=== PATIENT | female | born 1980 | race Caucasian/White ===

== ENCOUNTER 2022-10-16 11:28 | Inpatient (IN) ==
[2022-10-16] MEDS ORDERED: SODIUM CHLORIDE 0.9% 1000ML 1,000 ML IV STA (11:40)
[2022-10-16] MEDS ORDERED: GI COCKTAIL ED USE PO ONE (11:50)
[2022-10-16] MEDS ORDERED: FAMOTIDINE 20MG IV PUSH 20 MG/5 ML SYR IV STA (11:50)
--- NOTE | 2022-10-16 12:14 | Emergency Department Note ---
History of Present Illness General Chief complaint: Abdominal Pain Stated complaint: ABDOMINAL PAIN, CANT EAT, ABDOMINAL PAIN, HEADACHE Time Seen by Provider: 10/16/22 11:39 History of Present Illness Maximum Pain Intensity: 2 This 42-year-old female patient presents to the emergency department today for evaluation of abdominal pain. This has been going on for about a week. She reports a burning and sharp sensation in her epigastrium. It radiates to the left and right. The patient states when she eats even a cracker, he just "sits there" and she feels that the pain sometimes worsens. She does also notice worsening pain with an empty stomach. Patient denies history of similar symptoms. She has tried Tums without relief. She has also taken Tylenol without relief. Patient denies any chest pain or shortness of breath. She does report a chronic cough but this is unchanged. She denies any recent fever or illness. No nausea or vomiting. No diarrhea or constipation. She rates her pain at present a 2/10. She states she has been sleeping and lying flat more often recently than usual. Home Medications Medication Instructions Recorded Confirmed Type Multivit/Min/Iron/Fol Ac/Pren 1 tab PO DAILY ##0 05/20/10 History ( Vitamin) Sertraline (Zoloft) 50 mg PO DAILY ##0 05/20/10 History Acetaminophen/Codeine (Tylenol 1 tab PO Q4HR PRN ##0 06/13/10 History W/Codeine #3) Ibuprofen (Motrin) 600 mg PO Q4HR PRN ##0 06/13/10 History Allergies Allergy/AdvReac Type Severity Reaction Status Date / Time Penicillins Allergy HIVES Unverified 05/20/10 19:31 Sulfa (Sulfonamide Allergy HIVES Unverified 05/20/10 19:31 Antibiotics) Past Med/Surg History Medical History No pertinent past medical history Social History Smoking Status: Current every day smoker Feels Safe at Home: Yes Review of Systems A total of 10 systems reviewed and were otherwise negative Physical Exam Vital Signs Vital Signs - 24 hr 10/16/22 11:34 10/16/22 12:43 10/16/22 12:17 Temperature 36.5 C Temperature Source Temporal Artery Scan Pulse Rate 116 H 91 H Pulse Rate [Finger] 100 H Pulse Rate from SpO2 Sensor 91 H Pulse Rhythm Regular Pulse Rhythm [Finger] Regular Pulse Strength Normal Pulse Strength [Finger] Normal Respiratory Rate 20 20 25 H Respiratory Effort / Characteristics Non-Labored Spontaneous Non-Labored Spontaneous Respiratory Depth Normal Normal Respiratory Pattern Regular Blood Pressure [Left Arm] 288/168 H Blood Pressure Mean [Left Arm] 208 Blood Pressure Position [Left Arm] Lying Pulse Oximetry 99 99 98 Oxygen Delivery Method Room Air Sepsis Recent Fever Within 48 Hours No Sepsis New/Unexplained Change in Mental Status N/A Sepsis Action Taken by Nursing No Action Required 10/16/22 12:30 10/16/22 13:07 10/16/22 14:55 Temperature Temperature Source Pulse Rate 91 H Pulse Rate [Finger] Pulse Rate from SpO2 Sensor 91 H Pulse Rhythm Pulse Rhythm [Finger] Pulse Strength Pulse Strength [Finger] Respiratory Rate 16 Respiratory Effort / Characteristics Respiratory Depth Respiratory Pattern Blood Pressure [Left Arm] 275/150 H 282/145 H Blood Pressure Mean [Left Arm] 191 190 Blood Pressure Position [Left Arm] Lying Pulse Oximetry 100 Oxygen Delivery Method Sepsis Recent Fever Within 48 Hours Sepsis New/Unexplained Change in Mental Status Sepsis Action Taken by Nursing VITALS: Vitals are noted on the nurse's note and reviewed by myself. Vital signs stable. GENERAL: This is a 42-year-old white female, in no acute distress, nondiaphoretic, well-developed well-nourished. SKIN: The skin was without rashes, erythema, edema, or bruising. There is no tenting of the skin. Capillary refill less than 2 seconds. HEAD: Normocephalic atraumatic. EYES: Conjunctivae without injection, sclerae without icterus. NECK: Supple without nuchal rigidity. No lymphadenopathy. No JVD. HEART: Regular rate and rhythm without murmurs gallops or rubs. LUNGS: Clear to auscultation bilaterally without wheezes, rales or rhonchi. No retractions or accessory muscle use. ABDOMEN: Positive bowel sounds x 4. Epigastric, right upper quadrant, left upper quadrant tenderness to palpation. Abdomen is otherwise soft, nontender, without masses or organomegaly. Tabares sign negative. No guarding or rebound tenderness. MUSCULOSKELETAL: No muscle atrophy, erythema, or edema noted. Full range of motion without joint tenderness in all extremities. No tenderness to palpation. Normal gait. Strength 5/5 throughout. NEURO: Patient was alert and oriented to person place and time. No focal neurological deficits. Course Course The patient was seen and evaluated as above. An order was placed for continuous cardiac monitoring. The monitor shows a sinus tachycardia at a rate of 116 bpm. IV access obtained, labs drawn. Patient medicated with IV fluids, GI cocktail, Pepcid I did manually check the blood pressure. Blood pressure significantly elevated at 288/165. Labs reviewed by myself. I discussed the case with my attending physician. The patient was medicated with 10 mg IV hydralazine while at ultrasound. Imaging performed and reviewed by myself and radiologist as noted. I discussed the findings with the patient at bedside. The patient was reassessed. Blood pressure has slightly improved to 275/150 I discussed the case with the manager payroll I discussed the case with the [facility] hospitalist group. I spoke with Rose Mary Purcell PA-C. We did agree to give the patient a dose of IV labetalol and will give her a p.o. dose of potassium. Hospitalist did agree to accept the patient for admission. Please see hospitalist dictation regarding ongoing management care of this patient. Administered Medications Discontinued Medications Al Hydrox/Mg Hydrox/Simethicone (Gi Cocktail Ed Use) 1 dose PO ONE ONE Stop: 10/16/22 11:51 Last Admin: 10/16/22 12:21 Dose: 1 dose Documented By: [id number] Hydralazine HCl (Hydralazine Hcl 20 Mg/Ml Vial) 10 mg IV NOW STA Stop: 10/16/22 12:54 Last Admin: 10/16/22 13:05 Dose: 10 mg Documented By: [email or web address] Sodium Chloride (Nss 1000ml) 1,000 mls @ 999 mls/hr IV .Q1H1M STA Stop: 10/16/22 12:40 Last Infusion: 10/16/22 12:55 Dose: 0 mls/hr Documented By: [id number] Admin: 10/16/22 11:50 Dose: 999 mls/hr Documented By: [id number] Famotidine (Pepcid 20mg Iv Push) 20 mg in 5 mls @ 2.5 mls/min IV NOW STA Stop: 10/16/22 11:51 Last Admin: 10/16/22 12:21 Dose: 2.5 mls/min Documented By: [id number] Labetalol HCl (Labetalol Hcl Iv 5 Mg/Ml 20ml) 10 mg IV NOW STA Stop: 10/16/22 14:01 Last Admin: 10/16/22 14:15 Dose: 10 mg Documented By: [id number] Co-signed By: CARROLL Potassium Chloride (Potassium Chloride Crtab 20 Meq Tabcr) 40 meq PO NOW STA Stop: 10/16/22 14:02 Last Admin: 10/16/22 14:54 Dose: Not Given Documented By: [id number] Medical Decision Making Differential Diagnosis Etiologies such as diverticulitis, renal colic, PUD, biliary pathology, pancreatitis, mesenteric ischemia, aortic pathology, infections, Benign hypertension, hypertensive emergency, cardiovascular pathology, toxicologic, pheochromocytoma, electrolyte abnormality, renal disease, endorgan damage, as well as other pathologies. Medical Records Attestation: I reviewed the patient's medical records. Home Medications Current Medication List: was personally reviewed by me Laboratory Data Attestation: I reviewed the patient's lab results. No leukocytosis. Mild anemia with a hemoglobin of 10.2 and hematocrit of 28.1. No thrombocytopenia. Creatinine elevated at 5.23. Potassium 2.8. Hepatic function without significant abnormality. Lipase 68. Troponin 168.5. hCG negative. Result diagrams: 10/16/22 11:50 10/16/22 11:50 Lab Results 10/16/22 10/16/22 10/16/22 Range/Units 11:50 11:50 11:50 WBC 6.66 (4.8-10.8) K/ul RBC 3.01 L (3.93-5.22) M/uL Hgb 10.2 L (12.0-16.0) g/dl Hct 28.1 L (34.1-44.9) % MCV 93.4 (80.0-100.0) fL MCH 33.9 (25.0-34.0) pg MCHC 36.3 H (32.0-36.0) g/dL RDW Std Deviation 42.0 (36.4-46.3) fL RDW Coeff of Vy 12.3 (11.5-14.5) % Plt Count 220 (130-400) K/uL MPV 11.4 (9.4-12.3) fL Immature Gran % (Auto) 0.3 % Neut % (Auto) 80.5 % Lymph % (Auto) 10.5 % [place] % (Auto) 6.2 % Eos % (Auto) 2.0 % Baso % (Auto) 0.5 % Neut # (Auto) 5.37 (1.4-6.5) K/uL Lymph # (Auto) 0.70 L (1.2-3.4) K/uL [place] # (Auto) 0.41 (0.24-0.82) K/uL Eos # (Auto) 0.13 (0-0.50) K/uL Baso # (Auto) 0.03 (0-0.2) K/uL Immature Gran # (Auto) 0.02 (0.00-0.02) K/uL Sodium 132 L (136-145) mmol/L Potassium 2.8 L (3.5-5.1) mmol/L Chloride 89 L (98-107) mmol/L Carbon Dioxide 29 (21-32) mmol/L Anion Gap 14 H (3-11) BUN 52 H (6-23) mg/dl Creatinine 5.23 H* (0.6-1.2) mg/dl Est Cr Clr Drug Dosing 15.0 ml/min Est GFR ( Amer) 10.7 ml/min Est GFR (Non-Af Amer) 9.3 ml/min BUN/Creatinine Ratio 9.9 L (10-20) Glucose 119 H (70-99(Fasting)) mg/dl Calcium 10.1 (8.5-10.1) mg/dl Total Bilirubin 1.1 H (0.2-1.0) mg/dl AST 20 (13-39) U/L ALT 45 (7-52) U/L Alkaline Phosphatase 67 (34-104) U/L Troponin I High Sens 168.5 H* (0-14) pg/ml Total Protein 7.7 (6.0-8.3) gm/dl Albumin 4.5 (3.4-5.0) gm/dl Globulin 3.2 (2.5-4.0) gm/dl Albumin/Globulin Ratio 1.4 (0.9-2) Lipase 68 (11-82) U/L HCG, Qual Negative (Negative) Urine Color Urine Appearance (Clear) Urine pH (4.5-7.5) Ur Specific [place] (1.000-1.030) Urine Protein (Negative) Urine Glucose (UA) (Negative) Urine Ketones (Negative) Urine Blood (Negative) Urine Nitrite (Negative) Urine Bilirubin (Negative) Urine Urobilinogen (Negative) Ur Leukocyte Esterase (Negative) Urine WBC (Auto) (0-5) /hpf Urine RBC (Auto) (0-4) /hpf U Hyaline Cast (Auto) (0-5) /lpf U Epithel Cells (Auto) (0-5) /lpf Urine Bacteria (Auto) (Negative) 10/16/22 Range/Units 14:20 WBC (4.8-10.8) K/ul RBC (3.93-5.22) M/uL Hgb (12.0-16.0) g/dl Hct (34.1-44.9) % MCV (80.0-100.0) fL MCH (25.0-34.0) pg MCHC (32.0-36.0) g/dL RDW Std Deviation (36.4-46.3) fL RDW Coeff of Vy (11.5-14.5) % Plt Count (130-400) K/uL MPV (9.4-12.3) fL Immature Gran % (Auto) % Neut % (Auto) % Lymph % (Auto) % [place] % (Auto) % Eos % (Auto) % Baso % (Auto) % Neut # (Auto) (1.4-6.5) K/uL Lymph # (Auto) (1.2-3.4) K/uL [place] # (Auto) (0.24-0.82) K/uL Eos # (Auto) (0-0.50) K/uL Baso # (Auto) (0-0.2) K/uL Immature Gran # (Auto) (0.00-0.02) K/uL Sodium (136-145) mmol/L Potassium (3.5-5.1) mmol/L Chloride (98-107) mmol/L Carbon Dioxide (21-32) mmol/L Anion Gap (3-11) BUN (6-23) mg/dl Creatinine (0.6-1.2) mg/dl Est Cr Clr Drug Dosing ml/min Est GFR ( Amer) ml/min Est GFR (Non-Af Amer) ml/min BUN/Creatinine Ratio (10-20) Glucose (70-99(Fasting)) mg/dl Calcium (8.5-10.1) mg/dl Total Bilirubin (0.2-1.0) mg/dl AST (13-39) U/L ALT (7-52) U/L Alkaline Phosphatase (34-104) U/L Troponin I High Sens (0-14) pg/ml Total Protein (6.0-8.3) gm/dl Albumin (3.4-5.0) gm/dl Globulin (2.5-4.0) gm/dl Albumin/Globulin Ratio (0.9-2) Lipase (11-82) U/L HCG, Qual (Negative) Urine Color Yellow Urine Appearance Clear (Clear) Urine pH 7.0 (4.5-7.5) Ur Specific [place] 1.011 (1.000-1.030) Urine Protein 3+ H (Negative) Urine Glucose (UA) Negative (Negative) Urine Ketones Trace H (Negative) Urine Blood 3+ H (Negative) Urine Nitrite Negative (Negative) Urine Bilirubin Negative (Negative) Urine Urobilinogen Negative (Negative) Ur Leukocyte Esterase Trace H (Negative) Urine WBC (Auto) 10-30 H (0-5) /hpf Urine RBC (Auto) >30 H (0-4) /hpf U Hyaline Cast (Auto) 1-5 (0-5) /lpf U Epithel Cells (Auto) 20-30 H (0-5) /lpf Urine Bacteria (Auto) Negative (Negative) Imaging Data Radiologist's Impression: Chest X-Ray 10/16/22 11:40 SINGLE VIEW CHEST CLINICAL HISTORY: Epigastric abdominal pain FINDINGS: An AP, portable, upright chest radiograph is obtained. No prior studies are available for comparison at the time of dictation. The cardiomediastinal silhouette there is enlarged. The lungs and pleural spaces are clear. No pneumothorax is seen. The bony thorax is grossly intact. IMPRESSION: 1. Enlarged cardiac silhouette. 2. There is no airspace consolidation or pleural effusion. ACT 112: Negative or not required by law. Electronically signed by: Stu Aguiar M.D. 10/16/2022 12:14 PM Abdomen Ultrasound 10/16/22 11:50 ABDOMINAL ULTRASOUND, RIGHT UPPER QUADRANT HISTORY: epigastric/RUQ pain. COMPARISON: None. FINDINGS: Pancreas: The pancreas visualized demonstrates a normal echotexture. Liver: Nodular contour to the liver consistent with cirrhosis. The liver measures 20 cm in length. There is a 1.9 cm hyperechoic focus within the left hepatic lobe near the falciform ligament. This favors an area of focal fat given the location. Gallbladder: There are few gallbladder polyps measuring up to 6 mm. Trace gallbladder sludge. No definite gallstones. No gallbladder wall thickening. CBD: 4 mm. Right kidney: No hydronephrosis. IMPRESSION: 1. Enlarged and cirrhotic liver. There is a 1.9 cm hyperechoic focus within left hepatic lobe which favors focal fat. However, given the cirrhosis a follow-up nonemergent abdominal MRI is recommended for confirmation. 2. A few gallbladder polyps measuring up to 6 mm. One year follow-up recommended to ensure stability. 3. No gallstones. 4. Normal caliber common bile duct. ACT 112: Negative or not required by law. Electronically signed by: Jericho Rivera M.D. 10/16/2022 1:30 PM Abdominal Arterial Study US 10/16/22 13:00 US abdominal aortic aneurysm CLINICAL HISTORY: Generalized abdominal pain. Hypertension. Assess for an abdominal aortic aneurysm. COMPARISON STUDY: None. FINDINGS: The abdominal aorta and iliac arteries are normal in course and caliber. Abdominal aorta measures up to 1.7 cm in diameter. IMPRESSION: No evidence for abdominal aortic aneurysm. ACT 112: Negative or not required by law. Electronically signed by: Jericho Rivera M.D. 10/16/2022 1:28 PM ECG Data Attestation: I personally reviewed and interpreted this ECG as follows: Indication: + abdominal pain Rate (beats per minute): 102 Rhythm: + sinus tachycardia ECG Intervals/blocks: + Incomplete right bundle branch block ECG [place]: + Left axis deviation ECG ST segments: no ST depression or no ST elevation Comparison ECG Date: no prior available Blood Pressure Blood Pressure Findings: Elevated blood pressure Blood Pressure Disposition: further management by hospitalist MARILUZ Marquez This 42-year-old female patient presents to the emergency department today for evaluation of epigastric pain. Upon arrival to the emergency department, the patient was found to have an extremely elevated blood pressure. Work-up completed as above. Labs were concerning for elevated creatinine of 5 and elevated troponin. Given these findings in the setting of the significantly elevated blood pressure, and concern for hypertensive emergency and recommended the patient be admitted to the hospital for further management. The patient was medicated with hydralazine and subsequently labetalol with minimal improvement in her blood pressure. The patient was agreeable to admission. She will be admitted to the [facility] hospitalist service. Please see hospitalist dictation regarding ongoing management care of this patient. The chart was completed utilizing [employer] Speech voice recognition software. Grammatical errors, random word insertions, pronoun errors, and incomplete sentences are an occasional consequence of this system due to software limitations, ambient noise, and hardware issues. Any formal questions or concerns about the content, text, or information contained within the body of this dictation should be directly addressed to the provider for clarification. Impression & Plan Acute epigastric pain, Hypertensive emergency Discharge Plan Visit Data Chief Complaint: Abdominal Pain Stated Complaint: ABDOMINAL PAIN, CANT EAT, ABDOMINAL PAIN, HEADACHE ED Provider: Kandace Epstein ED Midlevel Provider: Nanda Thurston Discharge Problem: Acute epigastric pain, Hypertensive emergency Patient Disposition: Admitted As Inpatient Forms Stand Alone Forms: TellApart Prescriptions Prescriptions: No Action Multivit/Min/Iron/Fol Ac/Pren ( Vitamin) tablet 1 tab PO DAILY Qty: 0 Sertraline (Zoloft) 50 MG tablet 50 mg PO DAILY Qty: 0 Acetaminophen/Codeine (Tylenol W/Codeine #3) 300 MG/30 MG tablet 1 tab PO Q4HR PRN Qty: 0 Ibuprofen (Motrin) 600 MG tablet 600 mg PO Q4HR PRN Qty: 0 Referrals Referrals: PCP,NO [Primary Care Provider] -
[2022-10-16 12:23] LABS: Basophils # (auto) 0.03 K/uL (0-0.2); Basophils % (auto) 0.5 %; Eosinophils # (auto) 0.13 K/uL (0-0.50); Hematocrit (blood only) 28.1 % (34.1-44.9); Hemoglobin 10.2 g/dl (12.0-16.0); Immature Granulocytes # (auto) 0.02 K/uL (0.00-0.02); Immature Granulocytes % (auto) 0.3 %; Lymphocytes % (auto) 10.5 %; Mean Corpuscular Hemoglobin 33.9 pg (25.0-34.0); Mean Corpuscular Hgb Conc 36.3 g/dL (32.0-36.0); Mean Corpuscular Volume 93.4 fL (80.0-100.0); Mean Platelet Volume 11.4 fL (9.4-12.3); Monocytes # (auto) 0.41 K/uL (0.24-0.82); Monocytes % (auto) 6.2 %; Neutrophils # (auto) 5.37 K/uL (1.4-6.5); Neutrophils % (auto) 80.5 %; Platelet Count 220 K/uL (130-400); RDW Coefficient of Variation 12.3 % (11.5-14.5); Red Blood Count 3.01 M/uL (3.93-5.22); White Blood Count 6.66 K/ul (4.8-10.8)
[2022-10-16 12:40] LABS: Pregnancy Test, Serum Negative (Negative)
[2022-10-16 12:49] LABS: Albumin Globulin Ratio 1.4 (0.9-2); Albumin Level 4.5 gm/dl (3.4-5.0); BUN Creatinine Ratio 9.9 (10-20); Bilirubin,Total 1.1 mg/dl (0.2-1.0); Calcium 10.1 mg/dl (8.5-10.1); Est GFR (African American) 10.7 ml/min; Est GFR (Non-African American) 9.3 ml/min; Globulin 3.2 gm/dl (2.5-4.0); Potassium 2.8 mmol/L (3.5-5.1); Total Protein 7.7 gm/dl (6.0-8.3)
[2022-10-16] MEDS ORDERED: hydrALAZINE HCL 20 MG/ML VIAL IV STA ×2 (12:53→16:14)
[2022-10-16 13:16] LABS: Troponin I High Sensitivity 168.5 pg/ml (0-14)
--- NOTE | 2022-10-16 13:29 | Ultrasound Report ---
US abdominal aortic aneurysm CLINICAL HISTORY: Generalized abdominal pain. Hypertension. Assess for an abdominal aortic aneurysm. COMPARISON STUDY: None. FINDINGS: The abdominal aorta and iliac arteries are normal in course and caliber. Abdominal aorta me asures up to 1.7 cm in diameter. IMPRESSION: No evidence for abdominal aortic aneurysm. ACT 112: Negative or not required by law. Electronically signed by: Jericho Rivera M.D. 10/16/2022 1:28 PM
--- NOTE | 2022-10-16 13:31 | Ultrasound Report ---
ABDOMINAL ULTRASOUND, RIGHT UPPER QUADRANT HISTORY: epigastric/RUQ pain. COMPARISON: None. FINDINGS: Pancreas: The pancreas visualized demonstrates a normal echotexture. Liver: Nodular contour to the liver consistent with cirrhosis. The liver measures 20 cm in length. Th ere is a 1.9 cm hyperechoic focus within the left hepatic lobe near the falciform ligament. This favo rs an area of focal fat given the location. Gallbladder: There are few gallbladder polyps measuring up to 6 mm. Trace gallbladder sludge. No defi nite gallstones. No gallbladder wall thickening. CBD: 4 mm. Right kidney: No hydronephrosis. IMPRESSION: 1. Enlarged and cirrhotic liver. There is a 1.9 cm hyperechoic focus within left hepatic lobe which f avors focal fat. However, given the cirrhosis a follow-up nonemergent abdominal MRI is recommended fo r confirmation. 2. A few gallbladder polyps measuring up to 6 mm. One year follow-up recommended to ensure stability. 3. No gallstones. 4. Normal caliber common bile duct. ACT 112: Negative or not required by law. Electronically signed by: Jericho Rivera M.D. 10/16/2022 1:30 PM
[2022-10-16] MEDS ORDERED: LABETALOL HCL IV 5 MG/ML 20ML IV STA ×2 (14:00→16:15)
[2022-10-16] MEDS ORDERED: POTASSIUM CHLORIDE CRTAB 20 MEQ TABCR PO STA (14:01)
[2022-10-16 14:52] LABS: Appearance Urine Clear (Clear); Bacteria Urine Automated Negative (Negative); Bilirubin Urine Negative (Negative); Blood Urine 3+ (Negative); Color Urine Yellow; Epithelial Cell Urine Auto 20-30 /lpf (0-5); Glucose Urine UA Negative (Negative); Ketones Urine Trace (Negative); Leukocyte Esterase Urine Trace (Negative); Nitrite Urine Negative (Negative); Protein Urine 3+ (Negative); RBC Urine Automated >30 /hpf (0-4); Specific Gravity Urine 1.011 (1.000-1.030); Urobilinogen Urine Negative (Negative)
[2022-10-16] MEDS ORDERED: POTASSIUM CHLORIDE 20 MEQ/15 ML UDC PO STA (15:04)
[2022-10-16] MEDS ORDERED: STAT IV Infusion **Titration per Protocol STA (15:11)
--- NOTE | 2022-10-16 15:41 | Critical Care Consultation ---
Date of Consultation October 16, 2022 Assessment & Plan (1) Hypertensive emergency: (2) Acute renal failure: (3) Hypokalemia: (4) Anemia: (5) Non-ST elevation myocardial infarction (NSTEMI): (6) Abdominal pain: Plan Impression: 42-year-old female without significant past medical history presents for evaluation of abdominal pain and found to have profound hypertensive emergency with associated renal failure. She was unresponsive to labetalol and hydralazine in the emergency room. Recommendations: 1. Neurologic: Fortunately the patient does not have neurological symptoms currently. We will continue to follow clinically. Given the fact that were not sure how long her blood pressure has been elevated, will attempt to acutely lower her blood pressure below systolic of 100 and try and maintain it around 180. 2. Cardiovascular: Hypertensive emergency: Initiate nicardipine with blood pressure parameters as noted above. Check echocardiogram. Trend troponins. Will start oral medications in the form of metoprolol. Check echocardiogram. 3. Pulmonary: No current issues. Continue to monitor at this point time. 4. Renal: Acute renal failure with associated hypokalemia: Suspect related to hypertension. Continue serial lab evaluations with electrolyte repletion. She appears euvolemic currently. Judicious use of IV fluids. Nephrology consultation pending. Urinalysis showed 3+ blood and 3+ protein. There were significant epithelial cells noted and it may have been a contaminated specimen. We will check renal ultrasound. Judiciously replace potassium and follow sodium levels. Close attention to I/O. 5. GI: Abdominal pain. Unclear if this is related to the patient's acute renal failure. Advance diet as tolerated. Nodular liver noted on ultrasound possibly consistent with cirrhosis. Follow clinically. LFTs normal. Lipase negative. 6. ID: No current issues. Continue to follow clinically. 7. Endocrine: No current issues. 8. Heme-onc: Anemia: Unclear etiology. May be secondary to renal failure. No signs of bleeding. No indication for transfusion currently but will continue to follow. 9. Prophylaxis: DVT prophylaxis with subcu heparin. Hold GI prophylaxis for now. Patient is critically ill with significant metabolic dysfunction and possibility of clinical decline. She will be monitored closely in the ICU pending improvement of her hemodynamics and metabolic abnormalities. The above recommendations and plan were discussed with the patient as well as with her at bedside. Questions were answered to the best of my ability. They expressed understanding and are in agreement with plan as outlined. History of Present Illness History of Present Illness Asked by hospitalist to assist in evaluation management this patient with hy pertensive emergency. History is obtained from discussion with the hospitalist, reviewed electronic medical record, and interviewed the patient and spouse at bedside. The patient is a 42-year-old female who smokes about half pack per day. She does not seek medical attention on a regular basis. She has no prior history of kidney problems that she is aware of. She was diagnosed with gestational diabetes but is not on any medications. She presented to the emergency room today thinking that she had gastritis. She had abdominal pain and dry cough. She had tried [id number] and acids as well as Tylenol without significant relief of symptoms. She was found to be profoundly hypertensive in the emergency room and received hydralazine and labetalol without significant improvement in her blood pressure. This prompted consultation with internal medicine for admission and ICU for consideration of acute lowering of blood pressure. Nephrology is also been consulted but has not evaluated the patient. The patient is quite anxious. She is complaining of significant pain due to the blood pressure cuff. She denies neurological symptoms. No chest pain or shortness of breath but she does note occasional palpitations. She is not . She does not endorse any use of sympathomimetics or recreational drug use. She drinks caffeinated beverages in the form of coffee and iced tea but not to excess. Allergies Allergy/AdvReac Type Severity Reaction Status Date / Time Penicillins Allergy HIVES Unverified 10/16/22 15:47 Sulfa (Sulfonamide Allergy HIVES Unverified 10/16/22 15:47 Antibiotics) Home Medications Medication Instructions Recorded Confirmed Type ascorbic acid (vitamin C) 500 mg 0 mg PO DAILY 10/16/22 10/16/22 History tablet (Vitamin C) magnesium 200 mg tablet 0 mg PO QAM 10/16/22 10/16/22 History multivitamin 1 tab PO QAM 10/16/22 10/16/22 History vitamin B12 0.5 mg-folic acid 1 mg 1 tab PO QAM 10/16/22 10/16/22 History tablet Patient History Medical History No pertinent past medical history Social History Smoking Status: Current every day smoker Feels Safe at Home: Yes Review of Systems Review of Systems: Please refer to admission H&P. No additions or deletions Physical Exam Constitutional: WD/WN, vitals as above Neck: trachea midline, no thyromegaly Respiratory: normal respiratory effort, lungs clear to auscultation Cardiovascular: RRR, no murmur, no edema Gastrointestinal (Abdomen): normal bowel sounds, soft, nontender, no hepatosplenomegaly Musculoskeletal: Extremities: extremities normal to inspection Skin: no rashes, warm and dry Neurologic: Nonfocal exam Lymphatic: no cervical lymphadenopathy Results & Data Results & Data ([facility]) Vital Signs (Past 12 Hours) Vital Signs Temp Pulse Pulse Resp BP Pulse Ox O2 Del Method 10/16/22 14:55 282/145 H 10/16/22 13:07 275/150 H 10/16/22 12:30 91 H 16 100 10/16/22 12:17 91 H 25 H 98 10/16/22 12:43 100 H 20 288/168 H 99 10/16/22 11:34 36.5 C 116 H 20 99 Room Air Critical Care Results & Data Vital Signs (Past 12 Hours) Vital Signs Temp Pulse Pulse Resp BP Pulse Ox O2 Del Method 10/16/22 14:55 282/145 H 10/16/22 13:07 275/150 H 10/16/22 12:30 91 H 16 100 10/16/22 12:17 91 H 25 H 98 10/16/22 12:43 100 H 20 288/168 H 99 10/16/22 11:34 36.5 C 116 H 20 99 Room Air Lab & Micro Results (Past 24 Hours) RBC 3.01 M/uL (3.93-5.22) L 10/16/22 WBC 6.66 K/ul (4.8-10.8) 10/16/22 Hgb 10.2 g/dl (12.0-16.0) L 10/16/22 Hct 28.1 % (34.1-44.9) L 10/16/22 MCV 93.4 fL (80.0-100.0) 10/16/22 MCH 33.9 pg (25.0-34.0) 10/16/22 MCHC 36.3 g/dL (32.0-36.0) H 10/16/22 RDW Standard Deviation 42.0 fL (36.4-46.3) 10/16/22 RDW Coefficient of Variation 12.3 % (11.5-14.5) 10/16/22 Plt Count 220 K/uL (130-400) 10/16/22 MPV 11.4 fL (9.4-12.3) 10/16/22 Neutrophils (%) (Auto) 80.5 % 10/16/22 Lymphocytes (%) (Auto) 10.5 % 10/16/22 Monocytes # (Auto) 0.41 K/uL (0.24-0.82) 10/16/22 Eosinophils # (Auto) 0.13 K/uL (0-0.50) 10/16/22 Immature Granulocyte % (Auto) 0.3 % 10/16/22 Neutrophils # (Auto) 5.37 K/uL (1.4-6.5) 10/16/22 Lymphocytes # (Auto) 0.70 K/uL (1.2-3.4) L 10/16/22 Monocytes # (Auto) 0.41 K/uL (0.24-0.82) 10/16/22 Eosinophils # (Auto) 0.13 K/uL (0-0.50) 10/16/22 Basophils # (Auto) 0.03 K/uL (0-0.2) 10/16/22 Immature Granulocyte # (Auto) 0.02 K/uL (0.00-0.02) 2 Na 132 mmol/L (136-145) L 10/16/22 K 2.8 mmol/L (3.5-5.1) L 10/16/22 Cl 89 mmol/L (98-107) L 10/16/22 CO2 29 mmol/L (21-32) 10/16/22 Anion Gap 14 (3-11) H 10/16/22 BUN 52 mg/dl (6-23) H 10/16/22 Creatinine 5.23 mg/dl (0.6-1.2) H* 10/16/22 Estimated GFR ( Amer) 10.7 ml/min 10/16/22 Estimated GFR (Non-Af Amer) 9.3 ml/min 10/16/22 BUN/Creatinine Ratio 9.9 (10-20) L 10/16/22 Glu 119 mg/dl (70-99(Fasting)) H 10/16/22 Ca 10.1 mg/dl (8.5-10.1) 10/16/22 Total Bilirubin 1.1 mg/dl (0.2-1.0) H 10/16/22 AST 20 U/L (13-39) 10/16/22 ALT 45 U/L (7-52) 10/16/22 Alkaline Phosphatase 67 U/L (34-104) 10/16/22 TP 7.7 gm/dl (6.0-8.3) 10/16/22 Albumin 4.5 gm/dl (3.4-5.0) 10/16/22 Globulin 3.2 gm/dl (2.5-4.0) 10/16/22 Albumin/Globulin Ratio 1.4 (0.9-2) 10/16/22 Mg Pending 10/16/22 11:50 Calcium Level 10.1 mg/dl (8.5-10.1) 10/16/22 11:50 Diagnostic Findings (Past 24 Hours) Chest X-Ray 10/16/22 11:40 SINGLE VIEW CHEST CLINICAL HISTORY: Epigastric abdominal pain FINDINGS: An AP, portable, upright chest radiograph is obtained. No prior studies are available for comparison at the time of dictation. The cardiomediastinal silhouette there is enlarged. The lungs and pleural spaces are clear. No pneumothorax is seen. The bony thorax is grossly intact. IMPRESSION: 1. Enlarged cardiac silhouette. 2. There is no airspace consolidation or pleural effusion. ACT 112: Negative or not required by law. Electronically signed by: Stu Aguiar M.D. 10/16/2022 12:14 PM Abdomen Ultrasound 10/16/22 11:50 ABDOMINAL ULTRASOUND, RIGHT UPPER QUADRANT HISTORY: epigastric/RUQ pain. COMPARISON: None. FINDINGS: Pancreas: The pancreas visualized demonstrates a normal echotexture. Liver: Nodular contour to the liver consistent with cirrhosis. The liver measures 20 cm in length. There is a 1.9 cm hyperechoic focus within the left hepatic lobe near the falciform ligament. This favors an area of focal fat given the location. Gallbladder: There are few gallbladder polyps measuring up to 6 mm. Trace gallbladder sludge. No definite gallstones. No gallbladder wall thickening. CBD: 4 mm. Right kidney: No hydronephrosis. IMPRESSION: 1. Enlarged and cirrhotic liver. There is a 1.9 cm hyperechoic focus within left hepatic lobe which favors focal fat. However, given the cirrhosis a follow-up nonemergent abdominal MRI is recommended for confirmation. 2. A few gallbladder polyps measuring up to 6 mm. One year follow-up recommended to ensure stability. 3. No gallstones. 4. Normal caliber common bile duct. ACT 112: Negative or not required by law. Electronically signed by: Jericho Rivera M.D. 10/16/2022 1:30 PM Abdominal Arterial Study US 10/16/22 13:00 US abdominal aortic aneurysm CLINICAL HISTORY: Generalized abdominal pain. Hypertension. Assess for an abdominal aortic aneurysm. COMPARISON STUDY: None. FINDINGS: The abdominal aorta and iliac arteries are normal in course and caliber. Abdominal aorta measures up to 1.7 cm in diameter. IMPRESSION: No evidence for abdominal aortic aneurysm. ACT 112: Negative or not required by law. Electronically signed by: Jericho Rivera M.D. 10/16/2022 1:28 PM I & O Totals 24 Hours 10/15/22 10/16/22 10/17/22 06:59 06:59 06:59 Intake Total 1000 / 1000 Balance 1000 / 1000 Cumulative 10/16/22 11:28 thru 10/16/22 12:55 Intake Total 1000 Balance 1000 RT Ventilator Mngmt (Last Documented) Ventilator Ordered Settings Respiratory Rate 20 10/16/22 12:43 Ventilator - PT Measurements Respiratory Rate 20 Coding Level of Care Code Critical Care 1st 30-74 mins Diagnoses Hypertensive emergency I16.1 Acute renal failure N17.9 Hypokalemia E87.6 Anemia D64.9 Non-ST elevation myocardial infarction (NSTEMI) I21.4 Abdominal pain R10.9
[2022-10-16] MEDS ORDERED: hydrALAZINE HCL 20 MG/ML VIAL ONE (15:59)
[2022-10-16] MEDS: niCARdipine 25 MG in SODIUM CHLORIDE 0.9% 240 ML IV SCH ×2 (16:03→22:21)
[2022-10-16] MEDS ORDERED: ICU Protocol for HYPERglycemia PRN (16:06)
[2022-10-16] MEDS ORDERED: LORazepam 0.5 MG TAB PO STA (16:08)
[2022-10-16] MEDS ORDERED: NICOTINE 21 MG/24 HR TDSY TD SCH (16:15)
[2022-10-16] MEDS: POTASSIUM CHLORIDE / WTR 10 MEQ/100 ML PLCT IV SCH ×6 (16:16→23:17)
--- NOTE | 2022-10-16 16:20 | Procedure Note ---
Procedure Note Date of Service October 16, 2022 Note ARTERIAL LINE PROCEDURE NOTE: Procedure: Arterial Line Placement Provider: Praneeth Johansen MD Indication: Hypertensive emergency Verbal consent obtained from the patient. Indication, risks, and benefits were explained at length. A time-out was completed verifying correct patient, procedure, site, positioning, and implant(s) or special equipment if applicable. Allens test was performed to ensure adequate perfusion. Patients left wrist was prepped and draped in the usual sterile fashion. A 20g Arrow arterial line was introduced into the left radial artery. Catheter was threaded, and the needle was removed with appropriate blood return. Good waveform was observed. The patient tolerated the procedure well. Blood Loss: Minimal Complications: None Coding CPT Codes Tubes, Drains, and Vasc Access - Tubes, Drains, and Vasc Access: [id number] Insertion Catheter, Artery ([id number]) [facility] [place] Procedure Codes (Charges) Tubes, Drains, and Vasc Access Procedure 1: Tubes, Drains, and Vasc Access: [id number] Insertion Catheter, Artery
[2022-10-16] MEDS ORDERED: cloNIDine HCL 0.1 MG TAB PO SCH (16:30)
[2022-10-16] MEDS: HYDROmorphone INJ 0.5 MG/0.5 ML SYR IV PRN ×2 (16:35→21:55)
[2022-10-16] MEDS: NSS + 20MEQ KCL 20 MEQ/1,000 ML BAG IV SCH (16:42)
[2022-10-16] MEDS: METOPROLOL TARTRATE 25 MG TAB PO SCH (16:48)
--- NOTE | 2022-10-16 16:59 | History and Physical Report ---
DATE OF ADMISSION: 10/16/2022 CHIEF COMPLAINT: Abdominal pain and hypertensive emergency. HISTORY OF PRESENT ILLNESS: This is a 42-year-old female with ongoing tobacco abuse, history of alcohol abuse. She says she drank 3-4 vodkas daily, but cut down since last one year and last drink was in Halloweens, she did not drink since then as per the patient. She was told that she has high blood pressure about 5 years ago, with last visit with her family doctor in 2016 as per [facility]. She was told to lose weight. The patient says she was also prescribed medication, but she did not like it and she did not followed up with doctor since then. She presents because of epigastric abdominal pain going on since last , it is not getting better, it is not very severe, it is 2-3/10 in severity and also some epigastric tenderness and also she had one episode of vomiting last night. In the ER after GI cocktail and Pepcid, her epigastric tenderness has improved. In the ER, she was found to have hypertensive emergency with systolic blood pressure of 282 and diastolic of 145. She was given a dose of hydralazine as well as labetalol, but the blood pressure is not coming down, still in the 280s and creatinine is 5.2, potassium is 2.8, sodium 132, BUN 52. Troponin I high sensitivity 168. Urinalysis, +3 protein, +3 blood. Abdominal ultrasound shows liver cirrhosis. The patient is currently resting comfortably. Denies any headache, denies any blurred vision. Denies any dizziness. No earache, no runny nose. Has chronic cough. Once in a while, she brings phlegm. Appetite is okay. No chest pain, no shortness of breath. She was constipated, but yesterday she moved her bowels. Denies any blood in stools or black stools. She is frequently micturating as per the patient. No swelling in the legs. She is walking okay, but she has difficulty climbing steps. She gets weak and tired easily. ALLERGIES: PENICILLIN, SULFA ANTIBIOTICS. PAST MEDICAL HISTORY: As mentioned above. PAST SURGICAL HISTORY: Tonsillectomy, adenoidectomy, wisdom teeth, sinus surgery. MEDICATIONS: Currently none. She takes Tylenol or ibuprofen as needed. FAMILY HISTORY: Significant for father has heart disease and hypertension; mother has hypertension and pancreatitis. SOCIAL HISTORY: Smokes 1 pack of cigarettes daily since last 25 years, used to drink alcohol, but says she is not drinking since last ow Day. Denies any drug use. Denies any marijuana. REVIEW OF SYSTEMS: As per HPI. Rest of the review of systems is negative. PHYSICAL EXAMINATION: GENERAL: The patient is obese, not in acute distress. VITAL SIGNS: Temperature 36.5, pulse 100, respiratory rate 20, blood pressure 280/145, oxygen 99% on room air. HEENT: Pupils equal, round and reactive to light. Oral mucosa moist. NECK: No JVD, no neck masses. Supple. CARDIOVASCULAR: S1 and S2 heard, regular rate and rhythm. No murmur, no gallop. RESPIRATORY SYSTEM: Normal AP diameter. No accessory muscle use. No wheezing, no crackles. ABDOMEN: Soft, bowel sounds present, nontender, no distention. CENTRAL NERVOUS SYSTEM: Alert and oriented. Speech is clear. No facial droop. Insight is okay. Obeys simple commands. Moves extremities. EXTREMITIES: No edema, no erythema seen. LABORATORY DATA: WBC 6.6, hemoglobin 10.2, hematocrit 28.1, platelets 220. Sodium 132, potassium 2.8, chloride 89, CO2 29, BUN 52, creatinine 5.2, serum glucose 119, calcium 10.1, total bilirubin 1.1, AST 20, ALT 45, alkaline phosphatase 67. Troponin I high sensitivity 168. Lipase 68. HCG qualitative negative. Urinalysis, +3 blood, +3 protein, ketones trace, leukocyte esterase and bacteria negative. Abdominal arterial ultrasound: No evidence for abdominal aortic aneurysm. Abdominal ultrasound of right upper quadrant: Cirrhotic liver. A 1.9 cm hypoechoic focus in the left hepatic lobe, which represents focal fat. Nonemergent abdominal MRI is recommended. gallbladder polyps measuring up to 6 mm, 1-year followup recommended. No gallstones. Chest x-ray: No airspace consolidation or pleural effusion. EKG: Sinus tachycardia at a rate of 102. Bilateral atrial enlargement, left axis deviation, incomplete right bundle-branch block, QTc elevated at 503. ASSESSMENT AND PLAN: This is a 42-year-old female who presents with abdominal pain and found to have hypertensive emergency, acute kidney injury/chronic kidney disease and liver cirrhosis. 1. Hypertensive emergency with blood pressure of 282/145, elevated troponin of 168 and creatinine of 5.2. Received IV hydralazine 10 mg and IV labetalol 10 mg, not improving. Starting on nicardipine drip and transferred in to the intensive care unit. Closely monitor. Slow correction of the blood pressure. Critical care notified and appreciate help. Discussed with nephrology and agrees with the nicardipine drip for now and advised to get renovascular scan and C3, C4 ANCA levels, protein/creatine ratio. 2. Acute kidney injury versus chronic kidney disease. On outpatient Epic laboratories, her creatinine was 0.7 on 07/01/2015. Today is 5.2, BUN is 52. Discussed with nephrology. Correction of blood pressure and getting the renovascular scan, starting fluids of normal saline with 20 of KCl to 75 mL per hour. Follow the repeat laboratories. Await nephrology input. Also, nephrology advised to order C3, C4 ANCA levels and protein-creatinine ratio. 3. Electrolyte abnormalities. Sodium of 132, potassium of 2.8, awaiting magnesium levels. Replacing potassium with 40 of p.o. KCl and 40 of IV KCl and also on maintenance fluids. We will follow the repeat laboratories. 4. Elevated troponin of 168. The patient denies chest pain. We will follow serial enzymes, echocardiogram, and cardiac consult in a.m. for further recommendations. 5. 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 The patient says she is not drinking lately and her last drink was in and also gallbladder polyps on the imaging studies. Gastrointestinal followup when stable. Also, closely monitor for any alcohol withdrawals, though the patient declines regular use currently. 6.Prolonged Qt. Follow repeat ekg. Avoid qt prolonging drugs. 7. Anemia. Will follow Hemoccult, iron studies, vitamin b12 and folate levels 8. Deep venous thrombosis prophylaxis, placed on heparin subcutaneously. DISPOSITION: Closely monitor in the ICU. Level 1, full code. Job ID: [id number] [facility]
--- NOTE | 2022-10-16 17:11 | Cardiology Consultation ---
Date of Consultation October 16, 2022 Assessment & Plan (1) Hypertensive emergency: (2) Acute renal failure: (3) Hypokalemia: (4) Elevated troponin: Plan - Patient presents with hypertensive emergency. -History with suggestive that this is been a process that has been brewing for quite some time. -Urinalysis revealed 3+ urine protein, 3+ urine blood. -The patient's systolic blood pressure was approaching 300 mmHg upon arrival to the intensive care unit. After receiving 10 mg of IV labetalol, 20 mg of hydralazine, and a nicardipine infusion, systolic blood pressure down to the range of 168-180 mm Hg, with new onset of dizziness. Nicardipine therefore has been placed on hold. I have recommended that we hold the previously ordered doses of metoprolol and clonidine for now. Would consider another dose of IV labetalol or resuming nicardipine at a low dose overnight, as I think we need to take her time with the degree of blood pressure lowering. Patient is on gentle fluids, normal saline +20 mEq potassium chloride at 75 mL/h, and is also receiving IV potassium replacement, 10 meq / 100 ml at 100ml /hr. Her elevation in troponin is likely explained on the basis of myocardial strain given high blood pressure and renal insufficiency of uncertain acuity/chronicity . I do not think the patient's presentation is suggestive of an acute intra coronary plaque rupture. Continue to ensure serial troponin. Plan for echocardiogram tomorrow. Case discussed with brandan's nurse and Dr Salazar of nephrology. History of Present Illness Attending Physician: Fabrice Louise MD History of Present Illness Matilda Benitez is a 42-year-old female seen in cardiology consultation per the request of Dr. Louise for the evaluation of hypertensive emergency and mild elevation in HS troponin. Patient is accompanied by her , Nikolay, at the bedside. She does not go to the doctor regularly, with most recent primary care visit found in the [facility] record dating back to 2014 at which time her blood pressure was 148/98. She has 2 sons, ages 12 and 16. With her initial she recalls having been diagnosed with preeclampsia and was induced 3 weeks before her due date. She presented to the emergency department today with vague abdominal discomfort. Blood pressure upon arrival was measured to be 288/168. She notes no ass ociated chest discomfort or headache. She had since received 10 mg of IV labetalol, 20 mg of IV hydralazine, and had been started on a nicardipine infusion. A radial arterial line is in place, with current blood pressure in the 170s to 180/100 range. She now has associated dizziness. Abnormal laboratory studies noted including hemoglobin of 10.2, creatinine of 5.23 mg/ dl (0.7 mg/dl at time of most recent measurement in 2014), potassium level of 2.8, and HS troponin of 168.5 pg/ml. Past Medical History: Preeclampsia smoker Family History: Father suddenly of suspected myocardial infarction at the age of 72 Maternal grandfather with history of myocardial infarction Mother with history of hypertension Social History: , spouse is named Nikolay She has 2 sons ages 12 and 16 She works in the [employer] industry Allergies Allergy/AdvReac Type Severity Reaction Status Date / Time Penicillins Allergy HIVES Unverified 10/16/22 15:47 Sulfa (Sulfonamide Allergy HIVES Unverified 10/16/22 15:47 Antibiotics) Home Medications Medication Instructions Recorded Confirmed Type ascorbic acid (vitamin C) 500 mg 0 mg PO DAILY 10/16/22 10/16/22 History tablet (Vitamin C) magnesium 200 mg tablet 0 mg PO QAM 10/16/22 10/16/22 History multivitamin 1 tab PO QAM 10/16/22 10/16/22 History vitamin B12 0.5 mg-folic acid 1 mg 1 tab PO QAM 10/16/22 10/16/22 History tablet Patient History Medical History No pertinent past medical history Social History Smoking Status: Current every day smoker Feels Safe at Home: Yes Review of Systems Review of Systems: All systems reviewed & are unremarkable except as noted in HPI & below Physical Exam Constitutional: + ill appearing Respiratory: normal respiratory effort, lungs clear to auscultation Cardiovascular: RRR, no murmur, no edema Gastrointestinal (Abdomen): Mild epigastric tenderness Neurologic: PERRL, EOMI, accommodation nl, no face palsy, no dysarthria Results & Data ([facility]) Vital Signs (Past 12 Hours) Vital Signs Temp Pulse Pulse Resp BP Pulse Ox O2 Del Method 10/16/22 14:55 282/145 H 10/16/22 13:07 275/150 H 10/16/22 12:30 91 H 16 100 10/16/22 12:17 91 H 25 H 98 10/16/22 12:43 100 H 20 288/168 H 99 10/16/22 11:34 36.5 C 116 H 20 99 Room Air Diagnostic Findings EKG performed today 10/16/2022: Sinus tachycardia 102 beats per minute, incomplete right bundle branch block, LVH by voltage criteria, with resultant repolarization abnormality. -Compared to the previous tracing performed as an outpatient dated 06/24/2015, incomplete right bundle branch block and findings of left ventricular hypertrophy are new Medications Administered Current Inpatient Medications Clonidine HCl (Clonidine Hcl 0.1 Mg Tab) 0.1 mg PO DAILY [facility] Stop: 11/15/22 16:29 Last Admin: 10/16/22 16:49 Dose: Not Given Heparin Sodium (Porcine) (Heparin Sod 5,000 Unit/0.5 Ml Vial) 5,000 units SQ Q8 [facility] Stop: 11/15/22 21:59 Hydromorphone HCl (Hydromorphone Inj 0.5 Mg/0.5 Ml Syr) 0.25 mg IV Q6H PRN PRN Reason: Pain Stop: 10/30/22 16:30 Last Admin: 10/16/22 16:35 Dose: 0.25 mg Potassium Chloride (K Nick / Wtr) 10 meq in 100 mls @ 100 mls/hr IV Q1H [facility] Stop: 10/16/22 19:14 Last Admin: 10/16/22 16:16 Dose: 100 mls/hr Nicardipine HCl 25 mg/ Sodium (Chloride) 250 mls @ 50 mls/hr IV .Q5H [facility]; Protocol Stop: 11/15/22 15:14 Last Titration: 10/16/22 16:14 Dose: 0 mg/hr, 0 mls/hr Potassium Chloride/Sodium Chloride (Normal Saline W/20 Meq Kcl) 20 meq in 1,000 mls @ 75 mls/hr IV .[id number] [facility] Stop: 11/15/22 16:05 Last Admin: 10/16/22 16:42 Dose: 75 mls/hr Metoprolol Tartrate (Metoprolol Tartrate 25 Mg Tab) 12.5 mg PO Q8H [facility] Stop: 11/15/22 16:14 Last Admin: 10/16/22 16:48 Dose: Not Given Miscellaneous (Icu Protocol For Hyperglycemia) 1 each N/A PRN PRN; Protocol PRN Reason: Hyperglycemia Protocol Stop: 10/18/22 16:05
[2022-10-16 17:16] LABS: Troponin I High Sensitivity 176.2 pg/ml (0-14)
[2022-10-16 18:19] LABS: Creatinine Urine Random 57.2 mg/dl; Protein Creatinine Ratio Urine 6.1 (0-0.2); Total Protein Urine Random 347.4 mg/dl (0-11.9)
[2022-10-16 18:39] LABS: Creatinine Clr Calc Pharmacy 15.7 ml/min; Est GFR (African American) 11.4 ml/min; Est GFR (Non-African American) 9.8 ml/min
[2022-10-16 18:40] LABS: BUN Creatinine Ratio 10.4 (10-20); Calcium 9.1 mg/dl (8.5-10.1); Potassium 2.5 mmol/L (3.5-5.1)
--- NOTE | 2022-10-16 20:42 | Consultation Report ---
NEPHROLOGY CONSULTATION NOTE DATE OF SERVICE: 10/16/2022. REASON FOR CONSULTATION: Acute renal failure, hypertensive urgency. HISTORY OF PRESENT ILLNESS: The patient is a 42-year-old female, who has history of uncontrolled hyp ertension even 6 years ago, but normally does not get any healthcare. In fact, her last blood work w e have is from 2015 when she had a completely normal kidney function, but had severe hypertension binta n back then. She presented to the hospital because of nausea, dry heaves, abdominal pain especially over the epigastric area. In the Emergency Department, she was found to be profoundly hypertensive w ith blood pressure of more than 220. She did receive hydralazine and labetalol without significant i mprovement in her blood pressure. She is now admitted in intensive care unit. The patient is not ab le to give a detailed history, but according to her and her , she was relatively fine up until a week ago. At this time, the patient is on a nicardipine drip as well as clonidine and metoprolol. Her admission labs were very abnormal with a creatinine of 5.23 and a BUN of 52, potassium as low a t 2.8, sodium low at 132. Magnesium is normal. Chest x-ray was unremarkable, without any pulmonary edema. Abdominal ultrasound also showed enlarged and cirrhotic liver, which is also a diagnosis. Ri ght kidney was normal. The patient does not recall having kidney disease ever in her life and does n ot have any family history of kidney disease. ALLERGIES: SULFA ANTIBIOTICS. HOME MEDICATIONS: Vitamin C and some multivitamin and supplement, but not on a daily basis. PAST MEDICAL HISTORY: None reported, but she did have hypertension 6 years ago. SOCIAL HISTORY: Current everyday smoker, everyday alcohol. She is and lives with her adrian gilbert. REVIEW OF SYSTEMS: As detailed in HPI; unless stated otherwise, 12 systems reviewed and negative. PHYSICAL EXAMINATION: GENERAL: A middle-aged white female, who is somewhat obese. She is awake, alert, oriented x3, but n ot feeling good and not in a good position to give detailed answer. She is awake, alert, oriented x3 . VITAL SIGNS: Blood pressure on admission was 282/145 with a pulse of 100. Most recent blood pressur e at the time of my examination was around 160 systolic/100. CHEST: Bilaterally clear to auscultation. CARDIOVASCULAR: S1 and S2, regular. ABDOMEN: Soft, nontender. EXTREMITIES: Show trace edema. LABORATORY TEST: Hemoglobin 10.2, platelet count 220. Sodium 132, potassium 2.8, BUN 52, creatinine 5.23. Magnesium normal at 2.3. Urine sediment, 3+ blood, 3+ protein, lots of rbc's, wbc's, epithel ial cells. ASSESSMENT AND PLAN: A 42-year-old female who does not go to the doctors with a last medical care ob tained in 2014 or 2015 when she had a normal kidney function, but already had very uncontrolled hyper tension, which has not been treated. At this time, she has hypertensive urgency with renal failure. 1. Renal failure. We do not know whether this is acute or chronic. The only blood work we have is from almost 6 years ago and that time it was normal. However, it is concerning to see this degree of renal failure in a relatively young person. Urine sediment is quite active with 3+ blood and 3+ pro tein with lots of epithelial cells and rbc's and wbc's. This is consistent with both ATN as well as glomerulonephritis. However, it is unclear whether she has had progressive renal failure over the la st 5 to 6 years, so this is completely new. At this point, we do have to do a full workup, which inc ludes renal imaging. We will do a renovascular scan to assess for renal artery stenosis, especially given hypertensive urgency and renal failure with hypokalemia. We will also do C3, C4, DOROTEO, ANCA, u rine for Bence-Montiel as well as serum immunofixation. Depending on the results of the serological te st as well as the trend of the kidney function, we may even have to do a renal biopsy. Case will be assessed on a daily basis to further plan. 2. Hypertensive urgency. At this time, she is in intensive care unit with A-line and she is current ly on nicardipine drip, which can be continued. She is also going to be on clonidine and metoprolol. Careful adjustment of blood pressure is being done to avoid sudden drop in blood pressure. I do no t want her blood pressure to drop below 160 for the next 24 hours. We would also repeat the urine te st after some hydration. For the time being, give normal saline at 75 mL with some potassium. Given that the potassium is quite low, we do have to give some oral potassium as well as intravenous. Thank you very much for the consult. Job ID: [id number]
[2022-10-16] MEDS ORDERED: POTASSIUM CHLORIDE 20 MEQ/15 ML UDC PO SCH (21:00)
[2022-10-16 21:20] LABS: BUN Creatinine Ratio 10.5 (10-20); Creatinine Clr Calc Pharmacy 15.5 ml/min; Est GFR (African American) 11.1 ml/min; Est GFR (Non-African American) 9.6 ml/min; Phosphorus 5.2 mg/dl (2.5-4.9)
[2022-10-16] MEDS: HEPARIN SOD 5,000 UNIT/0.5 ML VIAL SQ SCH (21:49)
[2022-10-17] MEDS: POTASSIUM CHLORIDE / WTR 10 MEQ/100 ML PLCT IV SCH ×6 (00:07→09:56)
[2022-10-17] MEDS ORDERED: LORazepam 0.5 MG TAB PO STA ×2 (00:31→17:29)
[2022-10-17] MEDS: METOPROLOL TARTRATE 25 MG TAB PO SCH ×3 (00:38→15:38)
[2022-10-17] MEDS: HYDROmorphone INJ 0.5 MG/0.5 ML SYR IV PRN ×3 (00:41→10:24)
[2022-10-17 01:16] LABS: Acetaminophen < 3 ug/ml (10-30); Salicylate < 3.0 mg/dl (3.0-30)
[2022-10-17] MEDS: niCARdipine 25 MG in SODIUM CHLORIDE 0.9% 240 ML IV SCH ×5 (02:49→15:37)
[2022-10-17 05:04] LABS: Basophils # (auto) 0.02 K/uL (0-0.2); Basophils % (auto) 0.3 %; Eosinophils # (auto) 0.07 K/uL (0-0.50); Eosinophils % (auto) 0.9 %; Hematocrit (blood only) 24.4 % (34.1-44.9); Hemoglobin 8.7 g/dl (12.0-16.0); Immature Granulocytes # (auto) 0.04 K/uL (0.00-0.02); Immature Granulocytes % (auto) 0.5 %; Lymphocytes # (auto) 0.55 K/uL (1.2-3.4); Lymphocytes % (auto) 7.1 %; Mean Corpuscular Hemoglobin 33.9 pg (25.0-34.0); Mean Corpuscular Hgb Conc 35.7 g/dL (32.0-36.0); Mean Corpuscular Volume 94.9 fL (80.0-100.0); Mean Platelet Volume 11.1 fL (9.4-12.3); Monocytes # (auto) 0.54 K/uL (0.24-0.82); Neutrophils # (auto) 6.52 K/uL (1.4-6.5); Neutrophils % (auto) 84.2 %; Platelet Count 181 K/uL (130-400); RDW Coefficient of Variation 12.7 % (11.5-14.5); RDW Standard Deviation 43.8 fL (36.4-46.3); Red Blood Count 2.57 M/uL (3.93-5.22); White Blood Count 7.74 K/ul (4.8-10.8)
[2022-10-17] MEDS: NSS + 20MEQ KCL 20 MEQ/1,000 ML BAG IV SCH (05:20)
[2022-10-17] MEDS: HEPARIN SOD 5,000 UNIT/0.5 ML VIAL SQ SCH ×3 (05:21→23:16)
[2022-10-17 05:36] LABS: Albumin Level 3.9 gm/dl (3.4-5.0); Bilirubin Direct 0.4 mg/dl (0-0.2); Magnesium 2.1 mg/dl (1.7-2.4); Phosphorus 5.9 mg/dl (2.5-4.9); Total Protein 6.5 gm/dl (6.0-8.3)
[2022-10-17 05:44] LABS: Albumin Globulin Ratio 1.5 (0.9-2); Albumin Level 3.9 gm/dl (3.4-5.0); BUN Creatinine Ratio 10.4 (10-20); Creatinine Clr Calc Pharmacy 15.8 ml/min; Est GFR (African American) 11.3 ml/min; Est GFR (Non-African American) 9.7 ml/min; Globulin 2.6 gm/dl (2.5-4.0); Potassium 3.4 mmol/L (3.5-5.1); Total Protein 6.5 gm/dl (6.0-8.3)
[2022-10-17 05:54] LABS: Vitamin B12 > 1500 pg/ml (180-914)
[2022-10-17] MEDS ORDERED: Heparin IV Adult Wt-Based Standard WITH Bolus Protocol IV SCH (06:38)
[2022-10-17] MEDS ORDERED: HEPARIN 25000 UNIT/500 ML D5W IV ONE (06:56)
[2022-10-17] MEDS ORDERED: HEPARIN SODIUM/DEXTROSE 25,000 UNITS/500 ML BAG IV SCH (07:00)
[2022-10-17] MEDS ORDERED: HEPARIN SOD (PORCINE) 1000 UNIT/ML IV ONE (07:20)
[2022-10-17 07:43] LABS: INR 1.1 (0.9-1.1); Partial Thromboplastin Time 27.8 Seconds (21.0-31.0); Prothrombin Time 11.7 Seconds (9.0-12.0)
[2022-10-17 07:49] LABS: Estimated Average Glucose 85 mg/dl; Hemoglobin A1C 4.6 % (4.5-5.6)
--- NOTE | 2022-10-17 07:53 | Critical Care Progress Note ---
Date of Service October 17, 2022 Assessment & Plan (1) Hypertensive emergency: (2) Acute renal failure: (3) Hypokalemia: (4) Anemia: (5) Non-ST elevation myocardial infarction (NSTEMI): (6) Abdominal pain: Plan Impression: 42-year-old female without significant past medical history presents for evaluation of abdominal pain and found to have profound hypertensive emergency with associated renal failure. She was admitted to the ICU for close blood pressure control with nicardipine. 24-hour events: Patient was admitted to the ICU. Arterial line was placed. She was initiated on Cardene with good response. Metoprolol and clonidine were added. Nephrology consultation was obtained. Recommendations: 1. Neurologic: Continue to follow neurologically. Keep blood pressure around the 170s to 190 range. 2. Cardiovascular: Hypertensive emergency: Await echocardiogram. Troponin elevated but EKG without ischemic changes. Heparin started overnight although I agree with cardiology that this likely does not represent an acute coronary syndrome and more likely represents troponin leak due to myocardial stress. Cardiology follow-up pending today. Additional management will be based on results of echocardiogram. This may be secondary to hypertensive urgency. Continue to trend troponin until peak. Cardiology held metoprolol and clonidine yesterday. Await renal duplex for evaluation of renal artery stenosis. Try and restart metoprolol today. Discontinue clonidine. May consider hydralazine depending on clinical response. 3. Pulmonary: History of tobacco abuse. Placed on oxygen empirically. Not bronchospastic. 4. Renal: Acute renal failure with associated hypokalemia: Suspect related to hypertension versus progression of intrinsic kidney disease. Continue serial lab evaluations with electrolyte repletion. Nephrology consultation reviewed. Await serologies. 5. GI: Abdominal pain. Tolerating a diet. Nodular liver noted on ultrasound possibly consistent with cirrhosis. Follow clinically. LFTs normal. Lipase negative. 6. ID: No current issues. Continue to follow clinically. 7. Endocrine: No current issues. 8. Heme-onc: Anemia: Unclear etiology. May be secondary to renal failure. No signs of bleeding. No indication for transfusion currently but will continue to follow. 9. Prophylaxis: DVT prophylaxis with subcu heparin. Hold GI prophylaxis for now. Patient is critically ill with significant metabolic dysfunction and possibility of clinical decline. She will be monitored closely in the ICU pending improvement of her hemodynamics and metabolic abnormalities. 44 min CC time evaluating and managing patient. The above recommendations and plan were discussed with the patient at bedside as well as with the critical care nurse and on multidisciplinary rounds. Questions were answered to the best of my ability. They expressed understanding and are in agreement with plan as outlined. Admission and Anticipated Discharge Date Admission Date: October 16, 2022 Subjective Patient is awake alert and conversant. No chest pain. She is able to tolerate a diet without any abdominal pain. She has been intermittently on and off of the Cardene. She denies any shortness of breath. No new neurological findings. Review of Systems Review of Systems: All systems reviewed & are unremarkable except as noted in Subjective Physical Exam Constitutional: WD/WN, vitals as above Neck: trachea midline, no thyromegaly Respiratory: normal respiratory effort, lungs clear to auscultation Cardiovascular: RRR, no murmur, no edema Gastrointestinal (Abdomen): normal bowel sounds, soft, nontender, no hepatosplenomegaly Musculoskeletal: Extremities: extremities normal to inspection Skin: no rashes, warm and dry Lymphatic: no cervical lymphadenopathy Results & Data Results & Data ([facility]) Vital Signs (Past 12 Hours) Vital Signs Temp Pulse Resp Pulse Ox O2 Del Method O2 Flow Rate 10/17/22 07:00 85 18 96 Nasal Cannula 2 10/17/22 06:30 84 22 90 10/17/22 06:00 84 14 91 10/17/22 05:30 81 22 90 10/17/22 05:00 36.7 C 82 20 92 10/17/22 04:30 81 22 93 10/17/22 04:00 82 21 93 10/17/22 03:30 81 21 93 10/17/22 03:00 82 20 93 10/17/22 02:30 81 20 91 10/17/22 02:00 84 25 H 92 10/17/22 01:30 86 14 91 10/17/22 01:00 85 21 93 10/17/22 00:30 89 15 99 10/17/22 00:00 83 16 97 10/16/22 23:30 81 23 92 10/16/22 23:00 37.0 C 79 24 92 10/16/22 22:30 80 17 90 10/17/22 00:00 76 10/16/22 22:20 79 25 H 92 10/16/22 22:15 79 17 93 10/16/22 22:10 79 17 92 10/16/22 22:05 80 27 H 94 10/16/22 22:00 78 12 98 10/16/22 21:40 81 18 96 10/16/22 21:04 79 17 97 10/16/22 20:30 81 23 98 10/16/22 20:00 82 23 97 Critical Care Results & Data Vital Signs (Past 12 Hours) Vital Signs Temp Pulse Resp Pulse Ox O2 Del Method O2 Flow Rate 10/17/22 07:00 85 18 96 Nasal Cannula 2 10/17/22 06:30 84 22 90 10/17/22 06:00 84 14 91 10/17/22 05:30 81 22 90 10/17/22 05:00 36.7 C 82 20 92 10/17/22 04:30 81 22 93 10/17/22 04:00 82 21 93 10/17/22 03:30 81 21 93 10/17/22 03:00 82 20 93 10/17/22 02:30 81 20 91 10/17/22 02:00 84 25 H 92 10/17/22 01:30 86 14 91 10/17/22 01:00 85 21 93 10/17/22 00:30 89 15 99 10/17/22 00:00 83 16 97 10/16/22 23:30 81 23 92 10/16/22 23:00 37.0 C 79 24 92 10/16/22 22:30 80 17 90 10/17/22 00:00 76 10/16/22 22:20 79 25 H 92 10/16/22 22:15 79 17 93 10/16/22 22:10 79 17 92 10/16/22 22:05 80 27 H 94 10/16/22 22:00 78 12 98 10/16/22 21:40 81 18 96 10/16/22 21:04 79 17 97 10/16/22 20:30 81 23 98 10/16/22 20:00 82 23 97 Lab & Micro Results (Past 24 Hours) RBC 2.57 M/uL (3.93-5.22) L 10/17/22 WBC 7.74 K/ul (4.8-10.8) 10/17/22 Hgb 8.7 g/dl (12.0-16.0) L 10/17/22 Hct 24.4 % (34.1-44.9) L 10/17/22 MCV 94.9 fL (80.0-100.0) 10/17/22 MCH 33.9 pg (25.0-34.0) 10/17/22 MCHC 35.7 g/dL (32.0-36.0) 10/17/22 RDW Standard Deviation 43.8 fL (36.4-46.3) 10/17/22 RDW Coefficient of Variation 12.7 % (11.5-14.5) 10/17/22 Plt Count 181 K/uL (130-400) 10/17/22 MPV 11.1 fL (9.4-12.3) 10/17/22 Neutrophils (%) (Auto) 84.2 % 10/17/22 Lymphocytes (%) (Auto) 7.1 % 10/17/22 Monocytes # (Auto) 0.54 K/uL (0.24-0.82) 10/17/22 Eosinophils # (Auto) 0.07 K/uL (0-0.50) 10/17/22 Immature Granulocyte % (Auto) 0.5 % 10/17/22 Neutrophils # (Auto) 6.52 K/uL (1.4-6.5) H 10/17/22 Lymphocytes # (Auto) 0.55 K/uL (1.2-3.4) L 10/17/22 Monocytes # (Auto) 0.54 K/uL (0.24-0.82) 10/17/22 Eosinophils # (Auto) 0.07 K/uL (0-0.50) 10/17/22 Basophils # (Auto) 0.02 K/uL (0-0.2) 10/17/22 Immature Granulocyte # (Auto) 0.04 K/uL (0.00-0.02) H 10/17 Na 131 mmol/L (136-145) L 10/17/22 K 3.4 mmol/L (3.5-5.1) L 10/17/22 Cl 94 mmol/L (98-107) L 10/17/22 CO2 23 mmol/L (21-32) 10/17/22 Anion Gap 14 (3-11) H 10/17/22 BUN 52 mg/dl (6-23) H 10/17/22 Creatinine 5.02 mg/dl (0.6-1.2) H* 10/17/22 Estimated GFR ( Amer) 11.3 ml/min 10/17/22 Estimated GFR (Non-Af Amer) 9.7 ml/min 10/17/22 BUN/Creatinine Ratio 10.4 (10-20) 10/17/22 Glu 140 mg/dl (70-99(Fasting)) H 10/17/22 Ca 9.0 mg/dl (8.5-10.1) 10/17/22 Phosphorus Level 5.9 mg/dl (2.5-4.9) H 10/17/22 Total Bilirubin 1.0 mg/dl (0.2-1.0) 10/17/22 Direct Bilirubin 0.4 mg/dl (0-0.2) H 10/17/22 AST 23 U/L (13-39) 10/17/22 ALT 38 U/L (7-52) 10/17/22 Alkaline Phosphatase 54 U/L (34-104) 10/17/22 TP 6.5 gm/dl (6.0-8.3) 10/17/22 Albumin 3.9 gm/dl (3.4-5.0) 10/17/22 Globulin 2.6 gm/dl (2.5-4.0) 10/17/22 Albumin/Globulin Ratio 1.5 (0.9-2) 10/17/22 Mg 2.1 mg/dl (1.7-2.4) 10/17/22 04:42 Calcium Level 9.0 mg/dl (8.5-10.1) 10/17/22 04:42 Prothromb Time International Ratio 1.1 (0.9-1.1) 10/17/22 07:2 3 Diagnostic Findings (Past 24 Hours) Chest X-Ray 10/16/22 11:40 SINGLE VIEW CHEST CLINICAL HISTORY: Epigastric abdominal pain FINDINGS: An AP, portable, upright chest radiograph is obtained. No prior studies are available for comparison at the time of dictation. The cardiomediastinal silhouette there is enlarged. The lungs and pleural spaces are clear. No pneumothorax is seen. The bony thorax is grossly intact. IMPRESSION: 1. Enlarged cardiac silhouette. 2. There is no airspace consolidation or pleural effusion. ACT 112: Negative or not required by law. Electronically signed by: Stu Aguiar M.D. 10/16/2022 12:14 PM Abdomen Ultrasound 10/16/22 11:50 ABDOMINAL ULTRASOUND, RIGHT UPPER QUADRANT HISTORY: epigastric/RUQ pain. COMPARISON: None. FINDINGS: Pancreas: The pancreas visualized demonstrates a normal echotexture. Liver: Nodular contour to the liver consistent with cirrhosis. The liver measures 20 cm in length. There is a 1.9 cm hyperechoic focus within the left hepatic lobe near the falciform ligament. This favors an area of focal fat given the location. Gallbladder: There are few gallbladder polyps measuring up to 6 mm. Trace gallbladder sludge. No definite gallstones. No gallbladder wall thickening. CBD: 4 mm. Right kidney: No hydronephrosis. IMPRESSION: 1. Enlarged and cirrhotic liver. There is a 1.9 cm hyperechoic focus within left hepatic lobe which favors focal fat. However, given the cirrhosis a follow-up nonemergent abdominal MRI is recommended for confirmation. 2. A few gallbladder polyps measuring up to 6 mm. One year follow-up recommended to ensure stability. 3. No gallstones. 4. Normal caliber common bile duct. ACT 112: Negative or not required by law. Electronically signed by: Jericho Rivera M.D. 10/16/2022 1:30 PM Abdominal Arterial Study US 10/16/22 13:00 US abdominal aortic aneurysm CLINICAL HISTORY: Generalized abdominal pain. Hypertension. Assess for an abdominal aortic aneurysm. COMPARISON STUDY: None. FINDINGS: The abdominal aorta and iliac arteries are normal in course and caliber. Abdominal aorta measures up to 1.7 cm in diameter. IMPRESSION: No evidence for abdominal aortic aneurysm. ACT 112: Negative or not required by law. Electronically signed by: Jericho Rivera M.D. 10/16/2022 1:28 PM I & O Totals 24 Hours 10/16/22 10/17/22 10/18/22 06:59 06:59 06:59 Intake Total 3113.333 / 3113.333 15.833 / 15.833 Output Total 550 / 550 Balance 2563.333 / 2563.333 15.833 / 15.833 Cumulative 10/16/22 11:28 thru 10/17/22 07:21 Intake Total 3129.166 Output Total 550 Balance 2579.166 RT Ventilator Mngmt (Last Documented) Ventilator Ordered Settings Respiratory Rate 18 10/17/22 07:00 Ventilator - PT Measurements Respiratory Rate 18 Coding Level of Care Code Critical Care 1st 30-74 mins Diagnoses Hypertensive emergency I16.1 Acute renal failure N17.9 Hypokalemia E87.6 Anemia D64.9 Non-ST elevation myocardial infarction (NSTEMI) I21.4 Abdominal pain R10.9
--- NOTE | 2022-10-17 08:01 | Ultrasound Report ---
DOPPLER ULTRASOUND OF THE RENAL ARTERIES CLINICAL HISTORY: Hypertension. Renal insufficiency. COMPARISON STUDY: No priors. TECHNIQUE: Doppler sonography of the renal arteries was performed to assess renal artery stenosis. Im ages are reviewed in the transverse and longitudinal planes. FINDINGS: The kidneys appear normal in size and echotexture. The right kidney measures 10.4 cm in length and th e left kidney measures 10.5 cm in length. There is no hydronephrosis. There is trace nonspecific bila teral perinephric fluid. On the right, intrarenal arterial resistive indices range from 0.56 to 0.68. Intrarenal arterial wave forms are normal with brisk upstrokes. The right renal arterial waveform is normal, and velocities wi thin the right renal artery measure up to 72 cm/sec. The right renal vein is patent. On the left, intrarenal arterial resistive indices range from 0.60 to 0.65. Intrarenal arterial wave forms are normal with brisk upstrokes. The left renal arterial waveform is normal, and velocities wit hin the left renal artery measure up to 113 cm/sec. The left renal vein is patent. The abdominal aorta is patent. Velocities within the abdominal aorta measure up to 104 cm/s. IMPRESSION: 1. There is no sonographic evidence of renal artery stenosis. 2. Trace nonspecific perinephric fluid is seen bilaterally. ACT 112: Negative or not required by law. Electronically signed by: Stu Aguiar M.D. 10/17/2022 7:59 AM
[2022-10-17] MEDS ORDERED: hydrALAZINE HCL 25 MG TAB PO SCH (09:00)
[2022-10-17] MEDS: hydrALAZINE HCL 25 MG TAB PO SCH ×3 (10:17→20:52)
[2022-10-17] MEDS: POTASSIUM CHLORIDE 20 MEQ/15 ML UDC PO SCH ×2 (10:19→20:51)
--- NOTE | 2022-10-17 10:34 | Nephrology Progress Note ---
Date of Service October 17, 2022 Assessment & Plan Admission and Anticipated Discharge Date Admission Date: October 16, 2022 Subjective S---has nausea and Dry heaves. On iv fluids. PHYSICAL EXAMINATION: GENERAL: A middle-aged white female, who is somewhat obese. She is awake, alert, oriented x3, but not feeling good and not in a good position to give detailed answer. She is awake, alert, oriented x3. CHEST: Bilaterally clear to auscultation. CARDIOVASCULAR: S1 and S2, regular. ABDOMEN: Soft, nontender. EXTREMITIES: Show trace edema. LABORATORY TEST: Creat about same. has 6 gm proteinuria and active urine sediment. renal duplex normal. ASSESSMENT AND PLAN: A 42-year-old female who does not go to the doctors with a last medical care obtained in 2014 or 2015 when she had a normal kidney function, but already had very uncontrolled hypertension, which has not been treated. At this time, she has hypertensive urgency with renal failure. 1. Renal failure. We do not know whether this is acute or chronic. The only blood work we have is from almost 6 years ago and that time it was normal. However, it is concerning to see this degree of renal failure in a relatively young person. Urine sediment is quite active with 3+ blood and 3+ protein with lots of epithelial cells and rbc's and wbc's. This is consistent with both ATN as well as glomerulonephritis. However, it is unclear whether she has had progressive renal failure over the last 5 to 6 years, so this is completely new. At this point, we do have to do a full workup, which includes renal imaging. We will also do C3, C4, DOROTEO, ANCA, urine for Bence-Montiel as well as serum immunofixation. Depending on the results of the serological test as well as the trend of the kidney function, we may even have to do a renal biopsy. Case will be assessed on a daily basis to further plan. 2. Hypertensive urgency--- Continue Nicardipine drip. Continue NS one more day. However very unlikely to be severely dehydrated with this high BP. 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 Serology pending--wont be back for another 1 week. Also Cannot do renal biopsy here--No IR. restart NIcardipine drip. Start Amlo 5 for BP regimen. Given Renal failure no Coty/ARB for now. No Diuretics either. . Results & Data ([facility]) Vital Signs (Past 12 Hours) Vital Signs Temp Pulse Resp BP Pulse Ox O2 Del Method O2 Flow Rate 10/17/22 10:00 80 14 93 Room Air 10/17/22 09:45 81 22 94 Room Air 10/17/22 09:30 86 20 93 Room Air 10/17/22 09:15 88 18 94 Room Air 10/17/22 08:45 86 20 97 Room Air 10/17/22 08:30 88 24 97 Room Air 10/17/22 08:15 89 25 H 97 Room Air 10/17/22 08:00 85 14 98 Nasal Cannula 2 10/17/22 07:45 88 17 99 Nasal Cannula 2 10/17/22 07:15 83 21 97 Nasal Cannula 2 10/17/22 08:00 Nasal Cannula 2 10/17/22 08:00 36.6 C 10/17/22 08:00 86 191/112 H 10/17/22 08:00 86 10/17/22 07:00 85 18 96 Nasal Cannula 2 10/17/22 06:30 84 22 90 10/17/22 06:00 84 14 91 10/17/22 05:30 81 22 90 10/17/22 05:00 36.7 C 82 20 92 10/17/22 04:30 81 22 93 10/17/22 04:00 82 21 93 10/17/22 03:30 81 21 93 10/17/22 03:00 82 20 93 10/17/22 02:30 81 20 91 10/17/22 02:00 84 25 H 92 10/17/22 01:30 86 14 91 10/17/22 01:00 85 21 93 10/17/22 00:30 89 15 99 10/17/22 00:00 83 16 97 10/16/22 23:30 81 23 92 10/16/22 23:00 37.0 C 79 24 92 10/16/22 22:30 80 17 90 10/17/22 00:00 76
[2022-10-17] MEDS ORDERED: amLODIPine BESYLATE 5 MG TAB PO SCH (10:45)
--- NOTE | 2022-10-17 11:13 | Cardiology Progress Note ---
Date of Service October 17, 2022 Assessment & Plan (1) Hypertensive emergency: (2) Acute renal failure: (3) Hypokalemia: (4) Elevated troponin: Plan -BP by radial arterial line 185/103 at the time of my assessment on nicardipine infusion 5 mg/hr. -Has received metoprolol tartrate 25 mg PO TID. Now on hydralazine 20 mg PO TID, and amlodipine 5 mg daily. -HS troponin trended up to 1,596 pg/ml this am. Pt without chest pain, EKG reveals SR with LVH with strain pattern, echocardiogram this am reveals severe concentric LVH with LVEF 65-70%. Echo consistent with underlying hypertension and resultant concentric left ventricular hypertrophy. Infiltrative cardiomyopathy also a consideration. UPEP, serum immunofixation ordered, free Samuel and [place] light chains. At this time , Troponin elevation likely due to myocardial strain from high BP, in setting of renal insufficiency and LVH, and not due to an intracoronary plaque rupture or thrombus. Will discontinue heparin infusion that was added this am, and transition back to DVT prophylaxis dose SQ heparin. Creatinine remains elevated. Working on weaning nifedipine and transitioning or oral medications. Potassium replacement already ordered. Nephrology input noted and appreciated. Case discussed with patient's nurse,Fito, and with Dr Johansen of critical care medicine for coordination of care. Admission and Anticipated Discharge Date Admission Date: October 16, 2022 Subjective Patient seen in cardiology follow up. Denies chest pain or shortness of breath now or overnight. Dizziness that was present when I saw her yesterday has resolved. Telemetry reveals SR in the 70s. Urinating. Denies headache or visual changes. Physical Exam Physical Exam: Temp Pulse Resp BP Pulse Ox O2 Del Method O2 Flow Rate 36.6 C 78 14 191/112 H 94 2 10/17/22 08:00 10/17/22 10:45 10/17/22 10:45 10/17/22 08:00 10/17/22 10:45 10/17/22 10:45 10/17/22 08:00 Constitutional: WD/WN, vitals as above Respiratory: normal respiratory effort, lungs clear to auscultation Cardiovascular: RRR, no murmur, no edema Gastrointestinal (Abdomen): normal bowel sounds, soft, nontender, no hepatosplenomegaly Neurologic: PERRL, EOMI, accommodation nl, no face palsy, no dysarthria Results & Data ([facility]) Laboratory Results Cardiac Enzymes 10/16/22 10/16/22 10/16/22 Range/Units 11:50 16:23 20:43 AST 20 (13-39) U/L Troponin I High Sens 168.5 H* 176.2 H* 481.9 H* D (0-14) pg/ml 10/17/22 10/17/22 10/17/22 Range/Units 04:42 04:42 04:42 AST 23 23 (13-39) U/L Troponin I High Sens 1596.2 H* D (0-14) pg/ml Coagulation 10/17/22 Range/Units 07:23 PT 11.7 (9.0-12.0) Seconds APTT 27.8 (21.0-31.0) Seconds CBC 10/16/22 10/17/22 Range/Units 11:50 04:42 WBC 6.66 7.74 (4.8-10.8) K/ul RBC 3.01 L 2.57 L (3.93-5.22) M/uL Hgb 10.2 L 8.7 L (12.0-16.0) g/dl Hct 28.1 L 24.4 L (34.1-44.9) % Plt Count 220 181 (130-400) K/uL Neut # (Auto) 5.37 6.52 H (1.4-6.5) K/uL Lymph # (Auto) 0.70 L 0.55 L (1.2-3.4) K/uL [place] # (Auto) 0.41 0.54 (0.24-0.82) K/uL Eos # (Auto) 0.13 0.07 (0-0.50) K/uL Baso # (Auto) 0.03 0.02 (0-0.2) K/uL Comprehensive Metabolic Panel 10/16/22 10/16/22 10/16/22 Range/Units 11:50 16:23 16:23 Sodium 132 L 134 L Cancelled (136-145) mmol/L Potassium 2.8 L 2.5 L* Cancelled (3.5-5.1) mmol/L Chloride 89 L 93 L Cancelled (98-107) mmol/L Carbon Dioxide 29 25 Cancelled (21-32) mmol/L BUN 52 H 52 H Cancelled (6-23) mg/dl Creatinine 5.23 H* 4.98 H* Cancelled (0.6-1.2) mg/dl Glucose 119 H 129 H Cancelled (70-99(Fasting)) mg/dl Calcium 10.1 9.1 Cancelled (8.5-10.1) mg/dl Direct Bilirubin (0-0.2) mg/dl AST 20 (13-39) U/L ALT 45 (7-52) U/L Alkaline Phosphatase 67 (34-104) U/L Total Protein 7.7 (6.0-8.3) gm/dl Albumin 4.5 (3.4-5.0) gm/dl 10/16/22 10/17/22 10/17/22 Range/Units 20:43 04:42 04:42 Sodium 129 L 131 L (136-145) mmol/L Potassium 3.0 L 3.4 L (3.5-5.1) mmol/L Chloride 91 L 94 L (98-107) mmol/L Carbon Dioxide 23 23 (21-32) mmol/L BUN 53 H 52 H (6-23) mg/dl Creatinine 5.07 H* 5.02 H* (0.6-1.2) mg/dl Glucose 138 H 140 H (70-99(Fasting)) mg/dl Calcium 9.0 9.0 (8.5-10.1) mg/dl Direct Bilirubin 0.4 H (0-0.2) mg/dl AST 23 23 (13-39) U/L ALT 38 38 (7-52) U/L Alkaline Phosphatase 54 54 (34-104) U/L Total Protein 6.5 6.5 (6.0-8.3) gm/dl Albumin 3.9 3.9 (3.4-5.0) gm/dl
[2022-10-17] MEDS ORDERED: METOPROLOL TARTRATE 25 MG TAB PO SCH (16:00)
[2022-10-17] MEDS ORDERED: LORazepam 0.5 MG TAB ONE (17:36)
--- NOTE | 2022-10-17 17:47 | Hospitalist Progress Note ---
Date of Service October 17, 2022 Assessment & Plan (1) Hypertensive emergency: Plan: ASSESSMENT AND PLAN: This is a 42-year-old female who presents with abdominal pain and found to have hypertensive emergency, acute kidney injury/chronic kidney disease and liver cirrhosis. 1. Hypertensive emergency with blood pressure of 282/145, elevated troponin of 168 and creatinine of 5.2. -- Currently on nicardipine drip --Also, p.o. metoprolol, amlodipine, hydralazine ordered --Monitor closely 2. Acute kidney injury -- Possible underlying glomerulonephritis --Creatinine stable at 5 --Nephrology service on board --Follow-up serologies 3. Electrolyte abnormalities. Sodium 131 Potassium 3.4 --Replaced Monitor 4. Elevated troponin -- Likely secondary to myocardial strain per nephrology service in the setting of acute kidney injury Heparin drip discontinued Echocardiogram: EF 65 to 70%, with severe concentric LVH 5. 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 -- Monitor closely 6.Prolonged Qt. QTc 444 7. Anemia. Will follow Hemoccult, iron studies, vitamin b12 and folate levels Hemoglobin 8.7 Iron 34 8. Deep venous thrombosis prophylaxis, placed on heparin subcutaneously. Admission and Anticipated Discharge Date Admission Date: October 16, 2022 Subjective Follow-up for hypertensive emergency, etc. Seen resting bed, sitting up, sleeping but easily awakened States she feels okay overall, just anxious no chest pain, dyspnea, palpitations, dizziness No headache, focal neurologic deficits No abdominal pain, nausea vomiting no other symptoms Review of Systems Review of Systems: all noted and negative except for above Physical Exam Physical Exam: General- oriented x 3, not in distress, speaks in sentences with no effort or accessory muscle use Eyes- anicteric Neck- no JVD Lungs- clear breath sounds bilaterally, no rales/wheezes Heart- normal rate, regular rhythm; no murmurs Abdomen- normal bowel sounds, nondistended, soft, nontender Extremities- no pretibial edema, no calf tenderness Neuro- alert, oriented x 3; no gross focal neurologic deficits Skin- warm & dry Results & Data Results & Data ([facility]) Vital Signs (Past 12 Hours) Vital Signs Temp Pulse Resp BP Pulse Ox O2 Del Method O2 Flow Rate 10/17/22 17:05 36.6 C 10/17/22 12:00 36.7 C 10/17/22 16:00 83 161/108 H 10/17/22 16:00 84 10/17/22 15:45 84 96 Room Air 10/17/22 15:30 81 18 93 Room Air 10/17/22 15:15 81 93 Room Air 10/17/22 15:00 80 16 95 Room Air 10/17/22 14:45 79 94 Room Air 10/17/22 14:30 81 20 94 Room Air 10/17/22 14:15 79 94 Room Air 10/17/22 14:02 87 206/127 H 97 Room Air 10/17/22 14:00 80 18 97 Room Air 10/17/22 13:30 78 16 92 Room Air 10/17/22 13:15 76 91 Room Air 10/17/22 13:00 78 18 93 Room Air 10/17/22 12:45 77 93 Room Air 10/17/22 12:30 79 16 93 Room Air 10/17/22 12:15 79 92 Room Air 10/17/22 12:00 80 16 94 Room Air 10/17/22 11:45 80 94 Room Air 10/17/22 11:30 78 18 93 Room Air 10/17/22 11:15 79 94 Room Air 10/17/22 11:00 80 14 95 Room Air 10/17/22 12:00 81 176/101 H 10/17/22 10:45 78 14 94 Room Air 10/17/22 10:30 82 18 96 Room Air 10/17/22 10:15 81 16 96 Room Air 10/17/22 10:00 80 14 93 Room Air 10/17/22 09:45 81 22 94 Room Air 10/17/22 09:30 86 20 93 Room Air 10/17/22 09:15 88 18 94 Room Air 10/17/22 08:45 86 20 97 Room Air 10/17/22 08:30 88 24 97 Room Air 10/17/22 08:15 89 25 H 97 Room Air 10/17/22 08:00 85 14 98 Nasal Cannula 2 10/17/22 07:45 88 17 99 Nasal Cannula 2 10/17/22 07:15 83 21 97 Nasal Cannula 2 10/17/22 08:00 Nasal Cannula 2 10/17/22 08:00 36.6 C 10/17/22 08:00 86 191/112 H 10/17/22 08:00 86 10/17/22 07:00 85 18 96 Nasal Cannula 2 10/17/22 06:30 84 22 90 10/17/22 06:00 84 14 91 all noted and reviewed including below
[2022-10-17] MEDS: METOPROLOL TARTRATE 50 MG TAB PO SCH (17:56)
[2022-10-17] MEDS: LORazepam 0.5 MG TAB PO PRN (23:26)
[2022-10-18] MEDS: HYDROmorphone INJ 0.5 MG/0.5 ML SYR IV PRN ×2 (00:35→23:53)
[2022-10-18] MEDS: METOPROLOL TARTRATE 50 MG TAB PO SCH (00:38)
[2022-10-18] MEDS: hydrALAZINE HCL 25 MG TAB PO SCH (02:44)
[2022-10-18 04:59] LABS: Basophils # (auto) 0.03 K/uL (0-0.2); Basophils % (auto) 0.4 %; Eosinophils # (auto) 0.21 K/uL (0-0.50); Eosinophils % (auto) 3.1 %; Hematocrit (blood only) 24.8 % (34.1-44.9); Hemoglobin 8.9 g/dl (12.0-16.0); Immature Granulocytes # (auto) 0.02 K/uL (0.00-0.02); Immature Granulocytes % (auto) 0.3 %; Lymphocytes # (auto) 0.88 K/uL (1.2-3.4); Lymphocytes % (auto) 12.9 %; Mean Corpuscular Hemoglobin 33.8 pg (25.0-34.0); Mean Corpuscular Hgb Conc 35.9 g/dL (32.0-36.0); Mean Corpuscular Volume 94.3 fL (80.0-100.0); Monocytes # (auto) 0.55 K/uL (0.24-0.82); Monocytes % (auto) 8.1 %; Neutrophils # (auto) 5.14 K/uL (1.4-6.5); Neutrophils % (auto) 75.2 %; Platelet Count 220 K/uL (130-400); RDW Coefficient of Variation 12.9 % (11.5-14.5); RDW Standard Deviation 44.4 fL (36.4-46.3); Red Blood Count 2.63 M/uL (3.93-5.22); White Blood Count 6.83 K/ul (4.8-10.8)
[2022-10-18] MEDS: HEPARIN SOD 5,000 UNIT/0.5 ML VIAL SQ SCH ×3 (05:18→20:27)
[2022-10-18] MEDS: niCARdipine 25 MG in SODIUM CHLORIDE 0.9% 240 ML IV SCH ×3 (05:26→10:21)
[2022-10-18 06:03] LABS: Albumin Globulin Ratio 1.3 (0.9-2); Albumin Level 3.6 gm/dl (3.4-5.0); BUN Creatinine Ratio 9.7 (10-20); Bilirubin Direct 0.3 mg/dl (0-0.2); Bilirubin,Total 0.7 mg/dl (0.2-1.0); Creatinine Clr Calc Pharmacy 14.6 ml/min; Est GFR (African American) 10.2 ml/min; Est GFR (Non-African American) 8.8 ml/min; Globulin 2.8 gm/dl (2.5-4.0); Magnesium 2.2 mg/dl (1.7-2.4); Phosphorus 4.5 mg/dl (2.5-4.9); Potassium 3.9 mmol/L (3.5-5.1); Total Protein 6.4 gm/dl (6.0-8.3)
--- NOTE | 2022-10-18 08:09 | Critical Care Progress Note ---
Date of Service October 18, 2022 Assessment & Plan (1) Hypertensive emergency: (2) Acute renal failure: (3) Hypokalemia: (4) Anemia: (5) Non-ST elevation myocardial infarction (NSTEMI): (6) Abdominal pain: Plan Impression: 42-year-old female without significant past medical history presents for evaluation of abdominal pain and found to have profound hypertensive emergency with associated renal failure. She was admitted to the ICU for close blood pressure control with nicardipine. 24-hour events: Patient has been intermittently on and off very low-dose Cardene his blood pressure medications are being titrated. Recommendations: 1. Neurologic: Continue to follow neurologically. We will try and decrease target blood pressure to 1 50-1 80 at this point time. 2. Cardiovascular: Hypertensive emergency: Echo reviewed with cardiology. Significant LVH. Amyloid panel pending. Suspect troponin related to myocardial strain with significant hypertension and profound LVH. No indication for anticoagulation currently. Continue attempts to wean off of Cardene. We will increase hydralazine to 50 mg every 6 and increase Norvasc to 10 mg a day. Continue carvedilol 6.25 twice daily 3. Pulmonary: History of tobacco abuse. Now on room air. Not bronchospastic. Smoking cessation recommended 4. Renal: Acute renal failure with associated hypokalemia on presentation. Hypokalemia now corrected. Suspect related to hypertension versus progression of intrinsic kidney disease. Await serologies ordered by nephrology. May need kidney biopsy, not available at this institution. No indication for acute dialysis currently. 5. GI: Abdominal pain. Tolerating a diet. Nodular liver noted on ultrasound possibly consistent with cirrhosis. Follow clinically. LFTs normal. Lipase negative. 6. ID: No current issues. Continue to follow clinically. 7. Endocrine: No current issues. 8. Heme-onc: Anemia: Unclear etiology. May be secondary to renal failure. No signs of bleeding. No indication for transfusion currently but will continue to follow. 9. Prophylaxis: DVT prophylaxis with subcu heparin. Tolerating a diet so okay to hold on GI prophylaxis. Patient was discussed with bedside critical care nurse as well as on multidisciplinary rounds. Will reassess later today and if were successful in getting her off of the Cardene infusion with maintenance of blood pressure in acceptable range, the patient may be able to downgrade from the ICU. We will coordinate with hospitalist. Critical care services will sign off when she leaves the ICU Admission and Anticipated Discharge Date Admission Date: October 16, 2022 Subjective Patient seen and examined. She had some vivid dreams last night and did not sleep well. No recurrence of her headaches lightheadedness or presyncope. She is having occasional palpitations but these are unchanged from prior. She is able to tolerate a diet. She is having intermittent abdominal pain but no nausea or vomiting. Review of Systems Review of Systems: All systems reviewed & are unremarkable except as noted in Subjective Physical Exam Constitutional: WD/WN, vitals as above Neck: trachea midline, no thyromegaly Respiratory: normal respiratory effort, lungs clear to auscultation Cardiovascular: RRR, no murmur, no edema Gastrointestinal (Abdomen): normal bowel sounds, soft, nontender, no hepatosplenomegaly Musculoskeletal: Extremities: extremities normal to inspection Skin: no rashes, warm and dry Lymphatic: no cervical lymphadenopathy Results & Data Results & Data ([facility]) Vital Signs (Past 12 Hours) Vital Signs Temp Pulse BP Pulse Ox 10/18/22 06:00 72 93 10/18/22 05:45 70 98 10/18/22 05:30 70 98 10/18/22 05:15 71 99 10/18/22 05:00 72 97 10/18/22 04:45 67 97 10/18/22 04:30 65 95 10/18/22 04:15 67 93 10/18/22 04:00 67 94 10/18/22 03:45 64 97 10/18/22 03:30 66 98 10/18/22 03:15 65 98 10/18/22 03:00 67 95 10/18/22 02:48 71 97 10/18/22 02:48 180/125 H 10/18/22 02:45 73 10/18/22 02:30 66 90 10/18/22 02:50 36.7 C 10/18/22 02:15 65 99 10/18/22 02:00 66 90 10/18/22 01:45 68 10/18/22 01:30 68 98 10/18/22 01:15 69 95 10/18/22 01:00 70 97 10/18/22 00:45 69 91 10/18/22 00:30 74 99 10/18/22 00:15 71 99 10/18/22 00:00 70 97 10/17/22 23:45 70 99 10/18/22 00:00 72 10/17/22 23:30 74 10/17/22 23:15 71 98 10/17/22 23:00 69 99 10/17/22 22:49 165/114 H 10/17/22 22:49 72 100 10/17/22 22:45 68 93 10/17/22 22:30 68 100 10/17/22 22:15 67 97 10/17/22 22:00 68 99 10/17/22 21:45 68 99 10/17/22 21:30 66 98 10/17/22 21:15 65 99 10/17/22 21:00 67 97 10/17/22 20:45 64 97 10/17/22 20:30 65 96 10/17/22 20:15 66 98 Critical Care Results & Data Vital Signs (Past 12 Hours) Vital Signs Temp Pulse BP Pulse Ox 10/18/22 06:00 72 93 10/18/22 05:45 70 98 10/18/22 05:30 70 98 10/18/22 05:15 71 99 10/18/22 05:00 72 97 10/18/22 04:45 67 97 10/18/22 04:30 65 95 10/18/22 04:15 67 93 10/18/22 04:00 67 94 10/18/22 03:45 64 97 10/18/22 03:30 66 98 10/18/22 03:15 65 98 10/18/22 03:00 67 95 10/18/22 02:48 71 97 10/18/22 02:48 180/125 H 10/18/22 02:45 73 10/18/22 02:30 66 90 10/18/22 02:50 36.7 C 10/18/22 02:15 65 99 10/18/22 02:00 66 90 10/18/22 01:45 68 10/18/22 01:30 68 98 10/18/22 01:15 69 95 10/18/22 01:00 70 97 10/18/22 00:45 69 91 10/18/22 00:30 74 99 10/18/22 00:15 71 99 10/18/22 00:00 70 97 10/17/22 23:45 70 99 10/18/22 00:00 72 10/17/22 23:30 74 10/17/22 23:15 71 98 10/17/22 23:00 69 99 10/17/22 22:49 165/114 H 10/17/22 22:49 72 100 10/17/22 22:45 68 93 10/17/22 22:30 68 100 10/17/22 22:15 67 97 10/17/22 22:00 68 99 10/17/22 21:45 68 99 10/17/22 21:30 66 98 10/17/22 21:15 65 99 10/17/22 21:00 67 97 10/17/22 20:45 64 97 10/17/22 20:30 65 96 10/17/22 20:15 66 98 Lab & Micro Results (Past 24 Hours) RBC 2.63 M/uL (3.93-5.22) L 10/18/22 WBC 6.83 K/ul (4.8-10.8) 10/18/22 Hgb 8.9 g/dl (12.0-16.0) L 10/18/22 Hct 24.8 % (34.1-44.9) L 10/18/22 MCV 94.3 fL (80.0-100.0) 10/18/22 MCH 33.8 pg (25.0-34.0) 10/18/22 MCHC 35.9 g/dL (32.0-36.0) 10/18/22 RDW Standard Deviation 44.4 fL (36.4-46.3) 10/18/22 RDW Coefficient of Variation 12.9 % (11.5-14.5) 10/18/22 Plt Count 220 K/uL (130-400) 10/18/22 MPV 11.0 fL (9.4-12.3) 10/18/22 Neutrophils (%) (Auto) 75.2 % 10/18/22 Lymphocytes (%) (Auto) 12.9 % 10/18/22 Monocytes # (Auto) 0.55 K/uL (0.24-0.82) 10/18/22 Eosinophils # (Auto) 0.21 K/uL (0-0.50) 10/18/22 Immature Granulocyte % (Auto) 0.3 % 10/18/22 Neutrophils # (Auto) 5.14 K/uL (1.4-6.5) 10/18/22 Lymphocytes # (Auto) 0.88 K/uL (1.2-3.4) L 10/18/22 Monocytes # (Auto) 0.55 K/uL (0.24-0.82) 10/18/22 Eosinophils # (Auto) 0.21 K/uL (0-0.50) 10/18/22 Basophils # (Auto) 0.03 K/uL (0-0.2) 10/18/22 Immature Granulocyte # (Auto) 0.02 K/uL (0.00-0.02) 2 Na 127 mmol/L (136-145) L 10/18/22 K 3.9 mmol/L (3.5-5.1) 10/18/22 Cl 96 mmol/L (98-107) L 10/18/22 CO2 21 mmol/L (21-32) 10/18/22 Anion Gap 10 (3-11) 10/18/22 BUN 53 mg/dl (6-23) H 10/18/22 Creatinine 5.44 mg/dl (0.6-1.2) H* 10/18/22 Estimated GFR ( Amer) 10.2 ml/min 10/18/22 Estimated GFR (Non-Af Amer) 8.8 ml/min 10/18/22 BUN/Creatinine Ratio 9.7 (10-20) L 10/18/22 Glu 115 mg/dl (70-99(Fasting)) H 10/18/22 Ca 9.0 mg/dl (8.5-10.1) 10/18/22 Phosphorus Level 4.5 mg/dl (2.5-4.9) 10/18/22 Total Bilirubin 0.7 mg/dl (0.2-1.0) 10/18/22 Direct Bilirubin 0.3 mg/dl (0-0.2) H 10/18/22 AST 20 U/L (13-39) 10/18/22 ALT 40 U/L (7-52) 10/18/22 Alkaline Phosphatase 57 U/L (34-104) 10/18/22 TP 6.4 gm/dl (6.0-8.3) 10/18/22 Albumin 3.6 gm/dl (3.4-5.0) 10/18/22 Globulin 2.8 gm/dl (2.5-4.0) 10/18/22 Albumin/Globulin Ratio 1.3 (0.9-2) 10/18/22 Mg 2.2 mg/dl (1.7-2.4) 10/18/22 04:43 Calcium Level 9.0 mg/dl (8.5-10.1) 10/18/22 04:43 Microbiology 10/16/22 14:20 Urine Culture - Final Urine,Clean Catch Three types or organisms present, all moderate counts probable skin rico. No further identifications or sensitivities to follow. I & O Totals 24 Hours 10/17/22 10/18/22 10/19/22 06:59 06:59 06:59 Intake Total 3113.333 / 3113.333 2308.749 / 2308.749 13.333 / 13.333 Output Total 550 / 550 815 / 815 Balance 2563.333 / 2563.333 1493.749 / 1493.749 13.333 / 13.333 Cumulative 10/16/22 11:28 thru 10/18/22 07:10 Intake Total 5435.415 Output Total 1365 Balance 4070.415 RT Ventilator Mngmt (Last Documented) Ventilator Ordered Settings Respiratory Rate 18 10/17/22 18:30 Ventilator - PT Measurements Respiratory Rate 18 Coding Level of Care Code 70064 Subseq Hosp Care Lvl 3 Diagnoses Hypertensive emergency I16.1 Acute renal failure N17.9 Hypokalemia E87.6 Anemia D64.9 Non-ST elevation myocardial infarction (NSTEMI) I21.4 Abdominal pain R10.9
--- NOTE | 2022-10-18 08:19 | Cardiology Progress Note ---
Date of Service October 18, 2022 Assessment & Plan (1) Hypertensive emergency: (2) Acute renal failure: (3) Hypokalemia: (4) Elevated troponin: Plan -BP by radial arterial line 185/103 at the time of my assessment on nicardipine infusion 2.5 mg/hr. -Has received metoprolol tartrate 25 mg PO TID. Now on hydralazine 20 mg PO TID, and amlodipine 5 mg daily. -HS troponin trended up to 1,741 pg/ml this am. Pt without chest pain, EKG reveals SR with LVH with strain pattern, echocardiogram =severe concentric LVH with LVEF 65-70%. Echo consistent with underlying hypertension and resultant concentric left ventricular hypertrophy. Infiltrative cardiomyopathy also a consideration. UPEP, serum immunofixation ordered, free Samuel and [place] light chains. EKG am of 10/18/22, technically limited due to artifact and a repeat has been requested. Creatinine remains elevated. Working on weaning nifedipine and transitioning or oral medications. Potassium stable this am. Discontinue metoprolol and change to carvedilol for increased BP lowering effect. Continue hydralazine and amlodipine. Nephrology input noted and appreciated. SQ heparin for DVT prophylaxis. Admission and Anticipated Discharge Date Admission Date: October 16, 2022 Subjective Patient seen in follow up. SBP remains high 180/100 mm Hg. Denies chest pain or shortness of breath. Physical Exam Physical Exam: Temp Pulse Resp BP Pulse Ox O2 Del Method O2 Flow Rate 36.7 C 72 18 180/125 H 93 2 10/18/22 02:50 10/18/22 06:00 10/17/22 18:30 10/18/22 02:48 10/18/22 06:00 10/17/22 18:30 10/17/22 08:00 Constitutional: no acute distress Respiratory: normal respiratory effort, lungs clear to auscultation Cardiovascular: RRR, no murmur, no edema Gastrointestinal (Abdomen): normal bowel sounds, soft, nontender, no hepatosplenomegaly Neurologic: PERRL, EOMI, accommodation nl, no face palsy, no dysarthria Results & Data ([facility]) Laboratory Results Cardiac Enzymes 10/17/22 10/18/22 Range/Units 11:30 04:43 AST 20 (13-39) U/L Troponin I High Sens 1741.4 H* (0-14) pg/ml CBC 10/18/22 Range/Units 04:43 WBC 6.83 (4.8-10.8) K/ul RBC 2.63 L (3.93-5.22) M/uL Hgb 8.9 L (12.0-16.0) g/dl Hct 24.8 L (34.1-44.9) % Plt Count 220 (130-400) K/uL Neut # (Auto) 5.14 (1.4-6.5) K/uL Lymph # (Auto) 0.88 L (1.2-3.4) K/uL [place] # (Auto) 0.55 (0.24-0.82) K/uL Eos # (Auto) 0.21 (0-0.50) K/uL Baso # (Auto) 0.03 (0-0.2) K/uL Comprehensive Metabolic Panel 10/18/22 Range/Units 04:43 Sodium 127 L (136-145) mmol/L Potassium 3.9 (3.5-5.1) mmol/L Chloride 96 L (98-107) mmol/L Carbon Dioxide 21 (21-32) mmol/L BUN 53 H (6-23) mg/dl Creatinine 5.44 H* D (0.6-1.2) mg/dl Glucose 115 H (70-99(Fasting)) mg/dl Calcium 9.0 (8.5-10.1) mg/dl Direct Bilirubin 0.3 H (0-0.2) mg/dl AST 20 (13-39) U/L ALT 40 (7-52) U/L Alkaline Phosphatase 57 (34-104) U/L Total Protein 6.4 (6.0-8.3) gm/dl Albumin 3.6 (3.4-5.0) gm/dl Intake and Output 10/17/22 10/18/22 10/18/22 22:59 06:59 14:59 Intake Total 796.667 / 2308.749 250 / 2308.749 13.333 / 13.333 Output Total 165 / 815 300 / 815 Balance 631.667 / 1493.749 -50 / 1493.749 13.333 / 13.333 Intake: IV 296.667 / 1358.749 0 / 1358.749 13.333 / 13.333 niCARdipine 25 mg In Sodium 296.667 / 534.583 0 / 534.583 13.333 / 13.333 Chloride 0.9% 240 ml @ 0 MG/HR IV .Q0M [facility] Rx#:[id number] Oral 500 / 950 250 / 950 Output: Urine 165 / 815 300 / 815 Other: Weight 90 kg Weight Measurement Method Built in Bedscale
[2022-10-18] MEDS: hydrALAZINE TAB 50 MG TAB PO SCH ×3 (08:38→20:22)
[2022-10-18] MEDS: carvediloL 6.25 MG TAB PO SCH ×2 (08:38→20:23)
[2022-10-18] MEDS: amLODIPine BESYLATE 5 MG TAB PO SCH (08:38)
[2022-10-18] MEDS: POTASSIUM CHLORIDE 20 MEQ/15 ML UDC PO SCH (08:40)
[2022-10-18] MEDS ORDERED: LABETALOL HCL IV 5 MG/ML 20ML IV PRN ×2 (09:46→23:27)
--- NOTE | 2022-10-18 09:52 | Nephrology Progress Note ---
Date of Service October 18, 2022 Assessment & Plan Admission and Anticipated Discharge Date Admission Date: October 16, 2022 Subjective Subjective S---has nausea and Dry heaves. BP still high PHYSICAL EXAMINATION: GENERAL: A middle-aged white female, who is somewhat obese. She is awake, alert, oriented x3, but not feeling good and not in a good position to give detailed answer. She is awake, alert, oriented x3. CHEST: Bilaterally clear to auscultation. CARDIOVASCULAR: S1 and S2, regular. ABDOMEN: Soft, nontender. EXTREMITIES: Show trace edema. LABORATORY TEST: Creat about same. has 6 gm proteinuria and active urine sediment. renal duplex normal. ASSESSMENT AND PLAN: A 42-year-old female who does not go to the doctors with a last medical care obtained in 2014 or 2015 when she had a normal kidney function, but already had very uncontrolled hypertension, which has not been treated. At this time, she has hypertensive urgency with renal failure. 1. Renal failure. We do not know whether this is acute or chronic. The only blood work we have is from almost 6 years ago and that time it was normal. However, it is concerning to see this degree of renal failure in a relatively young person. Urine sediment is quite active with 3+ blood and 3+ protein with lots of epithelial cells and rbc's and wbc's. This is consistent with both ATN as well as glomerulonephritis. However, it is unclear whether she has had progressive renal failure over the last 5 to 6 years, so this is completely new. At this point, we do have to do a full workup, which includes renal imagin g. We will also do C3, C4, DOROTEO, ANCA, urine for Bence-Montiel as well as serum immunofixation. Depending on the results of the serological test as well as the trend of the kidney function, we may even have to do a renal biopsy. Case will be assessed on a daily basis to further plan. 2. Hypertensive urgency--- Continue Nicardipine drip. can stop NS now. very unlikely to be severely dehydrated with this high BP. 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 Serology pending--wont be back for another 1 week. Also Cannot do renal biopsy here--No IR. may even have to transfer but with holiday schedule can arrange for outpt Biopsy at [facility]--IR. for now will focus on controlling the BP. Nicardipine drip. Given Renal failure no Coty/ARB for now. No Diuretics either but she may need that. On Amlo 10 Coreg and hydralazine + iv PRNs. Can also add clonidine po qid. 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 Results & Data ([facility]) Vital Signs (Past 12 Hours) Vital Signs Temp Pulse BP Pulse Ox 10/18/22 09:15 77 97 10/18/22 09:00 78 97 10/18/22 08:45 80 97 10/18/22 08:30 79 96 10/18/22 08:00 68 10/18/22 08:15 79 96 10/18/22 08:00 80 98 10/18/22 07:45 69 96 10/18/22 07:30 73 94 10/18/22 07:15 71 94 10/18/22 07:00 69 96 10/18/22 06:45 70 90 10/18/22 06:30 70 87 L 10/18/22 06:15 71 95 10/18/22 06:00 72 93 10/18/22 05:45 70 98 10/18/22 05:30 70 98 10/18/22 05:15 71 99 10/18/22 05:00 72 97 10/18/22 04:45 67 97 10/18/22 04:30 65 95 10/18/22 04:15 67 93 10/18/22 04:00 67 94 10/18/22 03:45 64 97 10/18/22 03:30 66 98 10/18/22 03:15 65 98 10/18/22 03:00 67 95 10/18/22 02:48 71 97 10/18/22 02:48 180/125 H 10/18/22 02:45 73 10/18/22 02:30 66 90 10/18/22 02:50 36.7 C 10/18/22 02:15 65 99 10/18/22 02:00 66 90 10/18/22 01:45 68 10/18/22 01:30 68 98 10/18/22 01:15 69 95 11/23/22 01:00 70 97 10/18/22 00:45 69 91 10/18/22 00:30 74 99 10/18/22 00:15 71 99 10/18/22 00:00 70 97 10/17/22 23:45 70 99 10/18/22 00:00 72 10/17/22 23:30 74 10/17/22 23:15 71 98 10/17/22 23:00 69 99 10/17/22 22:49 165/114 H 10/17/22 22:49 72 100 10/17/22 22:45 68 93 10/17/22 22:30 68 100 10/17/22 22:15 67 97 10/17/22 22:00 68 99
[2022-10-18] MEDS: hydrALAZINE HCL 20 MG/ML VIAL IV PRN ×3 (10:36→20:53)
[2022-10-18] MEDS: cloNIDine HCL 0.1 MG TAB PO SCH ×2 (14:14→21:52)
[2022-10-18] MEDS ORDERED: cloNIDine HCL 0.1 MG TAB PO ONE (14:15)
[2022-10-18 16:52] LABS: Free Kappa 127.3 mg/L (3.3-19.4); Free Kappa/Lambda Ratio 1.57 (0.26-1.65)
--- NOTE | 2022-10-18 19:25 | Hospitalist Progress Note ---
Date of Service October 18, 2022 Assessment & Plan (1) Hypertensive emergency: Plan: ASSESSMENT AND PLAN: This is a 42-year-old female who presents with abdominal pain and found to have hypertensive emergency, acute kidney injury/chronic kidney disease and liver cirrhosis. 1. Hypertensive emergency - Admitted with blood pressure of 282/145, elevated troponin of 168 and creatinine of 5.2. -- Admitted to ICUon nicardipine drip --Also, p.o. metoprolol, amlodipine, hydralazine Started --Today, nicardipine drip discontinued since this morning Blood pressure seems to be improving Metoprolol changed to carvedilol Continue amlodipine and hydralazine Monitor closely -- Cardiology and nephrology service on board 2. 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 Electrolyte abnormalities. Potassium now 3.9 4. Elevated troponin -- Likely secondary to myocardial strain per Cardiology service in the setting of acute kidney injury Heparin drip discontinued Echocardiogram: EF 65 to 70%, with severe concentric LVH 5. 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 -- Monitor closely 6.Prolonged Qt. QTc 444 7. Anemia. Hemoglobin 8.7-->8.9 Iron 34 Likely from kidney disease 8. Deep venous thrombosis prophylaxis, placed on heparin subcutaneously. Disposition Anticipate discharge to home medically stable Admission and Anticipated Discharge Date Admission Date: October 16, 2022 Subjective Follow-up for hypertensive emergency, acute renal failure, etc. Seen sitting up in bed, comfortable, using her iPad Not in distress In good spirits States she feels improved today compared to yesterday No chest pain, headache, dizziness, shortness of breath Voiding with no problems Anxiety is better today No other symptom Review of Systems Review of Systems: all noted and negative except for above Physical Exam Physical Exam: General- oriented x 3, not in distress, speaks in sentences with no effort or accessory muscle use Eyes- anicteric Neck- no JVD Lungs- clear breath sounds bilaterally, No wheezing, no crackles bilaterally Heart- normal rate, regular rhythm; no murmurs Abdomen- normal bowel sounds, nondistended, soft, No tenderness Extremities- no pretibial edema, no calf tenderness Neuro- alert, oriented x 3; no gross focal neurologic deficits Skin- warm & dry Results & Data Results & Data ([facility]) Vital Signs (Past 12 Hours) Vital Signs Temp Pulse BP Pulse Ox 10/18/22 16:00 37 C 10/18/22 16:45 87 98 10/18/22 16:15 72 98 10/18/22 15:45 73 97 10/18/22 15:15 79 95 10/18/22 14:45 85 98 10/18/22 14:15 74 95 10/18/22 16:30 98 10/18/22 16:00 73 95 10/18/22 15:30 74 95 10/18/22 15:00 81 97 10/18/22 16:00 73 10/18/22 14:30 76 99 10/18/22 14:00 77 99 10/18/22 13:00 78 97 10/18/22 12:00 81 100 10/18/22 11:00 80 100 10/18/22 10:45 79 98 10/18/22 10:30 80 98 10/18/22 10:17 82 98 10/18/22 10:17 198/128 H 10/18/22 10:00 78 98 10/18/22 09:30 75 97 10/18/22 09:15 77 97 10/18/22 09:00 78 97 10/18/22 08:45 80 97 10/18/22 08:30 79 96 10/18/22 08:00 68 10/18/22 08:15 79 96 10/18/22 08:00 80 98 10/18/22 07:45 69 96 10/18/22 07:30 73 94 all noted and reviewed including below
--- NOTE | 2022-10-18 21:20 | Electrocardiogram Report ---
Test Reason : Blood Pressure : / mmHG Vent. Rate : 102 BPM Atrial Rate : 102 BPM P-R Int : 164 ms QRS Dur : 094 ms QT Int : 386 ms P-R-T Axes : 063 -37 117 degrees QTc Int : 503 ms Sinus tachycardia Biatrial enlargement Left axis deviation Incomplete right bundle branch block Left ventricular hypertrophy with repolarization abnormality Abnormal ECG No previous ECGs available Confirmed by Vaughn Blake ([id number]) on 10/18/2022 9:19:45 PM Referred By: REFERRED SELF Confirmed By:Vaughn Blake
[2022-10-18] MEDS: LORazepam 0.5 MG TAB PO PRN (22:04)
--- NOTE | 2022-10-18 23:25 | Electrocardiogram Report ---
Test Reason : Blood Pressure : / mmHG Vent. Rate : 085 BPM Atrial Rate : 085 BPM P-R Int : 146 ms QRS Dur : 090 ms QT Int : 408 ms P-R-T Axes : 060 -25 144 degrees QTc Int : 486 ms Normal sinus rhythm Possible Left atrial enlargement Left ventricular hypertrophy with repolarization abnormality Prolonged QT Abnormal ECG When compared with ECG of 16-OCT-2022 13:34, No significant change was found Confirmed by Vaughn Blake ([id number]) on 10/18/2022 11:24:57 PM Referred By: REFERRED SELF Confirmed By:Vaughn Blake
--- NOTE | 2022-10-18 23:42 | Electrocardiogram Report ---
Test Reason : Blood Pressure : / mmHG Vent. Rate : 083 BPM Atrial Rate : 083 BPM P-R Int : 138 ms QRS Dur : 090 ms QT Int : 378 ms P-R-T Axes : 064 -28 142 degrees QTc Int : 444 ms Normal sinus rhythm Possible Left atrial enlargement Left ventricular hypertrophy with repolarization abnormality Abnormal ECG When compared with ECG of 17-OCT-2022 00:24, Nonspecific T wave abnormality no longer evident in Anterior leads Confirmed by Vaughn Blake ([id number]) on 10/18/2022 11:42:19 PM Referred By: REFERRED SELF Confirmed By:Vaughn Blake
[2022-10-19] MEDS: hydrALAZINE TAB 50 MG TAB PO SCH ×4 (02:54→20:30)
[2022-10-19] MEDS: hydrALAZINE HCL 20 MG/ML VIAL IV PRN (02:55)
[2022-10-19] MEDS: HYDROmorphone INJ 0.5 MG/0.5 ML SYR IV PRN (03:17)
[2022-10-19] MEDS: cloNIDine HCL 0.1 MG TAB PO SCH ×4 (05:30→20:30)
[2022-10-19] MEDS: HEPARIN SOD 5,000 UNIT/0.5 ML VIAL SQ SCH ×3 (05:35→20:31)
[2022-10-19 05:38] LABS: Basophils # (auto) 0.03 K/uL (0-0.2); Basophils % (auto) 0.4 %; Eosinophils # (auto) 0.14 K/uL (0-0.50); Eosinophils % (auto) 1.9 %; Hematocrit (blood only) 25.3 % (34.1-44.9); Hemoglobin 8.8 g/dl (12.0-16.0); Immature Granulocytes % (auto) 1.4 %; Lymphocytes # (auto) 0.85 K/uL (1.2-3.4); Lymphocytes % (auto) 11.7 %; Mean Corpuscular Hemoglobin 33.7 pg (25.0-34.0); Mean Corpuscular Hgb Conc 34.8 g/dL (32.0-36.0); Mean Corpuscular Volume 96.9 fL (80.0-100.0); Mean Platelet Volume 11.3 fL (9.4-12.3); Monocytes # (auto) 0.63 K/uL (0.24-0.82); Monocytes % (auto) 8.7 %; Neutrophils % (auto) 75.9 %; Platelet Count 213 K/uL (130-400); RDW Coefficient of Variation 12.9 % (11.5-14.5); RDW Standard Deviation 45.6 fL (36.4-46.3); Red Blood Count 2.61 M/uL (3.93-5.22); White Blood Count 7.25 K/ul (4.8-10.8)
[2022-10-19 06:17] LABS: Albumin Globulin Ratio 1.4 (0.9-2); Albumin Level 3.9 gm/dl (3.4-5.0); BUN Creatinine Ratio 10.3 (10-20); Bilirubin Direct 0.2 mg/dl (0-0.2); Bilirubin,Total 0.6 mg/dl (0.2-1.0); Calcium 9.3 mg/dl (8.5-10.1); Creatinine Clr Calc Pharmacy 15.3 ml/min; Est GFR (African American) 10.2 ml/min; Est GFR (Non-African American) 8.8 ml/min; Globulin 2.8 gm/dl (2.5-4.0); Magnesium 2.4 mg/dl (1.7-2.4); Phosphorus 5.4 mg/dl (2.5-4.9); Potassium 4.2 mmol/L (3.5-5.1); Total Protein 6.7 gm/dl (6.0-8.3)
[2022-10-19] MEDS ORDERED: diphenhydrAMINE Capsule 25 MG CAP PO ONE (06:23)
--- NOTE | 2022-10-19 06:52 | Electrocardiogram Report ---
Test Reason : Blood Pressure : / mmHG Vent. Rate : 072 BPM Atrial Rate : 072 BPM P-R Int : 160 ms QRS Dur : 084 ms QT Int : 450 ms P-R-T Axes : 000 -22 142 degrees QTc Int : 492 ms Normal sinus rhythm Left ventricular hypertrophy with repolarization abnormality Prolonged QT Abnormal ECG When compared with ECG of 17-OCT-2022 06:58, QT has lengthened Confirmed by Vaughn Blake ([id number]) on 10/19/2022 6:52:23 AM Referred By: REFERRED SELF Confirmed By:Vaughn Blake
--- NOTE | 2022-10-19 07:02 | Electrocardiogram Report ---
Test Reason : Blood Pressure : / mmHG Vent. Rate : 079 BPM Atrial Rate : 079 BPM P-R Int : 148 ms QRS Dur : 088 ms QT Int : 414 ms P-R-T Axes : 067 -26 101 degrees QTc Int : 474 ms Normal sinus rhythm Possible Left atrial enlargement Left ventricular hypertrophy T wave abnormality, consider lateral ischemia Abnormal ECG When compared with ECG of 18-OCT-2022 05:55, No significant change Confirmed by Vaughn Blake ([id number]) on 10/19/2022 7:02:06 AM Referred By: REFERRED SELF Confirmed By:Vaughn Blake
[2022-10-19] MEDS: amLODIPine BESYLATE 5 MG TAB PO SCH (07:31)
[2022-10-19] MEDS: carvediloL 6.25 MG TAB PO SCH (07:31)
--- NOTE | 2022-10-19 07:37 | Critical Care Progress Note ---
Date of Service October 19, 2022 Assessment & Plan (1) Hypertensive emergency: (2) Acute renal failure: (3) Hypokalemia: (4) Anemia: (5) Non-ST elevation myocardial infarction (NSTEMI): (6) Abdominal pain: Plan Impression: 42-year-old female without significant past medical history presents for evaluation of abdominal pain and found to have profound hypertensive emergency with associated renal failure. She was admitted to the ICU for close blood pressure control with nicardipine. 24-hour events: Patient's been off Cardene for 24 hours. Blood pressure medicines continue to be adjusted. Recommendations: 1. Neurologic: Continue to follow neurologically. We will try and decrease target blood pressure to 1 50-1 80 at this point time. 2. Cardiovascular: Hypertensive emergency: Echo reviewed with cardiology. Significant LVH. Amyloid panel pending. Suspect troponin related to myocardial strain with significant hypertension and profound LVH. No indication for anticoagulation currently. Continue attempts to wean off of Cardene. Increase carvedilol to 12.5 mg twice a day. Continue hydralazine 50 mg every 6 hours and Norvasc 10 mg daily. Increase clonidine to 0.2 mg 3 times a day. If continues to have issues, could consider the addition of minoxidil but this would likely require the addition of a diuretic as well due to fluid retention and given her kidney function may not be optimal. Defer to cardiology and nephrology 3. Pulmonary: History of tobacco abuse. Now on room air. Not bronchospastic. Smoking cessation recommended 4. Renal: Acute renal failure with associated hypokalemia on presentation. Hypokalemia now corrected. Creatinine stable but showing no significant improvement suspect related to hypertension versus progression of intrinsic kidney disease. Await serologies ordered by nephrology. May need kidney biopsy, not available at this institution. No indication for acute dialysis currently. 5. GI: Abdominal pain. Tolerating a diet. Nodular liver noted on ultrasound possibly consistent with cirrhosis. Follow clinically. LFTs normal. Lipase negative. 6. ID: No current issues. Continue to follow clinically. 7. Endocrine: No current issues. 8. Heme-onc: Anemia: Unclear etiology. May be secondary to renal failure. No signs of bleeding. No indication for transfusion currently but will continue to follow. 9. Prophylaxis: DVT prophylaxis with subcu heparin. Tolerating a diet so okay to hold on GI prophylaxis. Will see how she does if she takes her oral medications this morning. If her blood pressure remains under good control, the arterial line will be discontinued and she can be downgraded out of the ICU to telemetry status with the hospitalist attending. Critical care services will sign off when she leaves the ICU. Feel free to contact us with questions or concerns Admission and Anticipated Discharge Date Admission Date: October 16, 2022 Subjective Patient seen and examined. EMR reviewed. Discussed with critical care nurse at bedside. The patient required 2 doses of as needed IV hydralazine and 2 doses of as needed labetalol overnight. She is tolerating a diet. She is not having any nausea or vomiting. She is not experiencing any chest pain or palpitations. No significant lower extremity edema. She feels somewhat improved. Review of Systems Review of Systems: All systems reviewed & are unremarkable except as noted in Subjective Physical Exam Constitutional: WD/WN, vitals as above Neck: trachea midline, no thyromegaly Respiratory: normal respiratory effort, lungs clear to auscultation Cardiovascular: RRR, no murmur, no edema Gastrointestinal (Abdomen): normal bowel sounds, soft, nontender, no hepatosplenomegaly Musculoskeletal: Extremities: extremities normal to inspection Skin: no rashes, warm and dry Lymphatic: no cervical lymphadenopathy Results & Data Results & Data ([facility]) Vital Signs (Past 12 Hours) Vital Signs Temp Pulse BP Pulse Ox 10/19/22 07:00 68 96 10/19/22 05:45 68 97 10/19/22 05:30 78 98 10/19/22 05:15 78 98 10/19/22 05:00 74 96 10/19/22 04:45 74 95 10/19/22 04:30 74 96 10/19/22 04:15 74 96 10/19/22 04:00 75 95 10/19/22 03:45 76 94 10/19/22 03:30 76 93 10/19/22 03:15 76 96 10/19/22 03:00 76 97 10/19/22 02:45 74 96 10/19/22 02:30 76 97 10/19/22 02:27 173/101 H 10/19/22 02:27 83 98 10/19/22 02:15 78 96 10/19/22 02:00 74 95 10/19/22 01:45 74 94 10/19/22 01:30 75 95 10/19/22 01:15 75 95 10/19/22 01:00 73 94 10/19/22 00:45 75 94 10/19/22 00:30 74 94 10/19/22 00:15 76 95 10/19/22 00:00 76 94 10/18/22 23:30 79 95 10/18/22 23:15 78 95 10/18/22 23:00 78 96 10/18/22 22:45 77 96 10/18/22 22:30 76 97 10/18/22 22:15 75 97 10/18/22 22:00 93 H 99 10/18/22 21:45 86 97 10/18/22 21:30 87 98 10/19/22 02:40 37.0 C 10/18/22 23:40 79 10/18/22 22:39 36.8 C 10/18/22 21:15 90 98 10/18/22 21:00 86 99 10/18/22 20:45 86 99 10/18/22 20:30 86 99 10/18/22 20:15 86 99 10/18/22 20:00 87 100 10/18/22 19:45 37.2 C Critical Care Results & Data Vital Signs (Past 12 Hours) Vital Signs Temp Pulse BP Pulse Ox 10/19/22 07:00 68 96 10/19/22 05:45 68 97 10/19/22 05:30 78 98 10/19/22 05:15 78 98 10/19/22 05:00 74 96 10/19/22 04:45 74 95 10/19/22 04:30 74 96 10/19/22 04:15 74 96 10/19/22 04:00 75 95 10/19/22 03:45 76 94 10/19/22 03:30 76 93 10/19/22 03:15 76 96 10/19/22 03:00 76 97 10/19/22 02:45 74 96 10/19/22 02:30 76 97 10/19/22 02:27 173/101 H 10/19/22 02:27 83 98 10/19/22 02:15 78 96 10/19/22 02:00 74 95 10/19/22 01:45 74 94 10/19/22 01:30 75 95 11/24/22 01:15 75 95 10/19/22 01:00 73 94 10/19/22 00:45 75 94 10/19/22 00:30 74 94 10/19/22 00:15 76 95 10/19/22 00:00 76 94 10/18/22 23:30 79 95 10/18/22 23:15 78 95 10/18/22 23:00 78 96 10/18/22 22:45 77 96 10/18/22 22:30 76 97 10/18/22 22:15 75 97 10/18/22 22:00 93 H 99 10/18/22 21:45 86 97 10/18/22 21:30 87 98 10/19/22 02:40 37.0 C 10/18/22 23:40 79 10/18/22 22:39 36.8 C 10/18/22 21:15 90 98 10/18/22 21:00 86 99 10/18/22 20:45 86 99 10/18/22 20:30 86 99 10/18/22 20:15 86 99 10/18/22 20:00 87 100 10/18/22 19:45 37.2 C Lab & Micro Results (Past 24 Hours) RBC 2.61 M/uL (3.93-5.22) L 10/19/22 WBC 7.25 K/ul (4.8-10.8) 10/19/22 Hgb 8.8 g/dl (12.0-16.0) L 10/19/22 Hct 25.3 % (34.1-44.9) L 10/19/22 MCV 96.9 fL (80.0-100.0) 10/19/22 MCH 33.7 pg (25.0-34.0) 10/19/22 MCHC 34.8 g/dL (32.0-36.0) 10/19/22 RDW Standard Deviation 45.6 fL (36.4-46.3) 10/19/22 RDW Coefficient of Variation 12.9 % (11.5-14.5) 10/19/22 Plt Count 213 K/uL (130-400) 10/19/22 MPV 11.3 fL (9.4-12.3) 10/19/22 Neutrophils (%) (Auto) 75.9 % 10/19/22 Lymphocytes (%) (Auto) 11.7 % 10/19/22 Monocytes # (Auto) 0.63 K/uL (0.24-0.82) 10/19/22 Eosinophils # (Auto) 0.14 K/uL (0-0.50) 10/19/22 Immature Granulocyte % (Auto) 1.4 % 10/19/22 Neutrophils # (Auto) 5.50 K/uL (1.4-6.5) 10/19/22 Lymphocytes # (Auto) 0.85 K/uL (1.2-3.4) L 10/19/22 Monocytes # (Auto) 0.63 K/uL (0.24-0.82) 10/19/22 Eosinophils # (Auto) 0.14 K/uL (0-0.50) 10/19/22 Basophils # (Auto) 0.03 K/uL (0-0.2) 10/19/22 Immature Granulocyte # (Auto) 0.10 K/uL (0.00-0.02) H 10/19 Na 131 mmol/L (136-145) L 10/19/22 K 4.2 mmol/L (3.5-5.1) 10/19/22 Cl 99 mmol/L (98-107) 10/19/22 CO2 23 mmol/L (21-32) 10/19/22 Anion Gap 9 (3-11) 10/19/22 BUN 56 mg/dl (6-23) H 10/19/22 Creatinine 5.45 mg/dl (0.6-1.2) H* 10/19/22 Estimated GFR ( Amer) 10.2 ml/min 10/19/22 Estimated GFR (Non-Af Amer) 8.8 ml/min 10/19/22 BUN/Creatinine Ratio 10.3 (10-20) 10/19/22 Glu 127 mg/dl (70-99(Fasting)) H 10/19/22 Ca 9.3 mg/dl (8.5-10.1) 10/19/22 Phosphorus Level 5.4 mg/dl (2.5-4.9) H 10/19/22 Total Bilirubin 0.6 mg/dl (0.2-1.0) 10/19/22 Direct Bilirubin 0.2 mg/dl (0-0.2) 10/19/22 AST 13 U/L (13-39) 10/19/22 ALT 39 U/L (7-52) 10/19/22 Alkaline Phosphatase 53 U/L (34-104) 10/19/22 TP 6.7 gm/dl (6.0-8.3) 10/19/22 Albumin 3.9 gm/dl (3.4-5.0) 10/19/22 Globulin 2.8 gm/dl (2.5-4.0) 10/19/22 Albumin/Globulin Ratio 1.4 (0.9-2) 10/19/22 Mg 2.4 mg/dl (1.7-2.4) 10/19/22 05:25 Calcium Level 9.3 mg/dl (8.5-10.1) 10/19/22 05:25 I & O Totals 24 Hours 10/18/22 10/19/22 10/20/22 06:59 06:59 06:59 Intake Total 2308.749 / 2308.749 1037.500 / 1037.500 Output Total 815 / 815 2049 / 2049 Balance 1493.749 / 1493.749 -1012.500 / -1012.500 Cumulative 10/16/22 11:28 thru 10/19/22 06:00 Intake Total 6459.582 Output Total 3415 Balance 3044.582 RT Ventilator Mngmt (Last Documented) Ventilator Ordered Settings Respiratory Rate 18 10/17/22 18:30 Ventilator - PT Measurements Respiratory Rate 18 Coding Level of Care Code 37097 Subseq Hosp Care Lvl 3 Diagnoses Hypertensive emergency I16.1 Acute renal failure N17.9 Hypokalemia E87.6 Anemia D64.9 Non-ST elevation myocardial infarction (NSTEMI) I21.4 Abdominal pain R10.9
--- NOTE | 2022-10-19 09:39 | Nephrology Progress Note ---
Date of Service October 19, 2022 Assessment & Plan (1) Acute renal failure: Plan: Patient with acute renal failure likely acute glomerulonephritis. Patient also with nephrotic range proteinuria. Differential is progressively worsening CKD. Patient has not had medical care in a long time which makes diagnosis difficult. Ultimately patient will need a renal biopsy. I think this will have to be arranged on an outpatient basis. Once blood pressure is stable enough to allow discharge, patient should be discharged and set up for renal biopsy at [facility] with interventional radiology. -Repeat urine microscopy -Follow-up serologies -Avoid contrast unless lifesaving (2) Hypertensive emergency: Plan: Patient blood pressure still high. Continue clonidine, Coreg, amlodipine. Nicardipine drip is off. (3) Anemia: Admission and Anticipated Discharge Date Admission Date: October 16, 2022 Subjective Seen in follow-up for acute renal failure and hypertensive urgency. She feels better today. No shortness of breath. Blood pressure still high. Review of Systems Review of Systems: All other systems were reviewed and negative except as noted in HPI Physical Exam Physical Exam: General exam: Appears comfortable, no acute distress HEENT: Pupils are equal and reactive to light Neck: No JVD, neck is supple trachea is midline Respiratory system: Clear breath sounds bilaterally. Gastrointestinal: Abdomen is soft, non distended, non tender, bowel sounds are present CVS: Regular rate and rhythm. No murmurs, rubs or gallops Musculoskeletal: No joint or muscle tenderness Extremities: Non tender, no edema, peripheral pulses are present Neuro: Oriented, no tremors, no focal neurological deficits Skin: No rashes Results & Data ([facility]) Vital Signs (Past 12 Hours) Vital Signs Temp Pulse Resp BP Pulse Ox O2 Del Method 10/19/22 09:00 66 16 96 Room Air 10/19/22 08:00 73 99 10/19/22 08:00 36.7 C 10/19/22 07:00 68 96 10/19/22 05:45 68 97 10/19/22 05:30 78 98 10/19/22 05:15 78 98 10/19/22 05:00 74 96 10/19/22 04:45 74 95 10/19/22 04:30 74 96 10/19/22 04:15 74 96 10/19/22 04:00 75 95 10/19/22 03:45 76 94 10/19/22 03:30 76 93 10/19/22 03:15 76 96 10/19/22 03:00 76 97 10/19/22 02:45 74 96 10/19/22 02:30 76 97 10/19/22 02:27 173/101 H 10/19/22 02:27 83 98 10/19/22 02:15 78 96 10/19/22 02:00 74 95 10/19/22 01:45 74 94 10/19/22 01:30 75 95 10/19/22 01:15 75 95 10/19/22 01:00 73 94 10/19/22 00:45 75 94 10/19/22 00:30 74 94 10/19/22 00:15 76 95 10/19/22 00:00 76 94 10/18/22 23:30 79 95 10/18/22 23:15 78 95 10/18/22 23:00 78 96 10/18/22 22:45 77 96 10/18/22 22:30 76 97 10/18/22 22:15 75 97 10/18/22 22:00 93 H 99 10/18/22 21:45 86 97 10/19/22 02:40 37.0 C 10/18/22 23:40 79 10/18/22 22:39 36.8 C Laboratory Results 10/19/22 05:25 10/19/22 10/19/22 05:25 05:25 WBC 7.25 RBC 2.61 L MCV 96.9 MCH 33.7 MCHC 34.8 RDW Std Deviation 45.6 RDW Coeff of Vy 12.9 Plt Count 213 MPV 11.3 Phosphorus 5.4 H Albumin 3.9
--- NOTE | 2022-10-19 10:34 | Hospitalist Progress Note ---
Date of Service October 19, 2022 Assessment & Plan (1) Hypertensive emergency: Plan: --Admitted with blood pressure of 282/145, elevated troponin of 168 and creatinine of 5.2. -- Admitted to ICU on nicardipine drip--stopped PM of 10/18 --Also, p.o. metoprolol, amlodipine, hydralazine Started this admission-->ICU titrating, cardiology and nephrology also on board. -- Metoprolol changed to carvedilol --Acute renal failure and demand ischemia present. 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 --Follow-up serologies currently pending --cont BP management as above. (3) Glomerulonephritis, acute: Plan: Presumed working diagnosis, renal biopsy is needed to confirm. Serologies are pending. (4) Nephrotic range proteinuria: (5) Alcohol use: Plan: Heavy alcohol abuse history with presumed alcoholic cirrhosis. (6) Cirrhosis of liver: Plan: Appears compensated at this time. RUQ us revealed a 1.9cm focus that may be fat, but needs close follow-up as outpatient to ensure this is not malignancy. Repeat US and AFP may be pursued once kidney issues have calmed down. There is no evidence of ascites and INR, BILI, LFTs, albumin are all within normal limits showing normal liver function at this time. (7) Anemia: Plan: likely related to chronic disease 2/2 kidney dysfunction (8) Demand ischemia: Plan: Denies chest pain, and clinical picture is not consistent with ACS. No further workup at this time. (9) Obesity (BMI 30.0-34.9): (10) DVT prophylaxis: Plan: Heparin Full code Dispo-ICU for now, BP improving with current therapy. Will need to establish care with outpatient PCP. Ellen Kitchen DO [facility] Hospitalist Admission and Anticipated Discharge Date Admission Date: October 16, 2022 Subjective 42 yo F presented with hypertensive emergency on cardene drip, with workup revealing glomerulonephritis. She states noticing frequent urination over the past two months, but denies any other symptoms of swelling or UTI symptoms. Currently denies any chest pain, SOB, lightheadedness or other issues. She is sleepy after receiving Benadryl for generalized itching. Review of Systems Review of Systems: All systems were reviewed and negative except as indicated on system. Physical Exam Physical Exam: CONSTITUTIONAL: WNWD, vitals as above, generally well- appearing, NAD EYES: normal conjunctivae, no scleral icterus ENT: external ear and nose normal, MMM NECK: trachea midline RESPIRATORY: clear to auscultation bilaterally, no crackles, rales or wheezes, normal respiratory effort CARDIOVASCULAR: regular rate and rhythm, S1 and 2 heard without murmurs, gallops or rubs, no JVD, no peripheral edema CHEST: inspection of chest was normal GASTROINTESTINAL: soft, nontender, ND, no guarding MUSCULOSKELETAL: strength 5/5 throughout, head is normocephalic and atraumatic SKIN: warm and dry NEUROLOGIC: CN 2-12 grossly intact, no sensory deficit, normal cognition, normal speech, no tremor PSYCHIATRIC: alert cooperative and oriented to person, place and time. Euthym ic mood, makes good eye contact, language grossly intact, recent and remote memory grossly intact. Results & Data Results & Data ([facility]) Vital Signs (Past 12 Hours) Vital Signs Temp Pulse Resp BP Pulse Ox O2 Del Method 10/19/22 09:00 66 16 96 Room Air 10/19/22 08:00 73 99 10/19/22 08:00 36.7 C 10/19/22 07:00 68 96 10/19/22 05:45 68 97 10/19/22 05:30 78 98 10/19/22 05:15 78 98 10/19/22 05:00 74 96 10/19/22 04:45 74 95 10/19/22 04:30 74 96 10/19/22 04:15 74 96 10/19/22 04:00 75 95 10/19/22 03:45 76 94 10/19/22 03:30 76 93 10/19/22 03:15 76 96 10/19/22 03:00 76 97 10/19/22 02:45 74 96 10/19/22 02:30 76 97 10/19/22 02:27 173/101 H 10/19/22 02:27 83 98 10/19/22 02:15 78 96 11/24/22 02:00 74 95 10/19/22 01:45 74 94 10/19/22 01:30 75 95 10/19/22 01:15 75 95 10/19/22 01:00 73 94 10/19/22 00:45 75 94 10/19/22 00:30 74 94 10/19/22 00:15 76 95 10/19/22 00:00 76 94 10/18/22 23:30 79 95 10/18/22 23:15 78 95 10/18/22 23:00 78 96 10/18/22 22:45 77 96 10/18/22 22:30 76 97 10/19/22 02:40 37.0 C 10/18/22 23:40 79 10/18/22 22:39 36.8 C Laboratory Results Short CBC 10/19/22 Range/Units 05:25 WBC 7.25 (4.8-10.8) K/ul Hgb 8.8 L (12.0-16.0) g/dl Hct 25.3 L (34.1-44.9) % Plt Count 213 (130-400) K/uL BMP 10/19/22 05:25 Sodium 131 L Potassium 4.2 Chloride 99 Carbon Dioxide 23 BUN 56 H Creatinine 5.45 H* Glucose 127 H Calcium 9.3 Liver Function 10/19/22 Range/Units 05:25 Total Bilirubin 0.6 (0.2-1.0) mg/dl Direct Bilirubin 0.2 (0-0.2) mg/dl AST 13 (13-39) U/L ALT 39 (7-52) U/L Alkaline Phosphatase 53 (34-104) U/L Albumin 3.9 (3.4-5.0) gm/dl Medications Administered Current Inpatient Medications Amlodipine Besylate (Amlodipine Besylate 5 Mg Tab) 10 mg PO QAM MARITZA Stop: 11/17/22 08:59 Last Admin: 10/19/22 07:31 Dose: 10 mg Carvedilol (Carvedilol 12.5 Mg Tab) 12.5 mg PO BID MARITZA Stop: 11/18/22 20:59 Clonidine HCl (Clonidine Hcl 0.1 Mg Tab) 0.2 mg PO Q8H MARITZA Stop: 11/18/22 13:59 Last Admin: 10/19/22 07:40 Dose: 0.1 mg Heparin Sodium (Porcine) (Heparin Sod 5,000 Unit/0.5 Ml Vial) 5,000 units SQ Q8 MARITZA Stop: 11/16/22 20:59 Last Admin: 10/19/22 05:35 Dose: 5,000 units Hydralazine HCl (Hydralazine Tab 50 Mg Tab) 50 mg PO Q6H MARITZA Stop: 11/16/22 20:59 Last Admin: 10/19/22 07:31 Dose: 50 mg Hydralazine HCl (Hydralazine Hcl 20 Mg/Ml Vial) 10 mg IV Q4H PRN PRN Reason: Hypertension Stop: 11/17/22 09:45 Last Admin: 10/19/22 02:55 Dose: 10 mg Hydromorphone HCl (Hydromorphone Inj 0.5 Mg/0.5 Ml Syr) 0.25 mg IV Q3H PRN PRN Reason: Pain Stop: 10/30/22 16:30 Last Admin: 10/19/22 03:17 Dose: 0.25 mg Nicardipine HCl 25 mg/ Sodium (Chloride) 250 mls @ 0 mls/hr IV .Q0M [facility]; Protocol Stop: 11/15/22 15:14 Last Admin: 10/18/22 10:21 Dose: Not Given Labetalol HCl (Labetalol Hcl Iv 5 Mg/Ml 20ml) 10 mg IV Q2H PRN PRN Reason: Hypertension Stop: 11/17/22 09:45 Last Admin: 10/19/22 05:32 Dose: 10 mg Lorazepam (Lorazepam 0.5 Mg Tab) 0.5 mg PO Q6H PRN PRN Reason: Anxiety Stop: 11/16/22 17:28 Last Admin: 10/18/22 22:04 Dose: 0.5 mg
[2022-10-19 12:07] LABS: Appearance Urine Cloudy (Clear); Bacteria Urine Automated 1+ (Negative); Bilirubin Urine Negative (Negative); Blood Urine Negative (Negative); Color Urine Yellow; Epithelial Cell Urine Auto >30 /lpf (0-5); Glucose Urine UA Negative (Negative); Ketones Urine Negative (Negative); Leukocyte Esterase Urine 2+ (Negative); Nitrite Urine Negative (Negative); Protein Urine 2+ (Negative); RBC Urine Automated 0-4 /hpf (0-4); Specific Gravity Urine 1.012 (1.000-1.030); Urobilinogen Urine Negative (Negative); WBC Urine Automated >30 /hpf (0-5)
--- NOTE | 2022-10-19 13:33 | Cardiology Progress Note ---
Date of Service October 19, 2022 Assessment & Plan (1) Hypertensive emergency: (2) Acute renal failure: (3) Hypokalemia: (4) Elevated troponin: Plan [place] and lambda light chains are mildly elevated and could be reactive. The patient's blood pressure has stabilized but remains elevated. If she continues to have elevated blood pressure then consider increasing her carvedilol. Otherwise the patient is stable and I agree with transfer to a telemetry unit. Admission and Anticipated Discharge Date Admission Date: October 16, 2022 Subjective The patient had an uneventful night. She is being transferred out of the ICU to regular telemetry floor. Review of Systems Review of Systems: Review of Systems: See HPI for pertinent positives. All other 10 point review of systems are negative. Physical Exam Physical Exam: General: no acute distress and stated age Head: normocephalic, no masses, lesions, tenderness or abnormalities Eyes: conjunctiva are pink and non-injected, sclera clear Neck: supple, no adenopathy, no bruits, normal jugular venous pulse, no hepatojugular reflux Chest: normal shape and normal respiratory effort Lungs: clear to auscultation and percussion Cardiac Exam: - regular rate & rhythm, no murmurs gallops or rubs - normal S1, normal S2 Pulses: 2(+) throughout Abdomen: abdomen soft, non-tender, no abnormal masses and no hepatosplenomegaly Musculoskeletal: no gait disturbance, no joint inflammation, no deforming arthritis Extremities: no edema and no cyanosis Neuro: grossly normal exam Results & Data ([facility]) Vital Signs (Past 12 Hours) Vital Signs Temp Pulse Resp BP Pulse Ox O2 Del Method 10/19/22 13:01 153/105 H 10/19/22 13:01 36.9 C 68 14 98 10/19/22 13:00 67 10/19/22 12:00 75 10/19/22 11:00 65 97 10/19/22 10:00 69 98 10/19/22 09:00 66 16 96 Room Air 10/19/22 08:00 73 99 10/19/22 08:00 36.7 C 10/19/22 07:00 68 96 10/19/22 05:45 68 97 10/19/22 05:30 78 98 10/19/22 05:15 78 98 10/19/22 05:00 74 96 10/19/22 04:45 74 95 10/19/22 04:30 74 96 10/19/22 04:15 74 96 10/19/22 04:00 75 95 10/19/22 03:45 76 94 10/19/22 03:30 76 93 10/19/22 03:15 76 96 10/19/22 03:00 76 97 10/19/22 02:45 74 96 10/19/22 02:30 76 97 10/19/22 02:27 173/101 H 10/19/22 02:27 83 98 10/19/22 02:15 78 96 10/19/22 02:00 74 95 10/19/22 01:45 74 94 10/19/22 02:40 37.0 C Laboratory Results Laboratory Results - last 24 hr 10/17/22 10/18/22 10/19/22 11:30 18:29 05:25 WBC 7.25 RBC 2.61 L Hgb 8.8 L Hct 25.3 L MCV 96.9 MCH 33.7 MCHC 34.8 RDW Std Deviation 45.6 RDW Coeff of Vy 12.9 Plt Count 213 MPV 11.3 Immature Gran % (Auto) 1.4 Neut % (Auto) 75.9 Lymph % (Auto) 11.7 [place] % (Auto) 8.7 Eos % (Auto) 1.9 Baso % (Auto) 0.4 Neut # (Auto) 5.50 Lymph # (Auto) 0.85 L [place] # (Auto) 0.63 Eos # (Auto) 0.14 Baso # (Auto) 0.03 Immature Gran # (Auto) 0.10 H Sodium Potassium Chloride Carbon Dioxide Anion Gap BUN Creatinine Est Cr Clr Drug Dosing Est GFR ( Amer) Est GFR (Non-Af Amer) BUN/Creatinine Ratio Glucose POC Glucose 195 H Calcium Phosphorus Magnesium Total Bilirubin Direct Bilirubin AST ALT Alkaline Phosphatase Total Protein Albumin Globulin Albumin/Globulin Ratio Urine Color Urine Appearance Urine pH Ur Specific [place] Urine Protein Urine Glucose (UA) Urine Ketones Urine Blood Urine Nitrite Urine Bilirubin Urine Urobilinogen Ur Leukocyte Esterase Urine WBC (Auto) Urine RBC (Auto) U Hyaline Cast (Auto) U Epithel Cells (Auto) Urine Bacteria (Auto) Urine Yeast Serum Immunofixation SEE NOTE Urine Immunofixation Free [place] LC, Quant 127.3 H Free Lambda LC, Quant 81.0 H Free [place]/Lambda Ratio 1.57 10/19/22 10/19/22 10/19/22 05:25 11:55 11:55 WBC RBC Hgb Hct MCV MCH MCHC RDW Std Deviation RDW Coeff of Vy Plt Count MPV Immature Gran % (Auto) Neut % (Auto) Lymph % (Auto) [place] % (Auto) Eos % (Auto) Baso % (Auto) Neut # (Auto) Lymph # (Auto) [place] # (Auto) Eos # (Auto) Baso # (Auto) Immature Gran # (Auto) Sodium 131 L Potassium 4.2 Chloride 99 Carbon Dioxide 23 Anion Gap 9 BUN 56 H Creatinine 5.45 H* Est Cr Clr Drug Dosing 15.3 Est GFR ( Amer) 10.2 Est GFR (Non-Af Amer) 8.8 BUN/Creatinine Ratio 10.3 Glucose 127 H POC Glucose Calcium 9.3 Phosphorus 5.4 H Magnesium 2.4 Total Bilirubin 0.6 Direct Bilirubin 0.2 AST 13 ALT 39 Alkaline Phosphatase 53 Total Protein 6.7 Albumin 3.9 Globulin 2.8 Albumin/Globulin Ratio 1.4 Urine Color Yellow Urine Appearance Cloudy A Urine pH 5.0 Ur Specific [place] 1.012 Urine Protein 2+ H Urine Glucose (UA) Negative Urine Ketones Negative Urine Blood Negative Urine Nitrite Negative Urine Bilirubin Negative Urine Urobilinogen Negative Ur Leukocyte Esterase 2+ H Urine WBC (Auto) >30 H Urine RBC (Auto) 0-4 U Hyaline Cast (Auto) 1-5 U Epithel Cells (Auto) >30 H Urine Bacteria (Auto) 1+ H Urine Yeast Not Reportable Serum Immunofixation Urine Immunofixation Pending Free [place] LC, Quant Free Lambda LC, Quant Free [place]/Lambda Ratio Medications Administered Current Inpatient Medications Amlodipine Besylate (Amlodipine Besylate 5 Mg Tab) 10 mg PO QAM MARITZA Stop: 11/17/22 08:59 Last Admin: 10/19/22 07:31 Dose: 10 mg Carvedilol (Carvedilol 12.5 Mg Tab) 12.5 mg PO BID MARITZA Stop: 11/18/22 20:59 Clonidine HCl (Clonidine Hcl 0.1 Mg Tab) 0.2 mg PO Q8H AMRITZA Stop: 11/18/22 13:59 Last Admin: 10/19/22 13:02 Dose: 0.2 mg Heparin Sodium (Porcine) (Heparin Sod 5,000 Unit/0.5 Ml Vial) 5,000 units SQ Q8 [facility] Stop: 11/16/22 20:59 Last Admin: 10/19/22 13:03 Dose: 5,000 units Hydralazine HCl (Hydralazine Tab 50 Mg Tab) 50 mg PO Q6H [facility] Stop: 11/16/22 20:59 Last Admin: 10/19/22 13:03 Dose: 50 mg
[2022-10-19] MEDS: carvediloL 12.5 MG TAB PO SCH (20:30)
[2022-10-19] MEDS ORDERED: oxyCODONE HCL IR 5 MG TAB (IMMEDIATE RELEASE) PO PRN (20:39)
[2022-10-20] MEDS: hydrALAZINE TAB 50 MG TAB PO SCH ×4 (02:00→17:37)
[2022-10-20] MEDS: HEPARIN SOD 5,000 UNIT/0.5 ML VIAL SQ SCH ×3 (05:27→21:38)
[2022-10-20] MEDS: cloNIDine HCL 0.1 MG TAB PO SCH ×3 (05:27→21:37)
[2022-10-20 06:39] LABS: Hematocrit (blood only) 22.5 % (34.1-44.9); Hemoglobin 7.6 g/dl (12.0-16.0); Mean Corpuscular Hemoglobin 33.2 pg (25.0-34.0); Mean Corpuscular Hgb Conc 33.8 g/dL (32.0-36.0); Mean Corpuscular Volume 98.3 fL (80.0-100.0); Mean Platelet Volume 11.7 fL (9.4-12.3); Platelet Count 177 K/uL (130-400); RDW Coefficient of Variation 12.7 % (11.5-14.5); RDW Standard Deviation 45.5 fL (36.4-46.3); Red Blood Count 2.29 M/uL (3.93-5.22); White Blood Count 5.25 K/ul (4.8-10.8)
[2022-10-20 07:25] LABS: BUN Creatinine Ratio 10.2 (10-20); Calcium 9.1 mg/dl (8.5-10.1); Creatinine Clr Calc Pharmacy 13.3 ml/min; Est GFR (African American) 8.9 ml/min; Est GFR (Non-African American) 7.7 ml/min; Potassium 4.1 mmol/L (3.5-5.1)
[2022-10-20] MEDS: carvediloL 12.5 MG TAB PO SCH ×2 (08:47→20:13)
[2022-10-20] MEDS: amLODIPine BESYLATE 5 MG TAB PO SCH (08:47)
--- NOTE | 2022-10-20 09:00 | Cardiology Progress Note ---
Date of Service October 20, 2022 Assessment & Plan (1) Hypertensive emergency: (2) Acute renal failure: (3) Anemia: Plan [place] and lambda light chains are mildly elevated and could be reactive. Urine protein to creatine ratio 6.1 consistent with nephrotic range proteinuria. Hgb now 7.6 BP better on amlodipine 10 mg daily, hydralazine 50 mg PO QID, Clonidine 0.2 mg Q 8h, carvedilol 12.5 mg BID. SQ heparin for DVT prophylaxis. Await serology results. Admission and Anticipated Discharge Date Admission Date: October 16, 2022 Subjective Patient seen in cardiology follow up of HTN. Feels well. Off of IV nicardipine. Transferred out of ICU on 10/19/22. Telemetry reveals SR. Review of Systems Review of Systems: All systems reviewed & are unremarkable except as noted in HPI & below Physical Exam Physical Exam: Temp Pulse Resp BP Pulse Ox O2 Del Method O2 Flow Rate 36.3 C L 65 19 138/59 L 98 2 10/20/22 07:58 10/20/22 07:58 10/20/22 07:58 10/20/22 07:58 10/20/22 07:58 10/20/22 07:58 10/17/22 08:00 Constitutional: WD/WN, vitals as above no acute distress Respiratory: normal respiratory effort, lungs clear to auscultation Cardiovascular: RRR, no murmur, no edema Gastrointestinal (Abdomen): normal bowel sounds, soft, nontender, no hepatosplenomegaly Neurologic: PERRL, EOMI, accommodation nl, no face palsy, no dysarthria Results & Data ([facility]) Vital Signs (Past 12 Hours) Vital Signs Temp Pulse Pulse Resp BP Pulse Ox O2 Del Method 10/20/22 07:58 36.3 C L 65 19 138/59 L 98 Room Air 10/20/22 07:00 60 10/20/22 03:56 36.5 C 70 16 153/95 H 99 Room Air 10/19/22 23:35 36.9 C 65 16 143/93 H 98 Room Air 10/19/22 23:25 61 Laboratory Results CBC 10/20/22 Range/Units 06:16 WBC 5.25 (4.8-10.8) K/ul RBC 2.29 L (3.93-5.22) M/uL Hgb 7.6 L (12.0-16.0) g/dl Hct 22.5 L (34.1-44.9) % Plt Count 177 (130-400) K/uL Comprehensive Metabolic Panel 10/20/22 Range/Units 06:16 Sodium 132 L (136-145) mmol/L Potassium 4.1 (3.5-5.1) mmol/L Chloride 100 (98-107) mmol/L Carbon Dioxide 23 (21-32) mmol/L BUN 62 H (6-23) mg/dl Creatinine 6.10 H* D (0.6-1.2) mg/dl Glucose 111 H (70-99(Fasting)) mg/dl Calcium 9.1 (8.5-10.1) mg/dl Intake and Output 10/19/22 10/20/22 10/20/22 22:59 06:59 14:59 Intake Total 480 / 1310.083 320 / 1310.083 Balance 480 / 959.083 320 / 959.083 Intake: Oral 480 / 1310 320 / 1310 Other: # Unmeasured Voids 1 Weight 90 kg Weight Measurement Method Standing Scale
--- NOTE | 2022-10-20 10:32 | Nephrology Progress Note ---
Date of Service October 20, 2022 Assessment & Plan (1) Acute renal failure: Plan: Patient with acute renal failure likely acute glomerulonephritis. Patient also with nephrotic range proteinuria of 6 g. Differential is progressively worsening CKD. Patient has not had medical care in a long time which makes diagnosis difficult. Ultimately patient will need a renal biopsy. I think this will have to be arranged on an outpatient basis. From renal standpoint, patient should be discharged today and set up for renal biopsy at [facility] with interventional radiology. Repeat UA did not show a lot of RBCs -Follow-up serologies -Avoid contrast unless lifesaving (2) Hypertensive emergency: Plan: Patient blood pressure controlled. Continue clonidine, Coreg, at current doses but reduce hydralazine to 50 mg 3 times daily. Patient will need renal follow- up in 1 to 2 weeks either in [facility] on [address] depending on availability. (3) Anemia: Admission and Anticipated Discharge Date Admission Date: October 16, 2022 Subjective Seen for renal failure and hypotension. She feels better. Main complaint is weakness. No shortness of breath. Review of Systems Review of Systems: All other systems were reviewed and negative except as noted in HPI Physical Exam Physical Exam: General exam: Appears comfortable, no acute distress HEENT: Pupils are equal and reactive to light Neck: No JVD, neck is supple trachea is midline Respiratory system: Clear breath sounds bilaterally. Gastrointestinal: Abdomen is soft, non distended, non tender, bowel sounds are present CVS: Regular rate and rhythm. No murmurs, rubs or gallops Musculoskeletal: No joint or muscle tenderness Extremities: Non tender, no edema, peripheral pulses are present Neuro: Oriented, no tremors, no focal neurological deficits Skin: No rashes Results & Data ([facility]) Vital Signs (Past 12 Hours) Vital Signs Temp Pulse Pulse Resp BP Pulse Ox O2 Del Method 10/20/22 07:58 36.3 C L 65 19 138/59 L 98 Room Air 10/20/22 07:00 60 10/20/22 03:56 36.5 C 70 16 153/95 H 99 Room Air 10/19/22 23:35 36.9 C 65 16 143/93 H 98 Room Air 10/19/22 23:25 61 Laboratory Results 10/20/22 06:16 10/20/22 06:16 WBC 5.25 RBC 2.29 L MCV 98.3 MCH 33.2 MCHC 33.8 RDW Std Deviation 45.5 RDW Coeff of Vy 12.7 Plt Count 177 MPV 11.7
--- NOTE | 2022-10-20 14:58 | Hospitalist Progress Note ---
Date of Service October 20, 2022 Assessment & Plan (1) Hypertensive emergency: Plan: --Admitted with blood pressure of 282/145, elevated troponin of 168 and creatinine of 5.2. -- Admitted to ICU on nicardipine drip--stopped PM of 10/18 --Also, p.o. metoprolol, amlodipine, hydralazine Started this admission-->ICU titrating, cardiology and nephrology also on board. -- Metoprolol changed to carvedilol --Acute renal failure and demand ischemia present. -- Blood pressure is now 139/88 on current regimen. We will continue all agents and push for an tid regimen to go home on to maximize compliance -- Low-salt, low potassium diet recommended. 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 --Follow-up serologies currently pending --cont BP management as above. (3) Glomerulonephritis, acute: Plan: Presumed working diagnosis, renal biopsy is needed to confirm. Serologies are pending. (4) Nephrotic range proteinuria: (5) Alcohol use: Plan: Heavy alcohol abuse history with presumed alcoholic cirrhosis. (6) Cirrhosis of liver: Plan: Appears compensated at this time. RUQ us revealed a 1.9 cm focus that may be fat, but needs close follow-up as outpatient to ensure this is not malignancy. Repeat US and AFP may be pursued once kidney issues have calmed down. There is no evidence of ascites and INR, BILI, LFTs, albumin are all within normal limits showing normal liver function at this time. (7) Anemia: Plan: likely related to chronic disease 2/2 kidney dysfunction, Slightly worse but not in the range to transfuse her. Hemoglobin is 7.6, hematocrit is 22.5. Continue to trend in AM. This may be contributing to her low energy levels. Notably there is no overt bleeding. (8) Demand ischemia: Plan: Denies chest pain, and clinical picture is not consistent with ACS. No further workup at this time. (9) Obesity (BMI 30.0-34.9): (10) DVT prophylaxis: Plan: Heparin Full code Dispo-ICU for now, BP improving with current therapy. Will need to establish care with outpatient PCP and she has an appointment scheduled for 10/26. DO [facility]ist Admission and Anticipated Discharge Date Admission Date: October 16, 2022 Subjective Seen for renal failure and hypertension. She feels better. Main complaint is weakness. No shortness of breath. We discussed the importance of a low potassium diet and reviewed her follow-up plan with family practice and Mildred lopez next week. I will let her know about the upcoming nephrology appointments as we know. Dr. Chilel is pushing for an IR assisted renal biopsy early next week possibly Sunday. Review of Systems Review of Systems: All systems were reviewed and negative except as indicated on system. Physical Exam Physical Exam: CONSTITUTIONAL: WNWD, vitals as above, generally well- appearing, NAD EYES: normal conjunctivae, no scleral icterus ENT: external ear and nose normal, MMM NECK: trachea midline RESPIRATORY: clear to auscultation bilaterally, no crackles, rales or wheezes, normal respiratory effort CARDIOVASCULAR: regular rate and rhythm, S1 and 2 heard without murmurs, gallops or rubs, no JVD, no peripheral edema CHEST: inspection of chest was normal GASTROINTESTINAL: soft, nontender, ND, no guarding MUSCULOSKELETAL: strength 5/5 throughout, head is normocephalic and atraumatic SKIN: warm and dry NEUROLOGIC: CN 2-12 grossly intact, no sensory deficit, normal cognition, normal speech, no tremor PSYCHIATRIC: alert cooperative and oriented to person, place and time. Euthymic mood, makes good eye contact, language grossly intact, recent and remote memory grossly intact. Results & Data Results & Data ([facility]) Vital Signs (Past 12 Hours) Vital Signs Temp Pulse Pulse Resp BP Pulse Ox O2 Del Method 10/20/22 14:52 120/80 10/20/22 10:47 36.9 C 63 17 139/88 97 Room Air 10/20/22 07:58 36.3 C L 65 19 138/59 L 98 Room Air 10/20/22 07:00 60 10/20/22 03:56 36.5 C 70 16 153/95 H 99 Room Air Laboratory Results Short CBC 10/20/22 Range/Units 06:16 WBC 5.25 (4.8-10.8) K/ul Hgb 7.6 L (12.0-16.0) g/dl Hct 22.5 L (34.1-44.9) % Plt Count 177 (130-400) K/uL [facility] 10/20/22 06:16 Sodium 132 L Potassium 4.1 Chloride 100 Carbon Dioxide 23 BUN 62 H Creatinine 6.10 H* D Glucose 111 H Calcium 9.1 Medications Administered Current Inpatient Medications Amlodipine Besylate (Amlodipine Besylate 5 Mg Tab) 10 mg PO QAM MARITZA Stop: 11/17/22 08:59 Last Admin: 10/20/22 08:47 Dose: 10 mg Carvedilol (Carvedilol 12.5 Mg Tab) 12.5 mg PO BID [facility]ITZA Stop: 11/18/22 20:59 Last Admin: 10/20/22 08:47 Dose: 12.5 mg Clonidine HCl (Clonidine Hcl 0.1 Mg Tab) 0.2 mg PO Q8H [facility] Stop: 11/18/22 13:59 Last Admin: 10/20/22 05:27 Dose: 0.2 mg Heparin Sodium (Porcine) (Heparin Sod 5,000 Unit/0.5 Ml Vial) 5,000 units SQ Q8 [facility] Stop: 11/16/22 20:59 Last Admin: 10/20/22 05:27 Dose: 5,000 units Hydralazine HCl (Hydralazine Tab 50 Mg Tab) 50 mg PO Q6H [facility]IT[facility] Stop: 11/16/22 20:59 Last Admin: 10/20/22 08:47 Dose: 50 mg Oxycodone HCl (Oxycodone Hcl Ir 5 Mg Tab (Immediate Release)) 5 mg PO Q6H PRN PRN Reason: Pain Stop: 11/02/22 20:38 Last Admin: 10/19/22 20:54 Dose: 5 mg
[2022-10-20] MEDS ORDERED: traMADol HCL 50 MG TABLET PO PRN (16:02)
[2022-10-20] MEDS ORDERED: ACETAMINOPHEN 325 MG TAB PO PRN (16:02)
[2022-10-20] MEDS: PANTOprazole 40 MG TAB PO SCH (18:04)
[2022-10-20] MEDS ORDERED: FAMOTIDINE 20 MG in SYRINGE 3 ML IV PRN (21:00)
[2022-10-20] MEDS ORDERED: POLYETHYLENE (MIRALAX) 17 GM PACK PO PRN (21:57)
[2022-10-20] MEDS ORDERED: POLYETHYLENE (MIRALAX) 17 GM PACK PO STA (21:57)
[2022-10-21] MEDS: hydrALAZINE TAB 50 MG TAB PO SCH ×3 (00:21→15:46)
[2022-10-21] MEDS: cloNIDine HCL 0.1 MG TAB PO SCH ×3 (05:31→20:17)
[2022-10-21] MEDS: HEPARIN SOD 5,000 UNIT/0.5 ML VIAL SQ SCH ×3 (05:31→20:16)
[2022-10-21 06:42] LABS: Hematocrit (blood only) 23.8 % (34.1-44.9); Hemoglobin 7.9 g/dl (12.0-16.0); Mean Corpuscular Hemoglobin 33.2 pg (25.0-34.0); Mean Corpuscular Hgb Conc 33.2 g/dL (32.0-36.0); Mean Platelet Volume 12.4 fL (9.4-12.3); Platelet Count 196 K/uL (130-400); RDW Coefficient of Variation 12.6 % (11.5-14.5); RDW Standard Deviation 46.5 fL (36.4-46.3); Red Blood Count 2.38 M/uL (3.93-5.22); White Blood Count 5.38 K/ul (4.8-10.8)
[2022-10-21 07:14] LABS: BUN Creatinine Ratio 10.4 (10-20); Creatinine Clr Calc Pharmacy 12.5 ml/min; Est GFR (African American) 8.1 ml/min; Magnesium 2.4 mg/dl (1.7-2.4); Phosphorus 6.3 mg/dl (2.5-4.9); Potassium 4.2 mmol/L (3.5-5.1)
[2022-10-21] MEDS: DOCUSATE SODIUM 100 MG CAP PO SCH ×2 (08:25→20:16)
[2022-10-21] MEDS: carvediloL 12.5 MG TAB PO SCH ×2 (08:27→20:17)
[2022-10-21] MEDS: PANTOprazole 40 MG TAB PO SCH (08:28)
[2022-10-21] MEDS: amLODIPine BESYLATE 5 MG TAB PO SCH (08:28)
--- NOTE | 2022-10-21 11:27 | Nephrology Progress Note ---
Date of Service October 21, 2022 Assessment & Plan (1) Acute renal failure: Plan: Patient with acute renal failure likely acute glomerulonephritis. Patient also with nephrotic range proteinuria of 6 g. Differential is progressively worsening CKD. Patient has not had medical care in a long time which makes diagnosis difficult. Ultimately patient will need a renal biopsy. I think this will have to be arranged on an outpatient basis. From renal standpoint, patient should be discharged tomorrow and set up for renal biopsy at [facility] with interventional radiology. Repeat UA did not show a lot of RBCs -Follow-up serologies -Avoid contrast unless lifesaving (2) Hypertensive emergency: Plan: Patient blood pressure controlled. Continue Coreg and hydralazine at current doses but reduce clonidine to 0.1 mg 3 times daily. Patient will need renal follow-up in 1 to [address] [facility] on [address] depending on availability. (3) Anemia: Plan: Hemoglobin is 7.9. Her iron saturation is 13%. We will check ferritin. Will give Venofer 300 mg once today. Avoid blood transfusion unless hemoglobin is less than 6 or symptomatic. Patient is young and will be a renal transplant candidate in the future. We will try to avoid blood transfusion as much as possible Admission and Anticipated Discharge Date Admission Date: October 16, 2022 Subjective Seen for acute kidney injury on CKD. Main complaint is weakness. No vomiting or diarrhea. No shortness of breath. Creatinine uptrending Review of Systems Review of Systems: All other systems were reviewed and negative except as noted in HPI Physical Exam Physical Exam: General exam: Appears comfortable, no acute distress HEENT: Pupils are equal and reactive to light Neck: No JVD, neck is supple trachea is midline Respiratory system: Clear breath sounds bilaterally. Gastrointestinal: Abdomen is soft, non distended, non tender, bowel sounds are present CVS: Regular rate and rhythm. No murmurs, rubs or gallops Musculoskeletal: No joint or muscle tenderness Extremities: Non tender, no edema, peripheral pulses are present Neuro: Oriented, no tremors, no focal neurological deficits Skin: No rashes Results & Data ([facility]) Vital Signs (Past 12 Hours) Vital Signs Temp Pulse Pulse Pulse Resp BP Pulse Ox 10/21/22 08:00 57 L 10/21/22 07:19 36.9 C 58 L 20 126/86 97 10/21/22 05:29 36.5 C 60 16 133/86 97 10/21/22 00:17 36.8 C 64 16 125/76 98 O2 Del Method 10/21/22 08:00 10/21/22 07:19 Room Air 10/21/22 05:29 Room Air 10/21/22 00:17 Room Air Laboratory Results 10/21/22 05:38 10/21/22 10/21/22 05:38 05:38 WBC 5.38 RBC 2.38 L MCV 100.0 MCH 33.2 MCHC 33.2 RDW Std Deviation 46.5 H RDW Coeff of Vy 12.6 Plt Count 196 MPV 12.4 H Phosphorus 6.3 H
[2022-10-21] MEDS ORDERED: IRON SUCROSE 300 MG in SODIUM CHLORIDE 0.9% 250 ML IV ONE (11:45)
--- NOTE | 2022-10-21 11:52 | Hospitalist Progress Note ---
Date of Service October 21, 2022 Assessment & Plan (1) Hypertensive emergency: Plan: --Admitted with blood pressure of 282/145, elevated troponin of 168 and creatinine of 5.2. -- Admitted to ICU on nicardipine drip--stopped PM of 10/18 --Also, p.o. metoprolol, amlodipine, hydralazine Started this admission-->ICU titrating, cardiology and nephrology also on board. -- Metoprolol changed to carvedilol --Acute renal failure and demand ischemia present. -- Blood pressure is more controlled current regimen. Will decrease clonidiine to not overshoot goal of <140/90 -- Low-salt, low potassium diet recommended. 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 --she will likely need dialysis per nephrology --Follow-up serologies currently pending --cont BP management as above. (3) Glomerulonephritis, acute: Plan: Presumed working diagnosis, renal biopsy is needed to confirm. Serologies are pending. (4) Nephrotic range proteinuria: (5) Alcohol use: Plan: Heavy alcohol abuse history with presumed alcoholic cirrhosis. (6) Cirrhosis of liver: Plan: Appears compensated at this time. RUQ us revealed a 1.9 cm focus that may be fat, but needs close follow-up as outpatient to ensure this is not malignancy. Repeat US and AFP may be pursued once kidney issues have calmed down. There is no evidence of ascites and INR, BILI, LFTs, albumin are all within normal limits showing normal liver function at this time. (7) Anemia: Plan: likely related to chronic disease 2/2 kidney dysfunction, Slightly worse but not in the range to transfuse her. Hemoglobin is 7.6, hematocrit is 22.5. Continue to trend in AM. This may be contributing to her low energy levels. Notably there is no overt bleeding. IV iron ordered for iron deficiency in an effort to elevate her levels and optimize her for planned epogen injections in the next couple of weeks. (8) Demand ischemia: Plan: Denies chest pain, and clinical picture is not consistent with ACS. No further workup at this time. (9) Obesity (BMI 30.0-34.9): (10) DVT prophylaxis: Plan: Heparin Full code Dispo-ICU for now, BP improving with current therapy. Will need to establish care with outpatient PCP and she has an appointment scheduled for 10/26. Ellen Kitchen DO [facility] Ad[facility] and Anticipated Discharge Date Admission Date: October 16, 2022 Subjective 42 yo F admitted for acute renal failure and hypertensive crisis. reviewed discharge plan she is still very weak and exhausted with minimal exertion she still reports PM episodes of abdominal discomfort that are nonspecific no chest pain or overt SOB Review of Systems Review of Systems: All systems were reviewed and negative except as indicated on system. Physical Exam Physical Exam: CONSTITUTIONAL: WNWD, vitals as above, generally well- appearing, NAD EYES: normal conjunctivae, no scleral icterus ENT: external ear and nose normal, MMM NECK: trachea midline RESPIRATORY: clear to auscultation bilaterally, no crackles, rales or wheezes, normal respiratory effort CARDIOVASCULAR: regular rate and rhythm, S1 and 2 heard without murmurs, gallops or rubs, no JVD, no peripheral edema CHEST: inspection of chest was normal GASTROINTESTINAL: soft, nontender, ND, no guarding MUSCULOSKELETAL: strength 5/5 throughout, head is normocephalic and atraumatic SKIN: warm and dry NEUROLOGIC: CN 2-12 grossly intact, no sensory deficit, normal cognition, normal speech, no tremor PSYCHIATRIC: alert cooperative and oriented to person, place and time. Euthymic mood, makes good eye contact, language grossly intact, recent and remote memory grossly intact. Results & Data Results & Data ([facility]) Vital Signs (Past 12 Hours) Vital Signs Temp Pulse Pulse Pulse Resp BP Pulse Ox 10/21/22 08:00 57 L 10/21/22 07:19 36.9 C 58 L 20 126/86 97 10/21/22 05:29 36.5 C 60 16 133/86 97 10/21/22 00:17 36.8 C 64 16 125/76 98 O2 Del Method 10/21/22 08:00 10/21/22 07:19 Room Air 10/21/22 05:29 Room Air 10/21/22 00:17 Room Air Laboratory Results Short CBC 10/21/22 Range/Units 05:38 WBC 5.38 (4.8-10.8) K/ul Hgb 7.9 L (12.0-16.0) g/dl Hct 23.8 L (34.1-44.9) % Plt Count 196 (130-400) K/uL [facility] 10/21/22 05:38 Sodium 134 L Potassium 4.2 Chloride 101 Carbon Dioxide 23 BUN 69 H Creatinine 6.61 H* D Glucose 114 H Calcium 9.0 Medications Administered Current Inpatient Medications Acetaminophen (Acetaminophen 325 Mg Tab) 650 mg PO Q4H PRN PRN Reason: Agitation Stop: 11/19/22 16:01 Amlodipine Besylate (Amlodipine Besylate 5 Mg Tab) 10 mg PO QAM [facility] Stop: 11/17/22 08:59 Last Admin: 10/21/22 08:28 Dose: 10 mg Carvedilol (Carvedilol 12.5 Mg Tab) 12.5 mg PO BID [facility] Stop: 11/18/22 20:59 Last Admin: 10/21/22 08:27 Dose: 12.5 mg Clonidine HCl (Clonidine Hcl 0.1 Mg Tab) 0.1 mg PO Q8 [facility] Stop: 11/20/22 13:59 Docusate Sodium (Docusate Sodium 100 Mg Cap) 100 mg PO BID [facility] Stop: 11/20/22 08:59 Last Admin: 10/21/22 08:25 Dose: 100 mg Heparin Sodium (Porcine) (Heparin Sod 5,000 Unit/0.5 Ml Vial) 5,000 units SQ Q8 [facility] Stop: 11/16/22 20:59 Last Admin: 10/21/22 05:31 Dose: 5,000 units Hydralazine HCl (Hydralazine Tab 50 Mg Tab) 50 mg PO Q8H [facility] Stop: 11/19/22 16:14 Last Admin: 10/21/22 08:26 Dose: 50 mg Famotidine 20 mg/ Syringe 5 mls @ 2.5 mls/min IV Q12 PRN PRN Reason: abdominal pain Stop: 11/19/22 20:59 Iron Sucrose 300 mg/ Sodium (Chloride) 265 mls @ 176.667 mls/hr IV ONE ONE Stop: 10/21/22 13:14 Pantoprazole Sodium (Pantoprazole 40 Mg Tab) 40 mg PO QAM [facility] Stop: 11/19/22 16:14 Last Admin: 10/21/22 08:28 Dose: 40 mg Polyethylene Glycol (Polyethylene (Miralax) 17 Gm Pack) 17 gm PO DAILY PRN PRN Reason: Constipation Stop: 11/19/22 21:56 Tramadol HCl (Tramadol Hcl 50 Mg Tablet) 50 mg PO Q4H PRN PRN Reason: severe breakthrough pain Stop: 11/19/22 16:01 Last Admin: 10/21/22 00:21 Dose: 50 mg
[2022-10-22] MEDS: hydrALAZINE TAB 50 MG TAB PO SCH ×3 (00:20→15:49)
[2022-10-22] MEDS: cloNIDine HCL 0.1 MG TAB PO SCH ×2 (05:47→14:16)
[2022-10-22] MEDS: HEPARIN SOD 5,000 UNIT/0.5 ML VIAL SQ SCH ×2 (05:48→14:16)
[2022-10-22 06:48] LABS: Hematocrit (blood only) 22.9 % (34.1-44.9); Hemoglobin 7.6 g/dl (12.0-16.0); Mean Corpuscular Hemoglobin 33.5 pg (25.0-34.0); Mean Corpuscular Hgb Conc 33.2 g/dL (32.0-36.0); Mean Corpuscular Volume 100.9 fL (80.0-100.0); Mean Platelet Volume 12.5 fL (9.4-12.3); Platelet Count 171 K/uL (130-400); RDW Coefficient of Variation 12.5 % (11.5-14.5); RDW Standard Deviation 46.6 fL (36.4-46.3); Red Blood Count 2.27 M/uL (3.93-5.22); White Blood Count 4.29 K/ul (4.8-10.8)
[2022-10-22 07:16] LABS: BUN Creatinine Ratio 11.1 (10-20); Calcium 8.8 mg/dl (8.5-10.1); Est GFR (African American) 8.5 ml/min; Est GFR (Non-African American) 7.3 ml/min; Magnesium 2.3 mg/dl (1.7-2.4); Phosphorus 7.1 mg/dl (2.5-4.9)
[2022-10-22 07:38] LABS: Ferritin 169.6 ng/ml (8-388)
[2022-10-22] MEDS: PANTOprazole 40 MG TAB PO SCH (08:31)
[2022-10-22] MEDS: DOCUSATE SODIUM 100 MG CAP PO SCH (08:31)
[2022-10-22] MEDS: carvediloL 12.5 MG TAB PO SCH (08:31)
[2022-10-22] MEDS: amLODIPine BESYLATE 5 MG TAB PO SCH (08:32)
[2022-10-22] MEDS ORDERED: IRON SUCROSE 300 MG in SODIUM CHLORIDE 0.9% 250 ML IV ONE (09:45)
--- NOTE | 2022-10-22 09:51 | Discharge Summary ---
Discharge Summary Date of Service October 22, 2022 Notes For Next Care Provider Pending renal biopsy and follow-up labs. Creatinine at discharge was 5.96. Patient is planned to be set up on hemodialysis and should be getting a temporary hemodialysis catheter at the same time as the renal biopsy. Scheduled to go to interventional radiology at [facility]. Medication Changes From Visit New medications include: amlodipine 10 mg p.o. daily Clonidine 0.1 mg p.o. 3 times daily Carvedilol 12.5 p.o. twice daily Hydralazine 50 mg p.o. 3 times daily Pantoprazole 40 mg p.o. daily Sevelamer 800 mg p.o. 3 times daily with meals Tramadol 50 mg p.o. as needed Admission HPI Per Admitting Provider HISTORY OF PRESENT ILLNESS: This is a 42-year-old female with ongoing tobacco abuse, history of alcohol abuse. She says she drank 3-4 vodkas daily, but cut down since last one year and last drink was in Hallowe[place], she did not drink since then as per the patient. She was told that she has high blood pressure about 5 years ago, with last visit with her family doctor in 2015 as per [facility]. She was told to lose weight. The patient says she was also prescribed medication, but she did not like it and she did not followed up with doctor since then. She presents because of epigastric abdominal pain going on since last , it is not getting better, it is not very severe, it is 2-3/10 in severity and also some epigastric tenderness and also she had one episode of vomiting last night. In the ER after GI cocktail and Pepcid, her epigastric tenderness has improved. In the ER, she was found to have hypertensive emergency with systolic blood pressure of 282 and diastolic of 145. She was given a dose of hydralazine as well as labetalol, but the blood pressure is not coming down, still in the 280s and creatinine is 5.2, potassium is 2.8, sodium 132, BUN 52. Troponin I high sensitivity 168. Urinalysis, +3 protein, +3 blood. Abdominal ultrasound shows liver cirrhosis. The patient is currently resting comfortably. Denies any headache, denies any blurred vision. Denies any dizziness. No earache, no runny nose. Has chronic cough. Once in a while, she brings phlegm. Appetite is okay. No chest pain, no shortness of breath. She was constipated, but yesterday she moved her bowels. Denies any blood in stools or black stools. She is frequently micturating as per the patient. No swelling in the legs. She is walking okay, but she has difficulty climbing steps. She gets weak and tired easily. Admission Exam Per Admitting Provider PHYSICAL EXAMINATION: GENERAL: The patient is obese, not in acute distress. VITAL SIGNS: Temperature 36.5, pulse 100, respiratory rate 20, blood pressure 280/145, oxygen 99% on room air. HEENT: Pupils equal, round and reactive to light. Oral mucosa moist. NECK: No JVD, no neck masses. Supple. CARDIOVASCULAR: S1 and S2 heard, regular rate and rhythm. No murmur, no gallop. RESPIRATORY SYSTEM: Normal AP diameter. No accessory muscle use. No wheezing, no crackles. ABDOMEN: Soft, bowel sounds present, nontender, no distention. CENTRAL NERVOUS SYSTEM: Alert and oriented. Speech is clear. No facial droop. Insight is okay. Obeys simple commands. Moves extremities. EXTREMITIES: No edema, no erythema seen. Principal Dx & Hospital Course #1 = Principal Diagnosis (1) Hypertensive emergency: (2) Acute renal failure: (3) Glomerulonephritis, acute: (4) Nephrotic range proteinuria: (5) Alcohol use: (6) Cirrhosis of liver: (7) Anemia: (8) Demand ischemia: (9) Obesity (BMI 30.0-34.9): Plan 42-year-old female with ongoing tobacco abuse and alcohol abuse presented with abdominal pain and hypertensive emergency. She received parenteral hydralazine and labetalol in the ER but was not improving. She was started on a nicardipine drip and transferred to the ICU. Slow correction of the blood pressure ensued and nephrology was consulted. Complement ANCA levels and protein were ordered and she was found to have proteinuria. Acute kidney injury versus chronic kidney disease was present and difficult to discern because of her lack of medical care over the last several years. Underlying glomerulonephritis was suspected most likely FSGS. Electrolyte abnormalities including hyponatremia and hypokalemia were corrected. She had an elevated troponin of 168 that was likely demand ischemia. Liver cirrhosis was present on imaging and was thought to be alcohol induced. Further work-up as outpatient was recommended. An echocardiogram was reviewed with significant LVH. An amyloid panel was drawn and pending. Troponin was related to myocardial strain with significant hypertension and profound LVH. Cardiology was consulted and continue to follow patient. She was ultimately transitioned to an oral regimen including amlodipine, carvedilol, clonidine, hydralazine that was able to get her off Cardene successfully. Hemodialysis was recommended and she was scheduled to undergo renal biopsy shortly after discharge. At time of discharge she was hemodynamically stable with an improved blood pressure of 164/100 and had been in the normal range for the prior 48 hours. Close nephrology follow-up as outpatient was recommended. She also was given his scheduled appointment with family practice and they will follow with kaia. Anemia was noted on lab work including a hemoglobin of 7.6 with an iron saturation of 13% and a low ferritin. She was given Venna for 300 mg IV transfusion daily x2 prior to discharge. She will need Epogen but this can be given as outpatient. Avoidance of altered blood transfusions unless hemoglobin was less than 6 which she was symptomatic was recommended given she may be a renal transplant candidate in the future. Smoking cessation and strict alcohol cessation was advised. She verbalized understanding of the plan and intent to comply. Discharge Exam CONSTITUTIONAL: WNWD, vitals as above, generally well-appearing, NAD EYES: normal conjunctivae, no scleral icterus ENT: external ear and nose normal, MMM NECK: trachea midline RESPIRATORY: clear to auscultation bilaterally, no crackles, rales or wheezes, normal respiratory effort CARDIOVASCULAR: regular rate and rhythm, S1 and 2 heard without murmurs, gallops or rubs, no JVD, no peripheral edema CHEST: inspection of chest was normal GASTROINTESTINAL: soft, nontender, ND, no guarding MUSCULOSKELETAL: strength 5/5 throughout, head is normocephalic and atraumatic SKIN: warm and dry NEUROLOGIC: CN 2-12 grossly intact, no sensory deficit, normal cognition, normal speech, no tremor PSYCHIATRIC: alert cooperative and oriented to person, place and time. Euthymic mood, makes good eye contact, language grossly intact, recent and remote memory grossly intact. Updated Medication List Medication Instructions Recorded Confirmed Type ascorbic acid (vitamin C) 500 mg 0 mg PO DAILY 10/16/22 10/16/22 History tablet (Vitamin C) magnesium 200 mg tablet 0 mg PO QAM 10/16/22 10/16/22 History multivitamin 1 tab PO QAM 10/16/22 10/16/22 History vitamin B12 0.5 mg-folic acid 1 mg 1 tab PO QAM 10/16/22 10/16/22 History tablet amlodipine 10 mg tablet 10 mg PO DAILY #30 tabs 10/22/22 Rx carvedilol 12.5 mg tablet 12.5 mg PO BID #60 tabs 10/22/22 Rx clonidine HCl 0.1 mg tablet 0.1 mg PO Q8 #90 tabs 10/22/22 Rx hydralazine 50 mg tablet 50 mg PO TID #90 tabs 10/22/22 Rx pantoprazole 40 mg tablet,delayed 40 mg PO QAM #30 tabs 10/22/22 Rx release sevelamer HCl 800 mg tablet 800 mg PO TIDM #90 tabs 10/22/22 Rx (Renagel) tramadol 50 mg tablet 50 mg PO Q4H PRN severe pain #30 10/22/22 Rx tabs Hospital Stay Data Consultations 10/16/22 14:03 ED Decision to Admit Stat 10/16/22 16:06 Consult [facility] Routine Consult Nephrology Routine 10/17/22 08:00 Consult Cardiology Routine Diagnostic Imagining Performed 10/16/22 11:50 US abdomen limited Stat 10/16/22 13:00 US abdominal aortic aneurysm Stat 10/16/22 16:06 US duplex renal artery Routine Pending Results Patient Have Any Pending Studies at Discharge: No Discharge Instructions Given to Patient (Per Discharging Provider) Please take all medications as instructed on discharge list below. Please stick to a low potassium diet while your kidneys are not functioning well. Try to avoid things like bananas and fruit juices. Please go without breakfast tomorrow (Sunday) morning in case they can get you on the schedule for a renal biopsy. If this cannot happen tomorrow, it will need to happen some time next week. You will also need repeat labwork and followup with [facility] Nephrology next week which will be set up through Dr. Chilel's office. It is very possible you will also need dialysis which will entail placement of a temporary dialysis catheter. This may be performed at the same time of the renal biopsy, and will be coordinated through Dr. Chilel's office. You have been placed on new blood pressure medications. Please continue to stay compliant with taking these, which may be adjusted frequently by your new physician team. You were recently diagnosed with possible cirrhosis of the liver. Close follow-up with your primary care physician to discuss monitoring of this condition will be important. Diagnosis can be confirmed many ways, but one of the gold standard methods is via liver biopsy. If you are confirmed to have cirrhosis, you will need a serum alpha-feto protein level and liver ultrasound performed every 6 months to screen for any development of liver cancer. It is strongly recommended you avoid any alcohol moving forward. It is safe to take up to 2000mg of acetaminophen (Tylenol) but please do not exceed this amount in 24 hours. During this admission, you had a liver ultrasound showing a 1.9 cm focus in the left hepatic lobe which favors fat. However, the radiologist recommended you undergo a nonemergent abdominal MRI for confirmation of this given your higher risk of malignancy with cirrhosis of the liver. This may be ordered by your primary care physician. You were also found to have a few gallbladder polyps measuring up to 6mm. A one year followup imaging study is recommended to ensure stability. You were found to be anemic during this admission. Anemia may be a reflection of many things including iron deficiency, renal failure, and chronic disease. Further workup and treatment will be through your primary care physician's office. It was a pleasure taking care of you! Please call if you have any questions or problems. You can reach a [facility] hospitalist on duty at [facility] 24 hours a day by calling [phone]. Take care of yourself. Ellen Kitchen, [facility] Hospitalist Total Time Total Time Spent Total Time Spent (In Minutes): 60
--- NOTE | 2022-10-22 11:13 | Nephrology Progress Note ---
Date of Service October 22, 2022 Assessment & Plan (1) Acute renal failure: Plan: Patient with acute renal failure likely acute glomerulonephritis. Patient also with nephrotic range proteinuria of 6 g. Differential is progressively worsening CKD from hypertension and smoking. Patient has not had medical care in a long time which makes diagnosis difficult. Ultimately patient will need a renal biopsy. I think this will have to be arranged on an outpatient basis. From renal standpoint, patient should be discharged today and set up for renal biopsy at [facility] with interventional radiology. Patient will also have an dialysis permanent catheter placed by interventional radiology at [facility]. I discussed dialysis modalities extensively including PD and hemodialysis. Patient has 2 big dogs and she is leaning towards hemodialysis since I told her that dogs cannot enter the PD room during treatment. PermCath will be booked at the same time as renal biopsy. We should schedule renal follow-up next week with Dr. Salazar or Dr. Virgen in [place]. If there is no availability, patient can be scheduled with me in [place]. She will need a BMP 1 day prior to the office visit. Repeat UA did not show a lot of RBCs -Follow-up serologies -Avoid contrast unless lifesaving (2) Hypertensive emergency: Plan: Patient blood pressure controlled. Continue Coreg and hydralazine and clonidine at current doses. Patient will need renal follow-up in 1 to 2 weeks [place] [address] depending on availability. (3) Anemia: Plan: Hemoglobin is 7.6. Her iron saturation is 13%. Ferritin is low. Will give Venofer 300 mg once today. She will need Epogen but this can be given as outpatient. Avoid blood transfusion unless hemoglobin is less than 6 or symptomatic. Patient is young and will be a renal transplant candidate in the future. We will try to avoid blood transfusion as much as possible Admission and Anticipated Discharge Date Admission Date: October 16, 2022 Subjective Seen for acute kidney injury on CKD. She feels better today. No shortness of breath or leg swelling. Creatinine stable. Review of Systems Review of Systems: All other systems were reviewed and negative except as noted in HPI Physical Exam Physical Exam: General exam: Appears comfortable, no acute distress HEENT: Pupils are equal and reactive to light Neck: No JVD, neck is supple trachea is midline Respiratory system: Clear breath sounds bilaterally. Gastrointestinal: Abdomen is soft, non distended, non tender, bowel sounds are present CVS: Regular rate and rhythm. No murmurs, rubs or gallops Musculoskeletal: No joint or muscle tenderness Extremities: Non tender, no edema, peripheral pulses are present Neuro: Oriented, no tremors, no focal neurological deficits Skin: No rashes Results & Data ([facility]) Vital Signs (Past 12 Hours) Vital Signs Temp Pulse Pulse Resp BP BP Pulse Ox 10/22/22 10:22 60 20 146/86 H 98 10/22/22 08:00 59 L 10/22/22 07:45 36.9 C 62 16 154/97 H 96 10/22/22 03:30 36.7 C 59 L 16 128/80 95 10/22/22 00:16 37.0 C 57 L 16 128/81 96 O2 Del Method 10/22/22 10:22 10/22/22 08:00 10/22/22 07:45 Room Air 10/22/22 03:30 Room Air 10/22/22 00:16 Room Air Laboratory Results 10/22/22 06:33 10/22/22 10/22/22 06:33 06:33 WBC 4.29 L RBC 2.27 L MCV 100.9 H MCH 33.5 MCHC 33.2 RDW Std Deviation 46.6 H RDW Coeff of Vy 12.5 Plt Count 171 MPV 12.5 H Phosphorus 7.1 H
[2022-10-22] MEDS ORDERED: SEVELAMER HCL 800 MG TABLET PO SCH (12:00)
[2022-10-23 07:31] LABS: Creatinine Ur 115 mg/dL (20-275); Protein, Urine Random 239 mg/dL (5-24); Ur Protein/Creat Ratio mg/g 2078 mg/g creat (24-184); Urine Abnormal Protein Band 1 DNR mg/dL (NONE DETECTED); Urine Abnormal Protein Band 2 DNR mg/dL (NONE DETECTED); Urine Abnormal Protein Band 3 DNR mg/dL (NONE DETECTED); Urine Protein/Creatinine Ratio 2.078 (0.024-0.184)
[2022-10-25 00:32] LABS: Complement C3 119 mg/dL (83-193); Complement Total(CH50) >60 U/mL (31-60)
== END 2022-10-22 16:35 | disposition home or self-care (01) | DRG 304 ==
LOC: ED 11:28 → 1E 15:20 → SUATTDRO 15:20 → 1E 16:18 → 2E 10-19 13:18

== ENCOUNTER 2024-07-26 19:27 | Observation (INO) ==
--- OUTSIDE RECORDS SUMMARY | 2024-07-26 19:34 | External Medical Summary | Summary of Care ---
Author Name Unknown Organization [facility] Address [address] [place] [address] Phone [phone] Care Team Providers Care Saddle Stitcher Name Role Phone Sofia Fenton MD Primary Care Provider [phone] Reason for Visit * Reason Comments Pre-Transplant Evaluation Encounter Details Date Type Department Care Team (Late st Contact Info) Description 07/08/2024 11:00 AM EDT [facility] [address] [place] [address] Klever Palafox MD [address] [place] [address] Edwin Kingsley MD [address] [place] [address] [facility] [address] [place] [address] Eva Saab LSW [address] [place] [address] Pre-transplant evaluation for ESRD (end stage renal disease)* Allergies Active Allergy Reactions Criticality Noted Date Comments Cat Dander Itching Low 07/09/2014 Dust Itching Low 11/09/2011 Sneezing, itchy watery eyes Penicillins Hives Medium 01/02/2008 Sulfa Antibiotics Hives Medium 01/02/2008 documented as of this encounter (statuses as of 07/14/2024) Medications Medication Sig Dispensed Refills Start Date End Date Status Docusate Sodium 100 MG Oral Capsule (Colace) Take 1 Capsule by mouth in the morning and 1 Capsule before bedtime. 180 Capsule 3 05/28/2023 Active Losartan Potassium 100 MG Oral Tablet (Cozaar) Take 1 Tablet by mouth in the morning. 30 Tablet 5 06/06/2023 Active Probiotic (Lactobacillus) Oral Capsule Take 1 Capsule by mouth in the morning. 07/16/2023 Active Cetirizine HCl 10 MG Oral Tablet (ZyrTEC Allergy) Take 1 Tablet by mouth. 08/06/2023 Active Triamcinolone Acetonide 0.1 % External Cream (Aristocort) Apply topically to affected area 2 times a day. To affected area. 80 g 5 09/20/2023 Active Baclofen 10 MG Oral Tablet (Lioresal) Take 1 Tablet by mouth in the morning and 1 Tablet before bedtime. 60 Tablet 2 10/04/2023 Active Additional Information Patient not taking.Reported on 07/10/2024 traMADol HCl 50 MG Oral Tablet (Ultram) Take 1 Tablet by mouth every 8 hours as needed for Pain, Moderate or Pain, Severe. 30 Tablet 10/16/2023 Active Sevelamer Carbonate 800 MG Oral Tablet (Renvela)Indicati ons:End stage renal disease (HCC) TAKE ONE TABLET BY MOUTH IN THE MORNING, ONE TABLET AT NOON, AND ONE TABLET IN THE EVENING. TAKE WITH MEALS. 90 Tablet 1 11/16/2023 Active Venlafaxine HCl ER 37.5 MG Oral Capsule Extended Release 24 Hour (Effexor XR) TAKE 1 CAPSULE BY MOUTH EVERY MORNING. DO NOT CUT, CRUSH OR CHEW 90 Capsule 3 04/05/2024 Active Pantoprazole Sodium 40 MG Oral Tablet Delayed Release (Protonix) TAKE ONE TABLET BY MOUTH IN THE MORNING 90 Tablet 1 05/02/2024 Active Benzonatate 100 MG Oral Capsule (Tessalon Perles)Indication s:Acute cough Take 1 Capsule by mouth 3 times a day as needed for Cough. 30 Capsule 05/23/2024 Active Wegovy 0.5 MG/0.5ML Subcutaneous Solution Auto-injector (Semaglutide-Weig ht Management) Inject 0.5 mg under the skin once a week for 28 days. 2 mL 06/20/2024 4 Active Triphrocaps 1 MG Oral Capsule Take 1 Capsule by mouth in the morning. 06/23/2024 Active Calcitriol 0.5 MCG Oral Capsule (Rocaltrol) Take 1 Capsule by mouth. Sunday06/19/2024 Active Torsemide 100 MG Oral Tablet (Demadex) Take 1 Tablet by mouth in the morning. 04/25/2024 Active Metoprolol Succinate ER 25 MG Oral Tablet Extended Release 24 Hour (Toprol XL) One tablet by mouth two times per day 60 Tablet 3 06/24/2024 Active Wegovy 0.25 MG/0.5ML Subcutaneous Solution Auto-injector (Semaglutide-Weig ht Management) Inject 0.25 mg under the skin once a week. 2 mL 05/28/2024 4 Discontinue d(Patient preference/ discontinua tion) documented as of this encounter (statuses as of 07/14/2024) Active Problems Problem Noted Date Diagnosed Date Class 2 severe obesity with serious comorbidity and body mass index (BMI) of 36.0 to 36.9 in adult 07/10/2024 AVF (arteriovenous fistula) 09/20/2023 Granuloma of liver associated with sarcoidosis 1 HTN, goal below 130/80 03/20/2023 ESRD on dialysis 02/01/2023 Anxiety 06/24/2015 Hypermobility syndrome 11/09/2011 History of smoking 11/08/2009 Overview: 5ciggs/day at NOB visit; intends to quit by nv Mitral valve disorder 11/08/2009 Overview: Pt was told she had congenital heart disorder, ?MVP; pt to get final diagnosis; consider echo 22w Discussed with pt - was born with heart murmur-rechecked when older and it had resolved, not MVP. h/o preeclampsia 11/08/2009 Overview: Baseline labs and 24hr urine protein-uric acid, bun, creatinine, AST/ALT-all wnl; 24hr urine protein 0.08g/24hrs 02/14: repeat preeclamptic labs and 24hr urine: WNL. 24hr urine protein 0.074 documented as of this encounter (statuses as of 07/14/2024) Resolved Problems Problem Noted Date Diagnosed Date Resolved Date STACEY (acute kidney injury) 11/09/2022 Diabetes mellitus complicati ng , antepartum 04/12/2010 08/04/2014 Overview: 04/12 Begin glyburide 2.5mg in AM 04/15: continue glyburide 2.5mg in AM, add glyburide 2.5mg in PM 04/28: glyburide 5.0mg in AM, glyburide 5.0mg in PM Bacterial infection due to S treptococcus, group B 11/10/2009 07/14/2010 Overview: +GBS in urine at NOB visit-Rx for macrobid-ALISON obtained 01/04/10 01/04/10: <10,000 colonies GBS in urine. Reviewed with Dr. Porter, advised 10d of Macrobid and ALISON shortly after last dose. 01/27/10: Urine culture still showing <10,[address] Porter, try Keflex. ALISON after treatment complete - 02/07 neg . Cath specimen neg Encounter for supervision of other normal 11/08/2009 02/27/2011 Overview: Patient received H1N1 vaccine. 11/08/2009 Karon Buchanan RN ICD-10 update of inactive term Obesity, Class I, BMI 30.0-3 4.9 (see actual BMI) 11/08/2009 08/04/2014 Overview: Declines nutritrion consult Early glucola-104 Anxiety states 06/24/2015 Overview: Taking zoloft 100mg daily at NOB visit; trial of zoloft 50mg daily; evaluate at nv ICD-10 update of inactive term documented as of this encounter (statuses as of 07/14/2024) Immunizations Name Administration Dates Next Due H1N1 2009 Influenza, IM 11/08/2009 Pneumococcal Polysaccharide PPV23 (Pneumovax) Seasonal Influenza Virus Vac cine, Unspecified Formulation 08/31/2023 Seasonal Influenza, Recombinant, RIV4, PF, (Flub lock) 08/31/2023 Seasonal Influenza, Split, IIV3, With Preserve, Inj 10/12/2011,10/14/2010 TDAP (age 10 and older)(Boostrix) 03/21/2023 TDAP, Age 7 and older, IM (Adacel) 09/08/2009 documented as of this encounter Social History Tobacco Use Types Packs/Day Years Used Date Smoking Tobacco: Former Cigarettes 0.5 15 1 12/23/2006 - 10/23/2022 Passive Smoke Exposure: Current Smokeless Tobacco: Never Tobacco Cessation:Counseling Given: Not Answered Comments:started age 16 Alcohol Use Standard Drinks/Week Comments Yes 0 (1 standard drink = 0.6 oz pur e alcohol) none sine August 2022 PHQ-2 Answer Date Recorded PHQ Adult Total Score 0 03/04/2024 Hunger Vital Sign Answer Date Recorded Within the past 12 months, y ou worried that your food would run out before you got the money to buy more. Patient declined Within the past 12 months, t he food you bought just didn't last and you didn't have money to get more. Patient declined 07/2024 Childcare Answer Date Recorded Do you feel overwhelmed with taking care of a child, family member or friend? No 03/04/2024 Does your family need help f inding childcare? (Household - for ages 0-17 years) Not on file 03/04/2024 Clothing Answer Date Recorded Have you been unable to get clothing when it was really needed? No 03/04/2024 Is your family able to get c lothes or diapers when needed? (Household - for ages 0-17 years) Not on file 03/04/2024 Personal Safety Answer Date Recorded Do you feel unsafe or have concerns for your saf ety? No 03/04/2024 Do you have concerns for you r family's safety? (Household - for ages 0-17 years) Not on file 03/04/2024 Utilities Answer Date Recorded Do you have trouble paying y our heating, water, or electric bill? No 03/04/2024 Is your family able to pay t he heat, water, or electric bill? (Household - for ages 0-17 years) Not on file 03/04/2024 Does your family have access to good internet? (Household - for ages 0-17 years) Not on file 03/04/2024 Employment Status Answer Date Recorded Are you unemployed or without regular income? No 03/04/2024 Does the household have a re gular source of income? (Household - for ages 0-17 years) Not on file 03/04/2024 Social Connections Answer Date Recorded How often do you feel lonely or isolated from th ose around you? Never 03/04/2024 Financial Resource Strain Answer Date R ecorded Do you have any trouble payi ng for your medications, or do you think you might in the future? No 03/04/2024 Does your family have troubl e paying for medicine? (Household - for ages 0-17 years) Not on file 03/04/2024 Transportation Needs Answer Date Record ed READ ONLY Do you have troubl e getting a ride to medical visits or work? Never True 03/04/2024 Does your family have a hard time getting a ride to doctors visits? (Household - for ages 0-17 years) Not on file 03/04/2024 Has lack of transportation k ept you from medical appointments, meetings, work, or from getting things needed for daily living? Check all that apply. (Adult - for ages 18 years and over) Not on file 03/04/2024 Do you (or your family) have trouble finding or paying for a ride (transportation)? (Household - for ages 0-17 years) Not on file 03/04/2024 Housing Stability Answer Date Recorded Do you currently live in a s helter or have no steady place to sleep at night? No 03/04/2024 READ ONLY Do you think you a re at risk of becoming homeless? No 03/04/2024 Does your family worry about paying for your home or becoming homeless? (Household - for ages 0-17 years) Not on file 0 03/04/2024 Are you homeless or worried that you might be in the future? (Adult - for ages 18 years and over) Not on file Are you (or your family) tory eless or worried that you might be in the future? (Household - for ages 0-17 years) Not on file Food Insecurity Answer Date Recorded Do you need food for this week? No 03/04/2024 Are you able to get enough f ood for your family? (Household - for ages 0-17 years) Not on file 03/04/2024 Does your family need food t his week? (Household - for ages 0-17 years) Not on file 03/04/2024 Do you always have enough fo od for your family? (Household - for ages 0-17 years) Not on file 03/04/2024 Sex and Gender Information Value Date Recorded Sex Assigned at Female 10/26/2022 2:38 PM EST Gender Identity Female 10/26/2022 2:38 PM EST Sexual Orientation Straight 10/26/2022 2: 38 PM EST Job Start Date Occupation Industry Not on file Not on file Not on file documented as of this encounter Last Filed Vital Signs Vital Sign Reading Time Taken Comments Blood Pressure 118/85 07/08/2024 11:08 AM EDT Pulse 81 07/08/2024 11:08 AM EDT Temperature 37.3 C (99.1 F) 07/08/2024 11:08 AM E DT Respiratory Rate - - Oxygen Saturation - - Inhaled Oxygen Concentration - - Weight 100 kg (220 lb 6.4 oz) 07/08/2024 11:08 A M EDT Height - - Body Mass Index 35.57 10/04/2023 4:09 PM EST documented in this encounter Progress Notes * Eva Saab, YANNA - 07/08/2024 1:47 PM EDT Patient identified by verbal name and date of . Patient presents to clinic today independently for her annual pre-renal transplant evaluation. Patient is accompanied by her , Julio. Please see previous note completed by LAKIA Kapoor for additional information. Patient presented with pleasant mood and congruent affect. Patient was easily engaged and open to intervention. Patient was alert and oriented and maintained good eye contact. Patient was casually dressed and neatly groomed. Speech was clear and thoughts appeared well organized. Patient continues to live with her , Nicolas, & 2 sons, Marcell & Randal, ages 18 & 14. However, this weekend they are taking Marcell to [place] to begin college, studying music technology. Marcell is going early b/c he is going to be in the band & the band is starting their practices. Patient & her are adjusting to the idea of Marcell going to college & expect he will be home quite a bit for his drum set & to spend time with his girlfriend. Patient did notreturn to work part-time. She did apply for Social Security Disability, which began in February 2024, along with additional supplement from long-term disability from employer. Patient continues to receive dialysis at [facility]. However, in November 2023, she went from having dialysis 3x/week to 2x/week, on Mondays & Fridays & an extra 15 minutes was added to her sessions. Patient continues to feel very tired on her dialysis days & comes home, eats & "crashes". Patient ends up going to sleep early in the AM so that she is able to sleep during her dialysis treatments, as this seems to help with her blood pressure during dialysis treatments. Patient continues to enjoy crocheting & made herself & Marcell's girlfriend sweaters. Patient signs up to help with her sons' school events. 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 Patient started taking Effexor when her health issues worsened in September 2022 & overall reports that this continues to help with her mood. Patient recognizes she especially struggles with her mood when she is also tired. Julio continues to work in customer service for a [employer] & works remotely on Mondays & Fridays. Nicolas takes patient to dialysis & then stays at dialysis working until it's time to take patient home. Nicolas reports his employer continues to be supportive of Nicolas also being available to help with patient's care & appointments. In general, patient's mood remains stable and she is easy to engage. Patient continues to deny any high risk behaviors and does not exhibit any Sxs of concern upon interview today. Patient is able toidentify adequate social support and effective coping skills. Patient appears capable of managing her post- transplant care and remains an appropriate transplant candidate from a psychosocial standpoint at this time. . YANNA Chilel Patient needs to be presented at Selection Conference within 3 months of this psychosocial evaluation. If there is a delay, additional Social Work consult may be required. * Sienna Tian TECH - 07/08/2024 1:06 PM EDT The intent behind this form is to provide accurate insurance information to designate roles of existing coverage, but also to determine patient eligibility for additional state benefits. REASON FOR APPOINTMENT: Annual Exam The following information has been provided by the patient: Matilda Benitez [id number] 1980 [id number] [place] [address] (home) [phone] (work) Are you a [place] citizen: Yes Are you working: No How long have you been employed with your company? 0 Do you plan to change jobs or employers? no Primary Care: Sofia Fenton MD Are you on a Transplant list elsewhere: no Are you currently on Dialysis: Yes: Type: Clinic, Started: 2022 INSURANCE COVERAGE: Payor: MEDICARE Plan: MEDICARE A AND B Product Type: *No Product type* Payor: AETNA Plan: AETNA Product Type: *No Product type* Prescription coverage: Yes Medicare Part D plan: no Do you know your pharmacy plan coverage? yes How much do you pay in co-pays or co-insurance? 0 Were all your insurance cards scanned in our system today? yes SPEECH THERAPY TEACHER HAS OUTLINED THE FOLLOWIN. Patient Financial Expectations 2. Billing Process 3. Insurance Information 4. Demographic Information 5. Financial Counselor Information 6. Change of Information Procedure Recommendations: none Action to be taken: none Patient verbalizes and agrees with all the above information. * Edwin Kingsley MD - 07/08/2024 12:47 PM EDT PRE-RENAL TRANSPLANT EVALUATION Referring pattern mechanic: Josie PCP: Sofia Fenton MD History of Present Illness: Listed since 07/16/2023 with wait time from 12/04/2022. Matilda Benitez is a 44 year old woman with history of ESRD secondary to HTN. Also with history of alcohol abuse that is now resolved. On dialysis: yes Began Dialysis: Nov 2022 Urine amount: normal Previous Transplants: no DM: No Recent hospitalizations: Yes HTN: Yes, on medication CAD: No PVD: No Transfusions: No Malignancies: No Serious Infections: No Gross hematuria: No Stones: No Frequent UTI: No Hesitancy: No Frequency: No H/o DVT/bleeding: No Donors: Yes, a college friend KDPI>85% Donor: no Hepatitis C Ab positive (MARIELLA negative) donors: yes Hepatitis C Ab positive (MARIELLA positive) donors: yes Hepatitis B Surface Ab positive: yes Vaccinated (Yes/No, if patient, not sure, document "patient unsure"): Yes If not vaccinated, reason?: NA Hepatitis B exposed donors: yes Hepatitis B active infection donors: yes Past Medical History: Past Medical History: Diagnosis Date Fibromyalgia Gestational diabetes required glyburide Other anxiety states Undiagnosed cardiac murmurs congenital; no SBE prophylaxis Past Surgical History: Past Surgical History: Procedure Laterality Date AV ACCESS, DIRECT ANASTOMOSIS Left 02/01/2023 ARTERIOVENOUS ANASTOMOSIS OPEN DIRECT ANY SITE performed by Moncho Cast MD at OR [facility] AV ACCESS, REVISE AVF W/O THRO Left 07/17/2023 REVISION ARTERIOVENOUS FISTULA WITHOUT THROMBECTOMY performed by Moncho Cast MD at OR [facility] EGD, W/ENDOSCOPIC US N/A 07/05/2023 stones gallbladder/benign lymph node cesar hepatis region/biopsies of liver show liver parenchyma with granulomatous inflammation/ESOPHAGOGASTRODUODENOSCOPY (EGD), FLEXIBLE, TRANSORAL, ENDOSCOPIC ULTRASOUND performed by Kaiden Lui MD at OR [facility] INSER JUAN CARLOS CAT,W/O PUMP;5YR/OLD Right 11/29/2022 INSERT TUNNELED CENTRAL VENOUS CATHETER AGE 3 OR OLDER performed by Clark Cervantes DO at OR [facility] INTRO CATH DIALYSIS CIRCUIT W/TRANSLUM BALLOON ANGIOPLASTY Left 05/22/2023 AV FISTULOGRAM & PERIPHERAL ANGIOPLASTY performed by Moncho Cast MD at OR [facility] IR BIOPSY 10/24/2022 OTHER sinus surgery x 4 OTHER wisdom teeth REMOVE TONSILS & ADENOIDS, UNDER 12 Current Medications: Current Outpatient Medications Medication Sig Dispense Refill Docusate Sodium 100 MG Oral Capsule (Colace) Take 1 Capsule by mouth in the morning and 1 Capsule before bedtime. 180 Capsule 3 Losartan Potassium 100 MG Oral Tablet (Cozaar) Take 1 Tablet by mouth in the morning. 30 Tablet 5 Probiotic (Lactobacillus) Oral Capsule Take 1 Capsule by mouth in the morning. Cetirizine HCl 10 MG Oral Tablet (ZyrTEC Allergy) Take 1 Tablet by mouth. Triamcinolone Acetonide 0.1 % External Cream (Aristocort) Apply topically to affected area 2 times a day. To affected area. 80 g 5 Baclofen 10 MG Oral Tablet (Lioresal) Take 1 Tablet by mouth in the morning and 1 Tablet before bedtime. 60 Tablet 2 Sevelamer Carbonate 800 MG Oral Tablet (Renvela) TAKE ONE TABLET BY MOUTH IN THE MORNING, ONE TABLET AT NOON, AND ONE TABLET IN THE EVENING. TAKE WITH MEALS. 90 Tablet 1 Venlafaxine HCl ER 37.5 MG Oral Capsule Extended Release 24 Hour (Effexor XR) TAKE 1 CAPSULE BY MOUTH EVERY MORNING. DO NOT CUT, CRUSH OR CHEW 90 Capsule 3 Pantoprazole Sodium 40 MG Oral Tablet Delayed Release (Protonix) TAKE ONE TABLET BY MOUTH IN THE MORNING 90 Tablet 1 Benzonatate 100 MG Oral Capsule (Tessalon Perles) Take 1 Capsule by mouth 3 times a day as needed for Cough. 30 Capsule 0 Wegovy 0.25 MG/0.5ML Subcutaneous Solution Auto-injector (Semaglutide-Weight Management) Inject 0.25 mg under the skin once a week. 2 mL 0 Wegovy 0.5 MG/0.5ML Subcutaneous Solution Auto-injector (Semaglutide-Weight Management) Inject 0.5 mg under the skin once a week for 28 days. 2 mL 0 Triphrocaps 1 MG Oral Capsule Take 1 Capsule by mouth in the morning. Calcitriol 0.5 MCG Oral Capsule (Rocaltrol) Take 1 Capsule by mouth. Sunday Torsemide 100 MG Oral Tablet (Demadex) Take 1 Tablet by mouth in the morning. Metoprolol Succinate ER 25 MG Oral Tablet Extended Release 24 Hour (Toprol XL) One tablet by mouth two times per day 60 Tablet 3 traMADol HCl 50 MG Oral Tablet (Ultram) Take 1 Tablet by mouth every 8 hours as needed for Pain, Moderate or Pain, Severe. 30 Tablet 0 No current facility-administered medications for this visit. Allergies: Review of patient's allergies indicates: Allergen Reactions Pcn [Penicillins] Hives Sulfa Antibiotics Hives Cat Dander Itching Environmental [Dust] Itching Sneezing, itchy watery eyes Family History: Family History Problem Relation Name Age of Onset Thyroid Disorder Mother Hypertension Mother Lung Disorder Mother COPD/COPD Arthritis Mother Obesity Mother Hypertension Father Obesity Father Cancer Grandmother (Paternal) skin/skin Glaucoma Grandmother (Paternal) Arthritis Grandmother (Paternal) Eye Problems Grandmother (Paternal) Cataracts No Past Hx None No FM HX of ED EDUCATIONAL AIDE CA No Past Hx Son No Past Hx Son Gastro-intestinal disorder Brother PUD Cancer Grandmother (Maternal) pituitary gland/pituitary gland tumor Glaucoma Grandmother (Maternal) Eye Problems Grandmother (Maternal) Cataracts No Past Hx Son Marcell No Past Hx Son Randal Hypertension Brother Zander Marrero Gastro-intestinal disorder Brother Zander Marrero Allergies Brother Zander Marrero Social History: Social History Socioeconomic History Marital status: Number of children: 2 Occupational History 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: [employer] Tobacco Use Smoking status: Former Current packs/day: 0.00 Average packs/day: 0.5 packs/day for 15.0 years (7.5 ttl pk-yrs) Types: Cigarettes Start date: 10/23/2007 Quit date: 10/23/2022 Years since quittin.7 Passive exposure: Current Smokeless tobacco: Never Tobacco comments: started age 16 Vaping Use Vaping status: Never Used Substance and Sexual Activity Alcohol use: Yes Comment: none sine August 2022 Drug use: No Sexual activity: Yes Partners: Male control/protection: Condom Comment: Other Topics Concern Seat Belt Yes 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 (Adult - for ages 18 years and over): No Food Insecurity: No Food Insecurity (03/04/2024) Food Insecurity Do you need food for this week? (Adult - for ages 18 years and over): No Transportation Needs: No Transportation Needs (03/04/2024) Transportation Needs Do you have trouble getting a ride to medical visits or work? (Adult - for ages 18 years and over):Never True Social Connections: Socially Integrated (03/04/2024) Social Connections How often do you feel lonely or isolated from those around you? (Adult - for ages 18 years and over): Never Housing Stability: Low Risk (03/04/2024) Housing Stability Do you currently live in a fci or have no steady place to sleep at night? (Adult - for ages 18 years and over): No Do you think you are at risk of becoming homeless? (Adult - for ages 18 years and over): No ROS: Skin: negative Eyes: wears glasses ENT: negative Respiratory: negative Cardiovascular: negative GI: negative : kidney disease Heme: negative Musculoskeletal: pt denies significant joint pain or stiffness Neuro: negative Psych: ansiety Endo: negative Physical Examination: BP 118/85 | Pulse 81 | Temp 37.3 C (99.1 F) | Wt 100 kg (220 lb 6.4 oz) | BMI 35.57 kg/m | BSA 2.16 m Constitutional: alert, healthy, overweight Mouth: no exudate, no erythema, and lips, mucosa, and tongue normal Lungs: clear to auscultation, breath sounds are equal and symmetric Heart: regular rate & rhythm and no murmur, gallops or rubs Abdomen: soft, non-tender, no hernias, obese with weight in lower abdomen Extremities: no joint deformities, effusion, or inflammation, no edema, no skin discoloration Neuro: alert, gait normal, motor normal Pulses: 2+ bilaterally Laboratory Data/Radiology Imaging: Recent Results (from the past 48 hour(s)) HIV ANTIGEN & ANTIBODY SCREEN W/ CONFIRMATION Collection Time: 07/08/24 1:21 PM Result Value Ref Range HIV Antigen & Antibody Negative Negative RPR Collection Time: 07/08/24 1:21 PM Result Value Ref Range RPR Screen Nonreactive Nonreactive HEPATITIS B SURFACE ANTIGEN Collection Time: 07/08/24 1:21 PM Result Value Ref Range Hepatitis B Surface Antigen Negative Negative HEPATITIS B SURFACE ANTIBODY Collection Time: 07/08/24 1:21 PM Result Value Ref Range Hepatitis B Surface Antibody, Quantitative 220.0 mIU/mL Hepatitis B Surface Antibody, Qualitative Positive Hepatitis B Surface Antibody, Interpretation Immune to Hepatitis B Virus HEPATITIS B CORE ANTIBODIES IGG AND IGM Collection Time: 07/08/24 1:21 PM Result Value Ref Range Hepatitis B Core Antibodies IgG and IgM Negative Negative COMPREHENSIVE METABOLIC PANEL Collection Time: 07/08/24 1:21 PM Result Value Ref Range BUN 31 (H) 6 - 20 mg/dL Creatinine 3.2 (H) 0.5 - 1.0 mg/dL Estimated Glomerular Filtration Rate 17 (L) >=60 mL/min Sodium 138 135 - 146 mmol/L Potassium 4.0 3.5 - 5.1 mmol/L Chloride 95 (L) 98 - 107 mmol/L CO2 30 22 - 32 mmol/L Anion Gap 13 7 - 15 mmol/L Glucose 108 70 - 120 mg/dL Albumin 4.8 3.8 - 5.0 g/dL AST 18 10 - 35 U/L Alkaline Phosphatase 69 35 - 130 U/L Bilirubin, Total 0.6 <=1.2 mg/dL Calcium 9.9 8.4 - 10.2 mg/dL Protein 7.5 6.0 - 8.3 g/dL ALT 21 10 - 35 U/L PTH Collection Time: 07/08/24 1:21 PM Result Value Ref Range PTH 689 (H) 15 - 65 pg/mL HEMOGLOBIN A1C Collection Time: 07/08/24 1:21 PM Result Value Ref Range Hemoglobin A1C 5.3 4.0 - 5.6 % Estimated Average Glucose 105 <126 mg/dL HEPATITIS C ANTIBODY Collection Time: 07/08/24 1:21 PM Result Value Ref Range Hepatitis C Antibody Negative Negative CT scan for vessels- good iliacs as of 06/2023 I personally reviewed the patient's available laboratory data. I personally evaluated this patient with an interview, physical examination, review of medications, previous medical records, and any current radiological testing. Discussion: With respect to surgical complications, I reviewed the risks of bleeding, infection, delayed graft function, graft thrombosis, rejection, both acute and chronic. Ureteral complications, long-term implication of immunosuppression medication use such as viral infections and certain malignancies and also the risk of mortality associated with any surgical procedure. I spent a total of 60 minutes on the date of service in preparation, delivery, and documentation ofthe care provided to Matilda Benitez excluding any time spent in the performance of separately billed services. Assessment and Plan: The patient is a 44 year old woman with renal disease secondary to HTN. Agreeable to HepC Ab(+)/MARIELLA(-), HepC Ab(+)/MARIELLA(+), HepBcore (+), HepBDNA/SAg (+). Has a donor with 2 arteries. Will need to lose about 20 lbs prior to living donor transplant. Listed since 07/16/2023 with wait time from 12/04/2022. Blood type: B Cardiac clearance needed From the surgical standpoint, the patient appears to be a(n) good candidate for kidney transplantation. The case will be discussed in detail at a selection committee meeting. Edwin Kingsley MD 07/08/2024 12:47 PM * Mirta Rosen RN - 07/08/2024 12:17 PM EDT The patient presents for annual evaluation to remain on the kidney transplant waiting list. Type of dialysis: In-center Hemodialysis Dialysis Unit: [facility] Start Date: 12/04/22 Schedule: Sunday and Sunday Primary pattern mechanic: Dr. Salazar Diagnosis: HTN Medical History over the last year: No significant interim medical history. Filed Vitals: 07/08/24 1108 BP: 118/85 Pulse: 81 Temp: 37.3 C (99.1 F) Weight: 100 kg (220 lb 6.4 oz) Body mass index is 35.57 kg/m. Transfusions in the last year: No Non /Non White [place] Citizenship Performs activities of daily living with some assistance Currently on disability due to renal disease The following information was reviewed with patient and her at this visit: The document: Kidney Transplant Program Evaluation for participation in the kidney transplant program for a kidney recipient was reviewed with patient and all questions were answered. A copy of this document was provided for patient's review. This document included review of: 1) Basic renal anatomy function and dysfunction 2) Transplantation as a treatment option 3) The evaluation process 4) The choice of cadaver, living related, and living unrelated transplantation. The patient was instructed to have any potential living donors contact us for consideration to be evaluated. 5) The following types of donor characteristics were reviewed: Standard criteria, Kidney Donor Profile Index (KDPI) > 85%, PH at risk donors, Hepatitis C AB positive /Mariella negative and positive donors, HBV DNA pos and Hepatitis B core AB Pos donors. The [employer] (UNOS) kidney allocation system was reviewed: - Q&A with regards to the new kidney allocation system - How kidneys are classified - Calculation of the Kidney Donor Profile Index (KDPI) score: The KDPI is calculated based on facts about the donor that affect how long the kidney is likely to function. Range is from zero to one hundred percent. The score is associated with how long the kidney is likely to function when compared to other kidneys. A KDPI score of 20% means that the kidney is likely to function longer than 80% of other available kidneys. A KDPI scare of 60% means that the kidney is likely to function longer than 40% of other available kidneys. The factors include: Age Height Weight Ethnicity Whether the donor due to loss of heart function, Donation after Cardiac (DCD), or loss of brain function, Brain- Donor (BDD) Stroke as cause of History of HTN History of DM Exposure to Hepatitis C virus 6) Tissue typing 7) Wait list 8) Overview of the renal transplant surgery and postoperative care, 9) Possible complications post renal transplantation including medical, surgical and psychosocial 10) Immunosuppressive medications and possible side effects 11) HIV protocol, HIV testing of the donor and testing of antibody presence not viral exposure 12) Expectations of the patient after transplantation including: monitoring at home, returning to clinic, and taking medications 13) Patient informed about multi-listing options The patient was instructed to call with questions. The most current SRTR data for cadaver and living donors was given to patient for review. Release date 06/03/24. Questions answered. Verbalized understanding of information. A copy of the SRTR data wasgiven to the patient. Non-traditional donor consents: DCD: YES KDPI > 85%: NO PH at risk: YES Hep C AB+/MARIELLA neg: YES Hep C AB+/MARIELLA+: YES Hep B Core AB: YES, with continued immunity HBV DNA: YES The patient does have a living donor who will be presented tomorrow at the kidney transplant multidisciplinary committee in order to confirm her candidacy for donation. Patient is aware that her donor has a duplicated left renal artery. Discussed the implications this has in the setting of live donation. She is aware that Dr. Mora will visit with her today to assess her body habitus and candidacy to receive a living donor kidney with this arterial duplication. The patient currently is active on the Transplant list at [facility]. The patient will be presented at an upcoming transplant committee meeting. The following information has been completed: Laboratory studies today CXR today CT abd/pelvis last done on 07/03/23 Mammogram 04/15/24 - negative Cologuard 04/01/23 - negative. Repeat due March Pap smear 03/20/23 - negative. Repeat due February The patient needs the following in order to complete the evaluation for renal transplantation: CV clearance Stress echocardiogram scheduled 08/06/24 Mirta Rosen RN, [facility] Transplant nurse coordinator * Klever Palafox MD - 07/08/2024 11:53 AM EDT Transplant Evaluation Matilda is a 44 year old female here for evaluation to be a transplant recipient, referred by: Sofia Fenton MD I will communicate with the referring provider by letter and/or shared electronic medical record. Type of transplant: kidney Prior transplant: no CKD: yes Cause of renal failure: hypertension Biopsy proven: yes 10/2022 , IFTA was 10-15%. Dialysis: yes, hemodialysis, dialyzes on: Sunday and Sunday, for 3 hours, 30 minutes., started November 2022 [facility] DM: no, HTN: yes, current treatment losartan/ metoprolol Urine output: yes Living Donor: yes Multiple Listings:no Foreign travel: no TB exposure: no HIV: no Epilepsy: no Open wounds - none Stroke-No UTI: no Kidney Stones: no Malignancy: no Education/work: Bachelor in music therapy. disability Primary animal care service worker: . Nicolas Back up animal care service worker: son ( Marcell) Past Medical History: Diagnosis Date Fibromyalgia Gestational diabetes required glyburide Other anxiety states Undiagnosed cardiac murmurs congenital; no SBE prophylaxis Past Surgical History: Procedure Laterality Date AV ACCESS, DIRECT ANASTOMOSIS Left 02/01/2023 ARTERIOVENOUS ANASTOMOSIS OPEN DIRECT ANY SITE performed by Moncho Cast MD at OR [facility] AV ACCESS, REVISE AVF W/O THRO Left 07/17/2023 REVISION ARTERIOVENOUS FISTULA WITHOUT THROMBECTOMY performed by Moncho Cast MD at OR [facility] EGD, W/ENDOSCOPIC US N/A 07/05/2023 stones gallbladder/benign lymph node cesar hepatis region/biopsies of liver show liver parenchyma with granulomatous inflammation/ESOPHAGOGASTRODUODENOSCOPY (EGD), FLEXIBLE, TRANSORAL, ENDOSCOPIC ULTRASOUND performed by Kaiden Lui MD at OR [facility] INSER JUAN CARLOS CAT,W/O PUMP;5YR/OLD Right 11/29/2022 INSERT TUNNELED CENTRAL VENOUS CATHETER AGE 3 OR OLDER performed by Clark Cervantes DO at OR [facility] INTRO CATH DIALYSIS CIRCUIT W/TRANSLUM BALLOON ANGIOPLASTY Left 05/22/2023 AV FISTULOGRAM & PERIPHERAL ANGIOPLASTY performed by Moncho Cast MD at OR [facility] IR BIOPSY 10/24/2022 OTHER sinus surgery x 4 OTHER wisdom teeth REMOVE TONSILS & ADENOIDS, UNDER 12 Social History Socioeconomic History Marital status: Spouse name: Not on file Number of children: 2 Years of education: Not on file Highest education level: Not on file Occupational History 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: [employer] Tobacco Use Smoking status: Former Current packs/day: 0.00 Average packs/day: 0.5 packs/day for 15.0 years (7.5 ttl pk-yrs) Types: Cigarettes Start date: 10/23/2007 Quit date: 10/23/2022 Years since quittin.7 Passive exposure: Current Smokeless tobacco: Never Tobacco comments: started age 16 Vaping Use Vaping status: Never Used Substance and Sexual Activity Alcohol use: Yes Comment: none sine August 2022 Drug use: No Sexual activity: Yes Partners: Male control/protection: Condom Comment: Other Topics Concern Service Not Asked Blood Transfusions Not Asked Caffeine Concern Not Asked Occupational Exposure Not Asked Hobby Hazards Not Asked Sleep Concern Not Asked Stress Concern Not Asked Weight Concern Not Asked Special Diet Not Asked Back Care Not Asked Exercise Not Asked Bike Helmet Not Asked Seat Belt Yes Self-Exams Not Asked 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 (Adult - for ages 18 years and over): No Does your family have trouble paying for medicine? (Household - for ages 0-17 years): Not on file Food Insecurity: No Food Insecurity (03/04/2024) Food Insecurity Do you need food for this week? (Adult - for ages 18 years and over): No Are you able to get enough food for your family? (Household - for ages 0-17 years): Not on file Does your family need food this week? (Household - for ages 0-17 years): Not on file Do you always have enough food for your family? (Household - for ages 0-17 years): Not on file Transportation Needs: No Transportation Needs (03/04/2024) Transportation Needs Do you have trouble getting a ride to medical visits or work? (Adult - for ages 18 years and over):Never True Does your family have a hard time getting a ride to doctors visits? (Household - for ages 0-17 years): Not on file Has lack of transportation kept you from medical appointments, meetings, work, or from getting things needed for daily living? Check all that apply. (Adult - for ages 18 years and over): Not on file Do you (or your family) have trouble finding or paying for a ride (transportation)? (Household - for ages 0-17 years): Not on file Social Connections: Socially Integrated (03/04/2024) Social Connections How often do you feel lonely or isolated from those around you? (Adult - for ages 18 years and over): Never Housing Stability: Low Risk (03/04/2024) Housing Stability Do you currently live in a fci or have no steady place to sleep at night? (Adult - for ages 18 years and over): No Do you think you are at risk of becoming homeless? (Adult - for ages 18 years and over): No Does your family worry about paying for your home or becoming homeless? (Household - for ages 0-17 years): Not on file Are you homeless or worried that you might be in the future? (Adult - for ages 18 years and over): Not on file Are you (or your family) homeless or worried that you might be in the future? (Household - for ages0-17 years): Not on file Family History Problem Relation Name Age of Onset Thyroid Disorder Mother Hypertension Mother Lung Disorder Mother COPD/COPD Arthritis Mother Obesity Mother Hypertension Father Obesity Father Cancer Grandmother (Paternal) skin/skin Glaucoma Grandmother (Paternal) Arthritis Grandmother (Paternal) Eye Problems Grandmother (Paternal) Cataracts No Past Hx None No FM HX of ED EDUCATIONAL AIDE CA No Past Hx Son No Past Hx Son Gastro-intestinal disorder Brother PUD Cancer Grandmother (Maternal) pituitary gland/pituitary gland tumor Glaucoma Grandmother (Maternal) Eye Problems Grandmother (Maternal) Cataracts No Past Hx Son Marcell No Past Hx Son Randal Hypertension Brother Zander Marrero Gastro-intestinal disorder Brother Zander Mrarero Allergies Brother Zander Marrero Current Outpatient Medications Medication Sig Dispense Refill Docusate Sodium 100 MG Oral Capsule (Colace) Take 1 Capsule by mouth in the morning and 1 Capsule before bedtime. 180 Capsule 3 Losartan Potassium 100 MG Oral Tablet (Cozaar) Take 1 Tablet by mouth in the morning. 30 Tablet 5 Probiotic (Lactobacillus) Oral Capsule Take 1 Capsule by mouth in the morning. Cetirizine HCl 10 MG Oral Tablet (ZyrTEC Allergy) Take 1 Tablet by mouth. Triamcinolone Acetonide 0.1 % External Cream (Aristocort) Apply topically to affected area 2 times a day. To affected area. 80 g 5 Baclofen 10 MG Oral Tablet (Lioresal) Take 1 Tablet by mouth in the morning and 1 Tablet before bedtime. 60 Tablet 2 Sevelamer Carbonate 800 MG Oral Tablet (Renvela) TAKE ONE TABLET BY MOUTH IN THE MORNING, ONE TABLET AT NOON, AND ONE TABLET IN THE EVENING. TAKE WITH MEALS. 90 Tablet 1 Venlafaxine HCl ER 37.5 MG Oral Capsule Extended Release 24 Hour (Effexor XR) TAKE 1 CAPSULE BY MOUTH EVERY MORNING. DO NOT CUT, CRUSH OR CHEW 90 Capsule 3 Pantoprazole Sodium 40 MG Oral Tablet Delayed Release (Protonix) TAKE ONE TABLET BY MOUTH IN THE MORNING 90 Tablet 1 Benzonatate 100 MG Oral Capsule (Tessalon Perles) Take 1 Capsule by mouth 3 times a day as needed for Cough. 30 Capsule 0 Wegovy 0.25 MG/0.5ML Subcutaneous Solution Auto-injector (Semaglutide-Weight Management) Inject 0.25 mg under the skin once a week. 2 mL 0 Wegovy 0.5 MG/0.5ML Subcutaneous Solution Auto-injector (Semaglutide-Weight Management) Inject 0.5 mg under the skin once a week for 28 days. 2 mL 0 Triphrocaps 1 MG Oral Capsule Take 1 Capsule by mouth in the morning. Calcitriol 0.5 MCG Oral Capsule (Rocaltrol) Take 1 Capsule by mouth. Sunday Torsemide 100 MG Oral Tablet (Demadex) Take 1 Tablet by mouth in the morning. Metoprolol Succinate ER 25 MG Oral Tablet Extended Release 24 Hour (Toprol XL) One tablet by mouth two times per day 60 Tablet 3 traMADol HCl 50 MG Oral Tablet (Ultram) Take 1 Tablet by mouth every 8 hours as needed for Pain, Moderate or Pain, Severe. 30 Tablet 0 No current facility-administered medications for this visit. Review of Systems - Physical Capacity: can walk 3 blocks, can walk up 2 flights of stairs. 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 + BP 118/85 | Pulse 81 | Temp 37.3 C (99.1 F) | Wt 100 kg (220 lb 6.4 oz) | BMI 35.57 kg/m | BSA 2.16 m PHYSICAL EXAMINATION: Constitutional: alert, healthy, well nourished Head: normocephalic, atraumatic Eyes: conjunctiva non-injected, sclera white Ears: pinna normal shape and color, canals patent, and TM's normal color and contour Nose: no mucosal erythema, no mucosal edema, and no purulent discharge Mouth: no exudate, no erythema, and lips, mucosa, and tongue normal Neck: supple, no adenopathy Lungs: clear to auscultation, breath sounds are equal and symmetric Heart: regular rate & rhythm and no murmur, gallops or rubs Abdomen: soft, non-tender, obese + Back: normal curvature, normal ROM, no CVA tenderness Extremities: no joint deformities, effusion, or inflammation, no edema, no skin discoloration Neuro: alert, gait normal, motor normal Skin: no obvious rashes or significant lesions Left AVF + Pre-transplant testing: Cardiac: planned for stress test in Jul 2024 Vascular:2022 LOWER CHEST: Within normal limits. Catheter tip terminating in right atrium. 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 Calcifications adjacent to the dome of the liver. BILE DUCTS: Within normal limits. GALLBLADDER: Cholelithiasis. PANCREAS: Within normal limits. SPLEEN: Within normal limits. ADRENALS: Within normal limits. KIDNEYS/URETERS: No renal calculi are identified and there is no hydronephrosis. BLADDER: Collapsed and not well evaluated. BOWEL: Diverticulosis without diverticulitis. There is no evidence for bowel obstruction LYMPH NODES: Within normal limits. VESSELS: External iliac arteries without significant atherosclerotic calcifications. Abdominal aorta mild calcific atherosclerosis. REPRODUCTIVE ORGANS: Appearance suggestive of fibroid uterus. PERITONEUM/RETROPERITONEUM: Within normal limits. ABDOMINAL WALL/SOFT TISSUES: Fat containing umbilical hernia. BONES: Within normal limits. IMPRESSION IMPRESSION No significant vascular calcifications in the iliac arteries. 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 Cholelithiasis. Additional findings are described above. Pap/Mammo: 04/15/2024 BI-RADS Category: 1 - Negative. Recommendation Screening mammogram in 1 year is recommended for both breasts. Pap smear 03/20/23 - negative. Repeat due February Colonoscopy: Cologuard 04/01/23 - negative. Repeat due March Sensitizations: Blood Transfusion: no Hospitalization:no :no Immunizations: Hepatitis B series, flu shot, and pneumonia vaccine provided by dialysis unit Venous access issues: no issues with AVF + Lab Results Component Value Date WBC 6.59 03/19/2024 WBC 6.67 07/03/2023 WBC 6.60 12/17/2012 WBC 5.08 10/12/2011 WBC, URINE - [facility] 3-5 (A) 07/03/2023 No components found for: "HBG" Lab Results Component Value Date PLT 213 03/19/2024 PLT 187 07/03/2023 PLT 243 12/17/2012 PLT 215 10/12/2011 Lab Results Component Value Date SODIUM - [facility] 137 03/19/2024 SODIUM - [facility] 136 07/03/2023 SODIUM - [facility] 137 07/01/2015 SODIUM - [facility] 139 12/17/2012 Lab Results Component Value Date POTASSIUM - [facility] 3.9 03/19/2024 POTASSIUM - [facility] 3.8 07/03/2023 POTASSIUM - [facility] 4.2 07/01/2015 POTASSIUM - [facility] 4.5 12/17/2012 POTASSIUM, WHOLE BLOOD - [facility] 3.9 07/17/2023 POTASSIUM, WHOLE BLOOD - [facility] 4.0 05/22/2023 Lab Results Component Value Date CHLORIDE - [facility] 98 03/19/2024 CHLORIDE - [facility] 98 07/03/2023 CHLORIDE - [facility] 97 (L) 07/01/2015 CHLORIDE - [facility] 102 12/17/2012 Lab Results Component Value Date CO2 - [facility] 28 03/19/2024 CO2 - [facility] 27 07/03/2023 CO2 - [facility] 27 07/01/2015 CO2 - [facility] 30 12/17/2012 Lab Results Component Value Date GLUCOSE - [facility] 97 03/19/2024 GLUCOSE - [facility] 93 07/03/2023 GLUCOSE - [facility] 100 07/01/2015 GLUCOSE - [facility] 84 12/17/2012 GLUCOSE METER POCT - [facility] 89 07/17/2023 GLUCOSE, GESTATIONAL 146 (H) 03/29/2010 GLUCOSE, GESTATIONAL 104 12/07/2009 GLUCOSE, URINE - [facility] Negative 07/03/2023 GLUCOSE, URINE - [facility] neg 06/09/2010 GLUCOSE, URINE - [facility] neg 06/06/2010 GLUCOSE-OUTSIDE LAB 105 10/22/2022 Lab Results Component Value Date BUN - [facility] 33 (H) 03/19/2024 BUN - [facility] 38 (H) 07/03/2023 BUN - [facility] 12 07/01/2015 BUN - [facility] 10 12/17/2012 Lab Results Component Value Date CREATININE - [facility] 2.4 (H) 03/19/2024 CREATININE - [facility] 3.0 (H) 07/03/2023 CREATININE - [facility] 0.7 07/01/2015 CREATININE - [facility] 0.8 12/17/2012 CREATININE CLEARANCE - [facility] 112 02/15/2010 CREATININE CLEARANCE - [facility] 141 (H) 11/11/2009 CREATININE, 24 HOUR URINE - [facility] 1.411 02/15/2010 CREATININE, 24 HOUR URINE - [facility] 1.463 11/11/2009 CREATININE, RANDOM URINE - [facility] 127 07/03/2023 CREATININE, RANDOM URINE - [facility] 76 10/12/2011 CREATININE-OUTSIDE LAB 6.37 10/22/2022 Lab Results Component Value Date CALCIUM - [facility] 9.4 03/19/2024 CALCIUM - [facility] 9.7 07/03/2023 CALCIUM - [facility] 9.3 07/01/2015 CALCIUM - [facility] 9.4 12/17/2012 Lab Results Component Value Date MAGNESIUM - [facility] 2.3 02/13/2024 Lab Results Component Value Date PHOSPHORUS - [facility] 2.8 07/03/2023 PHOSPHORUS - [facility] 4.8 11/28/2022 PHOSPHORUS-OUTSIDE LAB 7.1 10/22/2022 No results found for: "HGBA1C" IMP/PLAN: In summary, Matilda is a 44 year old female with chronic kidney disease secondary to ? HTN who is a good candidate for Kidney transplant. Listed since 07/16/2023 with wait time from 12/04/2022. Prior Zio patch in February 2024 for palpitation currently improved --> sinus rhythm . Switched from coreg to metoprolol Biopsy Kidney, left, core biopsy: Changes consistent with severe (malignant) hypertensive nephropathy. No evidence of glomerulonephritis or an immune complex mediated process. Glomerulosclerosis (5/46). Segmental glomerular scarring (1/46). Interstitial fibrosis and tubular atrophy, 15-20%. See comment and microscopic description. Liver Biopsy 2022 A. Liver, Left lobe, needle core biopsy: Benign liver parenchyma with granulomatous inflammation No significant steatosis or fibrosis See note B. Liver, Right lobe, needle core biopsy: Benign liver parenchyma with granulomatous inflammation No significant steatosis or fibrosis See note CT Abd Pelvis done Cardiac testing: Stress test planned Jul 2024 We had the opportunity to discuss the following, specific for this patient: 1) Need of lifelong immunosuppression 2) Higher chances of opportunistic infections 3) Higher risk of certain types of cancers - skin, urologic and PTLD 4) Chances of NODAT 5) Reoccurance of [place] disease. Recommend: Cardio clearance Weight loss Risks and benefits of transplantation including overall average increase in life expectancy and higher quality of life with transplantation for most recipients. Discussed details of the surgical procedure with its attendant risks, benefits and alternatives. Types of donor organs discussed with patient, including Living donor, high KDPI kidney, Hepatitis CAb+ve/MARIELLA +ve organs and donor after cardiac (DCD). The relative benefit of living donation over donor transplantation explained. Patient expresses understanding of the information discussed. Discussed survival advantage of transplantation and also discussed living donor advantage. Discussed multiple listing and also center and national outcomes statistics. Discussed risk vs. Benefit of transplantation and immunosuppression. Thank you for allowing me to participate in the care of Matilda Benitez Klever Palafox MD 07/08/2024 11:53 AM Transplant Clinic[address] [address] documented in this encounter Plan of Treatment Upcoming Encounters Date Type Department Care Team (Late st Contact Info) Description 08/06/2024 10:35 AM EDT Imaging Cardiac Studies, [facility] [address] [facility] [facility] [place] [id number] 11/11/2024 3:00 PM EST Office Visit [facility] [address] [facility] [address] Sofia Fenton MD [address] [place] [address] Health Maintenance Due Date Last Done Comments Hepatitis B Vaccine (1 of 3 - 19+ 3-dose series) 1997 HPV/Co-Test 02/01/2008 Colonoscopy 2023 Fecal Occult Blood Test 2023 Sigmoidoscopy 2023 COVID-19 Vaccine ( - 2022- season) 2023 Influenza Vaccine (FLU shot) (#1) 2024 08/31/2023, 08/31/2023, 10/12/2011, Additional history exists Pneumococcal Vaccine: Pediatrics (0 to 5 Years) and At-Risk Patients (6 to 64 Years) (3 of 3 - PCV) 10/12/2024 10/12/2023, 09/08/2009 Depression Screening 03/04/2025 03/04/2024 Mammogram 04/15/2025 04/15/2024, 03/26, 04/12/2023, Additional history exists Cervical Cancer Screening 03/20/2026 Pap Smear 03/20/2026 03/20/2023, 07/27, 01/28/2013, Additional history exists Cologuard 04/11/2026 04/11/2023, 05/0 05/2023, 04/01/2023 Colorectal Cancer Screening 04/11/2026 Diabetes Screening 07/08/2027 07/08/2024, 0 07/08/2024, 03/19/2024, Additional history exists Lipid Panel 07/03/2028 07/03/2023 DTaP,Tdap,and Td Vaccines (3 - Td or Tdap) 03/21/2033 03/21/2023, 09/08/2009 HPV (Gardasil) Vaccine Aged Out No lo nger eligible based on patient's age to complete this topic MENINGOCOCCAL (MENACTRA/MENVEO) Aged Out No longer eligible based on patient's age to complete this topic documented as of this encounter Medical Devices Not on filedocumented as of this encounter Visit Diagnoses Diagnosis Pre-transplant evaluation for ESRD (end stage renal disease)- Primary Other specified pre-operative examination documented in this encounter Care Teams Saddle Stitcher Relationship Specialty Start Date End Date Sofia Fneton MD [address] [place] [address] PCP - General Internal Medicine 10/24/22 documented as of this encounter
--- OUTSIDE RECORDS SUMMARY | 2024-07-26 19:34 | External Medical Summary | Summary of Care ---
Author Name Unknown Organization [facility] Address [address] [facility] [place] [address] Phone [phone] Care Team Providers Care Dsp Engineer Name Role Phone Sofia Fenton MD Primary Care Provider Reason for Visit * Reason Comments Follow Up Physical-Exam Pt here today for a complete physical and a 4 month follow up Encounter Details Date Type Department Care Team (Late st Contact Info) Description 07/10/2024 2:40 PM EDT Office Visit [place] [id number] [place] [address] Sofia Fenton MD [address] [place] [address] Physical exam, annual*; Well adult exam; ESRD on dialysis ([facility]); HTN, goal below 130/80; AVF (arteriovenous fistula) ([facility]); Class 2 severe obesity with serious comorbidity and body mass index (BMI) of 36.0 to 36.9 in adult, unspecified obesity type ([facility]) Allergies Active Allergy Reactions Criticality Noted Date Comments Cat Dander Itching Low 07/09/2014 Dust Itching Low 11/09/2011 Sneezing, itchy watery eyes Penicillins Hives Medium 01/02/2008 Sulfa Antibiotics Hives Medium 01/02/2008 documented as of this encounter (statuses as of 07/10/2024) Medications Medication Sig Dispensed Refills Start Date [...] Active Wegovy 0.5 MG/0.5ML Subcutaneous Solution Auto-injector (Semaglutide-[facility]) Inject 0.5 mg under the skin once a week for 28 days. 2 mL 06/20/2024 Active Triphrocaps 1 MG Oral Capsule Take [...] Active Wegovy 0.25 MG/0.5ML Subcutaneous Solution Auto-injector (Semaglutide-[employer]) Inject 0.25 mg under the skin once a week. 2 mL 05/28/2024 Discontinue d(Patient preference/ discontinua tion) documented as of this encounter (statuses as of 07/10/2024) Active Problems Problem Noted Date Diagnosed Date [...] as of this encounter (statuses as of 07/10/2024) Resolved Problems Problem Noted Date Diagnosed Date [...] as of this encounter (statuses as of 07/10/2024) Immunizations Name Administration Dates Next Due H1N1 2008 Influenza, IM 11/08/2009 Pneumococcal Polysaccharide PPV23 (Pneumovax) [...] Passive Smoke Exposure: Current Smokeless Tobacco: Never Comments:started age 16 Alcohol Use Standard Drinks/Week [...] Sign Reading Time Taken Comments Blood Pressure 122/68 07/10/2024 2:37 PM EDT Pulse 83 07/10/2024 2:37 PM EDT Temperature 36.7 C (98.1 F) 07/10/2024 2:37 PM ED T Respiratory Rate 18 07/10/2024 2:37 PM EDT Oxygen Saturation 98% 07/10/2024 2:37 PM EDT Inhaled Oxygen Concentration - - Weight 100.4 kg (221 lb 6.4 oz) 07/10/2024 2:37 PM EDT Height 167 cm (5' 5.75") 07/10/2024 2:37 PM EDT Body Mass Index 36.01 07/10/2024 2:37 PM EDT documented in this encounter Patient Instructions * Patient Instructions* Estelita Ashby LPN - 07/10/2024 2:40 PM EDT Vaccination is the best way to protect against hepatitis B. Most people should get 3 doses of hepatitis B vaccine. If you miss a dose or get behind schedule, get the next dose as soon as you can. There is no need to start over. Age for Hepatitis B Vaccine: INFANTS: *Infants whose mother HAS hepatitis B virus: #1 dose- at 2 month visit #2 dose- 1 month after dose #1 #3 dose- 7 months of age (at least 5 months after dose #1) *Infants whose mother does NOT have hepatitis B virus: #1 dose- - 2 months of age #2 dose- 1-4 months of age (at least 1 month after dose #1) #3 dose- 6-18 months of age ( at least 2 months after dose #2) *Other recommended age groups #1 dose- Now #2 dose- 1-2 months after dose #1 #3 dose- 4-6 months after dose #1 WHAT ARE THE RISKS FROM HEPATITIS B VACCINE? Hepatitis B vaccine is one of the safest vaccines. Getting the disease is much more likely to causeserious illness than getting the vaccine. MILD PROBLEMS: - soreness where the shot was given. - mild to moderate fever Acetaminophen or Ibuprofen (not aspirin) may be used to reduce fever and pain. SEVERE PROBLEMS: - serious allergic reaction is very rare. WHAT TO DO IF THERE IS A SERIOUS REACTION: - Call a doctor or get the person to a doctor right away. - Ask your doctor, nurse, or health department to file a Vaccine Adverse Event Report form. To filea report yourself you can call: (toll-free) LET YOUR DOCTOR KNOW IMMEDIATELY IF YOU HAVE DIFFICULTY BREATHING OR SWALLOWING, EXPERIENCE ITCHING OF FEET OR HANDS, HAVE SWELLING OF EYES, FACE OR INSIDE OF NOSE. documented in this encounter Progress Notes * Sofia Fenton MD - 07/10/2024 2:49 PM EDT Subjective Matilda Benitez is a 44 year old female. Chief Complaint Patient presents with Follow Up Physical-Exam Pt here today for a complete physical and a 4 month follow up HPI: Here for annual check up Mammogram annually PAP 2022 Cologuard 2022 Planning for kidney transplantation in oct this year HD for ESRD, malignant HTN Obesity , BMi 36 - needs to lose 20 pounds for surgery Wegovy a few month ago Normal BMs Emphasized core muscle exercise Hep B - immunity + Reviewed recent tests PMH: Patient Active Problem List Diagnosis History of smoking Mitral valve disorder h/o preeclampsia Hypermobility syndrome Anxiety ESRD on dialysis (HCC) HTN, goal below 130/80 AVF (arteriovenous fistula) (HCC) Granuloma of liver associated with sarcoidosis Class 2 severe obesity with serious comorbidity and body mass index (BMI) of 36.0 to 36.9 in adult (HCC) Current Outpatient Medications Medication Sig Dispense Refill [...] day. To affected area. 80 g 5 traMADol HCl 50 MG Oral Tablet (Ultram) Take 1 Tablet by mouth every 8 hours as needed for Pain, Moderate or Pain, Severe. 30 Tablet 0 Sevelamer Carbonate 800 MG Oral Tablet (Renvela) [...] needed for Cough. 30 Capsule 0 Wegovy 0.5 MG/0.5ML Subcutaneous Solution Auto-injector [...] two times per day 60 Tablet 3 Baclofen 10 MG Oral Tablet (Lioresal) Take 1 Tablet by mouth in the morning and 1 Tablet before bedtime. (Patient not taking: Reported on 07/10/2024) 60 Tablet 2 No current facility-administered medications for this visit. Past Medical History: Diagnosis Date Fibromyalgia Gestational diabetes required glyburide Other anxiety states Undiagnosed cardiac murmurs congenital; no SBE prophylaxis Past Surgical History: Procedure Laterality Date AV ACCESS, DIRECT ANASTOMOSIS Left 02/01/2023 ARTERIOVENOUS ANASTOMOSIS OPEN DIRECT ANY SITE performed by Moncho Cast MD [place] [facility] [place] ACCESS, REVISE AVF W/O THRO Left 07/17/2023 REVISION ARTERIOVENOUS FISTULA WITHOUT THROMBECTOMY performed by Moncho Cast MD [place] [facility] EGD, W/ENDOSCOPIC US N/A 07/05/2023 stones gallbladder/benign lymph node cesar hepatis region/biopsies of liver show liver parenchyma with granulomatous inflammation/ESOPHAGOGASTRODUODENOSCOPY (EGD), FLEXIBLE, TRANSORAL, ENDOSCOPIC ULTRASOUND performed by Kaiden Lui MD at OR [facility] INSER JUAN CARLOS CAT,W/O PUMP;5YR/OLD Right 11/29/2022 INSERT TUNNELED CENTRAL VENOUS CATHETER AGE 5 OR OLDER performed by Clark Cervantes DO at OR [facility] INTRO CATH DIALYSIS CIRCUIT W/TRANSLUM BALLOON ANGIOPLASTY Left 05/22/2023 AV FISTULOGRAM & PERIPHERAL ANGIOPLASTY performed by Moncho Cast MD at [place] [facility] IR BIOPSY 10/24/2022 OTHER sinus surgery x 4 OTHER wisdom teeth REMOVE TONSILS & ADENOIDS, UNDER 12 Review of patient's allergies indicates: Allergen Reactions Pcn [Penicillins] Hives Sulfa Antibiotics Hives Cat Dander Itching Environmental [Dust] Itching Sneezing, itchy watery eyes Family History Problem Relation Name Age of Onset Thyroid Disorder Mother Hypertension Mother Lung Disorder Mother COPD/COPD Arthritis Mother Obesity Mother Hypertension Father Obesity Father Cancer Grandmother (Paternal) skin/skin Glaucoma Grandmother (Paternal) Arthritis Grandmother (Paternal) Eye Problems Grandmother (Paternal) Cataracts No Past Hx None No FM HX of [employer]S SUPERINT[employer] [place] No Past Hx Son No Past Hx Son Gastro-intestinal disorder Brother PUD Cancer Grandmother (Maternal) pituitary gland/pituitary gland tumor Glaucoma Grandmother (Maternal) Eye Problems Grandmother (Maternal) Cataracts No Past Hx Son Marcell No Past Hx Son Randal Hypertension Brother Zander Marrero Gastro-intestinal disorder Brother Zander Marrero Allergies Brother Zander Marrero Family Status Relation Status Mo (Not Specified) Fa (Not Specified) PGMA (Not Specified) NONE (Not Specified) Son (Not Specified) Son (Not Specified) Bro (Not Specified) MGMA (Not Specified) Son (Not Specified) Son (Not Specified) Bro (Not Specified) Social History Socioeconomic History Marital status: Spouse name: Not on file Number of children: 2 Years of education: Not on file Highest education level: Not on file Occupational History 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 Negative for activity change, appetite change, chills, diaphoresis, fever and unexpected weight change. Respiratory: Negative. Negative for cough, chest tightness, shortness of breath and wheezing. Cardiovascular: Negative for chest pain, palpitations and leg swelling. Gastrointestinal: Negative for abdominal distention, abdominal pain, constipation, diarrhea, nauseaand vomiting. Endocrine: Negative. Genitourinary: Negative for decreased urine volume, dysuria, hematuria and urgency. Allergic/Immunologic: Positive for environmental allergies. Neurological: Negative for dizziness and light-headedness. Psychiatric/Behavioral: Negative for agitation, behavioral problems, dysphoric mood and sleep disturbance. Objective BP 122/68 | Pulse 83 | Temp 36.7 C (98.1 F) (Tympanic) | Resp 18 | Ht 1.67 m (5' 5.75") | Wt 100.4 kg (221 lb 6.4 oz) | SpO2 98% | BMI 36.01 kg/m | BSA 2.16 m Physical Exam Constitutional: General: She is not in acute distress. Appearance: Normal appearance. She is obese. She is not ill-appearing, toxic- appearing or diaphoretic. HENT: Head: Normocephalic and atraumatic. Nose: Nose normal. Eyes: Extraocular Movements: Extraocular movements intact. Cardiovascular: Rate and Rhythm: Normal rate and regular rhythm. Pulses: Normal pulses. Heart sounds: Normal heart sounds. No murmur heard. Pulmonary: Effort: Pulmonary effort is normal. No respiratory distress. Breath sounds: Normal breath sounds. No stridor. No wheezing, rhonchi or rales. Chest: Chest wall: No tenderness. Musculoskeletal: General: No swelling or tenderness. Right lower leg: No edema. Left lower leg: No edema. Comments: Lt arm fistula Skin: Findings: No erythema. Neurological: General: No focal deficit present. Mental Status: She is alert and oriented to person, place, and time. Cranial Nerves: No cranial nerve deficit. Psychiatric: Mood and Affect: Mood normal. Behavior: Behavior normal. ASSESSMENT/PLAN: Physical exam, annual (Primary) Well adult exam ESRD on dialysis ([facility]) HTN, goal below 130/80 AVF (arteriovenous fistula) ([facility]) Class 2 severe obesity with serious comorbidity and body mass index (BMI) of 36.0 to 36.9 in adult,unspecified obesity type ([facility]) Follow Up: Return in about 4 months (around 11/09/2024). F/u with nephro HD Cardio, stress test Diet exercise Wegovy Discussed with patient: -HEALTH PROMOTION: Adequate sleep (8-10 hours/night), regular exercise, balanced diet, dental care,limiting sedentary activities (TV, computer, Internet) -MENTAL HEALTH: Discuss feelings with an someone that they can trust -INJURY PREVENTION: Driving Safety, Seat Belts, Sun Safety, No Weapons, Conflict Resolution, Personal Safety -SUBSTANCE ABUSE: Tobacco, Drugs, Alcohol Sofia Fenton MD documented in this encounter Nursing Notes * Estelita Ashby LPN - 07/10/2024 2:35 PM EDT Chief Complaint Patient presents with Follow Up Physical-Exam Pt here today for a complete physical and a 4 month follow up documented in this encounter Plan of Treatment Upcoming Encounters Date Type Department Care Team (Late st Contact Info) Description 08/06/2024 10:35 AM EDT Imaging Cardiac Studies, [facility] [address] [place] [address] 11/11/2024 3:00 PM EST Office Visit [facility] [address] [facility] [address] Sofia Fenton MD [address] [facility] [place] [address] Health Maintenance Due Date Last Done Comments Hepatitis B Vaccine (1 of 3 - 19+ 3-dose series) 1997 HPV/Co-Test 02/01/2008 Colonoscopy 2023 Fecal Occult Blood Test 2023 Sigmoidoscopy 2023 COVID-19 Vaccine ( - season) 2023 Influenza Vaccine (FLU shot) (#1) [...] 01/28/2013, Additional history exists Cologuard 04/11/2026 04/11/2023, 05/05/2023, 04/01/2023 Colorectal Cancer Screening 04/11/2026 Diabetes Screening [...] as of this encounter Visit Diagnoses Diagnosis Physical exam, annual- Primary Routine general medical examination at a health care facility Well adult exam Routine general medical examination at a health care facility ESRD on dialysis (HCC) End stage renal disease HTN, goal below 130/80 Unspecified essential hypertension AVF (arteriovenous fistula) (HCC) Arteriovenous fistula, acquired Class 2 severe obesity with serious comorbidity and body mass index (BMI) of 36.0 to 36.9 in adult, unspecified obesity type (HCC) documented in this encounter Care Teams Dsp Engineer Relationship Specialty Start Date End Date Sofia Fenton MD [address] [place] [address] PCP - General Internal Medicine 10/24/22 documented as of this encounter
--- OUTSIDE RECORDS SUMMARY | 2024-07-26 19:34 | External Medical Summary | Summary of Care ---
Author Name Unknown Organization [facility] Address [address] [place] [address] Phone [phone] Care Team Providers Care Medical Office Worker Name Role Phone Sofia Fenton MD Primary Care Provider [phone] Reason for Visit * Reason Comments Pre-Transplant Evaluation Encounter Details Date Type Department Care Team (Late st Contact Info) Description 07/08/2024 11:00 AM EDT [facility] [address] [place] [address] Klever Palafox MD [address] [place] [address] Edwin Kingsley MD [address] [place] [address] [facility] [address] [place] [address] Eva Saab LSW [address] [place] [address] Pre-transplant evaluation for ESRD (end stage renal disease)* Allergies Active Allergy Reactions Criticality Noted Date Comments Cat Dander Itching Low 07/09/2014 Dust Itching Low 11/09/2011 Sneezing, itchy watery eyes Penicillins Hives Medium 01/02/2008 Sulfa Antibiotics Hives Medium 01/02/2008 documented as of this encounter (statuses as of 07/16/2024) Medications Medication Sig Dispensed Refills Start Date [...] as of this encounter (statuses as of 07/16/2024) Active Problems Problem Noted Date Diagnosed Date [...] as of this encounter (statuses as of 07/16/2024) Resolved Problems Problem Noted Date Diagnosed Date [...] as of this encounter (statuses as of 07/16/2024) Immunizations Name Administration Dates Next Due H1N1 [...] of . Patient presents to clinic today for her annual pre-renal transplant evaluation. Patient [...] this weekend they are taking Marcell to [place] to begin college, studying music technology. Marcell [...] employer. Patient continues to receive dialysis at [facility]. However, in November 2023, she went from [...] with her sons' school events. 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 Patient started taking Effexor when her health issues worsened in September 2022 & overall reports that this continues to help with her mood. Patient recognizes she especially struggles with her mood when she is also tired. 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 [...] been provided by the patient: Matilda Benitez [id number] [phone] [place] [address] (home) [phone] (work) Are you a [place] citizen: Yes [...] cards scanned in our system today? yes FORMING DEPARTMENT END FINDER HAS OUTLINED THE FOLLOWIN. Patient Financial Expectations 2. Billing Process 3. Insurance Information 4. Demographic Information 5. Financial Counselor Information 6. Change of Information Procedure Recommendations: none Action to be taken: none Patient verbalizes and agrees with all the above information. * Edwin Kingsley MD - 07/08/2024 12:47 PM EDT PRE-RENAL TRANSPLANT EVALUATION Referring head of maintenance: Josie PCP: Sofia Fenton MD History of [...] performed by Moncho Cast MD at [facility] AV ACCESS, REVISE AVF W/O THRO Left 07/17/2023 REVISION ARTERIOVENOUS FISTULA WITHOUT THROMBECTOMY performed by Moncho Cast MD at [facility] EGD, W/ENDOSCOPIC US N/A 07/05/2023 stones gallbladder/benign lymph node cesar hepatis region/biopsies of liver show liver parenchyma with granulomatous inflammation/ESOPHAGOGASTRODUODENOSCOPY (EGD), FLEXIBLE, TRANSORAL, ENDOSCOPIC ULTRASOUND performed by Kaiden Lui MD at OR [facility] INSER JUAN CARLOS CAT,W/O PUMP;5YR/OLD Right 11/29/2022 INSERT TUNNELED CENTRAL VENOUS CATHETER AGE 3 OR OLDER performed by Clark Cervantes DO at OR [facility] INTRO CATH DIALYSIS CIRCUIT W/TRANSLUM BALLOON ANGIOPLASTY Left 05/22/2023 AV FISTULOGRAM & PERIPHERAL ANGIOPLASTY performed by Moncho Cast MD at [facility] IR BIOPSY 10/24/2022 OTHER sinus surgery x [...] Past Hx None No FM HX of 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 Salazar Diagnosis: HTN Medical History over [...] is active on the Transplant list at [facility]. The patient will be presented at an [...] Stress echocardiogram scheduled 08/06/24 Mirta Rosen RN, [facility] Transplant nurse coordinator * Klever Palafox [...] 3 hours, 30 minutes., started November 2022 [facility] DM: no, HTN: yes, current treatment losartan/ metoprolol Urine output: yes Living Donor: yes Multiple Listings:no Foreign travel: no TB exposure: no HIV: no Epilepsy: no Open wounds - none Stroke-No UTI: no Kidney Stones: no Malignancy: no Education/work: Bachelor in music therapy. disability Primary manager care management: . Nicolas Back up manager care management: son ( Marcell) Past Medical History: Diagnosis Date Fibromyalgia Gestational diabetes required glyburide Other anxiety states Undiagnosed cardiac murmurs congenital; no SBE prophylaxis Past Surgical History: Procedure Laterality Date AV ACCESS, DIRECT ANASTOMOSIS Left 02/01/2023 ARTERIOVENOUS ANASTOMOSIS OPEN DIRECT ANY SITE performed by Moncho Cast MD at [facility] AV ACCESS, REVISE AVF W/O THRO Left 07/17/2023 REVISION ARTERIOVENOUS FISTULA WITHOUT THROMBECTOMY performed by Moncho Cast MD at [facility] EGD, W/ENDOSCOPIC US N/A 07/05/2023 stones gallbladder/benign lymph node cesar hepatis region/biopsies of liver show liver parenchyma with granulomatous inflammation/ESOPHAGOGASTRODUODENOSCOPY (EGD), FLEXIBLE, TRANSORAL, ENDOSCOPIC ULTRASOUND performed by Kaiden Lui MD at OR [facility] INSER JUAN CARLOS CAT,W/O PUMP;5YR/OLD Right 11/29/2022 INSERT TUNNELED CENTRAL VENOUS CATHETER AGE 5 OR OLDER performed by Clark Cervantes DO at OR [facility] INTRO CATH DIALYSIS CIRCUIT W/TRANSLUM BALLOON ANGIOPLASTY Left 05/22/2023 AV FISTULOGRAM & PERIPHERAL ANGIOPLASTY performed by Moncho Cast MD at [facility] IR BIOPSY 10/24/2022 OTHER sinus surgery x 4 OTHER wisdom teeth REMOVE TONSILS & ADENOIDS, UNDER 12 Social History Socioeconomic History Marital status: Spouse name: Not on file Number of children: 2 Years of education: Not on file Highest education level: Not on file Occupational History 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: [employer] Tobacco Use Smoking status: Former Current packs/day: [...] Yes Self-Exams Not Asked 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 of Health Financial Resource Strain: [...] Stability Do you currently live in a assisted or have no steady place to sleep [...] Past Hx None No 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 Recommend: Cardio clearance Weight loss Risks [...] Klever Palafox MD 07/08/2024 11:53 AM Transplant Clinic[address] [address] documented in this encounter Plan of Treatment Upcoming Encounters Date Type Department Care Team (Late st Contact Info) Description 08/06/2024 10:35 AM EDT Imaging Cardiac Studies, [facility] [address] [facility] [place] [address] 11/11/2024 3:00 PM EST Office Visit [facility] [address] [place] [address] Sofia Fenton MD [address] [place] [address] Health Maintenance Due Date Last Done Comments Hepatitis B Vaccine (1 of 3 - 19+ 3-dose series) 1997 HPV/Co-Test 02/01/2008 Colonoscopy 2023 Fecal Occult Blood Test 2023 Sigmoidoscopy 2023 COVID-19 Vaccine (1 - 2022- season) 2023 Influenza Vaccine (FLU [...] examination documented in this encounter Care Teams Medical Office Worker Relationship Specialty Start Date End Date Sofia Fenton MD [address] [place] [address] PCP - General Internal Medicine 10/24/22 documented as of this encounter
--- OUTSIDE RECORDS SUMMARY | 2024-07-26 19:35 | External Medical Summary | Summary of Care ---
Author Name Unknown Organization [facility] Address [address] [place] [address] Phone [phone] Care Team Providers Care Solar Engineer Name Role Phone Sofia Fenton MD Primary Care Provider Reason for Visit * Reason Comments Outpatient Testing Encounter Details Date Type Department Care Team (Late st Contact Info) Description 07/08/2024 2:50 PM EDT Laboratory Outpatient Laboratory, [place] [address] [place] [address] [place], Lab B1a [address] [place] [address] ESRD on dialysis (HCC); Pre-transplant evaluation for ESRD (end stage renal disease) Allergies Active Allergy Reactions Criticality Noted Date Comments Cat Dander Itching Low 07/09/2014 Dust Itching Low 11/09/2011 Sneezing, itchy watery eyes Penicillins Hives Medium 01/02/2008 Sulfa Antibiotics Hives Medium 01/02/2008 documented as of this encounter (statuses as of 07/08/2024) Medications Medication Sig Dispensed Refills Start Date [...] before bedtime. 60 Tablet 2 10/04/2023 Active traMADol HCl 50 MG Oral Tablet (Ultram) Take 1 Tablet by mouth every 8 hours as needed for Pain, Moderate or Pain, Severe. 30 Tablet 10/16/2023 Active Sevelamer Carbonate 800 MG Oral Tablet (Renvela)Indication s:End stage renal disease (HCC) TAKE ONE TABLET [...] Active Benzonatate 100 MG Oral Capsule (Tessalon Perles)Indications: Acute cough Take 1 Capsule by mouth 3 times a day as needed for Cough. 30 Capsule 05/23/2024 Active Wegovy 0.25 MG/0.5ML Subcutaneous Solution Auto-injector (Semaglutide-Weight Management) Inject 0.25 mg under the skin once a week. 2 mL 05/28/2024 Active Wegovy 0.5 MG/0.5ML Subcutaneous Solution Auto-injector (Semaglutide-Weight Management) Inject 0.5 mg under the skin once a week for 28 days. 2 mL 06/20/2024 07/18/2024 Active Triphrocaps 1 MG Oral Capsule Take [...] per day 60 Tablet 3 06/24/2024 Active documented as of this encounter (statuses as of 07/08/2024) Active Problems Problem Noted Date Diagnosed Date AVF (arteriovenous fistula) 09/20/2023 Granuloma of liver [...] as of this encounter (statuses as of 07/08/2024) Resolved Problems Problem Noted Date Diagnosed Date [...] as of this encounter (statuses as of 07/08/2024) Immunizations Name Administration Dates Next Due H1N1 [...] on file documented as of this encounter Plan of Treatment Upcoming Encounters Date Type Department Care Team (Late st Contact Info) Description 07/08/2024 1:26 PM EDT Hospital Encounter Radiology, [place] [address] [place] [address] Arrived 07/10/2024 2:40 PM EDT Office Visit [facility] [address] [place] [address] Sofia Fenton MD [address] [place] [address] 08/06/2024 10:35 AM EDT Imaging Cardiac Studies, [facility] [address] [facility] [place] [address] Pending Results Name Type Priority Associated Diagnoses Date /Time QUANTIFERON TB GOLD PLUS Lab STAT ESRD on dialysis (HCC) Pre-transplant evaluation for ESRD (end stage renal disease) 07/08/2024 1:21 PM EDT HIV ANTIGEN & ANTIBODY SCREEN W/ CONFIRMATION Lab STAT ESRD on dialysis (HCC) Pre-transplant evaluation for ESRD (end stage renal disease) 07/08/2024 1:21 PM EDT RPR Lab STAT ESRD on dialysis (HCC) Pre-transplant evaluation for ESRD (end stage renal disease) 07/08/2024 1:21 PM EDT HEPATITIS B SURFACE ANTIGEN Lab STAT ESRD on dialysis (HCC) Pre-transplant evaluation for ESRD (end stage renal disease) 07/08/2024 1:21 PM EDT HEPATITIS B SURFACE ANTIBODY Lab STAT ESRD on dialysis (HCC) Pre-transplant evaluation for ESRD (end stage renal disease) 07/08/2024 1:21 PM EDT HEPATITIS B CORE ANTIBODIES IGG AND IGM Lab STAT ESRD on dialysis (HCC) Pre-transplant evaluation for ESRD (end stage renal disease) 07/08/2024 1:21 PM EDT HEPATITIS C ANTIBODY SCREEN WITH PROGRESSION TO HEPATITIS C RNA QUANTITATIVE Lab STAT ESRD on dialysis (HCC) Pre-transplant evaluation for ESRD (end stage renal disease) 07/08/2024 1:21 PM EDT COMPREHENSIVE METABOLIC PANEL Lab STAT ESRD on dialysis (HCC) Pre-transplant evaluation for ESRD (end stage renal disease) 07/08/2024 1:21 PM EDT MONTHLY HLA CLASS 1 & 2 W/REFLEX, SOLID ORGAN TRANSPLANT Lab STAT ESRD on dialysis (HCC) Pre-transplant evaluation for ESRD (end stage renal disease) 07/08/2024 1:21 PM EDT PTH Lab STAT ESRD on dialysis (HCC) Pre-transplant evaluation for ESRD (end stage renal disease) 07/08/2024 1:21 PM EDT HEMOGLOBIN A1C Lab STAT ESRD on dialysis (HCC) Pre-transplant evaluation for ESRD (end stage renal disease) 07/08/2024 1:21 PM EDT HEPATITIS C ANTIBODY Lab STAT ESRD on dialysis (HCC) Pre-transplant evaluation for ESRD (end stage renal disease) 07/08/2024 1:21 PM EDT HEPATITIS C RNA ADD ON Lab STAT ESRD on dialysis (HCC) Pre-transplant evaluation for ESRD (end stage renal disease) 07/08/2024 1:21 PM EDT Health Maintenance Due Date Last Done Comments [...] 04/01/2023 Colorectal Cancer Screening 04/11/2026 Diabetes Screening 03/19/2027 03/19/2024, 0 07/17/2023, 07/03/2023, Additional history exists Lipid Panel 07/03/2028 07/03/2023 [...] as of this encounter Visit Diagnoses Diagnosis ESRD on dialysis (HCC) End stage renal disease Pre-transplant evaluation for ESRD (end stage renal disease) Other specified pre-operative examination ESRD on dialysis (HCC) End stage renal disease Pre-transplant evaluation for ESRD (end stage renal disease) Other specified pre-operative examination documented in this encounter Care Teams Solar Engineer Relationship Specialty Start Date End Date Sofia Fenton MD [address] [place] [address] PCP - General Internal Medicine 10/24/22 documented as of this encounter
--- OUTSIDE RECORDS SUMMARY | 2024-07-26 19:35 | External Medical Summary | Summary of Care ---
Author Name Unknown Organization [facility] Address [address] [place] [address] Phone [phone] Care Team Providers Care Chemical Process Equipment Operator Name Role Phone Sofia Fenton MD Primary Care Provider [phone] Encounter Details Date Type Department Care Team (Latest Contact Info) Description 07/08/2024 1:26 PM EDT - 07/08/2024 11:59 PM EDT Hospital Encounter Radiology, [place] [address] [place] [address] Arrived Discharge Disposition: Home - Self Care Allergies Active Allergy Reactions Criticality Noted Date Comments Cat Dander Itching Low 07/09/2014 Dust Itching Low 11/09/2011 Sneezing, itchy watery eyes Penicillins Hives Medium 01/02/2008 Sulfa Antibiotics Hives Medium 01/02/2008 documented as of this encounter (statuses as of 07/09/2024) Medications Medication Sig Dispensed Refills Start Date [...] as of this encounter (statuses as of 07/09/2024) Active Problems Problem Noted Date Diagnosed Date [...] as of this encounter (statuses as of 07/09/2024) Resolved Problems Problem Noted Date Diagnosed Date [...] as of this encounter (statuses as of 07/09/2024) Immunizations Name Administration Dates Next Due H1N1 [...] Description 07/10/2024 2:40 PM EDT Office Visit [address] [place] [id number] Sofia Fenton MD [address] [place] [address] 08/06/2024 10:35 AM EDT Imaging Cardiac Studies, [facility] [address] [place] [address] Pending Results Name Type Priority Associated Diagnoses Date /Time XR CHEST 2 VIEWS Medical Imaging Routine ESRD on dialysis (HCC) Pre-transplant evaluation for ESRD (end stage renal disease) 07/08/2024 1:34 PM EDT Scheduled Orders Name Type Priority Associated Diagnoses Orde r Schedule XR CHEST 2 VIEWS Medical Imaging Routine ESRD on dialysis (HCC) Pre-transplant evaluation for ESRD (end stage renal disease) 1 Occurrences starting 07/08/2024 until 07/08/2024 Health Maintenance Due Date Last Done Comments [...] 01/28/2013, Additional history exists Cologuard 04/11/2026 04/11/2023, 0505/2023, 04/01/2023 Colorectal Cancer Screening 04/11/2026 Diabetes Screening [...] examination documented in this encounter Care Teams Chemical Process Equipment Operator Relationship Specialty Start Date End Date Sofia Fenton MD [address] [place] [address] PCP - General Internal Medicine 10/24/22 documented as of this encounter
--- OUTSIDE RECORDS SUMMARY | 2024-07-26 19:35 | External Medical Summary ---
Author Name Unknown Address Unknown Organization [id number]:LABORATORY [facility] - [address] [place] [address] Laboratory Report Ordering Provider Test Date Status BRUNA REICH 07/08/2024 13:21:30 Final Observation Date Value Abnormality Reference (Units ) Status Hepatitis B virus core Ab [Presence] in Serum 07/08/2024 13:21:30 Negative Negative Final Performing Location LAB[facility]ATORY [facility] - [address] [place] [address]
--- OUTSIDE RECORDS SUMMARY | 2024-07-26 19:35 | External Medical Summary ---
Author Name Unknown Address Unknown Organization : Laboratory Report Ordering Provider Test Date Status BRUNA REICH 07/08/2024 13:21:30 Final Observation Date Value Abnormality Reference (Units ) Status REFERENCE LAB SCANNED REPORT 07/08/2024 13:21:30 See Scanned Report Final [facility] 07/08/2024 13:21:30 Serum not tested, on hold at [facility] HLA Lab Final Performing Location
--- OUTSIDE RECORDS SUMMARY | 2024-07-26 19:35 | External Medical Summary ---
Author Name Unknown Address Unknown Organization [id number]:LABORATORY [facility] - [address] [place] [address] Laboratory Report Ordering Provider Test Date Status BRUNA REICH 07/08/2024 13:21:30 Final Observation Date Value Abnormality Reference (Units ) Status BUN 07/08/2024 13:21:30 31 Above high normal 6-20 (mg/dL) Final Creatinine 07/08/2024 13:21:30 3.2 Above high normal 0.5-1.0 (mg/dL) Final Glomerular filtration rate/1.73 sq M.predicted [Volume Rate/Area] in Serum, Plasma or Blood by Creatinine-based formula (CKD-EPI) 07/08/2024 13:21:30 17 Below low normal >=60 (mL/min) Final eGFR is calculated based on the CKD-EPI 2020 equation. Sodium 07/08/2024 13:21:30 138 135-146 (m mol/L) Final Potassium 07/08/2024 13:21:30 4.0 3.5-5.1 (m mol/L) Final Cl 07/08/2024 13:21:30 95 Below low normal 98- 107 (mmol/L) Final CO2 07/08/2024 13:21:30 30 22-32 (mmo l/L) Final Anion gap 07/08/2024 13:21:30 13 7-15 (mmol /L) Final Glucose 07/08/2024 13:21:30 108 70-120 (mg /dL) Final Albumin 07/08/2024 13:21:30 4.8 3.8-5.0 (g /dL) Final AST (Aspartate aminotransferase) 07/08/2024 13:21:30 18 10-35 (U/L) Fin al Alk Phos 07/08/2024 13:21:30 69 35-130 (U/ L) Final Bilirubin, Total 07/08/2024 13:21:30 0.6 <=1 .2 (mg/dL) Final Calcium 07/08/2024 13:21:30 9.9 8.4-10.2 ( mg/dL) Final Protein 07/08/2024 13:21:30 7.5 6.0-8.3 (g /dL) Final ALT (Alanine aminotransferase) 07/08/2024 13:21:30 21 10-35 (U/L) Filemon sandhu Performing Location LABORATORY [facility] - [address] [facility] [address]
--- OUTSIDE RECORDS SUMMARY | 2024-07-26 19:37 | External Medical Summary ---
Author Name Unknown Address Unknown Organization [id number]:LABORATORY [facility] - [address] [place] [address] Laboratory Report Ordering Provider Test Date Status BRUNA REICH 07/08/2024 13:21:30 Final Observation Date Value Abnormality Reference (Units ) Status Reagin Ab [Presence] in Serum by RPR 07/08/2024 13:21:30 Nonreactive Nonreactive Final Performing Location LABORATORY [facility] - [address] [place] [address]
--- OUTSIDE RECORDS SUMMARY | 2024-07-26 19:37 | External Medical Summary ---
Author Name Unknown Address Unknown Organization [id number]:LAB[facility]ATORY [facility] - [address] [place] [address] Laboratory Report Ordering Provider Test Date Status BRUNA REICH 07/08/2024 13:21:30 Final Observation Date Value Abnormality Reference (Units ) Status Hep C Ab 07/08/2024 13:21:30 Negative Negative Final Further HCV quantitative eladia ting not performed per protocol. Performing Location [facility] - [address] [place] [address]
--- OUTSIDE RECORDS SUMMARY | 2024-07-26 19:37 | External Medical Summary | Summary of Care ---
Author Name Unknown Organization [facility] Address [address] [place] [address] Phone [phone] Care Team Providers Care Light Industrial Supervisor Name Role Phone Sofia Fenton MD Primary Care Provider [phone] Reason for Referral * Precert (Within 10 days (routine)) - Pending Review Specialty Diagnoses / Procedures Referred By Contac t Referred To Contact Cardiac Studies Diagnoses HTN, goal below 140/90 Preoperative cardiovascular examination PVC (premature ventricular contraction) Procedures ECHO, STRESS (EXERCISE) W/ PHYSICIAN Eric Perez DO [address] [place] [address] Referral ID Status Reason Start Date Expiration Date Visits Requested Visits Authorized [id number] Pending Review Precert 06/25/2024 999 999 Reason for Visit * Reason Comments Follow Up Encounter Details Date Type Department Care Team (Latest Contact Info) Description 06/24/2024 8:00 AM EDT Office Visit Cardiology, [facility] [address] [place] [address] Eric Perez DO [address] [place] [address] Preoperative cardiovascular examination*; HTN, goal below 140/90; PVC (premature ventricular contraction) Allergies Active Allergy Reactions Criticality Noted Date Comments Cat Dander Itching Low 07/09/2014 Dust Itching Low 11/09/2011 Sneezing, itchy watery eyes Penicillins Hives Medium 01/02/2008 Sulfa Antibiotics Hives Medium 01/02/2008 documented as of this encounter (statuses as of 06/24/2024) Medications Medication Sig Dispensed Refills Start Date End Date Status Docusate Sodium 100 MG Oral Capsule (Colace) Take 1 Capsule by mouth in the morning and 1 Capsule before bedtime. 180 Capsule 3 3 Active Losartan Potassium 100 MG Oral Tablet (Cozaar) Take 1 Tablet by mouth in the morning. 30 Tablet 5 3 Active Probiotic (Lactobacillus) Oral Capsule Take 1 Capsule by mouth in the morning. 3 Active Cetirizine HCl 10 MG Oral Tablet (ZyrTEC Allergy) Take 1 Tablet by mouth. 3 Active Triamcinolone Acetonide 0.1 % External Cream (Aristocort) Apply topically to affected area 2 times a day. To affected area. 80 g 5 3 Active Baclofen 10 MG Oral Tablet (Lioresal) Take 1 Tablet by mouth in the morning and 1 Tablet before bedtime. 60 Tablet 2 3 Active traMADol HCl 50 MG Oral Tablet (Ultram) Take 1 Tablet by mouth every 8 hours as needed for Pain, Moderate or Pain, Severe. 30 Tablet 3 Active Sevelamer Carbonate 800 MG Oral Tablet (Renvela)Indicat ions:End stage renal disease (HCC) TAKE ONE TABLET BY MOUTH IN THE MORNING, ONE TABLET AT NOON, AND ONE TABLET IN THE EVENING. TAKE WITH MEALS. 90 Tablet 1 3 Active Venlafaxine HCl ER 37.5 MG Oral Capsule Extended Release 24 Hour (Effexor XR) TAKE 1 CAPSULE BY MOUTH EVERY MORNING. DO NOT CUT, CRUSH OR CHEW 90 Capsule 3 4 Active Pantoprazole Sodium 40 MG Oral Tablet Delayed Release (Protonix) TAKE ONE TABLET BY MOUTH IN THE MORNING 90 Tablet 1 4 Active Benzonatate 100 MG Oral Capsule (Tessalon Perlbrody)Indicatio ns:Acute cough Take 1 Capsule by mouth 3 times a day as needed for Cough. 30 Capsule 4 Active Wegovy 0.25 MG/0.5ML Subcutaneous Solution Auto-injector (Semaglutide-Sharan ght Management) Inject 0.25 mg under the skin once a week. 2 mL 4 Active Wegovy 0.5 MG/0.5ML Subcutaneous Solution Auto-injector (Semaglutide-Sharan ght Management) Inject 0.5 mg under the skin once a week for 28 days. 2 mL 4 07/18/20 24 Active Additional Information Patient not taking.Reported on 06/24/2024 Triphrocaps 1 MG Oral Capsule Take 1 Capsule by mouth in the morning. 4 Active Calcitriol 0.5 MCG Oral Capsule (Rocaltrol) Take 1 Capsule by mouth. Sunday 4 Active Torsemide 100 MG Oral Tablet (Demadex) Take 1 Tablet by mouth in the morning. 4 Active Metoprolol Succinate ER 25 MG Oral Tablet Extended Release 24 Hour (Toprol XL) One tablet by mouth two times per day 60 Tablet 3 4 Active Calcitriol 0.25 MCG Oral Capsule (Rocaltrol) Take 1 Capsule by mouth once a day on Sunday, Sunday, and Sunday only. With HD 06/24/20 24 Discontinued Gabapentin 300 MG Oral Capsule (Neurontin) Take 1 Capsule by mouth in the morning and 1 Capsule at noon and 1 Capsule before bedtime. 90 Capsule 3 3 06/24/20 24 Discontinued Carvedilol 3.125 MG Oral Tablet (Coreg) Take 1 Tablet by mouth in the morning and 1 Tablet before bedtime. With food. 180 Tablet 3 4 06/24/20 24 Discontinued(Med ication/Dose Changed) Doxycycline Hyclate 100 MG Oral Capsule Take 1 Capsule by mouth in the morning and 1 Capsule before bedtime. Do all this for 10 days. Until gone.. 20 Capsule 4 06/24/20 24 Discontinued documented as of this encounter (statuses as of 06/24/2024) Active Problems Problem Noted Date Diagnosed Date [...] as of this encounter (statuses as of 06/24/2024) Resolved Problems Problem Noted Date Diagnosed Date [...] as of this encounter (statuses as of 06/24/2024) Immunizations Name Administration Dates Next Due H1N1 [...] 03/04/2024 Does the household have a re lar source of income? (Household - for ages [...] Sign Reading Time Taken Comments Blood Pressure 126/78 06/24/2024 8:12 AM EDT Pulse 88 06/24/2024 8:12 AM EDT Temperature - - Respiratory Rate 16 06/24/2024 8:12 AM EDT Oxygen Saturation - - Inhaled Oxygen Concentration - - Weight 100.7 kg (222 lb) 06/24/2024 8:12 AM EDT Height - - Body Mass Index 35.83 10/04/2023 4:09 PM EST documented in this encounter Patient Instructions * Patient Instructions* Eric Perez, - 06/24/2024 8:44 AM EDT Stop carvedilol. Start metoprolol succinate 25 mg two times per day in its place documented in this encounter Progress Notes * Eric Perez DO - 06/24/2024 8:25 AM EDT 06/24/2024 Cardiology Follow Up CHIEF COMPLAINT: Follow up, hypertension, dyslipidemia, preoperative assessment prior to proposed renal transplant SUBJECTIVE: Matilda Benitez is a 44 year old year old female who returns in routine cardiology follow-up of the above concerns. Overall she states that she has been feeling well. She denies any chest discomfort or shortness of breath. She does however note daily palpitations. She describes that her heart skips beats and she may even feel the sensation in her left upper extremity fistula. She continues to have hemodialysis sessions on Mondays and Fridays at [facility] under the directionof Dr. Cesar Salazar of Nephrology. She denies any lightheadedness or dizziness. She had worn a Zio patch monitor in February, for evaluation of palpitations with results as summarized below. Extensive ROS: All systems reviewed & are unremarkable except as noted in HPI & below Cardiovascular (chest pain/palpitations/fluttering/diaphoresis/dyspnea on exertion/paroxysmally nocturnal dyspnea):Negative Review of patient's allergies indicates: Allergen Reactions Pcn [Penicillins] Hives Sulfa Antibiotics Hives Cat Dander Itching Environmental [Dust] Itching Sneezing, itchy watery eyes Current Outpatient Medications Medication Sig Dispense Refill [...] (ZyrTEC Allergy) Take 1 Tablet by mouth. Baclofen 10 MG Oral Tablet (Lioresal) Take 1 Tablet by mouth in the morning and 1 Tablet before bedtime. 60 Tablet 2 traMADol HCl 50 MG Oral Tablet (Ultram) Take 1 Tablet by mouth every 8 hours as needed for Pain, Moderate or Pain, Severe. 30 Tablet 0 Sevelamer Carbonate 800 MG Oral Tablet (Renvela) TAKE ONE TABLET BY MOUTH IN THE MORNING, ONE TABLET AT NOON, AND ONE TABLET IN THE EVENING. TAKE WITH MEALS. 90 Tablet 1 Carvedilol 3.125 MG Oral Tablet (Coreg) Take 1 Tablet by mouth in the morning and 1 Tablet before bedtime. With food. 180 Tablet 3 Pantoprazole Sodium 40 MG Oral Tablet Delayed Release (Protonix) TAKE ONE TABLET BY MOUTH IN THE MORNING 90 Tablet 1 Wegovy 0.25 MG/0.5ML Subcutaneous Solution Auto-injector (Semaglutide-Weight Management) Inject 0.25 mg under the skin once a week. 2 mL 0 Triphrocaps 1 MG Oral Capsule Take 1 Capsule by mouth in the morning. Calcitriol 0.5 MCG Oral Capsule (Rocaltrol) Take 1 Capsule by mouth. Sunday Torsemide 100 MG Oral Tablet (Demadex) Take 1 Tablet by mouth in the morning. Triamcinolone Acetonide 0.1 % External Cream (Aristocort) Apply topically to affected area 2 times a day. To affected area. 80 g 5 Venlafaxine HCl ER 37.5 MG Oral Capsule Extended Release 24 Hour (Effexor XR) TAKE 1 CAPSULE BY MOUTH EVERY MORNING. DO NOT CUT, CRUSH OR CHEW 90 Capsule 3 Benzonatate 100 MG Oral Capsule (Tessalon Perles) Take 1 Capsule by mouth 3 times a day as needed for Cough. 30 Capsule 0 Wegovy 0.5 MG/0.5ML Subcutaneous Solution Auto-injector (Semaglutide-Weight Management) Inject 0.5 mg under the skin once a week for 28 days. (Patient not taking: Reported on 06/24/2024) 2 mL 0 No current facility-administered medications for this visit. OBJECTIVE/PHYSICAL EXAMINATION: BP 126/78 | Pulse 88 | Resp 16 | Wt 100.7 kg (222 lb) | BMI 35.83 kg/m | BSA 2.17 m General: no acute distress and stated age Eyes: conjunctiva are pink and non-injected, sclera clear Neck: normal jugular venous pulse, no hepatojugular reflux Chest: normal shape and normal respiratory effort Lungs: clear to auscultation , no rales rhonchi or wheezing Cardiac Exam: - regular heart sounds, no murmurs, rubs, or gallops Abdomen: Not examined Musculoskeletal: no gait disturbance, no weakness Extremities: no edema and no cyanosis Neuro: grossly normal exam Psych: appropriate affect and insight. Data: EKG performed today 06/24/2024 and interpreted independently: Sinus rhythm at 67 beats per minute with 1 noted PVC, otherwise normal EKG. Lipid Panel Results: Results for orders placed or performed in visit on 07/03/23 LIPID PANEL WITHOUT DIRECT LDL Result Value Ref Range Triglycerides 117 <=174 mg/dL Cholesterol 160 <200 mg/dL HDL Cholesterol 64 >49 mg/dL Non-HDL Cholesterol 96 <=159 mg/dL LDL Cholesterol 73 <=129 mg/dL ASSESSMENT / PLAN: 44 year old year old female Preoperative cardiovascular examination (Primary) - proceed with exercise stress echocardiogram for risk stratification prior to proposed renal transplant. Patient states that she has a friend from college who is being considered as a transplant candidate and has a few more tests undergo as part of the process. PVC (premature ventricular contraction) - Zio patch worn in February, reviewed, rhythm strips interpreted independently and reviewed withthe patient. Predominant rhythm was sinus rhythm in the 80s. One brief 4 beat episode of SVT was observed. One hundred eight patient triggered events were submitted that correlate with sensed unifocal premature ventricular contractions. The overall frequency of the premature ventricular contractions however was rare, accounting for less than 1% of the total QRS complexes. Recommend transitioning from carvedilol to metoprolol succinate 25 milligrams twice daily for improve PVC suppression. HTN, goal below 140/90 - at the time of initial presentation patient was noted to have severe hypertension and renal insufficiency. 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 She had initially been on carvedilol 12.5 milligrams twice daily but this was subsequently reduced down to 6.25 milligrams and most recently 3.125 milligrams twice daily due to hypotension especially with dialysis treatments. At this time will transition from carvedilol to metoprolol, but we need to keep an eye on her blood pressure. If blood pressure is not well-controlled, can always go back to her previous dose of carvedilol. Continue treatment with torsemide, losartan, unchanged doses. --as noted, patient is seen longitudinal follow-up of the above chronic conditions with assessment plan as noted. DISPOSITION: Check-out note: Stress echo within a month, before [place] [facility] [place] not schedule stress test on her dialysis days, Mondays or Fridays Eric Perez DO Cardiology, [place] [address] [address] [place] [address] This chart was completed in part utilizing [employer] Speech Voice Recognition Software. Grammatical errors, random word insertions, prounoun errors, and incomplete sentences are an occasional consequence of this system due to software limitations, ambient noise, and hardware issues. Any formal questions or concerns about the content, text, or information contained within the body of this dictation should be directly addressed to the provider for clarification. documented in this encounter Procedure Notes * Liu Hernandez DO - 06/24/2024 8:53 AM EDTAssociated Order(s): EKG REASON FOR STUDY: routine;routine CONCLUSIONS: Sinus rhythm with occasional Premature ventricular complexes Otherwise normal ECG When compared with ECG of 16-Mar-2023 10:26, Premature ventricular complexes are now Present Nonspecific T wave abnormality no longer evident in Lateral leads Ventricular Rate: 67 Atrial Rate: 67 [place] Interval: 154 QRS Duration: 90 QT/QTc: 424/448 ms P-R-T [place]: 60 : -2 : 52 degrees documented in this encounter Nursing Notes * Jennifer Parmar LPN - 06/24/2024 8:11 AM EDT Examination Room: 10 Name: Matilda Benitez Date of : 1980 Reason for Visit: Follow up Problems/Concerns: C/o palpitations Interim Hosp(s): 4/2 & 4/2 for palpitations, hypokalemia, covid Chest Pain/SOB: denies MyChart Discussed: ALREADY ACTIVE Patient was instructed to not get up on the exam table until directed and assisted by their provider; patient is to remain seated in the chair/ wheelchair/ exam table for fall prevention and safety reasons. Patient is aware staff will assist stepping down off exam table with personnel. documented in this encounter Plan of Treatment Upcoming Encounters Date Type Department Care Team (Late st Contact Info) Description 07/08/2024 11:00 AM EDT Office Visit Transplant Clinic, [place] [address], [place] [id number] Klever Palafox MD [facility] [address], [place] [id number] Edwin Kingsley MD [facility] [address], [place] [phone] Nurse Navarro Renal Transplant [facility] [place] [address] Mine Kapoor LSW [address], [place] [id number] 07/08/2024 2:50 PM EDT Laboratory Outpatient Laboratory, [address] [phone] [place], Lab B1a [facility] [place], [place] [phone] 07/08/2024 3:10 PM EDT Appointment Radiology, [address] [phone] 07/10/2024 2:40 PM EDT Office Visit [facility] [address] [place] [address] Sofia Fenton MD [address] [place] [address] 08/06/2024 10:35 AM EDT Imaging Cardiac Studies, [address] [place] [address] Scheduled Orders Name Type Priority Associated Diagnoses Orde r Schedule ECHO, STRESS (EXERCISE) W/ PHYSICIAN Echocardiology Routine HTN, goal below 140/90 Preoperative cardiovascular examination PVC (premature ventricular contraction) Expected: 06/25/2024, Expires: 12/25/2024 Health Maintenance Due Date Last Done Comments Hepatitis B Vaccine (1 of 3 - 19+ 3-dose series) 1997 HPV/Co-Test 02/01/2008 Colonoscopy 2023 Fecal Occult Blood Test 2023 Sigmoidoscopy 2023 COVID-19 Vaccine ( season) 2023 Influenza Vaccine (FLU shot) (#1) [...] - Td or Tdap) 03/21/2033 03/21/2023, 09/08/2009 HIV Screening Completed 07/03/2023 Hepatitis C Screening Completed 07/03/2023 , 11/21/2022, 11/21/2022, Additional history exists HPV (Gardasil) Vaccine Aged Out No lo nger eligible based on patient's age to complete this topic MENINGOCOCCAL (MENACTRA/MENVEO) Aged Out No longer eligible based on patient's age to complete this topic documented as of this encounter Medical Devices Not on filedocumented as of this encounter Procedures Procedure Name Priority Date/Time Associated Diagnosis Comments OH ECG ROUTINE ECG W/LEAST 12 LDS I&R ONLY Routine 06/24/2024 8:53 AM EDT HTN, goal below 140/90 documented in this encounter Results * EKG (06/24/2024 8:53 AM EDT) 06/24/2024 8:53 AM EDT Narrative Procedure Note Liu Hernandez DO - 06/24/2024 8:53 AM EDT REASON FOR STUDY: routine;routine CONCLUSIONS: Sinus rhythm with occasional Premature ventricular complexes Otherwise normal ECG When compared with ECG of 16-Mar-2023 10:26, Premature ventricular complexes are now Present Nonspecific T wave abnormality no longer evident in Lateral leads Ventricular Rate: 67 Atrial Rate: 67 [place] Interval: 154 QRS Duration: 90 QT/QTc: 424/448 ms P-R-T [place]: 60 : -2 : 52 degrees Eric Perez DO EKG Performing Organization Address City/State/[facility] Co de Phone Number [facility] documented in this encounter Visit Diagnoses Diagnosis Preoperative cardiovascular examination- Primary Pre-operative cardiovascular examination HTN, goal below 140/90 Unspecified essential hypertension PVC (premature ventricular contraction) Other premature beats documented in this encounter Care Teams Light Industrial Supervisor Relationship Specialty Start Date End Date Sofia Fenton MD [address] [place] [address] PCP - General Internal Medicine 10/24/22 documented as of this encounter"
--- OUTSIDE RECORDS SUMMARY | 2024-07-26 19:37 | External Medical Summary ---
Author Name Unknown Address Unknown Organization [id number]:[facility] [place] [address] [place] [address] Laboratory Report Ordering Provider Test Date Status BRUNA REICH 07/08/2024 13:21:30 Final Observation Date Value Abnormality Reference (Units ) Status Hep B surface Ag 07/08/2024 13:21:30 Negative Neg ative Final Performing Location LABORATORY [facility] - [address] [place] [address]
--- OUTSIDE RECORDS SUMMARY | 2024-07-26 19:37 | External Medical Summary ---
Author Name Unknown Address Unknown Organization [id number]:LABORATORY [place] [address] [place] [address] Laboratory Report Ordering Provider Test Date Status BRUNA REICH 07/08/2024 13:21:30 Final Observation Date Value Abnormality Reference (Units) Status Hepatitis B virus surface Ab [Units/volume] in Serum or Plasma by Immunoassay 07/08/2024 13:21:30 220.0 (mIU/mL) Final Hepatitis B virus surface Ab [Presence] in Serum by Immunoassay 07/08/2024 13:21:30 Positive Final HEPATITIS B SURFACE ANTIBODY, INTERPRETATION 07/08/2024 13:21:30 Immune to Hepatitis B Virus Final POSITIVE: >=11.5 mIU/mL
INDETERMINATE: 8.5-<11.5 mIU/mL
NEGATIVE: <8.5 mIU/mL Performing Location [place] [facility] [place] [facility] [place] [address]
--- OUTSIDE RECORDS SUMMARY | 2024-07-26 19:37 | External Medical Summary ---
Author Name Unknown Address Unknown Organization [id number]:[facility] [place] [address] [place] [address] Laboratory Report Ordering Provider Test Date Status BRUNA REICH 07/08/2024 13:21:30 Final Observation Date Value Abnormality Reference (Units ) Status HbA1C 07/08/2024 13:21:30 5.3 4.0-5.6 (% ) Final The use of HbA1c to monitor glycemic status is based on normal hemoglobin and HbA composition. This test should not be used in patients with abnormal hemoglobin that affects the half life of the red blood cell or the in vivo glycation rates. Glucose, estimated average 07/08/2024 13:21:30 105 <126 (mg/dL) Final Performing Location LABORATORY [facility] - [address] [place] [address]
--- OUTSIDE RECORDS SUMMARY | 2024-07-26 19:37 | External Medical Summary | Summary of Care ---
Author Name Unknown Organization [facility] Address [address] [facility] [place] [address] Phone [phone] Care Team Providers Care Repack Room Worker Name Role Phone Sofia Fenton MD Primary Care Provider [phone] Reason for Visit * Reason Comments eRx-Medication Refill Encounter Details Date Type Department Care Team (Late st Contact Info) Description 06/21/2024 Refill NephrologyCristian [address] [facility] [place] [address] Cesar Salazar MD [address] [place] [address] Allergies Active Allergy Reactions Criticality Noted Date Comments Cat Dander Itching Low 07/09/2014 Dust Itching Low 11/09/2011 Sneezing, itchy watery eyes Penicillins Hives Medium 01/02/2008 Sulfa Antibiotics Hives Medium 01/02/2008 documented as of this encounter (statuses as of 06/23/2024) Medications Medication Sig Dispensed Refills Start Date [...] affected area. 80 g 5 09/20/2023 Active Calcitriol 0.25 MCG Oral Capsule (Rocaltrol) Take 1 Capsule by mouth once a day on Sunday, Sunday, and Sunday only. With HD Active Baclofen 10 MG Oral Tablet (Lioresal) Take 1 Tablet by mouth in the morning and 1 Tablet before bedtime. 60 Tablet 2 10/04/2023 Active traMADol HCl 50 MG Oral Tablet (Ultram) Take 1 Tablet by mouth every 8 hours as needed for Pain, Moderate or Pain, Severe. 30 Tablet 10/16/2023 Active Gabapentin 300 MG Oral Capsule (Neurontin) Take 1 Capsule by mouth in the morning and 1 Capsule at noon and 1 Capsule before bedtime. 90 Capsule 3 10/16/2023 Active Sevelamer Carbonate 800 MG Oral Tablet (Renvela)Indicati ons:End stage renal disease (HCC) TAKE ONE TABLET BY MOUTH IN THE MORNING, ONE TABLET AT NOON, AND ONE TABLET IN THE EVENING. TAKE WITH MEALS. 90 Tablet 1 11/16/2023 Active Carvedilol 3.125 MG Oral Tablet (Coreg) Take 1 Tablet by mouth in the morning and 1 Tablet before bedtime. With food. 180 Tablet 3 04/05/2024 Active Venlafaxine HCl ER 37.5 MG Oral [...] Active Wegovy 0.25 MG/0.5ML Subcutaneous Solution Auto[facility]injector ([facility]) Inject 0.25 mg under the skin once a week. 2 mL 05/28/2024 Active Wegovy 0.5 MG/0.5ML Subcutaneous Solution Auto-injector (Semaglutide-[facility] Management) Inject 0.5 mg under the skin once a week for 28 days. 2 mL 06/20/2024 4 Active Triphrocaps 1 MG Oral Capsule TAKE 1 CAPSULE BY MOUTH ONCE DAILY 06/23/2024 Active Virt-Caps 1 MG Oral Capsule TAKE 1 CAPSULE BY MOUTH ONCE DAILY 11/21/2023 4 Discontinued documented as of this encounter (statuses as of 06/23/2024) Active Problems Problem Noted Date Diagnosed Date [...] as of this encounter (statuses as of 06/23/2024) Resolved Problems Problem Noted Date Diagnosed Date Resolved Date STACEY (acute kidney injury) 11/09/2022 Diabetes mellitus complicati ng , antepartum 04/12/2010 08/04/2014 Overview: 04/12 Begin glyburide 2.5mg in AM 04/15: continue glyburide 2.5mg in AM, add glyburide 2.5mg in PM 6/3: glyburide 5.0mg in AM, glyburide 5.0mg in [...] as of this encounter (statuses as of 06/23/2024) Immunizations Name Administration Dates Next Due H1N1 [...] on file documented as of this encounter Miscellaneous Notes * Telephone Encounter - Phoebe Manjarrez RN - 06/23/2024 9:04 AM EDTSigned Prescriptions: Disp Refills Triphrocaps 1 MG Oral Capsule Sig: TAKE 1 CAPSULE BY MOUTH ONCE DAILYAuthorizing Provider: Aly SALAZAR User: PHOEBE MANJARREZ * Telephone Encounter - Phoebe Manjarrez RN - 06/23/2024 9:00 AM EDT Dialysis pt. Faxed to [facility]. * Telephone Encounter - Interface, E-Rx Ss Inbound - 06/23/2024 6:08 AM EDT Pending Prescriptions: Disp Refills Triphrocaps 1 MG Oral Capsule [Pharmacy Me*30 Cap*0 Sig: TAKE 1CAPSULE BY MOUTH ONCE DAILY documented in this encounter Plan of Treatment Upcoming Encounters Date Type Department Care Team (Late st Contact Info) Description 06/24/2024 8:00 AM EDT Office Visit Cardiology, [facility] [address] [place] [address] Eric Perez, [address] [place] [address] 07/08/2024 11:00 AM EDT Office Visit Transplant Clinic, [place] [address] [place] [address] Klever Palafox MD [address] [place] [address] Edwin Kingsley MD [address] [place] [address] Nurse [facility]arro Renal Transplant [address] [place] [address] Mine Kapoor LSW [address] [place] [address] 07/08/2024 2:50 PM EDT Laboratory Outpatient Laboratory, [address] [phone] [place], Lab B1a [address] [place], [place] [phone] 07/08/2024 3:10 PM EDT Appointment Radiology, [address] [phone] 07/10/2024 2:40 PM EDT Office Visit [place] [address] [place] [address] Sofia Fenton MD [address] [place] [address] Health Maintenance Due Date Last Done Comments Hepatitis B Vaccine (1 of 3 - 19+ 3-dose series) 1997 HPV/Co-Test 02/01/2008 Colonoscopy 2023 Fecal Occult Blood Test 2023 Sigmoidoscopy 2023 COVID-19 Vaccine (1 - 2022-24 season) 2023 Influenza Vaccine (FLU shot) (#1) [...] 01/28/2013, Additional history exists Cologuard 04/11/2026 04/11/2023, 05/2023, 04/01/2023 Colorectal Cancer Screening 04/11/2026 Diabetes [...] Not on filedocumented as of this encounter Care Teams Repack Room Worker Relationship Specialty Start Date End Date Sofia Fenton MD [address] [place] [address] PCP - General Internal Medicine 10/24/22 documented as of this encounter
--- OUTSIDE RECORDS SUMMARY | 2024-07-26 19:37 | External Medical Summary ---
Author Name Unknown Address Unknown Organization : Laboratory Report Ordering Provider Test Date Status BRUNA REICH 06/30/2024 05:20:00 Final Observation Date Value Abnormality Reference (Units ) Status REFERENCE LAB SCANNED REPORT 06/30/2024 05:20:00 See Scanned Report Final [facility] 06/30/2024 05:20:00 Serum not tested, on hold at [facility] HLA Lab Final Performing Location
--- OUTSIDE RECORDS SUMMARY | 2024-07-26 19:37 | External Medical Summary ---
Author Name Unknown Address Unknown Organization [id number]:LABORATORY [facility] - [address] [place] [address] Laboratory Report Ordering Provider Test Date Status BRUNA REICH 07/08/2024 13:21:30 Final Observation Date Value Abnormality Reference (Units ) Status Parathyrin.intact [Mass/volume] in Serum or Plasma 07/08/2024 13:21:30 689 Above high normal 15-65 (pg/mL) Final Performing Location LABORATORY [facility] - [address] [place] [address]
--- OUTSIDE RECORDS SUMMARY | 2024-07-26 19:37 | External Medical Summary ---
Author Name Unknown Address Unknown Organization [id number]:[facility] [place] [address] [facility] [address] [place] [address] Laboratory Report Ordering Provider Test Date Status BRUNA REICH 07/08/2024 13:21:30 Final Observation Date Value Abnormality Reference (Units ) Status HIV 1+2 Ab+HIV1 p24 Ag [Presence] in Serum or Plasma by Immunoassay 07/08/2024 13:21:30 Negative Negative Final Negative HIV-1/2 antigen and antibody screening tset results usually indicate the absence of HIV-1 and HIV-2 infection. However, such negative results do not rule-out acute HIV infection. If acute HIV-1 infection is highly suspected, it is recommended that a specimen be submitted for detection of HIV-1 RNA. Performing Location [facility] [place] [address] [place] [address]
--- OUTSIDE RECORDS SUMMARY | 2024-07-26 19:38 | External Medical Summary ---
Author Name Unknown Address Unknown Organization : Laboratory Report Ordering Provider Test Date Status BRUNA REICH 03/31/2024 05:25:00 Final Observation Date Value Abnormality Reference (Units ) Status REFERENCE LAB SCANNED REPORT 03/31/2024 05:25:00 See Scanned Report Final [facility] 03/31/2024 05:25:00 Serum not tested, on hold at [facility] HLA Lab Final Performing Location
--- OUTSIDE RECORDS SUMMARY | 2024-07-26 19:38 | External Medical Summary ---
Author Name Unknown Address Unknown Organization : Laboratory Report Ordering Provider Test Date Status BRUNA REICH 05/26/2024 05:25:00 Final Observation Date Value Abnormality Reference (Units ) Status REFERENCE LAB SCANNED REPORT 05/26/2024 05:25:00 See Scanned Report Final Performing Location
--- OUTSIDE RECORDS SUMMARY | 2024-07-26 19:38 | External Medical Summary | Summary of Care ---
Author Name Unknown Organization [facility] Address [address] [facility] [place] [address] Phone [phone] Care Team Providers Care Shrimp Picker Name Role Phone Sofia Fenton MD Primary Care Provider [phone] Reason for Visit * Reason Comments Outpatient Testing Encounter Details Date Type Department Care Team (Late st Contact Info) Description 03/19/2024 11:10 AM EDT Laboratory [facility], [facility] [address] [facility] [address] [facility] [address] [place] [address] Hypokalemia; ESRD on dialysis ([facility]); HTN, goal below 130/80; Blind spot scotoma, left Allergies Active Allergy Reactions Criticality Noted Date Comments Cat Dander Itching Low 07/09/2014 Dust Itching Low 11/09/2011 Sneezing, itchy watery eyes Penicillins Hives Medium 01/02/2008 Sulfa Antibiotics Hives Medium 01/02/2008 documented as of this encounter (statuses as of 03/19/2024) Medications Medication Sig Dispensed Refills Start Date End Date Status Vitamin C 500 MG Oral Tablet Chewable Take 1 Tablet by mouth in the morning. 30 Tablet 5 10/23/2022 Active Carvedilol 3.125 MG Oral Tablet (Coreg) Take 1 Tablet by mouth in the morning and 1 Tablet before bedtime. With food. 180 Tablet 3 04/24/2023 Active Docusate Sodium 100 MG Oral Capsule (Colace) Take 1 Capsule by mouth in the morning and 1 Capsule before bedtime. 180 Capsule 3 05/28/2023 Active Losartan Potassium 100 MG Oral Tablet (Cozaar) Take 1 Tablet by mouth in the morning. 30 Tablet 5 06/06/2023 Active Probiotic (Lactobacillus) Oral Capsule Take 1 Capsule by mouth in the morning. 0 07/16/2023 Active Cetirizine HCl 10 MG Oral Tablet (ZyrTEC Allergy) Take 1 Tablet by mouth. 0 08/06/2023 Active Triamcinolone Acetonide 0.1 % External Cream (Aristocort) Apply topically to affected area 2 times a day. To affected area. 80 g 5 09/20/2023 Active Calcitriol 0.25 MCG Oral Capsule (Rocaltrol) Take 1 Capsule by mouth once a day on Sunday, Sunday, and Sunday only. With HD 0 Active Baclofen 10 MG Oral Tablet (Lioresal) Take 1 Tablet by mouth in the morning and 1 Tablet before bedtime. 60 Tablet 2 10/04/2023 Active Venlafaxine HCl ER 37.5 MG Oral Capsule Extended Release 24 Hour (Effexor XR) TAKE 1 CAPSULE BY MOUTH EVERY MORNING. DO NOT CUT, CRUSH OR CHEW 90 Capsule 1 10/08/2023 Active traMADol HCl 50 MG Oral Tablet (Ultram) Take 1 Tablet by mouth every 8 hours as needed for Pain, Moderate or Pain, Severe. 30 Tablet 0 10/16/2023 Active Gabapentin 300 MG Oral Capsule (Neurontin) Take 1 Capsule by mouth in the morning and 1 Capsule at noon and 1 Capsule before bedtime. 90 Capsule 3 10/16/2023 Active Pantoprazole Sodium 40 MG Oral Tablet Delayed Release (Protonix) TAKE ONE TABLET BY MOUTH IN THE MORNING 90 Tablet 1 11/05/2023 Active Sevelamer Carbonate 800 MG Oral Tablet (Renvela)Indication s:End stage renal disease (HCC) TAKE ONE TABLET BY MOUTH IN THE MORNING, ONE TABLET AT NOON, AND ONE TABLET IN THE EVENING. TAKE WITH MEALS. 90 Tablet 1 11/16/2023 Active Virt-Caps 1 MG Oral Capsule TAKE 1 CAPSULE BY MOUTH ONCE DAILY 0 11/21/2023 Active documented as of this encounter (statuses as of 03/19/2024) Active Problems Problem Noted Date Diagnosed Date [...] as of this encounter (statuses as of 03/19/2024) Resolved Problems Problem Noted Date Diagnosed Date [...] as of this encounter (statuses as of 03/19/2024) Immunizations Name Administration Dates Next Due H1N1 2008 Influenza, IM 11/08/2009 Pneumococcal Polysaccharide PPV23 (Pneumovax) Seasonal Influenza Virus Vac cine, Unspecified Formulation 08/31/2023 Seasonal Influenza, Recombinant, RIV4, PF, (Flub lock) 08/31/2023 Seasonal Influenza, Split, IIV3, With Preserve, Inj 10/12/2011,10/14/2010 TDAP (age 10 and older)(Boostrix) 03/21/2023 TDAP (age 11 and older)(Adacel) 09/08/2009 documented as of this encounter Social [...] money to get more. Patient declined 07/2024 Sex and Gender Information Value Date Recorded [...] Care Team (Late st Contact Info) Description 04/04/2024 4:15 PM EDT Imaging Radiology [address] [address] 04/15/2024 10:45 AM EDT Imaging Radiology [address] [address] 07/08/2024 11:00 AM EDT Office Visit Transplant Clinic, [place] [address] [place] [address] Klever Palafox MD [address] [place] [address] Edwin Kingsley MD [address] [place] [address] Nurse [facility]arro Renal Transplant [address] [place] [address] Mine Kapoor LSW [address] [place] [address] 07/08/2024 2:50 PM EDT Laboratory Outpatient Laboratory, [address] [phone] [place], Lab B1a [facility] [place] [address] 07/08/2024 3:10 PM EDT Appointment Radiology, [address] [phone] 07/10/2024 2:40 PM EDT Office Visit [address] [place] [phone] Sofia Fenton MD [address] [place] [facility] [place] [address] Pending Results Name Type Priority Associated Diagnoses Date /Time BASIC METABOLIC PANEL Lab Routine Hypokalemia ESRD on dialysis (HCC) 03/19/2024 10:21 AM EDT RPR Lab Routine HTN, goal below 130/80 Blind spot scotoma, left 03/19/2024 10:21 AM EDT FTA-ABS Lab Routine HTN, goal below 130/80 Blind spot scotoma, left 03/19/2024 10:21 AM EDT ANTINUCLEAR ANTIBODY (DOROTEO) EIA SCREEN WITH REFLEX AB QUANT Lab Routine HTN, goal below 130/80 Blind spot scotoma, left 03/19/2024 10:21 AM EDT ANTINUCLEAR ANTIBODY (DOROTEO) SCREEN, CHRISTINE Lab Routine HTN, goal below 130/80 Blind spot scotoma, left 03/19/2024 10:21 AM EDT Health Maintenance Due Date Last Done Comments Hepatitis B (1 of 3 - 19+ 3-dose series) 1997 HPV/Co-Test 02/01/2008 Colonoscopy 2023 Fecal Occult Blood Test 2023 Sigmoidoscopy 2023 COVID-19 Vaccine ( season) 2023 Mammogram 04/12/2024 04/12/2023, 03/23/2023 Pneumococcal Vaccine: Pediatrics (0 to 5 Years) and At-Risk Patients (6 to 64 Years) (3 of 3 - PCV) 10/12/2024 10/12/2023, 09/08/2009 Depression Screening 03/04/2025 03/04/2024 Cervical Cancer Screening 03/20/2026 Pap Smear 03/20/2026 03/20/2023, 07/27, 01/28/2013, Additional history exists Cologuard 04/11/2026 04/11/2023, 05/0 05/2023, 04/01/2023 Colorectal Cancer Screening 04/11/2026 Diabetes Screening 07/17/2026 07/17/2023, 0 07/03/2023, 07/03/2023, Additional history exists Lipid Panel 07/03/2028 07/03/2023 DTaP,Tdap,and Td Vaccines (3 - Td or Tdap) 03/21/2033 03/21/2023, 09/08/2009 Influenza Vaccine (FLU shot) Completed 04/2023, 08/31/2023, 10/12/2011, Additional history exists GARDASIL-HPV IMMUNIZATION SERIES Aged Out No longer eligible based on patient's age to complete this topic MENINGOCOCCAL (MENACTRA/MENVEO) Aged Out No longer eligible based on patient's age to complete this topic documented as of this encounter Medical Devices Not on filedocumented as of this encounter Procedures Procedure Name Priority Date/Time Associated Diagnosis Comments DIFFERENTIAL, AUTOMATED Routine 03/19/2024 10:21 AM EDT HTN, goal below 130/80 Blind spot scotoma, left CBC Routine 03/19/2024 10:21 AM EDT HTN, goal below 130/80 Blind spot scotoma, left CBC Routine 03/19/2024 10:21 AM EDT HTN, goal below 130/80 Blind spot scotoma, left documented in this encounter Results * DIFFERENTIAL, AUTOMATED (03/19/2024 10:21 AM EDT) WBC 6.59 4.00 - 10.80 K/uL 03/19/2024 10:35 AM EDT [facility] Neutrophils % 61.6 40.0 - 75.0 % 03/19/2024 10:35 AM EDT [facility] [place] [facility] [facility] Lymphocytes % 23.2 18.0 - 42.0 % 03/19/2024 10:35 AM EDT [facility] [place] [facility] Monocytes % 9.7 1.0 - 11.0 % 03/19/2024 10:35 AM EDT [facility] [place] [facility] Eosinophils % 5.2 0.0 - 6.0 % 03/19/2024 10:35 AM EDT [facility] [place] [facility] Basophils % 0.3 0.0 - 2.0 % 03/19/2024 10:35 AM EDT [facility] [place] [facility] Absolute Neutrophils 4.06 1.80 - 7.70 K/uL 03/19/2024 10:35 AM EDT [facility] [place] [facility] Absolute Lymphocytes 1.53 1.00 - 4.80 K/ul 03/19/2024 10:35 AM EDT [facility] [place] Absolute Monocytes 0.64 0.00 - 1.10 K/uL 03/19/2024 10:35 AM EDT [facility] [place] [facility] Absolute Eosinophils 0.34 0.00 - 0.70 K/uL 03/19/2024 10:35 AM EDT [facility] [place] [facility] Absolute Basophils 0.02 0.00 - 0.20 K/uL 03/19/2024 10:35 AM EDT [facility] [place] [facility] Blood Venous blood specimen / Unknown Venipuncture / Unknown 03/19/2024 10:21 AM EDT 03/19/2024 10:21 AM EDT Sofia Fenton MD LAB BLOOD ORDERABLES [facility] [place] [address] [place] [id number] * CBC (03/19/2024 10:21 AM EDT) WBC 6.59 4.00 - 10.80 K/uL 03/19/2024 10:35 AM EDT [facility] RBC 4.13 3.85 - 5.15 M/uL 03/19/2024 10:35 AM EDT [facility] HGB 12.4 12.0 - 15.3 g/dL 03/19/2024 10:35 AM EDT [facility] HCT 37.9 36.0 - 45.2 % 03/19/2024 10:35 AM EDT [facility] MCV 91.8 81.5 - 97.5 fL 03/19/2024 10:35 AM EDT [facility] MCH 30.0 27.0 - 34.0 pg 03/19/2024 10:35 AM EDT [facility] [place] [facility] MCHC 32.7 32.0 - 36.0 g/dL 03/19/2024 10:35 AM EDT [facility] [place] [facility] [facility] RDW 12.3 11.5 - 15.5 % 03/19/2024 10:35 AM EDT [facility] [place] [facility] [facility] PLT 213 140 - 400 K/uL 03/19/2024 10:35 AM EDT [facility] [place] [facility] MPV 10.8 6.6 - 11.1 fL 03/19/2024 10:35 AM EDT [facility] [place] [facility] [facility] Blood Venous blood specimen / Unknown Venipuncture / Unknown 03/19/2024 10:21 AM EDT 03/19/2024 10:21 AM EDT Sofia Fenton MD LAB BLOOD ORDERABLES [facility] [place] [facility] [address] [facility] [place] [address] documented in this encounter Visit Diagnoses Diagnosis Hypokalemia Hypopotassemia ESRD on dialysis (HCC) End stage renal disease HTN, goal below 130/80 Unspecified essential hypertension Blind spot scotoma, left documented in this encounter Care Teams Shrimp Picker Relationship Specialty Start Date End Date [facility]enton [facility] [address] [facility] [address] PCP - General Internal Medicine 10/24/22 documented as of this encounter
--- OUTSIDE RECORDS SUMMARY | 2024-07-26 19:38 | External Medical Summary | Summary of Care ---
Author Name Unknown Organization [facility] Address [address] [facility] [address] Phone [phone] Care Team Providers Care Conservation Or Heritage Architect Name Role Phone Sofia Fenton MD Primary Care Provider [phone] Reason for Visit * Reason Onset Date Comments Pre Cert/Prior Auth 03/25/2024 Encounter Details Date Type Department Care Team (Late st Contact Info) Description 03/25/[address] [address] Outpatient, Precert DO NOT CHANGE - JS Pre Cert/Prior Auth Allergies Active Allergy Reactions Criticality Noted Date Comments Cat Dander Itching Low 07/09/2014 Dust Itching Low 11/09/2011 Sneezing, itchy watery eyes Penicillins Hives Medium 01/02/2008 Sulfa Antibiotics Hives Medium 01/02/2008 documented as of this encounter (statuses as of 03/27/2024) Medications Medication Sig Dispensed Refills Start Date [...] as of this encounter (statuses as of 03/27/2024) Active Problems Problem Noted Date Diagnosed Date [...] as of this encounter (statuses as of 03/27/2024) Resolved Problems Problem Noted Date Diagnosed Date [...] as of this encounter (statuses as of 03/27/2024) Immunizations Name Administration Dates Next Due H1N1 [...] encounter Miscellaneous Notes * Telephone Encounter - Dona De La Cruz LPN - 03/27/2024 12:30 PM EDT Patient is aware and verbalizes understanding. * Telephone Encounter - Allyson Barcenas LPN - 03/27/2024 11:10 AM EDT Called patient. Left message on answering machine to call office. * Telephone Encounter - Sofia Fenton MD - 03/25/2024 3:35 PM EDT Approved # [id number] Please notify pt to get test as scheduled * Telephone Encounter - Sofia Fenton MD - 03/25/2024 1:32 PM EDT I called but the phone number is not available from calling area (?) Can I get available phone number for peer to peer conversation ? * Telephone Encounter - Dayna Hopper OSA - 03/25/2024 11:15 AM EDT The MRI Brain requested for Matilda Benitez is currently awaiting Kown-gh-Ovou Review with [employer]. We kindly request a Nurse, PERLA, ERNESTO, or Physician, call and reference tracking # [id number] to engage in a discussion with a Physician Reviewer to obtain the necessary authorization. Based on the clinical documentation provided, the approval of the requested imaging study is contingent upon the completion of a Inwe-it-Ypvg Review. We urge you to initiate this review process promptly, adhering to any specified timeframes, or at your earliest convenience if no specific timeframe has been provided. This study is scheduled for 04/04/2024 and was recently denied by [employer]. Please schedule a P2P in order to obtain approval. In the event that a Izla-za-Wmzn Review cannot be conducted, we kindly request that a Clinician contact the patient to discuss and propose an alternative treatment plan. Your prompt attention to thismatter is greatly appreciated. Denial Rationale: Dayna Hopper, ZEYNEP 03/25/2024, 11:15 AM documented in this encounter Plan of Treatment Upcoming Encounters Date Type Department Care Team (Late st Contact Info) Description 04/04/2024 4:15 PM EDT Imaging Radiology [address] [address] 04/15/2024 10:45 AM EDT Imaging Radiology [address] [address] 06/24/2024 8:00 AM EDT Office Visit Cardiology, [address] [address] Eric Perez, [address] [place] [address] 07/08/2024 11:00 AM EDT [facility] [address] [place] [address] Klever Palafox MD [address] [place] [address] Edwin Kingsley MD [address] [place] [address] Nurse [facility]al Transplant [address] [place] [address] Mine Kapoor LSW [address] [place] [address] 07/08/2024 2:50 PM EDT Laboratory Outpatient Laboratory, [place] [address] [place] [phone] [place], Lab B1a [address] [place] [address] 07/08/2024 3:10 PM EDT Appointment Radiology, [place] [address] [place] [phone] 07/10/2024 2:40 PM EDT Office Visit [facility] [address] [place] [address] Sofia Fenton MD [address] [place] [address] Health Maintenance Due Date Last Done Comments Hepatitis B (1 of 3 - 19+ 3-dose series) 1997 HPV/Co-Test 02/01/2008 Colonoscopy 2023 Fecal Occult Blood Test 2023 Sigmoidoscopy 2023 COVID-19 Vaccine (2022- season) 2023 Mammogram 04/12/2024 04/12/2023, 03/23/2023 Pneumococcal [...] filedocumented as of this encounter Care Teams Conservation Or Heritage Architect Relationship Specialty Start Date End Date Sofia Fenton MD [address] [place] [address] PCP - General Internal Medicine 10/24/22 documented as of this encounter
--- OUTSIDE RECORDS SUMMARY | 2024-07-26 19:38 | External Medical Summary | Summary of Care ---
Author Name Unknown Organization [facility] Address [address] [facility] [place] [address] Phone [phone] Care Team Providers Care Cardiology Coordinator Name Role Phone Sofia Fenton MD Primary Care Provider [phone] Reason for Visit * Reason Onset Date Comments Medication Refill 05/27/2024 Encounter Details Date Type Department Care Team (Late st Contact Info) Description 05/27/2024 Refill Nutrition and Weight Management [address] [place] [place] [place] [address] Jeffery Velasquez PA-C [address] [place] [place] [address] Allergies Active Allergy Reactions Criticality Noted Date Comments Cat Dander Itching Low 07/09/2014 Dust Itching Low 11/09/2011 Sneezing, itchy watery eyes Penicillins Hives Medium 01/02/2008 Sulfa Antibiotics Hives Medium 01/02/2008 documented as of this encounter (statuses as of 05/28/2024) Medications Medication Sig Dispensed Refills Start Date [...] Active Sevelamer Carbonate 800 MG Oral Tablet (Renvela)Indicatio ns:End stage renal disease (HCC) TAKE ONE TABLET BY MOUTH IN THE MORNING, ONE TABLET AT NOON, AND ONE TABLET IN THE EVENING. TAKE WITH MEALS. 90 Tablet 1 11/16/2023 Active Virt-Caps 1 MG Oral Capsule TAKE 1 CAPSULE BY MOUTH ONCE DAILY 11/21/2023 Active Carvedilol 3.125 MG Oral Tablet (Coreg) [...] Active Benzonatate 100 MG Oral Capsule (Tessalon Perles)Indications :Acute cough Take 1 Capsule by mouth 3 times a day as needed for Cough. 30 Capsule 05/23/2024 Active Wegovy 0.25 MG/0.5ML Subcutaneous Solution Auto-injector (Semaglutide-Weigh t Management) Inject 0.25 mg under the skin once a week. 2 mL 05/28/2024 Active Wegovy 0.25 MG/0.5ML Subcutaneous Solution Auto-injector (Semaglutide-Weigh t Management) Inject 0.25 mg under the skin once a week for 28 days. 2 mL 04/28/2024 Discontinue d(Refill) documented as of this encounter (statuses as of 05/28/2024) Active Problems Problem Noted Date Diagnosed Date [...] as of this encounter (statuses as of 05/28/2024) Resolved Problems Problem Noted Date Diagnosed Date [...] as of this encounter (statuses as of 05/28/2024) Immunizations Name Administration Dates Next Due H1N1 [...] encounter Miscellaneous Notes * Telephone Encounter - Milton Martinez PA-C - 05/28/2024 3:18 PM EDTSigned Prescriptions: Disp Refills Wegovy 0.25 MG/0.5ML Subcutaneous Solution*2 mL 0 Sig: Inject 0.25 mg under the skin once a week. Authorizing Provider: MILTON MARTINEZ * Telephone Encounter - Danielle Chan CMA - 05/28/2024 8:32 AM EDTPending Prescriptions: Disp Refills Wegovy 0.25 MG/0.5ML Subcutaneous Solution*2 mL 0 Sig: Inject 0.25 mg under the skin once a week. documented in this encounter Plan of Treatment Upcoming Encounters Date Type Department Care Team (Late st Contact Info) Description 06/24/2024 8:00 AM EDT Office Visit Cardiology, [facility] [address] [place] [address] Eric Perez, [address] [place] [address] 07/08/2024 11:00 AM EDT Office Visit Transplant Clinic, [address] [place] [address] Klever Palafox MD [address] [place] [address] Edwin Kingsley MD [address] [place] [address] [facility] [address] [place] [address] Mine Kapoor LSW [address] [place] [address] 07/08/2024 2:50 PM EDT Laboratory Outpatient Laboratory, [address] [phone] [place], Lab B1a [address] [place], [place] [id number] 07/08/2024 3:10 PM EDT Appointment Radiology, [address] [phone] 07/10/2024 2:40 PM EDT Office Visit [place] [address] [place] [address] Sofia Fenton MD [address] [place] [address] Health Maintenance Due Date Last Done Comments Hepatitis B Vaccine (1 of 3 - 19+ 3-dose series) 1997 HPV/Co-Test 02/01/2008 Colonoscopy 2023 Fecal Occult Blood Test 2023 Sigmoidoscopy 2023 COVID-19 Vaccine ( - 2022-24 season) 2023 Influenza Vaccine (FLU [...] filedocumented as of this encounter Care Teams Cardiology Coordinator Relationship Specialty Start Date End Date Sofia Fenton MD [address] [place] [facility] [place] [address] PCP - General Internal Medicine 10/24/22 documented as of this encounter
--- OUTSIDE RECORDS SUMMARY | 2024-07-26 19:38 | External Medical Summary | Summary of Care ---
Author Name Unknown Organization [facility] Address [address] [facility] [place] [address] Phone [phone] Care Team Providers Care Composition Teacher Name Role Phone Sofia Fenton MD Primary Care Provider [phone] Reason for Visit * Reason Onset Date Comments Precert In Process 04/29/2024 04 [place] Encounter Details Date Type Department Care Team (Late st Contact Info) Description 04/29/2024 Telephone Nutrition and Weight Management [address] [place] [address] [address] Jeffery Velasquez PA-C [address] [place] [phone] Precert In Process ( [place] [facility] W... Allergies Active Allergy Reactions Criticality Noted Date Comments Cat Dander Itching Low 07/09/2014 Dust Itching Low 11/09/2011 Sneezing, itchy watery eyes Penicillins Hives Medium 01/02/2008 Sulfa Antibiotics Hives Medium 01/02/2008 documented as of this encounter (statuses as of 04/29/2024) Medications Medication Sig Dispensed Refills Start Date [...] OR CHEW 90 Capsule 3 04/05/2024 Active Wegovy 0.25 MG/0.5ML Subcutaneous Solution Auto-injector (Semaglutide-Weight Management) Inject 0.25 mg under the skin once a week for 28 days. 2 mL 04/28/2024 05/26/2024 Active documented as of this encounter (statuses as of 04/29/2024) Active Problems Problem Noted Date Diagnosed Date [...] as of this encounter (statuses as of 04/29/2024) Resolved Problems Problem Noted Date Diagnosed Date [...] as of this encounter (statuses as of 04/29/2024) Immunizations Name Administration Dates Next Due H1N1 [...] encounter Miscellaneous Notes * Telephone Encounter - Jina Wong LPN - 04/29/2024 8:52 AM EDT A prior authorization is needed for this medication Disp Refills Start End Wegovy 0.25 MG/0.5ML Subcutaneous Solution Auto-injector (Semaglutide-Weight Management) 2 mL 0 04/28/2024 05/26/2024 Sig - Route: Inject 0.25 mg under the skin once a week for 28 days. - Subcutaneous Sent to pharmacy as: Wegovy 0.25 MG/0.5ML Subcutaneous Solution Auto-injector (Semaglutide-Weight Management) Class: ePrescribing Order: [id number] Date/Time Signed: 04/28/2024 14:47 E-Prescribing Status: Receipt confirmed by pharmacy (04/28/2024 2:47 PM EDT) documented in this encounter Plan of Treatment Upcoming Encounters Date Type Department Care Team (Late st Contact Info) Description 06/24/2024 8:00 AM EDT Office Visit Cardiology, [facility] [address] [place] [address] Eric Perez, [address] [place] [address] 07/08/2024 11:00 AM EDT Office Visit Transplant Clinic, [place] [address] [place] [address] Klever Palafox MD [address] [place] [address] Edwin Kingsley MD [address] [place] [address] Nurse [facility] [address] [place] [address] Mine Kapoor LSW [address] [place] [address] 07/08/2024 2:50 PM EDT Laboratory Outpatient Laboratory, [place] [address] [place] [phone] [place], Lab B1a [address] [place], [place] [address] 07/08/2024 3:10 PM EDT Appointment Radiology, [address] [phone] 07/10/2024 2:40 PM EDT Office Visit [place] [address] [place] [address] Sofia Fenton MD [address] [place] [address] Health Maintenance Due Date Last Done Comments Hepatitis B (1 of 3 - 19+ 3-dose series) 1997 HPV/Co-Test 02/01/2008 Colonoscopy 2023 Fecal Occult Blood Test 2023 Sigmoidoscopy 2023 COVID-19 Vaccine (2022-24 season) 2023 Pneumococcal Vaccine: Pediatrics (0 to 5 Years) and At-Risk Patients (6 to 64 Years) (3 of 3 - PCV) 10/12/2024 10/12/2023, 09/08/2009 Depression Screening 03/04/2025 03/04/2024 Mammogram 04/15/2025 04/15/2024, 03/26, 03/23/2023 Cervical Cancer Screening 03/20/2026 Pap Smear 03/20/2026 [...] filedocumented as of this encounter Care Teams Composition Teacher Relationship Specialty Start Date End Date Sofia Fenton MD [address] [place] [address] PCP - General Internal Medicine 10/24/22 documented as of this encounter
--- OUTSIDE RECORDS SUMMARY | 2024-07-26 19:38 | External Medical Summary | Summary of Care ---
Author Name Unknown Organization [facility] Address [address] [facility] [place] [address] Phone [phone] Care Team Providers Care Diesel Dinkey Operator Name Role Phone Sofia Fenton MD Primary Care Provider [phone] Reason for Visit * Reason Comments eRx-Medication Refill Encounter Details Date Type Department Care Team (Late st Contact Info) Description 05/02/2024 Refill [facility] [address] [place] [address] Sofia Fenton MD [address] [place] [address] Allergies Active Allergy Reactions Criticality Noted Date Comments Cat Dander Itching Low 07/09/2014 Dust Itching Low 11/09/2011 Sneezing, itchy watery eyes Penicillins Hives Medium 01/02/2008 Sulfa Antibiotics Hives Medium 01/02/2008 documented as of this encounter (statuses as of 05/02/2024) Medications Medication Sig Dispensed Refills Start Date [...] Active Wegovy 0.25 MG/0.5ML Subcutaneous Solution Auto-injector (Semaglutide-[facility]) Inject 0.25 mg under the skin once a week for 28 days. 2 mL 04/28/2024 Active Doxycycline Hyclate 100 MG Oral Capsule Take 1 Capsule by mouth in the morning and 1 Capsule before bedtime. Do all this for 10 days. Until gone.. 20 Capsule 05/01/2024 4 Active Pantoprazole Sodium 40 MG Oral Tablet Delayed Release (Protonix) TAKE ONE TABLET BY MOUTH IN THE MORNING 90 Tablet 1 05/02/2024 Active Pantoprazole Sodium 40 MG Oral Tablet Delayed Release (Protonix) TAKE ONE TABLET BY MOUTH IN THE MORNING 90 Tablet 1 11/05/2023 4 Discontinued documented as of this encounter (statuses as of 05/02/2024) Active Problems Problem Noted Date Diagnosed Date [...] as of this encounter (statuses as of 05/02/2024) Resolved Problems Problem Noted Date Diagnosed Date [...] as of this encounter (statuses as of 05/02/2024) Immunizations Name Administration Dates Next Due H1N1 [...] encounter Miscellaneous Notes * Telephone Encounter - Rachael Angelo [facility] - 05/02/2024 5:15 PM EDTSigned Prescriptions: Disp Refills Pantoprazole Sodium 40 MG Oral Tablet Jasmina*90 Tab*1 Sig: TAKE ONE TABLET BY MOUTH IN THE MORNINGAuthorizing Provider: Mona FENTON User: RACHAEL ANGELO--- documented in this encounter Plan of Treatment Upcoming Encounters Date Type Department Care Team (Late st Contact Info) Description 06/24/2024 8:00 AM EDT Office Visit Cardiology, [facility] [address] [place] [place] [address] Eric Perez, [address] [place] [address] 07/08/2024 11:00 AM EDT Office Visit Transplant Clinic, [address] [place] [address] Klever Palafox MD [address] [place] [address] Edwin Kingsley MD [address] [place] [address] [facility] [address] [place] [address] Mine Kapoor LSW [address] [place] [address] 07/08/2024 2:50 PM EDT Laboratory Outpatient Laboratory, [address] [phone] [place], Lab B1a [address] [place], [place] [phone] 07/08/2024 3:10 PM EDT Appointment Radiology, [address] [phone] 07/10/2024 2:40 PM EDT Office Visit [facility] [address] [place] [address] Sofia Fenton MD [address] [place] [address] Health Maintenance Due Date Last [...] filedocumented as of this encounter Care Teams Diesel Dinkey Operator Relationship Specialty Start Date End Date Sofia Fenton MD [address] [place] [facility] [place] [place] [address] PCP - General Internal Medicine 10/24/22 documented as of this encounter
--- OUTSIDE RECORDS SUMMARY | 2024-07-26 19:38 | External Medical Summary | Summary of Care ---
Author Name Unknown Organization [facility] Address [address] [facility] [place] [address] Phone [phone] Care Team Providers Care Aws Consultant Name Role Phone Sofia Fenton MD Primary Care Provider [phone] Reason for Visit * Reason Onset Date Comments Medication Refill 04/04/2024 Encounter Details Date Type Department Care Team (Late st Contact Info) Description 04/04/2024 Refill [facility] [address] [place] [address] Sofia Fenton MD [address] [place] [address] Allergies Active Allergy Reactions Criticality Noted Date Comments Cat Dander Itching Low 07/09/2014 Dust Itching Low 11/09/2011 Sneezing, itchy watery eyes Penicillins Hives Medium 01/02/2008 Sulfa Antibiotics Hives Medium 01/02/2008 documented as of this encounter (statuses as of 04/05/2024) Medications Medication Sig Dispensed Refills Start Date End Date Status Vitamin C 500 MG Oral Tablet Chewable Take 1 Tablet by mouth in the morning. 30 Tablet 5 10/23/2022 Active Docusate Sodium 100 MG Oral Capsule [...] BY MOUTH ONCE DAILY 0 11/21/2023 Active Carvedilol 3.125 MG Oral Tablet (Coreg) Take 1 Tablet by mouth in the morning and 1 Tablet before bedtime. With food. 180 Tablet 3 04/05/2024 Active Venlafaxine HCl ER 37.5 MG Oral Capsule Extended Release 24 Hour (Effexor XR) TAKE 1 CAPSULE BY MOUTH EVERY MORNING. DO NOT CUT, CRUSH OR CHEW 90 Capsule 3 04/05/2024 Active Carvedilol 3.125 MG Oral Tablet (Coreg) Take 1 Tablet by mouth in the morning and 1 Tablet before bedtime. With food. 180 Tablet 3 04/24/2023 04/04/2024 Discontinue d(Refill) Venlafaxine HCl ER 37.5 MG Oral Capsule Extended Release 24 Hour (Effexor XR) TAKE 1 CAPSULE BY MOUTH EVERY MORNING. DO NOT CUT, CRUSH OR CHEW 90 Capsule 1 10/08/2023 04/04/2024 Discontinue d(Refill) documented as of this encounter (statuses as of 04/05/2024) Active Problems Problem Noted Date Diagnosed Date [...] as of this encounter (statuses as of 04/05/2024) Resolved Problems Problem Noted Date Diagnosed Date [...] as of this encounter (statuses as of 04/05/2024) Immunizations Name Administration Dates Next Due H1N1 [...] encounter Miscellaneous Notes * Telephone Encounter - Twila Baird RPh - 04/05/2024 1:44 PM EDT Serum creatinine: 2.4 mg/dL (H) 03/19/24 1021 Estimated creatinine clearance: 34.6 mL/min (A) documented in this encounter Plan of Treatment Upcoming Encounters Date Type Department Care Team (Late st Contact Info) Description 04/15/2024 10:45 AM EDT Imaging Radiology [facility] [address] [facility] [place] [address] 06/24/2024 8:00 AM EDT Office Visit Cardiology, [facility] [address] [facility] [place] [address] Eric Perez, 132 [facility] [place] [address] 07/08/2024 11:00 AM EDT Office Visit Transplant Clinic, [place] [address] [place] [address] Klever Palafox MD [address] [place] [address] Edwin Kingsley MD [address] [place] [address] [facility] [address] [place] [address] Mine Kapoor, CARPENTER REPAIRER [address] [place] [address] 07/08/2024 2:50 PM EDT Laboratory Outpatient Laboratory, [place] [address] [place] [phone] [place] Lab B1a [address] [place], [place] [address] 07/08/2024 3:10 PM EDT Appointment Radiology, [place] [address] [place] [address] 07/10/2024 2:40 PM EDT Office Visit [facility] [address] [place] [address] Sofia Fenton MD [address] [place] [address] Health Maintenance Due Date Last Done Comments Hepatitis B (1 of 3 - 19+ 3-dose series) 1997 HPV/Co-Test 02/01/2008 Colonoscopy 2023 Fecal Occult Blood Test 2023 Sigmoidoscopy 2023 COVID-19 Vaccine ( - 2022-24 season) 2023 Mammogram 04/12/2024 04/12/2023, 03/23/2023 Pneumococcal [...] filedocumented as of this encounter Care Teams Aws Consultant Relationship Specialty Start Date End Date Sofia Fenton MD [address] [place] [address] PCP - General Internal Medicine 10/24/22 documented as of this encounter
--- OUTSIDE RECORDS SUMMARY | 2024-07-26 19:38 | External Medical Summary | Summary of Care ---
Author Name Unknown Organization [facility] Address [address] [facility] [place] [address] Phone [phone] Care Team Providers Care Mixing Supervisor Name Role Phone Sofia Fenton MD Primary Care Provider [phone] Reason for Visit * Reason Onset Date Comments Precert In Process 04/29/2024 04 [place] Encounter Details Date Type Department Care Team (Late st Contact Info) Description 04/29/2024 Telephone Nutrition and Weight Management [address] [place] [address] Jeffery Velasquez PA-C [address] [place] [place] [phone] Precert In Process ( [place] W... [...] Solution Auto-injector (Semaglutide-Weight Management) Class: ePrescribing Order: [id number] Date/Time Signed: 04/28/2024 14:47 E-Prescribing Status: Receipt confirmed by pharmacy (04/28/2024 2:47 PM EDT) documented in this encounter Plan of Treatment Upcoming Encounters Date Type Department Care Team (Late st Contact Info) Description 06/24/2024 8:00 AM EDT Office Visit Cardiology, [facility] [address] [place] [address] Eric Perez, [address] [place] [address] 07/08/2024 11:00 AM EDT Office Visit Transplant Clinic, [place] [address] [place] [address] Klever Palafox MD [address] [place] [address] Edwin Kingsley MD [address] [place] [address] Nurse [facility] [address] [place] [address] Mine Kapoor LSW [address] [place] [address] 07/08/2024 2:50 PM EDT Laboratory Outpatient Laboratory, [place] [address] [place] [phone] [place], Lab B1a [address] [place], [place] [address] 07/08/2024 3:10 PM EDT Appointment Radiology, [address] [phone] 07/10/2024 2:40 PM EDT Office Visit [place] [address] [place] [address] oSfia Fenton MD [address] [place] [address] Health Maintenance Due Date Last [...] filedocumented as of this encounter Care Teams Mixing Supervisor Relationship Specialty Start Date End Date Sofia Fenton MD [address] [place] [address] PCP - General Internal Medicine 10/24/22 documented as of this encounter
--- OUTSIDE RECORDS SUMMARY | 2024-07-26 19:38 | External Medical Summary | Summary of Care ---
Author Name Unknown Organization [facility] Address [address] [facility] [place] [address] Phone [phone] Care Team Providers Care Weapons And Tactics Instructor Name Role Phone Sofia Fenton MD Primary Care Provider [phone] Encounter Details Date Type Department Care Team (Late st Contact Info) Description 05/23/2024 Orders Only Nephrology, [facility] [address] [place] [address] ZemaitisHeather PA-C [address] [place] [address] Acute cough* Allergies Active Allergy Reactions Criticality Noted Date Comments Cat Dander Itching Low 07/09/2014 Dust Itching Low 11/09/2011 Sneezing, itchy watery eyes Penicillins Hives Medium 01/02/2008 Sulfa Antibiotics Hives Medium 01/02/2008 documented as of this encounter (statuses as of 05/23/2024) Medications Medication Sig Dispensed Refills Start Date [...] 28 days. 2 mL 04/28/2024 05/26/2024 Active Pantoprazole Sodium 40 MG Oral Tablet Delayed Release (Protonix) TAKE ONE TABLET BY MOUTH IN THE MORNING 90 Tablet 1 05/02/2024 Active Benzonatate 100 MG Oral Capsule (Tessalon Perles)Indications: Acute cough Take 1 Capsule by mouth 3 times a day as needed for Cough. 30 Capsule 05/23/2024 Active documented as of this encounter (statuses as of 05/23/2024) Active Problems Problem Noted Date Diagnosed Date [...] as of this encounter (statuses as of 05/23/2024) Resolved Problems Problem Noted Date Diagnosed Date [...] as of this encounter (statuses as of 05/23/2024) Immunizations Name Administration Dates Next Due H1N1 [...] 06/24/2024 8:00 AM EDT Office Visit Cardiology, [address] [place] [address] Eric Perez, DO [address] [place] [address] 07/08/2024 11:00 AM EDT Office Visit Transplant Clinic, [place] [address] [place], [place] [phone] Klever Palafox MD [address] [place] [address] Edwin Kingsley MD [address] [place], [place] [phone] Nurse [facility] [address] [place], [place] [phone] Mine Kapoor LSW [address] [place], [place] [phone] 07/08/2024 2:50 PM EDT Laboratory Outpatient Laboratory, [place] [address] [place] [phone] [place], Lab B1a [address] [place], [place] [address] 07/08/2024 3:10 PM EDT Appointment Radiology, [place] [address] [place] [address] 07/10/2024 2:40 PM EDT Office Visit [facility] [address] [place] [phone] Sofia Fenton MD [address] [place], [place] [phone] Health Maintenance Due Date Last Done Comments [...] as of this encounter Visit Diagnoses Diagnosis Acute cough- Primary documented in this encounter Care Teams Weapons And Tactics Instructor Relationship Specialty Start Date End Date Sofia Fenton MD [address] [place] [address] PCP - General Internal Medicine 10/24/22 documented as of this encounter
--- OUTSIDE RECORDS SUMMARY | 2024-07-26 19:38 | External Medical Summary | Summary of Care ---
Author Name Unknown Organization [facility] Address [address] [facility] [place] [address] Phone [phone] Care Team Providers Care Litigation Secretary Name Role Phone Sofia Fenton MD Primary Care Provider [phone] Reason for Visit * Reason Onset Date Comments Precert Approved 04/29/2024 [place] Encounter Details Date Type Department Care Team (Late st Contact Info) Description 04/29/2024 Telephone Nutrition and Weight Management [facility] Alex[address] Landry [address] [facility] [place] [address] Jeffery Velasquez PA-C [address] [place] [address] Precert Approved ( [facility] ) Allergies Active Allergy Reactions Criticality Noted Date Comments Cat Dander Itching Low 07/09/2014 Dust Itching Low 11/09/2011 Sneezing, itchy watery eyes Penicillins Hives Medium 01/02/2008 Sulfa Antibiotics Hives Medium 01/02/2008 documented as of this encounter (statuses as of 04/30/2024) Medications Medication Sig Dispensed Refills Start Date [...] as of this encounter (statuses as of 04/30/2024) Active Problems Problem Noted Date Diagnosed Date [...] as of this encounter (statuses as of 04/30/2024) Resolved Problems Problem Noted Date Diagnosed Date [...] colonies GBS in urine. Reviewed with Dr. Hemmer, advised 10d of Macrobid and ALISON shortly [...] as of this encounter (statuses as of 04/30/2024) Immunizations Name Administration Dates Next Due H1N1 [...] Solution Auto-injector (Semaglutide-Weight Management) Class: ePrescribing Order: [id number] Date/Time Signed: 04/28/2024 14:47 E-Prescribing Status: Receipt confirmed by pharmacy (04/28/2024 2:47 PM EDT) documented in this encounter Plan of Treatment Upcoming Encounters Date Type Department Care Team (Late st Contact Info) Description 06/24/2024 8:00 AM EDT Office Visit Cardiology, [facility] [address] [place] [address] Eric Perez, [address] [place] [address] 07/08/2024 11:00 AM EDT [facility] [address] [place] [address] Klever Palafox MD [address] [place], [place] [phone] Edwin Kingsley MD [address] [place] [address] [facility] [address] [place] [address] Mine Kapoor, EMULSION OPERATOR [address] [place] [address] 07/08/2024 2:50 PM EDT Laboratory Outpatient Laboratory, [place] [address] [place] [phone] [place] Lab B1a [address] [place], [place] [address] 07/08/2024 3:10 PM EDT Appointment Radiology, [address] [phone] 07/10/2024 2:40 PM EDT Office Visit [facility] [address] [place] [address] Sofia Fenton MD [address] [place] [address] Health Maintenance Due Date Last Done Comments Hepatitis B (1 of 3 - 19+ 3-dose series) 1997 HPV/Co-Test 02/01/2008 Colonoscopy 2023 Fecal Occult Blood Test 2023 Sigmoidoscopy 2023 COVID-19 Vaccine ( - 2022-24 season) 2023 Pneumococcal Vaccine: Pediatrics (0 to [...] filedocumented as of this encounter Care Teams Litigation Secretary Relationship Specialty Start Date End Date Sofia Fenton MD [address] [place] [address] PCP - General Internal Medicine 10/24/22 documented as of this encounter
--- OUTSIDE RECORDS SUMMARY | 2024-07-26 19:38 | External Medical Summary | Summary of Care ---
Author Name Unknown Organization [facility] Address [address] [facility] [address] Phone [phone] Care Team Providers Care Slot Technician Name Role Phone Sofia Fenton MD Primary Care Provider [phone] Reason for Visit * Reason Onset Date Comments Pre Cert/Prior Auth 03/25/2024 Encounter Details Date Type Department Care Team (Late st Contact Info) Description 03/25/[address] [address] Outpatient, Precert DO NOT CHANGE - JS Pre Cert/Prior Auth Allergies Active Allergy Reactions Criticality Noted Date Comments Cat Dander Itching Low 07/09/2014 Dust Itching Low 11/09/2011 Sneezing, itchy watery eyes Penicillins Hives Medium 01/02/2008 Sulfa Antibiotics Hives Medium 01/02/2008 documented as of this encounter (statuses as of 03/25/2024) Medications Medication Sig Dispensed Refills Start Date [...] as of this encounter (statuses as of 03/25/2024) Active Problems Problem Noted Date Diagnosed Date [...] as of this encounter (statuses as of 03/25/2024) Resolved Problems Problem Noted Date Diagnosed Date [...] as of this encounter (statuses as of 03/25/2024) Immunizations Name Administration Dates Next Due H1N1 [...] encounter Miscellaneous Notes * Telephone Encounter - Sofia Fenton MD - 03/25/2024 3:35 PM EDT Approved # [id number] Please notify pt to get test as scheduled * Telephone Encounter - Sofia Fenton MD - 03/25/2024 1:32 PM EDT I called but the phone number is not available from calling area (?) Can I get available phone number for peer to peer conversation ? * Telephone Encounter - Dayna Hopper OSA - 03/25/2024 11:15 AM EDT The MRI Brain requested for Matilda Ojedarc is currently awaiting Obks-bm-Rugq Review with [employer]. We kindly request a Nurse, PAAnuC, ERNESTO, or Physician, call and reference tracking # [id number] to engage in a discussion with a Physician Reviewer to obtain the necessary authorization. Based on the clinical documentation provided, the approval of the requested imaging study is contingent upon the completion of a Wshw-hw-Xpmp Review. We urge you to initiate this review process promptly, adhering to any specified timeframes, or at your earliest convenience if no specific timeframe has been provided. This study is scheduled for 04/04/2024 and was recently denied by [employer]. Please schedule a P2P in order to obtain approval. In the event that a Wgcq-gn-Qnpt Review cannot be conducted, we kindly request that a Clinician contact the patient to discuss and propose an alternative treatment plan. Your prompt attention to thismatter is greatly appreciated. Denial Rationale: ZEYNEP Riggins 03/25/2024, 11:15 AM documented in this encounter Plan of Treatment Upcoming Encounters Date Type Department Care Team (Late st Contact Info) Description 04/04/2024 4:15 PM EDT Imaging Radiology [address] [facility] [address] 04/15/2024 10:45 AM EDT Imaging Radiology [address] 132 [facility] [address] 06/24/2024 8:00 AM EDT Office Visit Cardiology, [facility] 132 [place] [address] Eric Perez, [facility] [place] [address] 07/08/2024 11:00 AM EDT Office Visit Transplant Clinic, [place] [address] [place] [address] Klever Palafox MD [address] [place] [address] Edwin Kingsley MD [address] [place] [address] Nurse [facility] [address] [place] [address] Mine Kapoor LSW [address] [place] [address] 07/08/2024 2:50 PM EDT Laboratory Outpatient Laboratory, [place] [address] [place] [phone] [facility] B1[facility] [place] [address] 07/08/2024 3:10 PM EDT Appointment Radiology, [address] [phone] 07/10/2024 2:40 PM EDT Office Visit [facility] [address] [place] [address] Sofia Fenton MD [address] [place] [address] Health Maintenance Due Date Last [...] filedocumented as of this encounter Care Teams Slot Technician Relationship Specialty Start Date End Date Sofia Fenton MD [address] [place] [facility] [place] [address] PCP - General Internal Medicine 10/24/22 documented as of this encounter
--- OUTSIDE RECORDS SUMMARY | 2024-07-26 19:38 | External Medical Summary | Summary of Care ---
Author Name Unknown Organization [facility] Address [address] [facility] [place] [address] Phone [phone] Care Team Providers Care Ocean Freight Forwarder Name Role Phone Sofia Fenton MD Primary Care Provider [phone] Reason for Visit * Reason Onset Date Comments Medication Pre-auth 04/29/2024 Encounter Details Date Type Department Care Team (Late st Contact Info) Description 04/29/2024 Telephone [facility] [address] [place] [place] [address] Jeffery Velasquez PA-C [address] [place] [address] Medication Pre-auth Allergies Active Allergy Reactions Criticality Noted Date [...] Solution Auto-injector (Semaglutide-Weight Management) Class: ePrescribing Order: [id number] Date/Time Signed: 04/28/2024 14:47 E-Prescribing Status: Receipt confirmed by pharmacy (04/28/2024 2:47 PM EDT) documented in this encounter Plan of Treatment Upcoming Encounters Date Type Department Care Team (Late st Contact Info) Description 06/24/2024 8:00 AM EDT Office Visit Cardiology, [facility] [address] [place] [address] Eric Perez DO [address] [place] [address] 07/08/2024 11:00 AM EDT [facility] [address] [place] [address] Klever Palafox MD [address] [place] [address] Edwin Kingsley MD [address] [place] [address] [facility] Transplant [address] [place] [facility] [place] [address] Mine Kapoor, MEDICAL OFFICE REPRESENTATIVE [address] [place] [address] 07/08/2024 2:50 PM EDT Laboratory Outpatient Laboratory, [place] [address] [place] [phone] [facility] [address] [place], [place] [phone] 07/08/2024 3:10 PM EDT Appointment Radiology, [address] [phone] 07/10/2024 2:40 PM EDT Office Visit [facility] [address] [place] [address] Sofia Fenton MD [address] [place] [address] Health Maintenance Due Date Last Done Comments Hepatitis B (1 of 3 - 19+ 3-dose series) 1997 HPV/Co-Test 02/01/2008 Colonoscopy 2023 Fecal Occult Blood Test 2023 Sigmoidoscopy 2023 COVID-19 Vaccine ( - 2022- season) 2023 Pneumococcal Vaccine: Pediatrics (0 to [...] filedocumented as of this encounter Care Teams Ocean Freight Forwarder Relationship Specialty Start Date End Date Sofia Fenton MD [address] [place] [address] PCP - General Internal Medicine 10/24/22 documented as of this encounter
--- OUTSIDE RECORDS SUMMARY | 2024-07-26 19:38 | External Medical Summary | Summary of Care ---
Author Name Unknown Organization [facility] Address [address] [facility] [place] [address] Phone [phone] Care Team Providers Care Tack Maker Name Role Phone Vee Fenton MD Primary Care Provider [phone] Reason for Referral * Precert (Within 10 days (routine)) - Authorized Specialty Diagnoses / Procedures Referred By Contac t Referred To Contact Radiology Diagnoses HTN, goal below 130/80 Blind spot scotoma, left Procedures MRI BRAIN WITHOUT CONTRAST Vee Fenton MD [address] [place] [address] Referral ID Status Reason Start Date Expiration Date V isits Requested Visits Authorized [id number] Authorized Precert 03/25/2024 04/23/2024 999 999 Reason for Visit * Reason Onset Date Comments Order Request 03/10/2024 Labs requested Renato Call OD. Encounter Details Date Type Department Care Team (Late st Contact Info) Description 03/10/2024 Telephone [facility] [address] [place] [facility] [place] [place] [address] Vee Fenton MD [address] [place] [facility] [place] [place] [address] Order Request (Labs requested by Daisy Meneses.. Allergies Active Allergy Reactions Criticality Noted Date Comments Cat Dander Itching Low 07/09/2014 Dust Itching Low 11/09/2011 Sneezing, itchy watery eyes Penicillins Hives Medium 01/02/2008 Sulfa Antibiotics Hives Medium 01/02/2008 documented as of this encounter (statuses as of 04/10/2024) Medications Medication Sig Dispensed Refills Start Date [...] as of this encounter (statuses as of 04/10/2024) Active Problems Problem Noted Date Diagnosed Date [...] as of this encounter (statuses as of 04/10/2024) Resolved Problems Problem Noted Date Diagnosed Date [...] as of this encounter (statuses as of 04/10/2024) Immunizations Name Administration Dates Next Due H1N1 [...] encounter Miscellaneous Notes * Telephone Encounter - Kennedi Live OSA - 04/10/2024 10:42 AM EDT LMOM. 04/10/2024 * Telephone Encounter - Kennedi Live OSA - 03/17/2024 9:12 AM EDT LMOM asking patient when she is seeing her eye doctor again per message below. 03/17/2024 * Addendum Note - Vee Fenton MD - 03/13/2024 10:46 AM EDTAddended by: VEE FENTON on: 03/13/2024 10:46 AM Modules accepted: Orders * Telephone Encounter - Vee Fenton MD - 03/13/2024 10:44 AM EDT Reviewed paper And ordered blood tests , MRIs and carotid doppler, ambulatory BP monitoring , EKG was done on Mar 16 by cardio No acute finding Will f/u the tests And pleas ask pt when she will see eye doctor again * Telephone Encounter - Estelita Ashby LPN - 03/10/2024 10:19 AM EDT Received a letter from [facility] Daisy Call O.D. requesting you orders some labs for pt. Iplaced the letter on provider's desk to review. documented in this encounter Plan of Treatment Upcoming Encounters Date Type Department Care Team (Late st Contact Info) Description 04/15/2024 10:45 AM EDT Imaging Radiology [facility] [address] [place] [address] 06/24/2024 8:00 AM EDT Office Visit [facility], [facility] [address] [place] [address] Eric Perez DO [address] [place] [address] 07/08/2024 11:00 AM EDT [facility] [address] [place] [address] Klever Palafox MD [address] [place] [address] Edwin Kingsley MD [address] [place] [address] Nurse [facility] [address] [place] [address] Mine Kapoor LSW [address] [place] [address] 07/08/2024 2:50 PM EDT Laboratory Outpatient Laboratory, [address] [phone] [place], Lab B1a [address] [place], [place] [phone] 07/08/2024 3:10 PM EDT Appointment Radiology, [address] [address] 07/10/2024 2:40 PM EDT Office Visit [facility] [address] [place] [address] Vee Fenton MD [address] [place] [address] Scheduled Orders Name Type Priority Associated Diagnoses Orde r Schedule BP MONITORING 24HR, AMB. (COMM PRAC) Procedures Routine HTN, goal below 130/80 Blind spot scotoma, left Ordered: 03/13/2024 XR EYE FOREIGN BODY NON MRI Medical Imaging Routine HTN, goal below 130/80 Blind spot scotoma, left Ordered: 03/13/2024 Health Maintenance Due Date Last Done Comments Hepatitis B (1 of 3 - 19+ 3-dose series) 1997 HPV/Co-Test 02/01/2008 Colonoscopy 2023 Fecal Occult Blood Test 2023 Sigmoidoscopy 2023 COVID-19 Vaccine (2022-24 season) 2023 Mammogram 04/12/2024 04/12/2023, 03/23/2023 Pneumococcal [...] Procedure Name Priority Date/Time Associated Diagnosis Comments VASC DUPLEX CAROTID BILAT Routine 03/19/2024 10:14 AM EDT HTN, goal below 130/80 Blind spot scotoma, left documented in this encounter Results * MRI BRAIN WITHOUT CONTRAST (04/04/2024 4:28 PM EDT) Anatomical Region Laterality Modality Neuro, Head Magnetic Resonan ce 04/07/2024 3:21 PM EDT Impressions 04/07/2024 3:18 PM EDT IMPRESSION 1. No acute intracranial abnormality. 2. Few foci of nonspecific T2/FLAIR signal hyperintensity in the subcortical white matter. The broad differential diagnosis includes sequelae of migraine headache, chronic microvascular ischemia, prior infection/inflammation, and demyelination, among other etiologies. 3. Mild global cerebral volume loss greater than expected for age. Narrative 04/07/2024 3:18 PM EDT EXAM MRI BRAIN WITHOUT CONTRAST-04/04/2024 4:28 pm HISTORY 44 y/o F, blind eye spot, hx of malignant HTN COMPARISON None. TECHNIQUE Multiplanar multisequence MR imaging of the brain performed without intravenous contrast. FINDINGS No restricted diffusion to indicate an acute infarct. No evidence of acute intracranial hemorrhage or extra-axial fluid collections. No mass effect or midline shift. Few foci of T2/FLAIR signal hyperintensity in the subcortical white matter, nonspecific. Mild global cerebral volume loss greater than expected for age. The ventricular system is normal in configuration with size proportionate to the degree of parenchymal volume loss. Basal cisterns are patent. Flow voids at the skull base are maintained. The orbital contents are unremarkable. Postsurgical changes of endoscopic paranasal sinus surgery. Trace mucosal thickening in the paranasal sinuses. Mastoid air cells are predominantly clear. The calvarium and scalp soft tissues are unremarkable. Procedure Note Eric Brice MD - 04/07/2024 EXAM MRI BRAIN WITHOUT CONTRAST-04/04/2024 4:28 pm HISTORY 44 y/o F, blind eye spot, hx of malignant HTN COMPARISON None. TECHNIQUE Multiplanar multisequence MR imaging of the brain performed withoutintravenous contrast. FINDINGS No restricted diffusion to indicate an acute infarct. No evidence ofacute intracranial hemorrhage or extra-axial fluid collections. No masseffect or midline shift. Few foci of T2/FLAIR signal hyperintensity in the subcortical whitematter, nonspecific. Mild global cerebral volume loss greater thanexpected for age. The ventricular system is normal in configuration with size proportionateto the degree of parenchymal volume loss. Basal cisterns are patent.Flow voids at the skull base are maintained. The orbital contents are unremarkable. Postsurgical changes of endoscopicparanasal sinus surgery. Trace mucosal thickening in the paranasalsinuses. Mastoid air cells are predominantly clear. The calvarium andscalp soft tissues are unremarkable. IMPRESSION IMPRESSION 1. No acute intracranial abnormality. 2. Few foci of nonspecific T2/FLAIR signal hyperintensity in thesubcortical white matter. The broad differential diagnosis includessequelae of migraine headache, chronic microvascular ischemia, priorinfection/inflammation, and demyelination, among other etiologies. 3. Mild global cerebral volume loss greater than expected for age. Vee Fenton MD RAD MRI-MRA * FTA-ABS (03/19/2024 10:21 AM EDT) FTA-ABS Nonreactive Nonreactive 03/24/2024 6:49 PM EDT [employer] [place] Comment: The FTA-ABS is a treponemal assay that is intended to be used with other tests (e.g., RPR) as part of a diagnostic algorithm for syphilis. The preferred treponemal-specific tests for confirmation of a reactive RPR are Treponema pallidum Particle Agglutination (TP-PA) or other treponemal antibody assays. From Sexually Transmitted Infections Treatment Guidelines,2020 MMWR Recomm Rep 2020;70 (No. RR-4): pg.39. Test Performed at: [email or web address] [facility] [address] [place], [place] Allison M.D., Ph.D.,Director of Laboratories Blood Venous blood specimen / Unknown Venipuncture / Unknown 03/19/2024 10:21 AM EDT 03/19/2024 10:21 AM EDT Vee Fenton MD LAB BLOOD ORDERABLES [employer] [place] [address] [place] [address] * RPR (03/19/2024 10:21 AM EDT) [facility] RPR Screen Nonreactive Nonreactive 03/20/2024 10:[address] [facility] Blood Venous blood specimen / Unknown Venipuncture / Unknown 03/19/2024 10:21 AM EDT 03/19/2024 10:21 AM EDT Vee Fenton MD LAB BLOOD ORDERABLES [facility]ATORY [facility] [address] [place] [address] * [facility] DUPLEX CAROTID BILAT (03/19/2024 10:14 AM EDT) Anatomical Region Laterality Modality Neck, Vascular Ultrasound Narrative 03/19/2024 12:24 PM EDT VASCULAR LAB RESULTS DATE OF EXAM: 03/19/24 PRESENTING CONDITIONS: eye blind spot, HTN This is an interpretation of an exam performed at [facility] [employer] [facility]. PHYSICIAN REPORT Carotid Artery Duplex Examination Immediately before proceeding with the vascular lab procedure reported below, the identity of the patient, the correct exam and the correct procedural site were verified. Goel scale and color flow Doppler imaging was performed for evaluation of the right carotid artery. Duplex examination of the right carotid artery identifies no atherosclerotic plaque at the carotid bifurcation. Color Doppler imaging was performed for evaluation of the right carotid bifurcation. Spectral analysis of the right internal carotid artery demonstrates peak systolic velocities of 87.0 cm/sec. Maximum end diastolic velocities are 39.0 cm/sec.. Peak right common carotid velocity is 83.0 cm/sec. The right internal carotid to common carotid ratio is 1.0. The right external carotid artery has a peak velocity of 97.0 centimeters per second. Goel scale and color flow Doppler imaging was performed for the evaluation of the left carotid artery. Duplex examination of the left carotid artery identifies no atherosclerotic plaque at the carotid bifurcation. Color Doppler imaging was performed for the evaluation of the left carotid bifurcation. Spectral analysis of the left internal carotid artery demonstrates peak systolic velocities of 86.0 cm/sec. Maximum end diastolic velocities are 25.0 cm/sec. Peak left common carotid velocity is 87.0 cm/sec. The left internal carotid to common carotid ratio is 0.99. The left external carotid artery has a peak velocity of 101.0 centimeters per second. The right vertebral artery demonstrates antegrade flow. The left vertebral artery demonstrates antegrade flow. Impression: Right carotid artery duplex examination indicates evidence of a normal duplex evaluation of the internal carotid artery. Left carotid artery duplex examination indicates evidence of a normal duplex evaluation of the internal carotid artery. Vee Fenton MD RAD VASCULAR documented in this encounter Visit Diagnoses Diagnosis HTN, goal below 130/80- Primary Unspecified essential hypertension ESRD on dialysis (HCC) End stage renal disease Blind spot scotoma, left HTN, goal below 130/80 Unspecified essential hypertension Blind spot scotoma, left documented in this encounter Care Teams Tack Maker Relationship Specialty Start Date End Date Vee Fenton MD [address] [place] [address] PCP - General Internal Medicine 10/24/22 documented as of this encounter
--- OUTSIDE RECORDS SUMMARY | 2024-07-26 19:38 | External Medical Summary | Summary of Care ---
Author Name Unknown Organization [facility] Address [address] [place] [address] Phone [phone] Care Team Providers Care Formation Fracturing Operator Name Role Phone Sofia Fenton MD Primary Care Provider [phone] Reason for Visit * Reason Comments Obesity * Evaluate & Treat - Unlimited Visits (Within 10 days (routine)) - Pending Review Specialty Diagnoses / Procedures Referred By Contact Referred To Contact GI NUTRITION/IM / Gastroenterology Diagnoses Weight gain ESRD on dialysis (HCC) Sofia Fenton MD [address] [place] [address] Referral ID Status Reason Start Date Expiration Date Visits Requested Visits Authorized [id number] Pending Review Specialty Services Required 04/17/[phone] Encounter Details Date Type Department Care Team (Late st Contact Info) Description 04/28/2024 2:20 PM EDT Telemedicine Nutrition and Weight Management [address] [place] [address] Jeffery Velasquez PA-C [address] [place] [address] Obesity, Class II, BMI 35-39.9* Allergies Active Allergy Reactions Criticality Noted Date Comments Cat Dander Itching Low 07/09/2014 Dust Itching Low 11/09/2011 Sneezing, itchy watery eyes Penicillins Hives Medium 01/02/2008 Sulfa Antibiotics Hives Medium 01/02/2008 documented as of this encounter (statuses as of 04/28/2024) Medications Medication Sig Dispensed Refills Start Date [...] week for 28 days. 2 mL 04/28/2024 4 Active Vitamin C 500 MG Oral Tablet Chewable Take 1 Tablet by mouth in the morning. 30 Tablet 5 10/23/2022 Discontinue d(Medicatio n List Clean Up) documented as of this encounter (statuses as of 04/28/2024) Active Problems Problem Noted Date Diagnosed Date [...] as of this encounter (statuses as of 04/28/2024) Resolved Problems Problem Noted Date Diagnosed Date [...] as of this encounter (statuses as of 04/28/2024) Immunizations Name Administration Dates Next Due H1N1 [...] on file documented as of this encounter Progress Notes * Jeffery Velasquez PA-C - 04/28/2024 2:23 PM EDT [facility] CONSULTATION Referring Physician: Sofia Fenton MD Patient location: HOME. I was in a hospital or clinic location. After connecting through televideo,patient was verified with two unique identifiers. Patient (or authorized legal food service sales representatives) was then informed that this was a Telemedicine visit and being conducted confidentially over secure lines. Methods to assure confidentiality were taken. Patient acknowledged consent and understanding of pr ivacy and security of the Telemedicine visit. The patient agreed to participate. Source of information: Patient Reason for Referral: Weight Management Matilda Benitez is a 44 year old patient with a past medical history for Patient Active Problem List Diagnosis History of smoking Mitral valve disorder h/o preeclampsia Hypermobility syndrome Anxiety ESRD on dialysis (HCC) HTN, goal below 130/80 AVF (arteriovenous fistula) (HCC) Granuloma of liver associated with sarcoidosis who presents to the [facility] for further recommendations. HPI: The patient suffers from Class I obesity Patient is interested in the following treatment options for obesity: medical management and possible medication use. Previous Weight Management Interventions: The patient has tried weight loss in the past without significant ad terminal makeup operator success. Previous interventions: Self-directed. Renal diet - Very thirsty and compensates with food She denies any past pharmacotherapy for weight loss Weight history: Highest Body Weight: Is 246 pounds about 5-6 years ago Diagnosed with ESRD in 2021 - M/F dialysis On transplant list Current weight is 218 lbs, calculated BMI~34 Wt Readings from Last 8 Encounters: 03/04/24 98 kg (216 lb) 10/04/23 94.4 kg (208 lb 3.2 oz) 09/26/23 92.8 kg (204 lb 9.6 oz) 09/20/23 93.3 kg (205 lb 9.6 oz) 08/16/23 90.9 kg (200 lb 8 oz) 07/17/23 88.9 kg (196 lb) 07/05/23 89.4 kg (197 lb) 07/03/23 89.4 kg (197 lb 3.2 oz) Current Diet: Describes typical diet history/24 hr recall Breakfast: egg sandwich, coffee Snacks: doritos Lunch: cheeseburger, potatoes, baked beans, ice cream Snacks: brittany/patrick candy Dinner: skipped Drinks: 1-2 cups of coffee, water Restaurant meals: once a week Activity: ADLs Step count 5,000/day Past Medical History: Diagnosis Date Fibromyalgia Gestational diabetes required glyburide Other anxiety states Undiagnosed cardiac murmurs congenital; no SBE prophylaxis Past Surgical History: Procedure Laterality Date AV ACCESS, DIRECT ANASTOMOSIS Left 02/01/2023 ARTERIOVENOUS ANASTOMOSIS OPEN DIRECT ANY SITE performed by Moncho Cast MD at [place] [facility] AV ACCESS, REVISE AVF W/O THRO Left 07/17/2023 REVISION ARTERIOVENOUS FISTULA WITHOUT THROMBECTOMY performed by Moncho Cast MD at OR [facility] EGD, W/ENDOSCOPIC US N/A 07/05/2023 stones gallbladder/benign lymph node cesar hepatis region/biopsies of liver show liver parenchyma with granulomatous inflammation/ESOPHAGOGASTRODUODENOSCOPY (EGD), FLEXIBLE, TRANSORAL, ENDOSCOPIC ULTRASOUND performed by Kaiden Lui MD at OR [facility] INSER JUAN CARLOS CAT,W/O PUMP;5YR/OLD Right 11/29/2022 INSERT TUNNELED CENTRAL VENOUS CATHETER AGE 3 OR OLDER performed by Clark Cervantes DO at OR [facility] INTRO CATH DIALYSIS CIRCUIT W/TRANSLUM BALLOON ANGIOPLASTY Left 05/22/2023 AV FISTULOGRAM & PERIPHERAL ANGIOPLASTY performed by Moncho Cast MD at OR [facility] IR BIOPSY 10/24/2022 OTHER sinus surgery x 4 OTHER wisdom teeth REMOVE TONSILS & ADENOIDS, UNDER 12 Review of patient's allergies indicates: Allergen Reactions Pcn [Penicillins] Hives Sulfa Antibiotics Hives Cat Dander Itching Environmental [Dust] Itching Sneezing, itchy watery eyes Current Outpatient Medications Medication Sig Dispense Refill Vitamin C 500 MG Oral Tablet Chewable Take 1 Tablet by mouth in the morning. 30 Tablet 5 Docusate Sodium 100 MG Oral Capsule (Colace) [...] day. To affected area. 80 g 5 Calcitriol 0.25 MCG Oral Capsule (Rocaltrol) Take 1 Capsule by mouth once a day on Sunday, Sunday, and Sunday only. With HD Baclofen 10 MG Oral Tablet (Lioresal) Take 1 Tablet by mouth in the morning and 1 Tablet before bedtime. 60 Tablet 2 traMADol HCl 50 MG Oral Tablet (Ultram) Take 1 Tablet by mouth every 8 hours as needed for Pain, Moderate or Pain, Severe. 30 Tablet 0 Gabapentin 300 MG Oral Capsule (Neurontin) Take 1 Capsule by mouth in the morning and 1 Capsule at noon and 1 Capsule before bedtime. 90 Capsule 3 Pantoprazole Sodium 40 MG Oral Tablet Delayed Release (Protonix) TAKE ONE TABLET BY MOUTH IN THE MORNING 90 Tablet 1 Sevelamer Carbonate 800 MG Oral Tablet (Renvela) TAKE ONE TABLET BY MOUTH IN THE MORNING, ONE TABLET AT NOON, AND ONE TABLET IN THE EVENING. TAKE WITH MEALS. 90 Tablet 1 Virt-Caps 1 MG Oral Capsule TAKE 1 CAPSULE BY MOUTH ONCE DAILY Carvedilol 3.125 MG Oral Tablet (Coreg) Take 1 Tablet by mouth in the morning and 1 Tablet before bedtime. With food. 180 Tablet 3 Venlafaxine HCl ER 37.5 MG Oral Capsule Extended Release 24 Hour (Effexor XR) TAKE 1 CAPSULE BY MOUTH EVERY MORNING. DO NOT CUT, CRUSH OR CHEW 90 Capsule 3 No current facility-administered medications for this visit. Family History: Family History Problem Relation Name Age of Onset Thyroid Disorder Mother Hypertension Mother Lung Disorder Mother COPD/COPD Arthritis Mother Obesity Mother Hypertension Father Obesity Father Cancer Grandmother (Paternal) skin/skin Glaucoma Grandmother (Paternal) Arthritis Grandmother (Paternal) Eye Problems Grandmother (Paternal) Cataracts No Past Hx None No FM HX of [employer]SEM[employer] [place] No Past Hx Son No Past Hx Son Gastro-intestinal disorder Brother PUD Cancer Grandmother (Maternal) pituitary gland/pituitary gland tumor Glaucoma Grandmother (Maternal) Eye Problems Grandmother (Maternal) Cataracts No Past Hx Son Marcell No Past Hx Son Randal Hypertension Brother Zander Marrero Gastro-intestinal disorder Brother Zander Marrero Allergies Brother Zander Marrero Social History: Alcohol: None Tobacco Use: No, quit 2021 Drug Use: No Review of Systems: Eyes: Glaucoma No Cardiovascular: Intermittent palpitations Hypertension: Yes, on medications BP Readings from Last 3 Encounters: 03/04/24 124/80 10/04/23 128/66 09/26/23 128/70 CAD: No Pulmonary Asthma: No COPD: No There are no exam notes on file for this visit. Sleep Apnea STOP-BANG: Does patient snore loudly (louder than talking or loud enough to be heard)?Yes, less than 3 times per week Does patient feel tired, fatigued or sleepy during daytime? no Have others observed patient stopping breathing during sleep? No Does patient have/is being treated for high blood pressure? yes BMI greater than 35 kg/m2? no; There is no height or weight on file to calculate BMI. Patient 50 years or older? no; 44 year old Neck circumference greater than 16 inches? Unknown, this was a Telemed Visit. Gender: female Score: less than 3 no referral indicated Endocrine: No Patient denies personal or family history of medullary thyroid carcinoma. Patient denies personal or family history of multiple endocrine neoplasia syndrome. Insulin Resistance: No Diabetes: No Hemoglobin AIC Results: Lab Results Component Value Date/Time HEMOGLOBIN A1C - NIMA 4.6 07/03/2023 12:00 PM HEMOGLOBIN A1C - NIMA 5.1 10/12/2011 09:02 AM Dyslipidemia: No Lipid Panel Results: Results for orders placed or performed in visit on 07/03/23 LIPID PANEL WITHOUT DIRECT LDL Result Value Ref Range Triglycerides 117 <=174 mg/dL Cholesterol 160 <200 mg/dL HDL Cholesterol 64 >49 mg/dL Non-HDL Cholesterol 96 <=159 mg/dL LDL Cholesterol 73 <=129 mg/dL GI: Constipation, otherwise negative GERD: Yes: Requiring medications: Yes Fatty Liver: no Renal History of nephrolithiasis: No. ESRD on dialysis Musculoskeletal Osteoarthritis: No Functional Status: NO Impairment Reproductive Polycystic ovarian syndromeNo: Menstrual Cycle: Yes, regular Control: No Neuro Stroke: No Seizures: No Headache: No PSYCHOSOCIAL: Anxiety - on medication Physical Examination: LMP 04/11/2024 Awake, alert, NAD Assessment and Recommendation: H/o tobacco use - continue smoking cessation Mitral valve disorder, intermittent palpitations, HTN - avoid Phentermine for weight loss, on Coreg, Cozaar GERD - on Protonix Constipation - on Colace Peripheral neuropathy - on Neurontin, Ultram, Baclofen Anxiety - on Effexor ESRD on dialysis - on Renvela Ms. Benitez is a 44 year old patient with a past medical history listed above, who presents to the [facility] for further recommendations. Abnormal weight gain BMI~34 Class I obesity. Discussed weight management options and would like to proceed with medication weight management. Recommend new RD visit to help optimize diet for weight loss. 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 Recommend increased physical activity as tolerated. Medications reviewed including Phentermine, Topamax, Wellbutrin/Naltrexone, and GLP1 agonist. Wouldavoid Phentermine, Topamax, Wellbutrin/Naltrexone with other comorbid conditions. Patient would consider GLP1 agonist. Will prescribe Wegovy - no recommended renal adjustments necessary. Time spent with patient 30 minutes. More than 50% of my time spent with patient providing counseling about the benefits of weight loss, about the patient's nutritional status, detailed explanations about calorie count, types of nutrients to choose, and composition of the meals. Reviewed and discussed weight, weight trends and pertinent labs and test results. Motivational interview provided in order to prepare the patient to achieve future goals. The patient agreed to try all the plan discussed and return in 6-8 weeks at HOME Clinic - [facility] . Patient was instructed to message or call inthe meantime with any further concerns or questions. Jeffery Velasquez PA-C documented in this encounter Plan of Treatment Upcoming Encounters Date Type Department Care Team (Late st Contact Info) Description 06/24/2024 8:00 AM EDT Office Visit Cardiology, [facility] [address] [place] [address] Eric Preez, [address] [place] [address] 07/08/2024 11:00 AM EDT Office Visit Transplant Clinic, [place] [address] [place] [address] Klever Palafox MD [address] [place] [address] Edwin Kingsley MD [address] [place] [address] Nurse [facility] [address] [place] [address] Mine Kapoor LSW [address] [place] [address] 07/08/2024 2:50 PM EDT Laboratory Outpatient Laboratory, [place] [address] [place] [phone] [place], Lab B1a [address], [place] [phone] 07/08/2024 3:10 PM EDT Appointment Radiology, [place] [address] [place] [phone] 07/10/2024 2:40 PM EDT Office Visit [address] [place] [address] Sofia Fenton MD [address] [facility] [place] [id number] Health Maintenance Due Date Last Done Comments Hepatitis B (1 of 3 - 19+ 3-dose series) 1997 HPV/Co-Test 02/01/2008 Colonoscopy 2023 Fecal Occult Blood Test 2023 Sigmoidoscopy 2023 COVID-19 Vaccine (2022- season) 2023 Pneumococcal Vaccine: Pediatrics (0 to [...] as of this encounter Visit Diagnoses Diagnosis Obesity, Class II, BMI 35-39.9- Primary Morbid obesity documented in this encounter Care Teams Formation Fracturing Operator Relationship Specialty Start Date End Date Sofia Fenton MD [address] [address] PCP - General Internal Medicine 10/24/22 documented as of this encounter
--- OUTSIDE RECORDS SUMMARY | 2024-07-26 19:38 | External Medical Summary ---
Author Name Unknown Address Unknown Organization : Laboratory Report Ordering Provider Test Date Status BRUNA REICH 05/02/2024 05:20:00 Final Observation Date Value Abnormality Reference (Units ) Status REFERENCE LAB SCANNED REPORT 05/02/2024 05:20:00 See Scanned Report Final [facility] STORAGE FEE 05/02/2024 05:20:00 Serum not tested, on hold at [facility] HLA Lab Final Performing Location
--- OUTSIDE RECORDS SUMMARY | 2024-07-26 19:38 | External Medical Summary | Summary of Care ---
Author Name Unknown Organization [facility] Address [address] [address] Phone [phone] Care Team Providers Care Billet Sawyer Name Role Phone Sofia Fenton MD Primary Care Provider [phone] Reason for Visit * Reason Onset Date Comments Pre Cert/Prior Auth 03/25/2024 Encounter Details Date Type Department Care Team (Late st Contact Info) Description 03/25/[address] [address] Outpatient, Precert DO NOT CHANGE [...] peer conversation ? * Telephone Encounter - Ward ZEYNEP Mcintosh - 03/25/2024 11:15 AM EDT The MRI Brain requested for Matilda Eli is currently awaiting Jwab-hk-Iudd Review with [facility]. We kindly request a Nurse, PERLA, ERNESTO, or Physician, call and reference tracking # [id number] to engage in a discussion with a Physician Reviewer to obtain the necessary authorization. Based on the clinical documentation provided, the approval of the requested imaging study is contingent upon the completion of a Qkzh-ty-Tuiq Review. We urge you to initiate this review process promptly, adhering to any specified timeframes, or at your earliest convenience if no specific timeframe has been provided. This study is scheduled for 04/04/2024 and was recently denied by [facility]. Please schedule a P2P in order to obtain approval. In the event that a Kqii-ga-Jiuv Review cannot be conducted, we kindly request that a Clinician contact the patient to discuss and propose an alternative treatment plan. Your prompt attention to thismatter is greatly appreciated. Denial Rationale: Dayna HopperZEYNEP 03/25/2024, 11:15 AM documented in this encounter Plan of Treatment Upcoming Encounters Date Type Department Care Team (Late st Contact Info) Description 04/04/2024 4:15 PM EDT Imaging Radiology [address] [place] [address] 04/15/2024 10:45 AM EDT Imaging Radiology [facility] [address] [facility] [address] [place] [address] 06/24/2024 8:00 AM EDT Office Visit Cardiology, [facility] [address] [facility] [place] [address] Eric Perez, [address] [facility] [address] [place] [address] 07/08/2024 11:00 AM EDT Office Visit Transplant Clinic, [place] [address] [place] [address] Klever Palafox MD [address] [place] [address] Edwin Kingsley MD [address] [place] [address] Nurse [facility] [address] [place] [address] Mine Kapoor LSW [address] [place] [address] 07/08/2024 2:50 PM EDT Laboratory Outpatient Laboratory, [place] [address] [place] [phone] [place], Lab B1a [address] [place] [address] 07/08/2024 3:10 PM EDT Appointment Radiology, [place] [address] [place] [phone] 07/10/2024 2:40 PM EDT Office Visit [facility] [address] [place] [phone] Sofia Fenton MD [address] [place] [address] Health Maintenance Due Date Last [...] filedocumented as of this encounter Care Teams Billet Sawyer Relationship Specialty Start Date End Date Sofia Fenton MD [address] [place] [address] PCP - General Internal Medicine 10/24/22 documented as of this encounter
--- OUTSIDE RECORDS SUMMARY | 2024-07-26 19:38 | External Medical Summary | Summary of Care ---
Author Name Unknown Organization [facility] Address [address] [facility] [place] [address] Phone [phone] Care Team Providers Care Healthcare Technician Name Role Phone Sofia Fenton MD Primary Care Provider [phone] Reason for Visit * Reason Comments eRx-Medication Refill Encounter Details Date Type Department Care Team (Late st Contact Info) Description 04/04/2024 Refill [facility] [address] [place] [address] Sofia Fenton MD [address] [place] [address] Allergies Active Allergy Reactions Criticality [...] OR CHEW 90 Capsule 3 04/05/2024 Active documented as of this encounter (statuses [...] Miscellaneous Notes * Telephone Encounter - Twila Watts [facility] - 04/05/2024 1:45 PM EDT Refused Prescriptions: Disp Refills Venlafaxine HCl ER 37.5 MG Oral Capsule Ex*90 Cap*0 Sig: TAKE 1 CAPSULE BY MOUTH EVERY MORNING. DO NOT CUT, CRUSH OR CHEWRefused By: TWILA WATTS for Refusal: Duplicate Request Carvedilol 3.125 MG Oral Tablet (Coreg) 180 Ta*0 Sig: TAKE 1 TABLET BY MOUTH TWICE DAILY with food every morning and before bedtimeRefused By: TWILA WATTS for Refusal: Duplicate Request documented in this encounter Plan of Treatment Upcoming Encounters Date Type Department Care Team (Late st Contact Info) Description 04/15/2024 10:45 AM EDT Imaging Radiology [facility] [facility] [address] [place] [address] 06/24/2024 8:00 AM EDT Office Visit Cardiology, [facility] [address] [address] Eric Perez, DO [address] [address] 07/08/2024 11:00 AM EDT [facility] [address] [place], [place] [phone] Klever Palafox MD [address] [place] [address] Edwin Kingsley MD [address] [place] [address] Nurse [facility] [address] [place] [address] Mine Kapoor LSW [address] [place] [address] 07/08/2024 2:50 PM EDT Laboratory Outpatient Laboratory, [place] [address] [place] [phone] [place], Lab B1a [address] [place], [place] [phone] 07/08/2024 3:10 PM EDT Appointment Radiology, [address] [phone] 07/10/2024 2:40 PM EDT Office Visit [facility] [address] [place] [address] Sofia Fenton MD [address] [place] [address] Health Maintenance Due Date Last Done Comments Hepatitis B (1 of 3 - 19+ 3-dose series) 1997 HPV/Co-Test 02/01/2008 Colonoscopy 2023 Fecal Occult Blood Test 2023 Sigmoidoscopy 2023 COVID-19 Vaccine (1 - 2022-24 season) 2023 Mammogram 04/12/2024 04/12/2023, [...] filedocumented as of this encounter Care Teams Healthcare Technician Relationship Specialty Start Date End Date Sofia Fenton MD [address] [place] [address] PCP - General Internal Medicine 10/24/22 documented as of this encounter
--- OUTSIDE RECORDS SUMMARY | 2024-07-26 19:38 | External Medical Summary ---
Author Name Unknown Address Unknown Organization : Laboratory Report Ordering Provider Test Date Status GURINDER BAXTER 03/19/2024 10:21:43 Final Observation Date Value Abnormality Reference (Units ) Status FTA - ABS 03/19/2024 10:21:43 Nonreactive Nonreact ofelia Final The FTA-ABS is a treponemal assay that is intended to
be used with other tests (e.g., RPR) as part of a
diagnostic algorithm for syphilis. The preferred
treponemal-specific tests for confirmation of a
reactive RPR are Treponema pallidum Particle
Agglutination (TP-PA) or other treponemal antibody
assays. From Sexually Transmitted Infections Treatment
Guidelines,2020 MMWR Recomm Rep 2020;70 (No. RR-4):
pg.39.

Test Performed at:
[facility]
[address]
[place] [address]
Jericho Allison M.D., Ph.D.,Director of Laboratories Performing Location
--- OUTSIDE RECORDS SUMMARY | 2024-07-26 19:38 | External Medical Summary | Summary of Care ---
Author Name Unknown Organization [facility] [address] [facility] [address] Phone [phone] Care Team Providers Care Supervisor Toy Parts Former Name Role Phone Sofia Fenton MD Primary Care Provider [phone] Reason for Visit * Reason Onset Date Comments Pre Cert/Prior Auth 03/25/2024 Encounter Details Date Type Department Care Team (Late st Contact Info) Description 03/25/[address] [address] Outpatient, Precert DO NOT CHANGE [...] encounter Miscellaneous Notes * Telephone Encounter - Allyson Barcenas LPN - 03/27/2024 11:10 AM EDT Called patient. Left message on answering machine to call office. * Telephone Encounter - Sofia Fenton MD - 03/25/2024 3:35 PM EDT Approved # [id number] Please notify pt to get test as [...] requested for Matilda Eli is currently awaiting Mjjb-kk-Hkuf Review with [employer]. We kindly request a Nurse, PERLA, ERNESTO, or Physician, call and reference tracking # [id number] to engage in a discussion with a Physician Reviewer to obtain the necessary authorization. Based on the clinical documentation provided, the approval of the requested imaging study is contingent upon the completion of a [id number] Review. We urge you to initiate this review process promptly, adhering to any specified timeframes, or at your earliest convenience if no specific timeframe has been provided. This study is scheduled for 04/04/2024 and was recently denied by [employer]. Please schedule a P2P in order to obtain approval. In the event that a Lmxs-rw-Teos Review cannot be conducted, we kindly request that a Clinician contact the patient to discuss and propose an alternative treatment plan. Your prompt attention to thismatter is greatly appreciated. Denial Rationale: Dayna Nicolecatracho, ZEYNEP 03/25/2024, 11:15 AM documented in this encounter Plan of Treatment Upcoming Encounters Date Type Department Care Team (Late st Contact Info) Description 04/04/2024 4:15 PM EDT Imaging Radiology [address] [address] 04/15/2024 10:45 AM EDT Imaging Radiology [address] [address] 06/24/2024 8:00 AM EDT Office Visit Cardiology, [facility] [address] [place] [address] Eric Perez, [address] [place] [address] 07/08/2024 11:00 AM EDT Office Visit Transplant Clinic, [place] [address] [place] [address] Klever Palafox MD [address] [place] [address] Edwin Kingsley MD [address] [place] [address] Nurse [facility] [address] [place] [address] Mine Kapoor LSW [address] [place] [address] 07/08/2024 2:50 PM EDT Laboratory Outpatient Laboratory, [place] [address] [place] [phone] [facility], Lab B1a [address] [place] [address] 07/08/2024 3:10 PM EDT Appointment Radiology, [place] [address] [place] [facility] [place] [phone] 07/10/2024 2:40 PM EDT Office Visit [facility] [address] [place] [address] Sofia Fenton MD [address] [place] [address] Health Maintenance Due Date Last Done Comments [...] filedocumented as of this encounter Care Teams Supervisor Toy Parts Former Relationship Specialty Start Date End Date Sofia Fenton MD [address] [place] [address] PCP - General Internal Medicine 10/24/22 documented as of this encounter
--- OUTSIDE RECORDS SUMMARY | 2024-07-26 19:39 | External Medical Summary ---
Author Name Unknown Address Unknown Organization K0G:[facility] [address] [address] [place] [id number] Laboratory Report Ordering Provider Test Date Status GURINDER BAXTER 03/19/2024 10:21:43 Final Observation Date Value Abnormality Reference (Units ) Status WBC, Total 03/19/2024 10:21:43 6.59 4.00-10.8 0 (K/uL) Final RBC 03/19/2024 10:21:43 4.13 3.85-5.15 (M/uL) Final Hemoglobin 03/19/2024 10:21:43 12.4 12.0-15.3 (g/dL) Final HCT 03/19/2024 10:21:43 37.9 36.0-45.2 (%) Final MCV 03/19/2024 10:21:43 91.8 81.5-97.5 (fL) Final MCH 03/19/2024 10:21:43 30.0 27.0-34.0 (pg) Final MCHC 03/19/2024 10:21:43 32.7 32.0-36.0 (g/dL) Final RDW 03/19/2024 10:21:43 12.3 11.5-15.5 (%) Final Platelets 03/19/2024 10:21:43 213 140-400 (K /uL) Final MPV 03/19/2024 10:21:43 10.8 6.6-11.1 ( fL) Final Performing Location [facility] [address] [place] [id number]
--- OUTSIDE RECORDS SUMMARY | 2024-07-26 19:39 | External Medical Summary ---
Author Name Unknown Address Unknown Organization K01[place] [place] [facility] [address] [place] [address] [address] Laboratory Report Ordering Provider Test Date Status MEAGANMRAIEGURINDER 03/19/2024 10:21:43 Final Observation Date Value Abnormality Reference (Units ) Status Reagin Ab [Presence] in Serum by RPR 03/19/2024 10:21:43 Nonreactive Nonreactive Final Performing Location [facility] [place] [address] [place] [address]
--- OUTSIDE RECORDS SUMMARY | 2024-07-26 19:39 | External Medical Summary | Summary of Care ---
Author Name Unknown Organization [facility] Address [address] [facility] [place] [address] Phone [phone] Care Team Providers Care Media Center Director School Name Role Phone Sofia Fenton MD Primary Care Provider Reason for Visit * Reason Comments Emergency Department Follow-Up Encounter Details Date Type Department Care Team (Late st Contact Info) Description 03/04/2024 10:40 AM EDT Office Visit [facility] [address] [place] [address] Sofia Fenton MD [address] [place] [address] Palpitations*; Hypokalemia; ESRD on dialysis (HCC); HTN, goal below 130/80; Blind spot scotoma, left Allergies Active Allergy Reactions Criticality Noted Date Comments Cat Dander Itching Low 07/09/2014 Dust Itching Low 11/09/2011 Sneezing, itchy watery eyes Penicillins Hives Medium 01/02/2008 Sulfa Antibiotics Hives Medium 01/02/2008 documented as of this encounter (statuses as of 03/04/2024) Medications Medication Sig Dispensed Refills Start Date [...] BY MOUTH ONCE DAILY 0 11/21/2023 Active methylPREDNISolo ne 4 MG Oral Tablet Therapy Pack (Medrol Dosepack) follow package directions 21 Tablet 0 10/04/2023 Discontinue d(Patient preference/ discontinua tion) documented as of this encounter (statuses as of 03/04/2024) Active Problems Problem Noted Date Diagnosed Date [...] as of this encounter (statuses as of 03/04/2024) Resolved Problems Problem Noted Date Diagnosed Date [...] as of this encounter (statuses as of 03/04/2024) Immunizations Name Administration Dates Next Due H1N1 [...] pur e alcohol) none sine August 2022 Hunger Vital Sign Answer Date Recorded Within the past 12 months, y ou worried that your food would run out before you got the money to buy more. Never true 10/26/20 22 Within the past 12 months, t he food you bought just didn't last and you didn't have money to get more. Never true 10/26/2022 Sex and Gender Information Value Date Recorded Sex Assigned at Female 10/26/2022 2:38 PM EST Gender Identity Female 10/26/2022 2:38 PM EST Sexual Orientation Straight 10/26/2022 2: 38 PM EST Job Start Date Occupation Industry Not on file Not on file Not on file documented as of this encounter Last Filed Vital Signs Vital Sign Reading Time Taken Comments Blood Pressure 124/80 03/04/2024 10:43 AM EDT Pulse 72 03/04/2024 10:43 AM EDT Temperature 36.9 C (98.4 F) 03/04/2024 10:43 AM E DT Respiratory Rate 18 03/04/2024 10:43 AM EDT Oxygen Saturation 98% 03/04/2024 10:43 AM EDT Inhaled Oxygen Concentration - - Weight 98 kg (216 lb) 03/04/2024 10:43 AM EDT Height - - Body Mass Index 34.86 10/04/2023 4:09 PM EST documented in this encounter Progress Notes * Sofia Fenton MD - 03/04/2024 11:10 AM EDT Subjective Matilda Benitez is a 44 year old female. 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 With food. 180 Tablet 3 Docusate Sodium 100 MG Oral Capsule (Colace) [...] 1 Tablet before bedtime. 60 Tablet 2 Venlafaxine HCl ER 37.5 MG Oral Capsule Extended Release 24 Hour (Effexor XR) TAKE 1 CAPSULE BY MOUTH EVERY MORNING. DO NOT CUT, CRUSH OR CHEW 90 Capsule 1 traMADol HCl 50 MG Oral Tablet (Ultram) [...] TAKE 1 CAPSULE BY MOUTH ONCE DAILY Vitamin C 500 MG Oral Tablet Chewable Take 1 Tablet by mouth in the morning. 30 Tablet 5 No current facility-administered medications for this visit. Past Medical History: Diagnosis Date Fibromyalgia Gestational diabetes required glyburide Other anxiety states Undiagnosed cardiac murmurs congenital; no SBE prophylaxis Past Surgical History: Procedure Laterality Date AV ACCESS, DIRECT ANASTOMOSIS Left 02/01/2023 ARTERIOVENOUS ANASTOMOSIS OPEN DIRECT ANY SITE performed by Moncho Cast MD [place] [facility] [place] ACCESS, REVISE AVF W/O THRO Left 07/17/2023 REVISION ARTERIOVENOUS FISTULA WITHOUT THROMBECTOMY performed by Moncho Cast MD at [place] [facility] [place] EGD, W/ENDOSCOPIC US N/A 07/05/2023 stones gallbladder/benign lymph node cesar hepatis region/biopsies of liver show liver parenchyma with granulomatous inflammation/ESOPHAGOGASTRODUODENOSCOPY (EGD), FLEXIBLE, TRANSORAL, ENDOSCOPIC ULTRASOUND performed by Kaiden Lui MD at OR [facility] INSER JUAN CARLOS CAT,W/O PUMP;5YR/OLD Right 11/29/2022 INSERT TUNNELED CENTRAL VENOUS CATHETER AGE 3 OR OLDER performed by Clark Cervantes DO at OR [facility] INTRO CATH DIALYSIS CIRCUIT W/TRANSLUM BALLOON ANGIOPLASTY Left 05/22/2023 AV FISTULOGRAM & PERIPHERAL ANGIOPLASTY performed by Moncho Cast MD at [place] [facility] [place] IR BIOPSY 10/24/2022 OTHER sinus surgery x 4 OTHER wisdom teeth REMOVE TONSILS & ADENOIDS, UNDER 12 Review of patient's allergies indicates: Allergen Reactions Pcn [Penicillins] Hives Sulfa Antibiotics Hives Cat Dander Itching Environmental [Dust] Itching Sneezing, itchy watery eyes Family History Problem Relation Age of Onset Thyroid Disorder Mother Hypertension Mother Lung Disorder Mother COPD/COPD Arthritis Mother Obesity Mother Hypertension Father Obesity Father Cancer Grandmother (Paternal) skin/skin Glaucoma Grandmother (Paternal) Arthritis Grandmother (Paternal) Eye Problems Grandmother (Paternal) Cataracts No Past Hx None No FM 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 [place] No Past Hx Son No Past Hx Son Gastro-intestinal disorder Brother PUD Cancer Grandmother (Maternal) pituitary gland/pituitary gland tumor Glaucoma Grandmother (Maternal) Eye Problems Grandmother (Maternal) Cataracts No Past Hx Son No Past Hx Son Hypertension Brother Gastro-intestinal disorder Brother Allergies Brother Family Status Relation Status Mo (Not Specified) [...] level: Not on file Occupational History 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: [employer] Tobacco Use Smoking status: Former Current packs/day: 0.00 Average packs/day: 0.5 packs/day for 15.0 years (7.5 ttl pk-yrs) Types: Cigarettes Start date: 10/23/2007 Quit date: 10/23/2022 Years since quittin.3 Passive exposure: Current Smokeless tobacco: Never Tobacco comments: started age 16 Vaping Use Vaping Use: Never used Substance and Sexual Activity Alcohol use: Yes [...] Yes Self-Exams Not Asked 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 Social Determinants of Health Financial Resource Strain: Not on file Food Insecurity: Patient Declined (03/04/2024) Hunger Vital Sign Worried About Running Out of Food in the Last Year: Patient declined Ran Out of Food in the Last Year: Patient declined Transportation Needs: Not on file Physical Activity: Not on file Stress: Not on file Social Connections: Not on file Intimate Partner Violence: Not on file Housing Stability: Not on file Objective BP 124/80 | Pulse 72 | Temp 36.9 C (98.4 F) (Infrared ) | Resp 18 | Wt 98 kg (216 lb) | SpO2 98% | BMI 34.86 kg/m | BSA 2.14 m ASSESSMENT/PLAN: Palpitations (Primary) - EXTERNAL EKG 2 TO 7 DAYS; Future; Expected date: 03/05/2024 Hypokalemia - BASIC METABOLIC PANEL; Future; Expected date: 03/11/2024 ESRD on dialysis (HCC) - BASIC METABOLIC PANEL; Future; Expected date: 03/11/2024 HTN, goal below 130/80 Blind spot scotoma, left Sofia Fenton MD documented in this encounter Nursing Notes * Estelita Ashby LPN - 03/04/2024 10:38 AM EDT Chief Complaint Patient presents with Emergency Department Follow-Up documented in this encounter Plan of Treatment Upcoming Encounters Date Type Department Care Team (Late st Contact Info) Description 04/15/2024 10:45 AM EDT Imaging Radiology [facility] 1st [facility] [place] [address] [place] [address] 07/08/2024 10:40 AM EDT [facility] [address] [facility] [phone] Sofia Fenton MD [address] [address] Scheduled Orders Name Type Priority Associated Diagnoses Orde r Schedule EXTERNAL EKG 2 TO 7 DAYS Holter Routine Palpitations Expected: 03/05/2024 (Approximate), Expires: 03/04/2025 BASIC METABOLIC PANEL Lab Routine Hypokalemia ESRD on dialysis (HCC) Expected: 03/11/2024 (Approximate), Expires: 03/04/2025 Health Maintenance Due Date Last Done Comments Hepatitis B (1 of 3 - 19+ 3-dose series) 1997 HPV/Co-Test 02/01/2008 Pneumococcal Vaccine: Pediatrics (0 to 5 Years) and At-Risk Patients (6 to 64 Years) (2 of 2 - PCV) 09/08/2010 09/08/2009 Colonoscopy 2023 Fecal Occult Blood Test 2023 Sigmoidoscopy 2023 COVID-19 Vaccine ( - 2022- season) 2023 Mammogram 04/12/2024 04/12/2023, 03/23/2023 Depression Screening 03/04/2025 03/04/2024 Cervical Cancer Screening [...] as of this encounter Visit Diagnoses Diagnosis Palpitations- Primary Hypokalemia Hypopotassemia ESRD on dialysis (HCC) End stage renal disease HTN, goal below 130/80 Unspecified essential hypertension Blind spot scotoma, left documented in this encounter Care Teams Media Center Director School Relationship Specialty Start Date End Date Sofia Fenton MD [address] [place] [address] PCP - General Internal Medicine 10/24/22 documented as of this encounter"
--- OUTSIDE RECORDS SUMMARY | 2024-07-26 19:39 | External Medical Summary | Summary of Care ---
Author Name Unknown Organization [facility] Address [address] [facility] [address] Phone [phone] Care Team Providers Care Insulation Board Calender Operator Name Role Phone Sofia Fenton MD Primary Care Provider [phone] Reason for Visit * Reason Onset Date Comments Other 03/18/2024 Encounter Details Date Type Department Care Team (Late st Contact Info) Description 03/18/2024 Telephone [facility] [address] [place] [address] Sofia Fenton MD [address] [place] [address] Other Allergies Active Allergy Reactions Criticality Noted Date Comments Cat Dander Itching Low 07/09/2014 Dust Itching Low 11/09/2011 Sneezing, itchy watery eyes Penicillins Hives Medium 01/02/2008 Sulfa Antibiotics Hives Medium 01/02/2008 documented as of this encounter (statuses as of 03/18/2024) Medications Medication Sig Dispensed Refills Start Date [...] as of this encounter (statuses as of 03/18/2024) Active Problems Problem Noted Date Diagnosed Date [...] as of this encounter (statuses as of 03/18/2024) Resolved Problems Problem Noted Date Diagnosed Date [...] culture still showing <10,[address] Hemmer, try Keflex. ALISON after treatment complete - [...] as of this encounter (statuses as of 03/18/2024) Immunizations Name Administration Dates Next Due H1N1 [...] 2:38 PM EST Sexual Orientation Straight 10/26/2022 2 :38 PM EST Job Start Date Occupation Industry Not on file Not on file Not on file documented as of this encounter Miscellaneous Notes * Telephone Encounter - Sofia Fenton MD - 03/18/2024 3:35 PM EDT Noted Will f/u MRI test * Telephone Encounter - Darshana Reina CPhT - 03/18/2024 2:56 PM EDT Patient returning call, she wanted to let the office know that her next eye appt wont be until July. Thank you, Darshana Reina CPhT [facility] telepharmacy) 03/18/2024,2:57 PM documented in this encounter Plan of Treatment Upcoming Encounters Date Type Department Care Team (Late st Contact Info) Description 03/19/2024 10:00 AM EDT Imaging Vascular Lab, [facility] 2nd [facility], [address] [place] [address] 04/04/2024 4:15 PM EDT Imaging Radiology [facility] [address] [place] [address] 04/15/2024 10:45 AM EDT Imaging Radiology [address] [place] [address] 07/08/2024 10:40 AM EDT Office Visit [place] [address] [facility] [place] [address] Sofia Fenton MD [address] [facility] [place] [address] 07/08/2024 11:00 AM EDT Office Visit Transplant Clinic, [place] [address] [place], [place] [phone] Klever Palafox MD [address] [place] [address] Edwin Kingsley MD [address] [place], [place] [phone] Nurse [facility] [address] [place], [place] [phone] Mine Kapoor LSW [address] [place], [place] [phone] 07/08/2024 2:50 PM EDT Laboratory Outpatient Laboratory, [address] [address] [place], Lab B1a [address] [place], [place] [address] 07/08/2024 3:10 PM EDT Appointment Radiology, [address] [address] Health Maintenance Due Date Last Done Comments Hepatitis B (1 of 3 - 19+ 3-dose series) 1997 HPV/Co-Test 02/01/2008 Pneumococcal Vaccine: Pediatrics (0 to 5 Years) and At-Risk Patients (6 to 64 Years) (2 of 2 - PCV) 09/08/2010 09/08/2009 Colonoscopy 2023 Fecal Occult Blood Test 2023 Sigmoidoscopy 2023 COVID-19 Vaccine ( - 2022-24 season) 2023 Mammogram 04/12/2024 04/12/2023, 03/23/2023 Depression [...] filedocumented as of this encounter Care Teams Insulation Board Calender Operator Relationship Specialty Start Date End Date Sofia Fenton MD [address] [facility] [place] [address] PCP - General Internal Medicine 10/24/22 documented as of this encounter
--- OUTSIDE RECORDS SUMMARY | 2024-07-26 19:39 | External Medical Summary | Summary of Care ---
Author Name Unknown Organization [facility] Address [address] [place] [address] Phone [phone] Care Team Providers Care Medical Administrator Name Role Phone Sofia Fenton MD Primary Care Provider [phone] Reason for Referral * Precert (Within 10 days (routine)) - Pending Review Specialty Diagnoses / Procedures Referred By Contac t Referred To Contact Radiology Diagnoses HTN, goal below 130/80 Blind spot scotoma, left Procedures MRI BRAIN WITHOUT CONTRAST Sofia Fenton MD [address] [place] [address] Referral ID Status Reason Start Date Expiration Date V isits Requested Visits Authorized [id number] Pending Review 03/13/2024 999 [id number] Reason for Visit * Reason Onset Date Comments Order Request 03/10/2024 Labs requested Renato Clal OD. Encounter Details Date Type Department Care Team (Late st Contact Info) Description 03/10/[address] [facility] [address] [place] [address] Sofia Fenton MD [address] [place] [address] Order Request (Labs requested by Daisy Meneses.. Allergies Active Allergy Reactions Criticality Noted Date Comments Cat Dander Itching Low 07/09/2014 Dust Itching Low 11/09/2011 Sneezing, itchy watery eyes Penicillins Hives Medium 01/02/2008 Sulfa Antibiotics Hives Medium 01/02/2008 documented as of this encounter (statuses as of 03/13/2024) Medications Medication Sig Dispensed Refills Start Date [...] as of this encounter (statuses as of 03/13/2024) Active Problems Problem Noted Date Diagnosed Date [...] as of this encounter (statuses as of 03/13/2024) Resolved Problems Problem Noted Date Diagnosed Date [...] as of this encounter (statuses as of 03/13/2024) Immunizations Name Administration Dates Next Due H1N1 [...] as of this encounter Miscellaneous Notes * Addendum Note - Sofia Fenton MD - 03/13/2024 10:46 AM EDTAddended by: SOFIA FENTON on: 03/13/2024 10:46 AM Modules accepted: Orders * Telephone Encounter - Sofia Fenton MD - 03/13/2024 10:44 AM EDT [...] 10:19 AM EDT Received a letter from [facility] Daisy Call O.D. requesting you orders some labs for pt. Iplaced the letter on provider's desk to review. documented in this encounter Plan of Treatment Upcoming Encounters Date Type Department Care Team (Late st Contact Info) Description 04/15/2024 10:45 AM EDT Imaging Radiology [facility] [place] [address] [facility] [place] [address] 07/08/2024 10:40 AM EDT Office [facility] [address] [facility] [address] Sofia Fenton MD [address] [facility] [id number] Scheduled Orders Name Type Priority Associated Diagnoses Orde r Schedule CBC WITH WBC DIFFERENTIAL Lab Routine HTN, goal below 130/80 Blind spot scotoma, left Expected: 03/13/2024 (Approximate), Expires: 03/13/2025 RPR Lab Routine HTN, goal below 130/80 Blind spot scotoma, left Expected: 03/13/2024 (Approximate), Expires: 03/13/2025 FTA-ABS Lab Routine HTN, goal below 130/80 Blind spot scotoma, left Expected: 03/13/2024, Expires: 03/13/2025 ANTINUCLEAR ANTIBODY (DOROTEO) EIA SCREEN WITH REFLEX AB QUANT Lab Routine HTN, goal below 130/80 Blind spot scotoma, left Expected: 03/13/2024 (Approximate), Expires: 03/13/2025 VASC DUPLEX CAROTID BILAT Medical Imaging Routine HTN, goal below 130/80 Blind spot scotoma, left Ordered: 03/13/2024 BP MONITORING 24HR, AMB. (COMM PRAC) Procedures Routine HTN, goal below 130/80 Blind spot scotoma, left Ordered: 03/13/2024 MRI BRAIN WITHOUT CONTRAST Medical Imaging Routine HTN, goal below 130/80 Blind spot scotoma, left Expected: 03/13/2024, Expires: 04/12/2025 XR EYE FOREIGN BODY NON MRI Medical [...] as of this encounter Visit Diagnoses Diagnosis HTN, goal below 130/80- Primary Unspecified essential hypertension ESRD on dialysis (HCC) End stage renal disease Blind spot scotoma, left documented in this encounter Care Teams Medical Administrator Relationship Specialty Start Date End Date Sofia Fenton MD [address] [facility] [place] [address] PCP - General Internal Medicine 10/24/22 documented as of this encounter
--- OUTSIDE RECORDS SUMMARY | 2024-07-26 19:39 | External Medical Summary | Summary of Care ---
Author Name Unknown Organization [facility] Address [address] [facility] [place] [address] Phone [phone] Care Team Providers Care Surplus Property Disposal Agent Name Role Phone Sofia Fenton MD Primary Care Provider [phone] Reason for Visit * Reason Onset Date Comments Order Request 03/10/2024 Labs requested Renato Call OD. Encounter Details Date Type Department Care Team ([facility] st Contact Info) Description 03/10/[address] [facility] [address] [place] [address] Sofia Fenton MD [address] [place] [address] Order Request (Labs requested by Daisy Meneses.. Allergies Active Allergy Reactions Criticality Noted Date Comments Cat Dander Itching Low 07/09/2014 Dust Itching Low 11/09/2011 Sneezing, itchy watery eyes Penicillins Hives Medium 01/02/2008 Sulfa Antibiotics Hives Medium 01/02/2008 documented as of this encounter (statuses as of 03/11/2024) Medications Medication Sig Dispensed Refills Start Date [...] as of this encounter (statuses as of 03/11/2024) Active Problems Problem Noted Date Diagnosed Date [...] as of this encounter (statuses as of 03/11/2024) Resolved Problems Problem Noted Date Diagnosed Date [...] as of this encounter (statuses as of 03/11/2024) Immunizations Name Administration Dates Next Due H1N1 [...] encounter Miscellaneous Notes * Telephone Encounter - Estelita Ashby LPN - 03/10/2024 10:19 AM EDT Received a letter from [facility] Daisy Call O.D. requesting you orders some labs for pt. Iplaced the letter on provider's desk to review. documented in this encounter Plan of Treatment Upcoming Encounters Date Type Department Care Team (Late st Contact Info) Description 04/15/2024 10:45 AM EDT Imaging Radiology [address] [place] [address] 07/08/2024 10:40 AM EDT Office Visit [facility] [address] [place] [address] Sofia Fenton MD [address], [place] [id number] Health Maintenance Due Date Last Done Comments [...] filedocumented as of this encounter Care Teams Surplus Property Disposal Agent Relationship Specialty Start Date End Date Sofia Fenton MD [address] [place] [address] PCP - General Internal Medicine 10/24/22 documented as of this encounter
--- OUTSIDE RECORDS SUMMARY | 2024-07-26 19:39 | External Medical Summary ---
Author Name Unknown Address Unknown Organization K0G:[facility] [place] [address] [place] [id number] Laboratory Report Ordering Provider Test Date Status GURINDER BAXTER 03/19/2024 10:21:43 Final Observation Date Value Abnormality Reference (Units ) Status BUN 03/19/2024 10:21:43 33 Above high normal 6-20 (mg/dL) Final Creatinine 03/19/2024 10:21:43 2.4 Above high normal 0.5-1.0 (mg/dL) Final Glomerular filtration rate/1.73 sq M.predicted [Volume Rate/Area] in Serum, Plasma or Blood by Creatinine-based formula (CKD-EPI) 03/19/2024 10:21:43 25 Below low normal >=60 (mL/min) Final eGFR is calculated based on the CKD-EPI 2020 equation Sodium 03/19/2024 10:21:43 137 135-146 (m mol/L) Final Potassium 03/19/2024 10:21:43 3.9 3.5-5.1 (m mol/L) Final Cl 03/19/2024 10:21:43 98 98-107 (mm ol/L) Final CO2 03/19/2024 10:21:43 28 22-32 (mmo l/L) Final Anion gap 03/19/2024 10:21:43 11 7-15 (mmol /L) Final Glucose 03/19/2024 10:21:43 97 70-120 (mg /dL) Final Calcium 03/19/2024 10:21:43 9.4 8.4-10.2 ( mg/dL) Final Performing Location [facility] [place] [address] [place] [id number]
--- OUTSIDE RECORDS SUMMARY | 2024-07-26 19:39 | External Medical Summary | Summary of Care ---
Author Name Unknown Organization [facility] Address [address] [place] [address] Phone [phone] Care Team Providers Care Senior Qa Tester Name Role Phone Sofia Fenton MD Primary Care Provider [phone] Reason for Referral * Precert (Within 10 days (routine)) - Pending Review Specialty Diagnoses / Procedures Referred By Contac t Referred To Contact Radiology Diagnoses HTN, goal below 130/80 Blind spot scotoma, left Procedures MRI BRAIN WITHOUT CONTRAST Sofia Fenton MD [address] [place] [address] Referral ID Status Reason Start Date Expiration Date V isits Requested Visits Authorized [id number] Pending Review 03/13/2024 999 999 Reason for Visit * Reason Onset Date Comments Order Request 03/10/2024 Labs requested Renato Call OD. Encounter Details Date Type Department Care Team (Late st Contact Info) Description 03/10/2024 Telephone [facility] [address] [place] [address] Sofia Fenton MD [address] [place] [address] Order Request (Labs requested by Daisy Meneses.. Allergies Active Allergy Reactions Criticality Noted Date Comments Cat Dander Itching Low 07/09/2014 Dust Itching Low 11/09/2011 Sneezing, itchy watery eyes Penicillins Hives Medium 01/02/2008 Sulfa Antibiotics Hives Medium 01/02/2008 documented as of this encounter (statuses as of 03/17/2024) Medications Medication Sig Dispensed Refills Start Date [...] as of this encounter (statuses as of 03/17/2024) Active Problems Problem Noted Date Diagnosed Date [...] as of this encounter (statuses as of 03/17/2024) Resolved Problems Problem Noted Date Diagnosed Date [...] as of this encounter (statuses as of 03/17/2024) Immunizations Name Administration Dates Next Due H1N1 [...] message below. 03/17/2024 * Addendum Note - Sofia Fenton MD [...] 10:19 AM EDT Received a letter from [email or web address] Daisy Call O.D. requesting you orders some labs for pt. Iplaced the letter on provider's desk to review. documented in this encounter Plan of Treatment Upcoming Encounters Date Type Department Care Team (Late st Contact Info) Description 03/19/2024 10:00 AM EDT Imaging Vascular Lab, [facility] 2nd Floor, [address] [place] [address] 04/04/2024 4:15 PM EDT Imaging Radiology [facility] 1st [facility], [address] [place] [address] 04/15/2024 10:45 AM EDT Imaging Radiology [address], [address] [place] [address] 07/08/2024 10:40 AM EDT Office Visit [facility] [address] [place] [address] Sofia Fenton MD [address] [place] [address] Scheduled Orders Name Type Priority Associated Diagnoses [...] left documented in this encounter Care Teams Senior Qa Tester Relationship Specialty Start Date End Date Sofia Fenton MD [address] [place] [address] PCP - General Internal Medicine 10/24/22 documented as of this encounter
--- OUTSIDE RECORDS SUMMARY | 2024-07-26 19:39 | External Medical Summary | Summary of Care ---
Author Name Unknown Organization [facility] [address] [facility] [address] Phone [phone] Care Team Providers Care Necktie Turner Name Role Phone Sofia Fenton MD Primary Care Provider [phone] Reason for Visit * Reason Onset Date Comments Order Request 02/27/2024 Encounter Details Date Type Department Care Team (Late st Contact Info) Description 02/27/2024 Telephone [facility] [address] [place] [address] Sofia Fenton MD [address] [place] [address] Order Request Allergies Active Allergy Reactions Criticality Noted Date Comments Cat Dander Itching Low 07/09/2014 Dust Itching Low 11/09/2011 Sneezing, itchy watery eyes Penicillins Hives Medium 01/02/2008 Sulfa Antibiotics Hives Medium 01/02/2008 documented as of this encounter (statuses as of 03/03/2024) Medications Medication Sig Dispensed Refills Start Date [...] and Sunday only. With HD 0 Active methylPREDNISolone 4 MG Oral Tablet Therapy Pack (Medrol Dosepack) follow package directions 21 Tablet 0 10/04/2023 Active Baclofen 10 MG Oral Tablet (Lioresal) [...] as of this encounter (statuses as of 03/03/2024) Active Problems Problem Noted Date Diagnosed Date [...] as of this encounter (statuses as of 03/03/2024) Resolved Problems Problem Noted Date Diagnosed Date [...] as of this encounter (statuses as of 03/03/2024) Immunizations Name Administration Dates Next Due H1N1 2009 Influenza, IM 11/08/2009 Pneumococcal Polysaccharide PPV23 (Pneumovax) Seasonal Influenza, Split, IIV3, With Preserve, Inj 10/12/2011,10/14/2010 TDAP (age 11 and older)(Adacel) 09/08/2009 documented [...] Telephone Encounter - Kennedi Live OSA - 03/03/2024 8:25 AM EDT LMOM. Letter sent. 03/03/2024 * Telephone Encounter - Kennedi Live OSA - 02/28/2024 12:08 PM EDT MyG sent to schedule. 02/28/2024 * Telephone Encounter - Kennedi Live OSA - 02/28/2024 9:36 AM EDT MyG sent. 02/28/2024 * Telephone Encounter - Sofia Fenton MD - 02/28/2024 8:50 AM EDT Ordered mammo * Telephone Encounter - Allyson Barcenas LPN - 02/27/2024 12:28 PM EDT Please advise as below. Thank you. * Telephone Encounter - Meseret Alcantara OSA - 02/27/2024 11:34 AM EDT Pt is requesting MAMMOGRAM order to be placed. An order was requested for this patient. Name of Requesting Provider: N/A Order Requested: Mammogram order Diagnosis/Reason for Request: Annual Mammogram If order request is for Mammogram: Is the patient having any breast symptoms? No Is there a chance of ? No Has the patient had any breast problems in the past? No What location AND department does the patient wish to have their order completed at? [facility] location Fax Number, if applicable: n/a If the caller is not a current patient, please advise the patient to call their current PCP to havethe order's prior to being seen in our office. The patient was informed that our providers would not order anything (medication, labs, etc.) prior to being seen. documented in this encounter Plan of Treatment Upcoming Encounters Date Type Department Care Team (Late st Contact Info) Description 03/04/2024 10:40 AM EDT Office Visit [facility] [address] [place] [address] Sofia Fenton MD [address], [place] [phone] 03/25/2024 3:00 PM EDT Office Visit [facility] [address] [place] [phone] Sofia Fenton MD [address] [place] [address] Scheduled Orders Name Type Priority Associated Diagnoses Orde r Schedule MAMMOGRAM SCREENING RANJEET BILATERAL Medical Imaging Routine Encounter for screening mammogram for breast cancer Expected: 03/24/2024 (Approximate), Expires: 03/29/2025 Health Maintenance Due Date Last Done Comments Hepatitis B (1 of 3 - 19+ 3-dose series) 1997 HPV/Co-Test 02/01/2008 Pneumococcal Vaccine: Pediatrics (0 to 5 Years) and At-Risk Patients (6 to 64 Years) (2 of 2 - PCV) 09/08/2010 09/08/2009 Depression Screening 12/09/2016 12/09/2015 DTaP,Tdap,and Td Vaccines (2 - Td or Tdap) 09/08/2019 09/08/2009 Colonoscopy 2023 Fecal Occult Blood Test 2023 Sigmoidoscopy 2023 COVID-19 Vaccine (2022-24 season) 2023 Mammogram 04/12/2024 04/12/2023, 03/23/2023 Cervical Cancer Screening 03/20/2026 Pap Smear 03/20/2026 03/20/2023, 07/27, 01/28/2013, Additional history exists Cologuard 04/11/2026 04/11/2023, 05/0 05/2023, 04/01/2023 Colorectal Cancer Screening 04/11/2026 Diabetes Screening 07/17/2026 07/17/2023, 0 07/03/2023, 07/03/2023, Additional history exists Lipid Panel 07/03/2028 07/03/2023 Influenza Vaccine (FLU shot) Completed 04/2023, 08/31/2023, 10/12/2011, Additional history exists GARDASIL-HPV IMMUNIZATION SERIES Aged Out No longer eligible based on patient's age to complete this topic MENINGOCOCCAL (MENACTRA/MENVEO) Aged Out No longer eligible based on patient's age to complete this topic documented as of this encounter Medical Devices Not on filedocumented as of this encounter Visit Diagnoses Diagnosis Encounter for screening mammogram for breast cancer- Primary documented in this encounter Care Teams Necktie Turner Relationship Specialty Start Date End Date Sofia Fenton MD [address] [place] [address] PCP - General Internal Medicine 10/24/22 documented as of this encounter
--- OUTSIDE RECORDS SUMMARY | 2024-07-26 19:39 | External Medical Summary ---
Author Name Unknown Address Unknown Organization [facility] [place] [address] [place] [address] Laboratory Report Ordering Provider Test Date Status GURINDER BAXTER 03/19/2024 10:21:43 Final Observation Date Value Abnormality Reference (Units ) Status SYNC LEUKOCYTES IN BLOOD BY AUTOMATED COUNT 03/19/2024 10:21:43 6.59 4.00-10.80 (K/uL) Final Segs 03/19/2024 10:21:43 61.6 40.0-75.0 (%) Final Lymphs % 03/19/2024 10:21:43 23.2 18.0-42.0 (%) Final Monos 03/19/2024 10:21:43 9.7 1.0-11.0 (%) Final Eosinophils 03/19/2024 10:21:43 5.2 0.0-6.0 (%) Final Basos 03/19/2024 10:21:43 0.3 0.0-2.0 (%) Final Absolute Segs 03/19/2024 10:21:43 4.06 1.80-7.70 (K/uL) Final Lymphs, absolute 03/19/2024 10:21:43 1.53 1.00-4.80 (K/ul) Final Monos, Abs 03/19/2024 10:21:43 0.64 0.00-1.10 (K/uL) Final Eos, Abs 03/19/2024 10:21:43 0.34 0.00-0.70 (K/uL) Final Basos, Abs 03/19/2024 10:21:43 0.02 0.00-0.20 (K/uL) Final Performing Location [facility] [place] [address] [place] [id number]
--- OUTSIDE RECORDS SUMMARY | 2024-07-26 19:39 | External Medical Summary ---
Author Name Unknown Address Unknown Organization K01:[facility] [place] [address] [facility] [address] [facility] [address] Laboratory Report Ordering Provider Test Date Status GURINDER BAXTER 03/19/2024 10:21:43 Final Observation Date Value Abnormality Reference (Units ) Status Nuclear IgG Ab [Ratio] in Serum by Immunoassay 03/19/2024 10:21:43 Negative Negative Final DNA double strand Ab [Presence] in Serum 03/19/2024 10:21:43 Negative Negative Final DOUBLE STRANDED DNA VALUE - [facility] 03/19/2024 10:21:43 2.4 <20 (IU/mL) Final Extractable nuclear Ab [Presence] in Serum 03/19/2024 10:21:43 Negative Negative Final Nuclear IgG Ab [Ratio] in Serum by Immunoassay 03/19/2024 10:21:43 0.2 <0.7 (Ratio) Final Screening is based on detect ion of the following antibodies: dsDNA, U1-WATER POLLUTION SPECIALIST (RNP70, A, C), SS-A/Ro, SS-B / La, Sho-1, Scl-70, Centromere B proteins and Sm proteins. In conjunction with clinical findings, this can aid in the diagnosis of systemic lupus erythematosous (SLE), mixed connective tissue disease (MCTD), Sjogren's syndrome, scleroderma and polymyositis/dermatomyositis.
However, a negative result does not rule out systemic rheumatic or other autoimmune disease. If clinically suspected, further evaluation and testing may be necessary. Please consult with Rheumatology Department.
Methodology: Fluorescent Enzyme Immunoassay. Performing Location LABORATORY [address] [facility] [address]
--- OUTSIDE RECORDS SUMMARY | 2024-07-26 19:39 | External Medical Summary ---
Author Name Unknown Address Unknown Organization : Laboratory Report Ordering Provider Test Date Status BRUNA REICH 02/29/2024 05:15:00 Final Observation Date Value Abnormality Reference (Units ) Status REFERENCE LAB SCANNED REPORT 02/29/2024 05:15:00 See Scanned Report Final Performing Location
--- OUTSIDE RECORDS SUMMARY | 2024-07-26 19:39 | External Medical Summary | Summary of Care ---
Author Name Unknown Organization [facility] Address [address] [place] [address] Phone [phone] Care Team Providers Care Lecturer In Marketing Name Role Phone Sofia Fenton MD Primary Care Provider [phone] Reason for Visit * Reason Onset Date Comments Information 03/11/2024Jul 19 Encounter Details Date Type Department Care Team (Late st Contact Info) Description [facility]/11[facility] [address] [place] [address] Linda Yuen, RN [address] [place], [place] [address] [address] Information (Jul 19) Allergies Active Allergy Reactions Criticality Noted Date [...] encounter Miscellaneous Notes * Telephone Encounter - Linda Yuen, RN - 03/11/2024 3:30 PM EDT Patient is due in Jun 2024 for her annual with transplant with labs. Cards due 03/19. Linda Yuen, RN documented in this encounter Plan of Treatment Upcoming Encounters Date Type Department Care Team (Late st Contact Info) Description 04/15/2024 10:45 AM EDT Imaging Radiology [address] [place] [address] 07/08/2024 10:40 AM EDT Office Visit [facility] [address] [place] [address] Sofia Fenton MD [address] [place], [place] [phone] Scheduled Orders Name Type Priority Associated Diagnoses Orde r Schedule QUANTIFERON TB GOLD PLUS Lab STAT ESRD on dialysis (HCC) Pre-transplant evaluation for ESRD (end stage renal disease) Expected: 07/01/2024 (Approximate), Expires: 03/05/2025 HIV ANTIGEN & ANTIBODY SCREEN W/ CONFIRMATION Lab STAT ESRD on dialysis (HCC) Pre-transplant evaluation for ESRD (end stage renal disease) Expected: 07/01/2024 (Approximate), Expires: 03/05/2025 RPR Lab STAT ESRD on dialysis (HCC) Pre-transplant evaluation for ESRD (end stage renal disease) Expected: 07/01/2024 (Approximate), Expires: 03/05/2025 HEPATITIS B SURFACE ANTIGEN Lab STAT ESRD on dialysis (HCC) Pre-transplant evaluation for ESRD (end stage renal disease) Expected: 07/01/2024 (Approximate), Expires: 03/05/2025 HEPATITIS B SURFACE ANTIBODY Lab STAT ESRD on dialysis (HCC) Pre-transplant evaluation for ESRD (end stage renal disease) Expected: 07/01/2024 (Approximate), Expires: 03/05/2025 HEPATITIS B CORE ANTIBODIES IGG AND IGM Lab STAT ESRD on dialysis (HCC) Pre-transplant evaluation for ESRD (end stage renal disease) Expected: 07/01/2024 (Approximate), Expires: 03/05/2025 HEPATITIS C ANTIBODY SCREEN WITH PROGRESSION TO HEPATITIS C RNA QUANTITATIVE Lab STAT ESRD on dialysis (HCC) Pre-transplant evaluation for ESRD (end stage renal disease) Expected: 07/01/2024 (Approximate), Expires: 03/05/2025 COMPREHENSIVE METABOLIC PANEL Lab STAT ESRD on dialysis (HCC) Pre-transplant evaluation for ESRD (end stage renal disease) Expected: 07/01/2024 (Approximate), Expires: 03/05/2025 MONTHLY HLA CLASS 1 & 2 W/REFLEX, SOLID ORGAN TRANSPLANT Lab STAT ESRD on dialysis (HCC) Pre-transplant evaluation for ESRD (end stage renal disease) Expected: 07/01/2024 (Approximate), Expires: 03/05/2025 PTH Lab STAT ESRD on dialysis (HCC) Pre-transplant evaluation for ESRD (end stage renal disease) Expected: 07/01/2024 (Approximate), Expires: 03/05/2025 XR CHEST 2 VIEWS Medical Imaging Routine ESRD on dialysis (HCC) Pre-transplant evaluation for ESRD (end stage renal disease) Expected: 07/01/2024 (Approximate), Expires: 04/10/2025 HEMOGLOBIN A1C Lab STAT ESRD on dialysis (HCC) Pre-transplant evaluation for ESRD (end stage renal disease) Expected: 07/01/2024 (Approximate), Expires: 03/05/2025 Health Maintenance Due Date Last Done Comments [...] encounter Visit Diagnoses Diagnosis ESRD on dialysis (HCC)- Primary End stage renal disease Pre-transplant evaluation for ESRD (end stage renal disease) Other specified pre-operative examination documented in this encounter Care Teams Lecturer In Marketing Relationship Specialty Start Date End Date Sofia Fenton MD [address] [place] [address] PCP - General Internal Medicine 10/24/22 documented as of this encounter
--- OUTSIDE RECORDS SUMMARY | 2024-07-26 19:39 | External Medical Summary | Summary of Care ---
Author Name Unknown Organization [facility] Address [address] [facility] [place] [address] Phone [phone] Care Team Providers Care Schedule Announcer Name Role Phone Sofia Fenton MD Primary Care Provider [phone] Encounter Details Date Type Department Care Team (Late st Contact Info) Description 03/06/2024 Orders Only PATIENT [place] DO NOT DELETE THIS DEPT USED BY [place] [id number] Allergies Active Allergy Reactions Criticality Noted Date Comments Cat Dander Itching Low 07/09/2014 Dust Itching Low 11/09/2011 Sneezing, itchy watery eyes Penicillins Hives Medium 01/02/2008 Sulfa Antibiotics Hives Medium 01/02/2008 documented as of this encounter (statuses as of 03/06/2024) Medications Medication Sig Dispensed Refills Start Date [...] as of this encounter (statuses as of 03/06/2024) Active Problems Problem Noted Date Diagnosed Date [...] as of this encounter (statuses as of 03/06/2024) Resolved Problems Problem Noted Date Diagnosed Date [...] as of this encounter (statuses as of 03/06/2024) Immunizations Name Administration Dates Next Due H1N1 [...] Description 04/15/2024 10:45 AM EDT Imaging Radiology [facility]st [facility] [address] [facility] [place] [address] 07/08/2024 10:40 AM EDT Office Visit [facility] [place] [address] [facility] [address] Sofia Fenton MD [address] [facility] [address] Health Maintenance Due Date Last Done Comments [...] filedocumented as of this encounter Care Teams Schedule Announcer Relationship Specialty Start Date End Date Sofia Fenton MD [address] [place] [address] PCP - General Internal Medicine 10/24/22 documented as of this encounter
--- NOTE | 2024-07-26 20:13 | Emergency Department Note ---
Impression & Plan Shortness of breath, Mycoplasma pneumonia, Acute pneumonia ED Provider Note HISTORY OF PRESENT ILLNESS: Patient is a 44-year-old female presenting with cough, shortness of breath and general malaise. Patient reports she has been feeling generally unwell for the last 3 days. Reports she has had poor oral intake and has not been able to tolerate anything by mouth secondary to nausea. Reports feeling very tired and rundown. She is concerned she has pneumonia because she has been having a sore throat and a cough that is nonproductive. She is an ESRD patient on Sunday and Sunday dialysis and reports that she had to cut her dialysis session short yesterday second and feeling so unwell. She reports low-grade fevers at home and has had subjective chills and sweats. Denies any recent travel. Reports her recently was sick with what they believed was a viral illness. She does still make urine but denies any dysuria. She reports she coughed so hard that she pees herself. Denies any abdominal pain. Patient reports has been unable to sleep secondary to feeling so unwell and feeling short of breath when she lays flat. ROS: as above PHYSICAL EXAM: Constitutional: Patient appears in no acute distress. HENT: Head: Normocephalic and atraumatic. Eyes: EOMI, PERRL Mouth/Throat: Mucous membranes moist. Neck: Trachea midline. Neck supple. Cardiovascular: Tachycardic with regular rhythm. No murmurs, rubs or gallops. Intact distal pulses. Pulmonary/Chest: No respiratory distress. Breath sounds clear and equal bilaterally. No wheezes or rales. Abdominal: Abdomen soft, no tenderness, rebound or guarding. Musculoskeletal: No edema, tenderness or deformity noted. Skin: Warm and dry. No rash, erythema, pallor or cyanosis Psychiatric: Appropriate mood and affect for situation. Neurological: Alert and keenly responsive. CN II-XII grossly intact, moving all extremities equally and fully. MDM: - Vitals signs showed fever and tachycardia. - History obtained via patient. History as above. - Chronic conditions affecting care: HTN; cirrhosis of liver; CKD (on M/F HD) - Differential diagnoses include, but are not limited to: Congestive heart failure; acute coronary syndrome; COPD/asthma exacerbation; pulmonary edema; pulmonary embolism; pneumonia; pneumothorax; viral syndrome - Order placed for continuous cardiac monitoring. At this time, monitor showed rate of 91 bpm with normal sinus rhythm, per my interpretation. - External medical records reviewed. Discharge summary dated 10/22/2022 was reviewed. Patient was admitted that time for hypertensive urgency and acute renal failure with glomerulonephritis. - EKG interpreted by myself showed normal sinus rhythm. Rate tachycardic at 105 bpm. QT 320. No acute ischemic changes. - Laboratory workup interpreted by myself showed normal WBC; normal PT/INR; hypokalemia (K 3.2); ESRD (Cr 3.06); ; normal troponin; normal lipase - UA negative for infection - Viral respiratory panel positive for mycoplasma pneumoniae - CXR shows concern for right middle lobe consolidation, per my interpretation. - Discussed potential discharge with the patient, given that she has an atypical pneumonia. However, she reports she is been feeling generally unwell and thinks that it would probably be best if she stays to be admitted and monitored. She was febrile on arrival and given 1 g IV Tylenol for fever and temperatures slowly improving on reassessment. - 750 mg IV levaquin ordered for pneumonia coverage - Discussion was had with field nurse case manager about patient's case and need for admission - Hospitalist, Dr. Louise, consulted for admission - [facility] ASSESSMENT AND PLAN: Diagnosis: Shortness of breath; mycoplasma pneumonia; acute pneumonia Plan: Admit Past Med/Surg History Problem List (Updated 07/26/24 @ 23:02 by Kandace Epstein MD) Acute pneumonia (Acute) Mycoplasma pneumonia (Acute) Shortness of breath (Acute) Chronic kidney disease Dialysis patient No significant past surgical history COVID-19 (Acute) Obesity (BMI 30.0-34.9) Nephrotic range proteinuria Demand ischemia Cirrhosis of liver Alcohol use DVT prophylaxis Glomerulonephritis, acute Elevated troponin Abdominal pain Non-ST elevation myocardial infarction (NSTEMI) Anemia Hypokalemia Acute renal failure (Acute) Acute epigastric pain (Acute) Hypertensive emergency (Acute) Medical History Chronic kidney disease Dialysis patient Anemia No pertinent past medical history Surgical History No significant past surgical history Social History Smoking Status: Former smoker Tobacco Type: Cigarettes Second Hand Exposure: No; Do You Dip or Chew Tobacco: No; Hx Alcohol Use: Yes Alcohol type: hard liquor Hx Substance Use: No Preferred Language: Latvian Communication Ability: Effective Instrumental Teacher Required: No Beliefs That Will Affect Care: None marital status: Current Living Situation: Spouse Feels Safe at Home: Yes Assistive Devices: None Allergies Allergies Allergy/AdvReac Type Severity Reaction Status Date / Time Penicillins Allergy Intermediate HIVES Verified 07/26/24 20:59 Sulfa (Sulfonamide Allergy Intermediate HIVES Verified 07/26/24 20:59 Antibiotics) cat dander Allergy Mild Itching Verified 07/26/24 20:59 house dust Allergy Mild Itching Verified 07/26/24 20:59 Home Meds Home Medications Medication Instructions Recorded Confirmed Lactobacil.acidophilus-Bifido.animalis 1 cap PO QAM 02/27/24 07/26/24 5 billion cell sprinkle capsule (Probiotic) cetirizine 10 mg tablet (Zyrtec) 10 mg PO HS 02/27/24 07/26/24 docusate sodium 100 mg capsule 100 mg PO BID 02/27/24 07/26/24 (Colace) losartan 100 mg tablet 100 mg PO QAM 02/27/24 07/26/24 sevelamer carbonate 800 mg tablet 800 mg PO TIDM 02/27/24 07/26/24 venlafaxine 37.5 mg 37.5 mg PO QAM 02/27/24 07/26/24 capsule,extended release 24 hr calcitriol 0.5 mcg capsule 0.5 mcg PO 3XWK 07/26/24 07/26/24 metoprolol succinate 25 mg 25 mg PO BID 07/26/24 07/26/24 tablet,extended release 24 hr semaglutide (weight loss) 0.5 0.5 mg subcut WK 07/26/24 07/26/24 mg/0.5 mL subcutaneous pen injector (Wegovy) torsemide 100 mg tablet 100 mg PO QAM 07/26/24 07/26/24 vitamin B complex and vitamin C 1 cap PO QAM 07/26/24 07/26/24 no.20-folic acid 1 mg capsule (Renal Caps) Previous Rx's Medication Instructions Recorded pantoprazole 40 mg tablet,delayed 40 mg PO QAM #30 tabs 10/22/22 release Results & Data (ED) Vital Signs Vital Signs - 24 hr 07/26/24 19:32 07/26/24 19:46 07/26/24 20:52 Temperature 38.1 C H Temperature Source Oral Pulse Rate 120 H 105 H Pulse Rate [Apical] 103 H Pulse Rhythm Pulse Rhythm [Apical] Regular Respiratory Rate 16 Respiratory Effort / Characteristics Non-Labored Spontaneous Respiratory Depth Normal Respiratory Pattern Regular Blood Pressure 123/85 Blood Pressure [Right Arm] 110/84 Blood Pressure Mean 97 Blood Pressure Mean [Right Arm] 92 Pulse Oximetry 98 97 Oxygen Delivery Method Room Air Room Air Sepsis Recent Fever Within 48 Hours Yes Sepsis New/Unexplained Change in Mental Status No Sepsis Action Taken by Nursing No Action Required 07/26/24 20:52 07/26/24 21:44 07/26/24 22:47 Temperature 37.6 C H Temperature Source Oral Pulse Rate 102 H Pulse Rate [Apical] 93 H Pulse Rhythm Regular Pulse Rhythm [Apical] Respiratory Rate 20 18 Respiratory Effort / Characteristics Respiratory Depth Respiratory Pattern Blood Pressure Blood Pressure [Right Arm] 109/77 Blood Pressure Mean Blood Pressure Mean [Right Arm] 87 Pulse Oximetry 97 96 Oxygen Delivery Method Room Air Room Air Sepsis Recent Fever Within 48 Hours Sepsis New/Unexplained Change in Mental Status Sepsis Action Taken by Nursing 07/26/24 22:54 Temperature Temperature Source Pulse Rate Pulse Rate [Apical] 91 H Pulse Rhythm Pulse Rhythm [Apical] Respiratory Rate 15 Respiratory Effort / Characteristics Respiratory Depth Respiratory Pattern Blood Pressure Blood Pressure [Right Arm] 107/81 Blood Pressure Mean Blood Pressure Mean [Right Arm] 89 Pulse Oximetry 94 Oxygen Delivery Method Room Air Sepsis Recent Fever Within 48 Hours Sepsis New/Unexplained Change in Mental Status Sepsis Action Taken by Nursing Laboratory Data 07/26/24 20:50 07/26/24 20:50 Lab Results 07/26/24 07/26/24 07/26/24 Range/Units 20:30 20:32 20:50 WBC 5.73 (4.8-10.8) K/ul RBC 3.63 L (4.20-5.40) M/uL Hgb 11.1 L (12.0-16.0) g/dl Hct 33.2 L (37.0-47.0) % MCV 91.5 (80.0-100.0) fL MCH 30.6 (25.0-34.0) pg MCHC 33.4 (32.0-36.0) g/dL RDW Std Deviation 44.4 (36.4-46.3) fL RDW Coeff of Vy 13.2 (11.5-14.5) % Plt Count 165 (130-400) K/uL MPV 11.5 (9.4-12.4) fL Immature Gran % (Auto) 0.3 % Neut % (Auto) 69.1 % Lymph % (Auto) 19.9 % [place] % (Auto) 8.6 % Eos % (Auto) 1.6 % Baso % (Auto) 0.5 % Neut # (Auto) 3.96 (1.40-6.50) K/uL Lymph # (Auto) 1.14 L (1.20-3.40) K/uL [place] # (Auto) 0.49 (0.11-0.59) K/uL Eos # (Auto) 0.09 (0.00-0.50) K/uL Baso # (Auto) 0.03 (0.00-0.20) K/uL Immature Gran # (Auto) 0.02 (0.01-0.20) K/uL PT 10.9 (9.0-12.0) Seconds INR 1.0 (0.9-1.1) Sodium 136 (136-145) mmol/L Potassium 3.2 L (3.5-5.1) mmol/L Chloride 95 L (98-107) mmol/L Carbon Dioxide 32 (21-32) mmol/L Anion Gap 9 (3-11) BUN 36 H (6-23) mg/dl Creatinine 3.06 H (0.6-1.2) mg/dl Est Cr Clr Drug Dosing 27.3 ml/min Est GFR ( Amer) 20.2 ml/min Est GFR (Non-Af Amer) 17.5 ml/min BUN/Creatinine Ratio 11.8 (10-20) Glucose 105 H (70-99(Fasting)) mg/dl Calcium 8.9 (8.6-10.3) mg/dl Magnesium 1.9 (1.7-2.4) mg/dl Total Bilirubin 0.5 (0.2-1.0) mg/dl AST 20 (13-39) U/L ALT 18 (7-52) U/L Alkaline Phosphatase 49 (34-104) U/L Troponin I High Sens 10.3 (0-14) pg/ml Total Protein 7.5 (6.0-8.3) gm/dl Albumin 4.2 (3.4-5.0) gm/dl Globulin 3.3 (2.5-4.0) gm/dl Albumin/Globulin Ratio 1.3 (0.9-2) Lipase 65 (11-82) U/L Urine Color Yellow Urine Appearance Clear (Clear) Urine pH 7.5 (4.5-7.5) Ur Specific [place] 1.012 (1.000-1.030) Urine Protein 1+ H (Negative) Urine Glucose (UA) Negative (Negative) Urine Ketones Negative (Negative) Urine Blood Negative (Negative) Urine Nitrite Negative (Negative) Urine Bilirubin Negative (Negative) Urine Urobilinogen Negative (Negative) Ur Leukocyte Esterase 1+ H (Negative) Urine WBC (Auto) 6-10 H (0-5) /hpf Urine RBC (Auto) 3-5 H (0-2) /hpf U Hyaline Cast (Auto) 0-2 (0-2) /lpf U Epithel Cells (Auto) 6-10 H (0-2) /hpf Urine Bacteria (Auto) None Seen (None Seen) Adenovirus (PCR) Not Detected (NotDetected) B. pertussis DNA (PCR) Not Detected (NotDetected) B.parapertussis DNA PCR Not Detected (NotDetected) C. pneumoniae DNA (PCR) Not Detected (NotDetected) Coronavirus OC43 (PCR) Not Detected (NotDetected) Coronavirus HKU1 (PCR) Not Detected (NotDetected) Coronavirus 229E (PCR) Not Detected (NotDetected) SARS-CoV-2 (PCR) Not Detected (NotDetected) Coronavirus NL63 (PCR) Not Detected (NotDetected) Human Metapneumovir PCR Not Detected (NotDetected) Influenza Type A (PCR) Not Detected (NotDetected) Influenza Type B (PCR) Not Detected (NotDetected) M. pneumoniae (PCR) DETECTED A (NotDetected) Parainfluenza 1 (PCR) Not Detected (NotDetected) Parainfluenza 2 (PCR) Not Detected (NotDetected) Parainfluenza 3 (PCR) Not Detected (NotDetected) Parainfluenza 4 (PCR) Not Detected (NotDetected) RSV (PCR) Not Detected (NotDetected) Entero/Rhino (PCR) Not Detected (NotDetected) Administered Medications Discontinued Medications Acetaminophen (Ofirmev) 1,000 mg in 100 mls @ 400 mls/hr IV NOW STA Stop: 07/26/24 19:58 Last Infusion: 07/26/24 21:41 Dose: Infused Documented By: Admin: 07/26/24 20:30 Dose: 400 mls/hr Documented By: [facility] Discharge Plan Visit Data Chief Complaint: Flu Like Symptoms Stated Complaint: POSSIBLE PNUEMONIA, COUGH, FATIGUE, HOT/COLD ED Provider: Kandace Epstein Discharge Problem: Shortness of breath, Mycoplasma pneumonia, Acute pneumonia Forms Stand Alone Forms: [facility] Prescriptions Prescriptions: No Action pantoprazole 40 mg Tablet,Delayed Release (Dr/Ec) 40 mg PO QAM Qty: 30 0RF venlafaxine 37.5 mg capsule,extended release 24hr 37.5 mg PO QAM cetirizine [Zyrtec] 10 mg Tablet 10 mg PO HS docusate sodium [Colace] 100 mg Capsule 100 mg PO BID losartan 100 mg tablet 100 mg PO QAM sevelamer carbonate 800 mg tablet 800 mg PO TIDM Probiotic 5 billion cell Capsule, Sprinkle 1 cap PO QAM torsemide 100 mg tablet 100 mg PO QAM calcitriol 0.5 mcg capsule 0.5 mcg PO 3XWK Rx Instructions: SUN, SUN & SUN metoprolol succinate 25 mg tablet extended release 24 hr 25 mg PO BID Renal Caps 1 mg capsule 1 cap PO QAM Wegovy 0.5 mg/0.5 mL pen injector 0.5 mg SUBCUT WK Rx Instructions: TUESDAYS Referrals Referrals: Sofia Fenton MD [Primary Care Provider] -
[2024-07-26] MEDS: ACETAMINOPHEN 1,000 MG/100 ML VIAL IV STA (20:30)
[2024-07-26 21:24] LABS: Appearance Urine Clear (Clear); Bacteria Urine Automated None Seen (None Seen); Bilirubin Urine Negative (Negative); Blood Urine Negative (Negative); Cast Urine Automated 0-2 /lpf (0-2); Color Urine Yellow; Glucose Urine UA Negative (Negative); Ketones Urine Negative (Negative); Leukocyte Esterase Urine 1+ (Negative); Nitrite Urine Negative (Negative); Protein Urine 1+ (Negative); Specific Gravity Urine 1.012 (1.000-1.030); Urobilinogen Urine Negative (Negative); pH Urine 7.5 (4.5-7.5)
[2024-07-26 21:32] LABS: Albumin Globulin Ratio 1.3 (0.9-2); Albumin Level 4.2 gm/dl (3.4-5.0); BUN Creatinine Ratio 11.8 (10-20); Bilirubin,Total 0.5 mg/dl (0.2-1.0); Calcium 8.9 mg/dl (8.6-10.3); Creatinine Clr Calc Pharmacy 27.3 ml/min; Est GFR (African American) 20.2 ml/min; Est GFR (Non-African American) 17.5 ml/min; Globulin 3.3 gm/dl (2.5-4.0); Magnesium 1.9 mg/dl (1.7-2.4); Potassium 3.2 mmol/L (3.5-5.1); Total Protein 7.5 gm/dl (6.0-8.3)
[2024-07-26 21:38] LABS: Troponin I High Sensitivity 10.3 pg/ml (0-14)
[2024-07-26 21:39] LABS: Basophils # (auto) 0.03 K/uL (0.00-0.20); Basophils % (auto) 0.5 %; Eosinophils # (auto) 0.09 K/uL (0.00-0.50); Eosinophils % (auto) 1.6 %; Hematocrit (blood only) 33.2 % (37.0-47.0); Hemoglobin 11.1 g/dl (12.0-16.0); Immature Granulocytes # (auto) 0.02 K/uL (0.01-0.20); Immature Granulocytes % (auto) 0.3 %; Lymphocytes # (auto) 1.14 K/uL (1.20-3.40); Lymphocytes % (auto) 19.9 %; Mean Corpuscular Hemoglobin 30.6 pg (25.0-34.0); Mean Corpuscular Hgb Conc 33.4 g/dL (32.0-36.0); Mean Corpuscular Volume 91.5 fL (80.0-100.0); Mean Platelet Volume 11.5 fL (9.4-12.4); Monocytes # (auto) 0.49 K/uL (0.11-0.59); Monocytes % (auto) 8.6 %; Neutrophils # (auto) 3.96 K/uL (1.40-6.50); Neutrophils % (auto) 69.1 %; Platelet Count 165 K/uL (130-400); Prothrombin Time 10.9 Seconds (9.0-12.0); RDW Coefficient of Variation 13.2 % (11.5-14.5); RDW Standard Deviation 44.4 fL (36.4-46.3); Red Blood Count 3.63 M/uL (4.20-5.40); White Blood Count 5.73 K/ul (4.8-10.8)
[2024-07-26 21:57] LABS: Adenovirus PCR Not Detected (NotDetected); Bordetella parapertussis PCR Not Detected (NotDetected); Bordetella pertussis PCR Not Detected (NotDetected); Chlamydia pneumoniae PCR Not Detected (NotDetected); Coronavirus 229E PCR Not Detected (NotDetected); Coronavirus CoV-2 (COVID19)PCR Not Detected (NotDetected); Coronavirus HKU1 PCR Not Detected (NotDetected); Coronavirus NL63 PCR Not Detected (NotDetected); Coronavirus OC43PCR Not Detected (NotDetected); Human Metapneumovirus PCR Not Detected (NotDetected); Influenza A PCR Not Detected (NotDetected); Influenza B PCR Not Detected (NotDetected); Mycoplasma pneumoniae PCR DETECTED (NotDetected); Parainfluenza Virus 1 PCR Not Detected (NotDetected); Parainfluenza Virus 2 PCR Not Detected (NotDetected); Parainfluenza Virus 3 PCR Not Detected (NotDetected); Parainfluenza Virus 4 PCR Not Detected (NotDetected); Respiratory Syncytial VirusPCR Not Detected (NotDetected); Rhinovirus/Enterovirus PCR Not Detected (NotDetected)
[2024-07-26] MEDS: levoFLOXacin/D5W 750 MG/150 ML BAG IV SCH (23:03)
--- NOTE | 2024-07-27 02:24 | History & Physical Report ---
Date of Service July 27, 2024 Assessment & Plan (1) Acute pneumonia: Plan: 44-year-old female with past med history significant for history of preeclampsia, hypertension, arteriovenous fistula, mitral valve disorder, granuloma of liver associated with sarcoidosis, ESRD on dialysis, hypermobility syndrome, history of smoking, anxiety, comes in because of weakness and cough going on since last . Having temp spike in the ER. Denies any headache. Vision is okay. Has sore throat. No runny nose. Has dry cough. Denies chest pain or shortness of breath. Has nausea. No abdominal pain. Ambulating okay. Because of ongoing symptoms came to the ER and respiratory bio fire came back positive for mycoplasma pneumonia. Acute pneumonia Mycoplasma pneumonia ER started Levaquin Will continue Levaquin to 250 mg daily renal dosing for esrd on dialysis Will monitor the response. ESRD On hemodialysis Nephro consult Hypertension On losartan Metoprolol succinate and torsemide Will monitor GERD On Protonix Anxiety On venlafaxine DVT prophylaxis Heparin subcu Disposition Med/telemetry Full code. History of Present Illness Chief Complaint: Cough and weakness Primary Care Provider: Sofia Fenton MD 44-year-old female with past med history significant for history of preeclampsi a, hypertension, arteriovenous fistula, mitral valve disorder, granuloma of liver associated with sarcoidosis, ESRD on dialysis, hypermobility syndrome, history of smoking, anxiety, comes in because of weakness and cough going on since last . Having temp spike in the ER. Denies any headache. Vision is okay. Has sore throat. No runny nose. Has dry cough. Denies chest pain or shortness of breath. Has nausea. No abdominal pain. Ambulating okay. Because of ongoing symptoms came to the ER and respiratory bio fire came back positive for mycoplasma pneumonia. Past medical history. As mentioned above Past surgical history. EGD with endoscopic ultrasound. IR biopsy. Tonsillectomy and adenoidectomy. [place] tooth removal. Sinus surgery. Social history. . Quit smoking 2021. Smoked 0.5 pack a day for 15 years. Alcohol occasional. No drug use. Family history. Mother has arthritis. Hypertension. COPD. Father has hypertension. Maternal grandmother had pituitary cancer. Skin cancer. Maternal grandmother had glaucoma. Paternal grandmother had glaucoma. Brother has hypertension. Allergies Allergy/AdvReac Type Severity Reaction Status Date / Time Penicillins Allergy Intermediate HIVES Verified 07/26/24 20:59 Sulfa (Sulfonamide Allergy Intermediate HIVES Verified 07/26/24 20:59 Antibiotics) cat dander Allergy Mild Itching Verified 07/26/24 20:59 house dust Allergy Mild Itching Verified 07/26/24 20:59 Home Medications Medication Instructions Recorded Confirmed Type pantoprazole 40 mg tablet,delayed 40 mg PO QAM #30 tabs 10/22/22 07/26/24 Rx release Lactobacil.acidophilus-Bifido.animalis 1 cap PO QAM 02/27/24 07/26/24 History 5 billion cell sprinkle capsule (Probiotic) cetirizine 10 mg tablet (Zyrtec) 10 mg PO HS 02/27/24 07/26/24 History docusate sodium 100 mg capsule 100 mg PO BID 02/27/24 07/26/24 History (Colace) losartan 100 mg tablet 100 mg PO QAM 02/27/24 07/26/24 History sevelamer carbonate 800 mg tablet 800 mg PO TIDM 02/27/24 07/26/24 History venlafaxine 37.5 mg 37.5 mg PO QAM 02/27/24 07/26/24 History capsule,extended release 24 hr calcitriol 0.5 mcg capsule 0.5 mcg PO 3XWK 07/26/24 07/26/24 History metoprolol succinate 25 mg 25 mg PO BID 07/26/24 07/26/24 History tablet,extended release 24 hr semaglutide (weight loss) 0.5 0.5 mg subcut WK 07/26/24 07/26/24 History mg/0.5 mL subcutaneous pen injector (Wegovy) torsemide 100 mg tablet 100 mg PO QAM 07/26/24 07/26/24 History vitamin B complex and vitamin C 1 cap PO QAM 07/26/24 07/26/24 History no.20-folic acid 1 mg capsule (Renal Caps) Past Med/Surg History Problem List (Updated 07/26/24 @ 23:02 by Kandace Epstein MD) Acute pneumonia (Acute) Mycoplasma pneumonia (Acute) Shortness of breath (Acute) Chronic kidney disease Dialysis patient No significant past surgical history COVID-19 (Acute) Obesity (BMI 30.0-34.9) Nephrotic range proteinuria Demand ischemia Cirrhosis of liver Alcohol use DVT prophylaxis Glomerulonephritis, acute Elevated troponin Abdominal pain Non-ST elevation myocardial infarction (NSTEMI) Anemia Hypokalemia Acute renal failure (Acute) Acute epigastric pain (Acute) Hypertensive emergency (Acute) Medical History Chronic kidney disease Dialysis patient Anemia No pertinent past medical history Surgical History No significant past surgical history Social History Smoking Status: Former smoker Tobacco Type: Cigarettes Second Hand Exposure: No; Do You Dip or Chew Tobacco: No; Hx Alcohol Use: Yes Alcohol type: hard liquor Hx Substance Use: No Preferred Language: Croatian Communication Ability: Effective Brass Polisher Required: No Beliefs That Will Affect Care: None marital status: Current Living Situation: Spouse Feels Safe at Home: Yes Assistive Devices: None Review of Systems Review of Systems: All systems reviewed & are unremarkable except as noted in HPI & below Physical Exam Physical Exam: General- Not in distress Head- atraumatic Eyes- PERRL,. ENT- oropharynx clear Neck- supple, no JVD. Lungs- clear to auscultation no wheezing or crackles. Heart- regular rate rhythm; no murmur, no gallop. Abdomen- normal bowel sounds, soft, nontender, no distension Extremities- no pretibial edema, no erythema seen. Neuro- alert, oriented ; PERRL, no facial palsy; no dysarthria; moves extremities Results & Data Results & Data Vital Signs (Past 12 Hours) Vital Signs Temp Pulse Pulse Resp BP BP Pulse Ox 07/26/24 23:46 105 H 07/26/24 22:54 91 H 15 107/81 94 07/26/24 22:47 37.6 C H 07/26/24 21:44 93 H 18 109/77 96 07/26/24 20:52 102 H 20 97 07/26/24 20:52 103 H 16 110/84 97 07/26/24 19:46 105 H 07/26/24 19:32 38.1 C H 120 H 123/85 98 O2 Del Method 07/26/24 23:46 07/26/24 22:54 Room Air 07/26/24 22:47 07/26/24 21:44 Room Air 07/26/24 20:52 Room Air 07/26/24 20:52 Room Air 07/26/24 19:46 07/26/24 19:32 Room Air Diagnostic Findings Laboratory Results WBC 5.73 K/ul (4.8-10.8) 07/26/24 20:50 RBC 3.63 M/uL (4.20-5.40) L 07/26/24 20:50 Hgb 11.1 g/dl (12.0-16.0) L 07/26/24 20:50 Hct 33.2 % (37.0-47.0) L 07/26/24 20:50 MCV 91.5 fL (80.0-100.0) 07/26/24 20:50 MCH 30.6 pg (25.0-34.0) 07/26/24 20:50 MCHC 33.4 g/dL (32.0-36.0) 07/26/24 20:50 RDW Std Deviation 44.4 fL (36.4-46.3) 07/26/24 20:50 RDW Coeff of Vy 13.2 % (11.5-14.5) 07/26/24 20:50 Plt Count 165 K/uL (130-400) 07/26/24 20:50 MPV 11.5 fL (9.4-12.4) 07/26/24 20:50 Immature Gran % (Auto) 0.3 % 07/26/24 20:50 Neut % (Auto) 69.1 % 07/26/24 20:50 Lymph % (Auto) 19.9 % 07/26/24 20:50 [place] % (Auto) 8.6 % 07/26/24 20:50 Eos % (Auto) 1.6 % 07/26/24 20:50 Baso % (Auto) 0.5 % 07/26/24 20:50 Neut # (Auto) 3.96 K/uL (1.40-6.50) 07/26/24 20:50 Lymph # (Auto) 1.14 K/uL (1.20-3.40) L 07/26/24 20:50 [place] # (Auto) 0.49 K/uL (0.11-0.59) 07/26/24 20:50 Eos # (Auto) 0.09 K/uL (0.00-0.50) 07/26/24 20:50 Baso # (Auto) 0.03 K/uL (0.00-0.20) 07/26/24 20:50 Immature Gran # (Auto) 0.02 K/uL (0.01-0.20) 07/26/24 20:50 PT 10.9 Seconds (9.0-12.0) 07/26/24 20:50 INR 1.0 (0.9-1.1) 07/26/24 20:50 Sodium 136 mmol/L (136-145) 07/26/24 20:50 Potassium 3.2 mmol/L (3.5-5.1) L 07/26/24 20:50 Chloride 95 mmol/L (98-107) L 07/26/24 20:50 Carbon Dioxide 32 mmol/L (21-32) 07/26/24 20:50 Anion Gap 9 (3-11) 07/26/24 20:50 BUN 36 mg/dl (6-23) H 07/26/24 20:50 Creatinine 3.06 mg/dl (0.6-1.2) H 07/26/24 20:50 Est Cr Clr Drug Dosing 27.3 ml/min 07/26/24 20:50 Est GFR ( Amer) 20.2 ml/min 07/26/24 20:50 Est GFR (Non-Af Amer) 17.5 ml/min 07/26/24 20:50 BUN/Creatinine Ratio 11.8 (10-20) 07/26/24 20:50 Glucose 105 mg/dl (70-99(Fasting)) H 07/26/24 20:50 Calcium 8.9 mg/dl (8.6-10.3) 07/26/24 20:50 Magnesium 1.9 mg/dl (1.7-2.4) 07/26/24 20:50 Total Bilirubin 0.5 mg/dl (0.2-1.0) 07/26/24 20:50 AST 20 U/L (13-39) 07/26/24 20:50 ALT 18 U/L (7-52) 07/26/24 20:50 Alkaline Phosphatase 49 U/L (34-104) 07/26/24 20:50 Troponin I High Sens 10.3 pg/ml (0-14) 07/26/24 20:50 Total Protein 7.5 gm/dl (6.0-8.3) 07/26/24 20:50 Albumin 4.2 gm/dl (3.4-5.0) 07/26/24 20:50 Globulin 3.3 gm/dl (2.5-4.0) 07/26/24 20:50 Albumin/Globulin Ratio 1.3 (0.9-2) 07/26/24 20:50 Lipase 65 U/L (11-82) 07/26/24 20:50 Urine Color Yellow 07/26/24 20:30 Urine Appearance Clear (Clear) 07/26/24 20:30 Urine pH 7.5 (4.5-7.5) 07/26/24 20:30 Ur Specific [place] 1.012 (1.000-1.030) 07/26/24 20:30 Urine Protein 1+ (Negative) H 07/26/24 20:30 Urine Glucose (UA) Negative (Negative) 07/26/24 20:30 Urine Ketones Negative (Negative) 07/26/24 20:30 Urine Blood Negative (Negative) 07/26/24 20:30 Urine Nitrite Negative (Negative) 07/26/24 20:30 Urine Bilirubin Negative (Negative) 07/26/24 20:30 Urine Urobilinogen Negative (Negative) 07/26/24 20:30 Ur Leukocyte Esterase 1+ (Negative) H 07/26/24 20:30 Urine WBC (Auto) 6-10 /hpf (0-5) H 07/26/24 20:30 Urine RBC (Auto) 3-5 /hpf (0-2) H 07/26/24 20:30 U Hyaline Cast (Auto) 0-2 /lpf (0-2) 07/26/24 20:30 U Epithel Cells (Auto) 6-10 /hpf (0-2) H 07/26/24 20:30 Urine Bacteria (Auto) None Seen (None Seen) 07/26/24 20:30 Adenovirus (PCR) Not Detected (NotDetected) 07/26/24 20:32 B. pertussis DNA (PCR) Not Detected (NotDetected) 07/26/24 20:32 B.parapertussis DNA PCR Not Detected (NotDetected) 07/26/24 20:32 C. pneumoniae DNA (PCR) Not Detected (NotDetected) 07/26/24 20:32 Coronavirus OC43 (PCR) Not Detected (NotDetected) 07/26/24 20:32 Coronavirus HKU1 (PCR) Not Detected (NotDetected) 07/26/24 20:32 Coronavirus 229E (PCR) Not Detected (NotDetected) 07/26/24 20:32 SARS-CoV-2 (PCR) Not Detected (NotDetected) 07/26/24 20:32 Coronavirus NL63 (PCR) Not Detected (NotDetected) 07/26/24 20:32 Human Metapneumovir PCR Not Detected (NotDetected) 07/26/24 20:32 Influenza Type A (PCR) Not Detected (NotDetected) 07/26/24 20:32 Influenza Type B (PCR) Not Detected (NotDetected) 07/26/24 20:32 M. pneumoniae (PCR) DETECTED (NotDetected) A 07/26/24 20:32 Parainfluenza 1 (PCR) Not Detected (NotDetected) 07/26/24 20:32 Parainfluenza 2 (PCR) Not Detected (NotDetected) 07/26/24 20:32 Parainfluenza 3 (PCR) Not Detected (NotDetected) 07/26/24 20:32 Parainfluenza 4 (PCR) Not Detected (NotDetected) 07/26/24 20:32 RSV (PCR) Not Detected (NotDetected) 07/26/24 20:32 Entero/Rhino (PCR) Not Detected (NotDetected) 07/26/24 20:32 ECG Additional Comments: ECG sinus tachycardia 105. No acute ST changes seen. Code Status & VTE Plan VTE Prophylaxis Plan VTE Prophylaxis will be ordered: Yes
[2024-07-27] MEDS ORDERED: POLYETHYLENE (MIRALAX) 17 GM PACK PO PRN (02:30)
[2024-07-27] MEDS ORDERED: NITROGLYCERIN SL 0.4 MG/TAB TAB SL PRN (02:30)
[2024-07-27 07:29] LABS: Basophils # (auto) 0.02 K/uL (0.00-0.20); Basophils % (auto) 0.3 %; Eosinophils # (auto) 0.14 K/uL (0.00-0.50); Eosinophils % (auto) 2.3 %; Hematocrit (blood only) 30.8 % (37.0-47.0); Hemoglobin 10.6 g/dl (12.0-16.0); Immature Granulocytes # (auto) 0.02 K/uL (0.01-0.20); Immature Granulocytes % (auto) 0.3 %; Lymphocytes # (auto) 1.18 K/uL (1.20-3.40); Mean Corpuscular Hgb Conc 34.4 g/dL (32.0-36.0); Mean Corpuscular Volume 90.1 fL (80.0-100.0); Mean Platelet Volume 11.1 fL (9.4-12.4); Monocytes # (auto) 0.72 K/uL (0.11-0.59); Monocytes % (auto) 11.6 %; Neutrophils # (auto) 4.13 K/uL (1.40-6.50); Neutrophils % (auto) 66.5 %; Platelet Count 153 K/uL (130-400); RDW Coefficient of Variation 13.2 % (11.5-14.5); RDW Standard Deviation 43.8 fL (36.4-46.3); Red Blood Count 3.42 M/uL (4.20-5.40); White Blood Count 6.21 K/ul (4.8-10.8)
--- NOTE | 2024-07-27 07:38 | Electrocardiogram Report ---
Test Reason : Blood Pressure : */* mmHG Vent. Rate : 105 BPM Atrial Rate : 105 BPM P-R Int : 152 ms QRS Dur : 78 ms QT Int : 320 ms P-R-T Axes : 50 -21 59 degrees QTcB Int : 422 ms Sinus tachycardia Otherwise normal ECG When compared with ECG of 01-Mar-2024 23:24, Premature ventricular complexes are no longer Present Confirmed by Jesus Nino ([id number]) on 07/27/2024 7:37:54 AM Referred By: REFERRED SELF Confirmed By: Jesus Nino
--- NOTE | 2024-07-27 07:45 | XRay Report ---
XR chest 1V portable CLINICAL HISTORY: weakness; cough COMPARISON STUDY: Chest radiograph March 01, 2024. FINDINGS: Lung volumes are normal. There is no pneumothorax or pleural effusion. There is a round 5.7 cm right midlung airspace opacity. There is also a small right basilar airspace opacity. Left lung i s clear. IMPRESSION: 5.7 cm right midlung opacity and small right basilar opacity. Multifocal pneumonia is fav ored. However, radiographic follow-up to ensure resolution and exclude the possibility of an underlyi ng pulmonary lesion is recommended. ACT 112: Negative or not required by law. Electronically signed by: Sean Mendes M.D. 07/27/2024 7:43 AM
[2024-07-27 07:47] LABS: BUN Creatinine Ratio 10.7 (10-20); Calcium 8.8 mg/dl (8.6-10.3); Creatinine Clr Calc Pharmacy 25.5 ml/min; Est GFR (African American) 18.7 ml/min; Est GFR (Non-African American) 16.1 ml/min; Magnesium 1.9 mg/dl (1.7-2.4); Potassium 3.8 mmol/L (3.5-5.1)
[2024-07-27] MEDS: HEPARIN SOD 5,000 UNIT/0.5 ML VIAL SQ SCH (08:33)
[2024-07-27] MEDS: DOCUSATE SODIUM 100 MG CAP PO SCH (08:33)
[2024-07-27] MEDS: guaiFENesin/DEXTROM SYRUP 200MG/20MG 10ML UDC PO STA (08:33)
[2024-07-27] MEDS: NEPHROCAPS PO SCH (08:33)
[2024-07-27] MEDS: SEVELAMER CARBONATE 800 MG TAB PO SCH (08:34)
[2024-07-27] MEDS: LOSARTAN POTASSIUM 50 MG TAB PO SCH (08:34)
[2024-07-27] MEDS: TORSEMIDE 100 MG TAB PO SCH (08:34)
[2024-07-27] MEDS: PANTOprazole 40 MG TAB PO SCH (08:34)
[2024-07-27] MEDS: METOPROLOL SUCC 25MG EXT REL TAB PO SCH (08:34)
[2024-07-27] MEDS: VENLAFAXINE HCL XR 37.5 MG CAPXR PO SCH (08:35)
[2024-07-27] MEDS: ACETAMINOPHEN 325 MG TAB PO PRN (08:37)
[2024-07-27] MEDS: DOXYCYCLINE HYCLATE 100 MG in DEXTROSE 5% MINI-B 100 ML IV SCH (08:37)
--- NOTE | 2024-07-27 09:47 | Communication Note ---
Date of Service: July 27, 2024 Evaluated patient at bedside Reports marginal improvement but notes extreme fatigue from lack of sleep 2/2 cough Eval coarse breath sounds, fatigued appearing woman, tachycardic regular, warm to touch #Atypical pneumonia, mycoplasma -Start Doxycycline 100mg IV BId with plans to transition to PO tomorrow Symptomatic management #ESRD HD tomorrow,nephrology consulted rest of plan per hp
--- NOTE | 2024-07-27 12:17 | Nephrology Consultation ---
Date of Consultation July 27, 2024 Assessment & Plan (1) Dialysis patient: ESRD ON HD- Sunday - she was last dialyzed on Sunday without any issues, electrolytes are safe and volume is not an issue. - no urgent need for dialysis today - will dialyze her again on Sunday for 3-1/2 hours and 2-2.5 L UF - please continue her on all the outpatient medication. (2) Mycoplasma pneumonia: on antibiotic- renally dosed History of Present Illness Reason for Consultation: ESRD on HD( Sunday /Sunday), admitted with mycoplasma pneumoniae Attending Physician: Loretta Dyer MD History of Present Illness 44-year-old female, who was admitted with generalized weakness and cough over last 2-3 days. respiratory BioFire was positive for mycoplasma pneumonia. patient was started on Levaquin. her cough is better now oral intake has improved, no shortness of breath on examination, no pedal edema. she dialyzes on Sunday and Sunday and was last dialyzed on Sunday without any issues through left AVF. PMH- Hypertension, arteriovenous fistula, mitral valve disorder, granuloma of liver associated with sarcoidosis, ESRD on dialysis, hypermobility syndrome, history of smoking, anxiety, Allergies Allergy/AdvReac Type Severity Reaction Status Date / Time Penicillins Allergy Intermediate HIVES Verified 07/26/24 20:59 Sulfa (Sulfonamide Allergy Intermediate HIVES Verified 07/26/24 20:59 Antibiotics) cat dander Allergy Mild Itching Verified 07/26/24 20:59 house dust Allergy Mild Itching Verified 07/26/24 20:59 Home Medications Medication Instructions Recorded Confirmed Type pantoprazole 40 mg tablet,delayed 40 mg PO QAM #30 tabs 10/22/22 07/26/24 Rx release Lactobacil.acidophilus-Bifido.animalis 1 cap PO QAM 02/27/24 07/26/24 History 5 billion cell sprinkle capsule (Probiotic) cetirizine 10 mg tablet (Zyrtec) 10 mg PO HS 02/27/24 07/26/24 History docusate sodium 100 mg capsule 100 mg PO BID 02/27/24 07/26/24 History (Colace) losartan 100 mg tablet 100 mg PO QAM 02/27/24 07/26/24 History sevelamer carbonate 800 mg tablet 800 mg PO TIDM 02/27/24 07/26/24 History venlafaxine 37.5 mg 37.5 mg PO QAM 02/27/24 07/26/24 History capsule,extended release 24 hr calcitriol 0.5 mcg capsule 0.5 mcg PO 3XWK 07/26/24 07/26/24 History metoprolol succinate 25 mg 25 mg PO BID 07/26/24 07/26/24 History tablet,extended release 24 hr semaglutide (weight loss) 0.5 0.5 mg subcut WK 07/26/24 07/26/24 History mg/0.5 mL subcutaneous pen injector (Wegovy) torsemide 100 mg tablet 100 mg PO QAM 07/26/24 07/26/24 History vitamin B complex and vitamin C 1 cap PO QAM 07/26/24 07/26/24 History no.20-folic acid 1 mg capsule (Renal Caps) Patient History Medical History Chronic kidney disease Dialysis patient Anemia No pertinent past medical history Surgical History No significant past surgical history Social History Smoking Status: Former smoker Tobacco Type: Cigarettes Second Hand Exposure: No; Do You Dip or Chew Tobacco: No; Hx Alcohol Use: Yes Alcohol type: hard liquor Hx Substance Use: No Preferred Language: Nigerian Communication Ability: Effective Slag Mixer Required: No Beliefs That Will Affect Care: None marital status: Current Living Situation: Spouse Feels Safe at Home: Yes Assistive Devices: None Review of Systems 2 Review of Systems: All systems reviewed & are unremarkable except as noted in HPI & below Physical Exam 2 Physical Exam: General- Not in distress Neck- supple, no JVD. Lungs- clear to auscultation no wheezing or crackles. Heart- regular rate rhythm; no murmur, no gallop. Abdomen- normal bowel sounds, soft, nontender, no distension Extremities- no pretibial edema, no erythema seen. Neuro- alert, oriented Results & Data Vital Signs (Past 12 Hours) Vital Signs Temp Pulse Pulse Resp BP Pulse Ox O2 Del Method 07/27/24 11:55 36.5 C 86 16 138/81 98 Room Air 07/27/24 07:51 38.3 C H 92 H 16 124/84 97 Room Air 07/27/24 07:34 Room Air 07/27/24 07:04 93 H 07/27/24 02:54 Room Air 07/27/24 02:37 37.7 C H 107 H 18 120/80 94 07/27/24 02:36 37.7 C H 107 H 18 120/80 94 07/27/24 02:09 91 H Laboratory Results 07/27/24 07:13 07/27/24 07:13
[2024-07-27] MEDS: guaiFENesin/DEXTROM SYRUP 100MG/10MG 5ML UDC PO PRN (12:34)
[2024-07-27] MEDS: CETIRIZINE HCL 10 MG TABLET PO SCH (20:44)
[2024-07-27] MEDS: DOXYCYCLINE HYCLATE 100 MG CAP PO SCH (20:56)
[2024-07-28 06:40] LABS: Hematocrit (blood only) 32.1 % (37.0-47.0); Hemoglobin 10.4 g/dl (12.0-16.0); Mean Corpuscular Hemoglobin 29.7 pg (25.0-34.0); Mean Corpuscular Hgb Conc 32.4 g/dL (32.0-36.0); Mean Corpuscular Volume 91.7 fL (80.0-100.0); Mean Platelet Volume 11.3 fL (9.4-12.4); Platelet Count 162 K/uL (130-400); RDW Coefficient of Variation 13.1 % (11.5-14.5); RDW Standard Deviation 44.1 fL (36.4-46.3); White Blood Count 4.43 K/ul (4.8-10.8)
[2024-07-28 06:59] LABS: BUN Creatinine Ratio 12.2 (10-20); Calcium 9.2 mg/dl (8.6-10.3); Creatinine Clr Calc Pharmacy 25.2 ml/min; Est GFR (African American) 18.5 ml/min; Phosphorus 3.8 mg/dl (2.5-4.9); Potassium 3.9 mmol/L (3.5-5.1)
[2024-07-28] MEDS ORDERED: SODIUM CHLORIDE 0.9% 1,000 ML IV PRN (07:00)
[2024-07-28 07:55] VITALS: RESP 16; O2SAT 99
--- NOTE | 2024-07-28 10:11 | Discharge Summary ---
Discharge Summary Date of Service July 28, 2024 Principal Dx & Hospital Course #1 = Principal Diagnosis (1) Acute pneumonia: Ms. Benitez is a 44-year-old female with past med history significant for history of preeclampsia, hypertension, arteriovenous fistula, mitral valve disorder, granuloma of liver associated with sarcoidosis, ESRD on dialysis, hypermobility syndrome, history of smoking, anxiety, admitted for management of atypical pneumonia. Patient found to have mycoplasma pneumoniae on biofire, consistent with infiltrate on cxr. Patient febrile on admission, but reported subjective improvement after abx initiated. Patient started on doxycyline and remained afebrile for over 24 hours. Patient completed Sunday HD session and discharged. #Atypical pneumonia 2/ Mycoplasma pneumoniae ER started Levaquin Transitioned to PO doxycycline for 7 day course improved symptoms, encouraged symptomatic management at home #ESRD On hemodialysis continue home hd cycle #Hypertension On losartan Metoprolol succinate and torsemide #GERD On Protonix #Anxiety On venlafaxine Notes For Next Care Provider Medication Changes From Visit Doxycycline 100mg bid for 6 more days for Mycoplasma pneumoniae infection Admission HPI Per Admitting Provider 44-year-old female with past med history significant for history of preeclampsia, hypertension, arteriovenous fistula, mitral valve disorder, granuloma of liver associated with sarcoidosis, ESRD on dialysis, hypermobility syndrome, history of smoking, anxiety, comes in because of weakness and cough going on since last . Having temp spike in the ER. Denies any headache. Vision is okay. Has sore throat. No runny nose. Has dry cough. Denies chest pain or shortness of breath. Has nausea. No abdominal pain. Ambulating okay. Because of ongoing symptoms came to the ER and respiratory bio fire came back positive for mycoplasma pneumonia. Past medical history. As mentioned above Past surgical history. EGD with endoscopic ultrasound. IR biopsy. Tonsillectomy and adenoidectomy. [place] tooth removal. Sinus surgery. Social history. . Quit smoking 2021. Smoked 0.5 pack a day for 15 years. Alcohol occasional. No drug use. Family history. Mother has arthritis. Hypertension. COPD. Father has hyp ertension. Maternal grandmother had pituitary cancer. Skin cancer. Maternal grandmother had glaucoma. Paternal grandmother had glaucoma. Brother has hypertension. Admission Exam Per Admitting Provider General- Not in distress Head- atraumatic Eyes- PERRL,. ENT- oropharynx clear Neck- supple, no JVD. Lungs- clear to auscultation no wheezing or crackles. Heart- regular rate rhythm; no murmur, no gallop. Abdomen- normal bowel sounds, soft, nontender, no distension Extremities- no pretibial edema, no erythema seen. Neuro- alert, oriented ; PERRL, no facial palsy; no dysarthria; moves extremities Discharge Exam Constitutional WD/WN, vitals as above Respiratory normal respiratory effort, lungs clear to auscultation (productive cough, but much improved per patient report ) Cardiovascular RRR, no murmur, no edema Gastrointestinal (Abdomen) normal bowel sounds, soft, nontender, no hepatosplenomegaly Updated Medication List Medication Instructions Recorded Confirmed Type pantoprazole 40 mg tablet,delayed 40 mg PO QAM #30 tabs 10/22/22 07/26/24 Rx release Lactobacil.acidophilus-Bifido.animalis 1 cap PO QAM 02/27/24 07/26/24 History 5 billion cell sprinkle capsule (Probiotic) cetirizine 10 mg tablet (Zyrtec) 10 mg PO HS 02/27/24 07/26/24 History docusate sodium 100 mg capsule 100 mg PO BID 02/27/24 07/26/24 History (Colace) losartan 100 mg tablet 100 mg PO QAM 02/27/24 07/26/24 History sevelamer carbonate 800 mg tablet 800 mg PO TIDM 02/27/24 07/26/24 History venlafaxine 37.5 mg 37.5 mg PO QAM 02/27/24 07/26/24 History capsule,extended release 24 hr calcitriol 0.5 mcg capsule 0.5 mcg PO 3XWK 07/26/24 07/26/24 History metoprolol succinate 25 mg 25 mg PO BID 07/26/24 07/26/24 History tablet,extended release 24 hr semaglutide (weight loss) 0.5 0.5 mg subcut WK 07/26/24 07/26/24 History mg/0.5 mL subcutaneous pen injector (Wegovy) torsemide 100 mg tablet 100 mg PO QAM 07/26/24 07/26/24 History vitamin B complex and vitamin C 1 cap PO QAM 07/26/24 07/26/24 History no.20-folic acid 1 mg capsule (Renal Caps) doxycycline hyclate 100 mg capsule 100 mg PO BID 6 days #12 caps 07/28/24 Rx Hospital Stay Data Consultations 07/26/24 22:51 ED Decision to Admit Stat 07/27/24 08:00 Consult Nephrology Routine Pending Results Patient Have Any Pending Studies at Discharge: No Discharge Instructions Given to Patient (Per Discharging Provider) You were admitted for fever and found to have atypical pneumonia. YOu were started on doxycycline, 1 tablet two times a day. Your next dose is this evening, please continue until all tablets are complete. There were no other changes to your medications. Total Time Total Time Spent Total Time Spent (In Minutes): 35
[2024-07-28] MEDS ORDERED: levoFLOXacin 750 MG TAB PO SCH (11:00)
[2024-07-28 14:05] VITALS: TEMP 97.9
--- NOTE | 2024-07-28 14:16 | Nephrology Progress Note ---
Date of Service July 28, 2024 Assessment & Plan (1) Dialysis patient: Plan: ESRD ON HD- Sunday - will dialyze today for 3-1/2 hours and 2-2.5 L UF - please continue her on all the outpatient medication. (2) Mycoplasma pneumonia: Plan: on antibiotic- renally dosed Admission and Anticipated Discharge Date Admission Date: July 27, 2024 Subjective comfortable, no shortness of breath, no cough Review of Systems 2 Review of Systems: All systems reviewed & are unremarkable except as noted in HPI & below Physical Exam 2 Physical Exam: General- Not in distress Neck- supple, no JVD. Lungs- clear to auscultation no wheezing or crackles. Heart- regular rate rhythm; no murmur, no gallop. Abdomen- normal bowel sounds, soft, nontender, no distension Extremities- no pretibial edema, no erythema seen. Neuro- alert, oriented Results & Data Vital Signs (Past 12 Hours) Vital Signs Temp Pulse Pulse Pulse Resp BP BP 07/28/24 13:40 36.6 C 86 119/84 07/28/24 13:30 82 113/74 07/28/24 13:00 82 117/84 07/28/24 12:30 84 126/89 07/28/24 12:00 83 112/80 07/28/24 11:30 76 121/89 07/28/24 11:00 76 122/86 07/28/24 10:30 75 126/78 07/28/24 10:02 84 137/71 07/28/24 09:53 36.4 C L 86 07/28/24 08:00 07/28/24 07:54 36.4 C L 74 16 106/69 07/28/24 07:42 73 07/28/24 04:00 36.7 C 78 18 114/81 Pulse Ox O2 Del Method 07/28/24 13:40 07/28/24 13:30 07/28/24 13:00 07/28/24 12:30 07/28/24 12:00 07/28/24 11:30 07/28/24 11:00 07/28/24 10:30 07/28/24 10:02 07/28/24 09:53 07/28/24 08:00 Room Air 07/28/24 07:54 99 Room Air 07/28/24 07:42 07/28/24 04:00 97 Room Air Laboratory Results 07/28/24 05:58 07/28/24 05:58
[2024-07-28 14:39] VITALS: BP 119/77
[2024-07-28] MEDS: CALCITRIOL 0.25 MCG CAPSULE PO SCH (14:40)
[2024-07-28 14:51] VITALS: PULSE 78
== END 2024-07-28 15:38 | disposition home or self-care (01) | DRG 193 ==
LOC: ED 19:27 → 2W 07-27 00:55 → INTOOBSV 07-27 00:55 → SUATTDRO 07-27 00:55 → 2W 07-27 01:52

== ENCOUNTER 2024-08-15 07:59 | Inpatient (IN) ==
[2024-08-15] MEDS: SODIUM CHLORIDE 0.9% 250 ML IV ONE (08:31)
[2024-08-15] MEDS: ONDANSETRON INJ 2 MG/ML 2 ML VIAL IV STA (08:31)
[2024-08-15] MEDS: ACETAMINOPHEN 1,000 MG/100 ML VIAL IV STA (08:32)
--- NOTE | 2024-08-15 08:33 | Emergency Department Note ---
Impression & Plan Abdominal pain, Nausea & vomiting, Elevated LFTs, Cholelithiasis ED Provider Note ED Provider Note NAME: RINA AQUINO AGE:44 SEX: Female : 1980 ARRIVES VIA: Private vehicle INFORMANT: Patient ED PROVIDER(s): Divya Gibson DO CHIEF COMPLAINT: Abdominal pain, known gallstones HPI: This is a 44-year-old female who presents emergency department due to concern for worsening abdominal pain, nausea and vomiting, in the setting of recent diagnosis of gallstones. Patient states she was here Sunday night for abdominal pain, nausea and vomiting, and was told she had gallstones. Her symptoms improved and she was discharged home and was going to follow-up as an outpatient. She states yesterday evening after trying to eat she began to develop pain again. She states this and these center and right upper area of her abdomen, and she developed nausea with numerous episodes of vomiting overnight. She denies fevers, change in urine or stools. Patient does have a history of CKD and does go to dialysis. She did attempt to get up and go start dialysis this morning however came off the machine early due to worsening abdominal pain and was instructed to come here for further evaluation. 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 Salazar. She states she took Tylenol at 8 PM last night, no further treatment prior to arrival. PAST MEDICAL HISTORY:See Below PAST SURGICAL HISTORY:See Below FAMILY HISTORY:See Below SOCIAL HISTORY:See Below HOME MEDICATIONS:See Below ALLERGIES:See Below VITALS:See Below PHYSICAL EXAMINATION: GENERAL: alert, uncomfortable appearing, well nourished, no distress, non-toxic EYE EXAM: normal conjunctiva, PERRL and EOM's grossly intact OROPHARYNX: no exudate, no erythema, lips, buccal mucosa, and tongue normal and mucous membranes are moist NECK: supple, no nuchal rigidity, no adenopathy, non-tender LUNGS: Clear to auscultation. Normal chest wall mechanics, no w/r/r HEART: no murmurs, S1 normal and S2 normal ABDOMEN: abdomen soft, pain with palpation in the epigastric and right upper quadrants with palpation, normo-active bowel sounds, no masses, no rebound or guarding. BACK: Back is symmetrical on inspection and there is no deformity, no midline tenderness, no CVA tenderness. SKIN: no rashes, petechiae, orbruising UPPER EXTREMITIES: upper extremities are grossly normal. FROM, nml pulses b/l. LOWER EXTREMITIES: No pitting edema. FROM, nml pulses b/l. NEURO EXAM: Normal sensorium, cranial nerves II-XII grossly intact, normal speech, no facial droop,nogross weakness of arms, no gross weakness of legs. Gross sensation intact. No ataxia. Vital Signs: reviewed and remarkable Differential Diagnosis: Biliary colic, GERD, pancreatitis, cholecystitis, PUD, GI bleed, bowel obstruction, mesenteric ischemia, STACEY, medication ADR, pneumonia, colitis, as well as others were considered MEDICAL DECISION MAKING: THis is a 44 yo female who presents to the ER with concern for recurrent abdominal pain, n/v, and recent dx of gallstones. Patient with CKD additionally and did go to HD this am. She was afebrile and VS stable. Labs drawn and sent, IV established, EKG and CXR performed and interpreted at bedside, and patient placed on telemetry. Given US just performed less than 48 hours ago, we initially deferred repeat imaging. Repeat labs revealed significant abnormality in LFT"s compared to prior. Patient given small amount of IVF, IV zofran, IV morphine with improvement in her symptoms. Due to concern for possible need for ERCP, discussed transfer with [facility] [place] They recommend MRCP here and will only accept in definite need for ERCP. MRCP performed and was negative for choledocholithiasis. Case discussed with gen surg here and then with hospitalist team for additional evaluation. Patient's VS remained stable. She was updated several times during her stay. Consultation(s): 1029: Discussed with Dr. Pham, [employer] triage officer. Recommends getting MRCP here and if negative, having general surgery perform a cholecystectomy. 1253: Discussed with Dona anderson PA-C, with general surgery. Recommends medicine admit. 1310: Discussed with ALEJANDRO Torres with [facility] hospitalist team. ER Treatment Provided: See below 1250: Patient updated on negative MRCP. Will reach out to general surgery. Diagnostics Interpreted By Me: -ECG: Normal sinus rhythm at 71, normal axis, normal intervals, no acute ST/T wave changes -Cardiac Monitoring: An order was placed for continuous cardiac monitoring. The monitor shows a rate of 72 with normal sinus rhythm. -Laboratory studies: As stated above and show below. -Imaging studies: X-ray Chest: A single view study of the chest was reviewed and was negative for cardiomegaly, focal infiltrate, effusion, pulmonary edema, or wide mediastinum. Triage Nursing Note Reviewed Prior/Outside Records Reviewed Critical Care: Critical care of 58 min performed to assess and manage high likelihood of life- threatening abdominal pain and abnormal LFTs, involving labs and imaging performed with assessment to evaluate abdominal pain and abnormal LFTs diagnosis with frequent reassessment. This time includes bedside time, treatment discussions with patient/family/consultants, documentation time and excludes procedure time. Past Med/Surg History Problem List Cholelithiasis (Acute) Elevated LFTs (Acute) Elevated LFTs Elevated bilirubin Nausea & vomiting (Acute) Abdominal pain (Acute) Symptomatic cholelithiasis (Acute) Acute pneumonia (Acute) Mycoplasma pneumonia (Acute) Shortness of breath (Acute) Chronic kidney disease Dialysis patient No significant past surgical history COVID-19 (Acute) Obesity (BMI 30.0-34.9) Nephrotic range proteinuria Demand ischemia Cirrhosis of liver Alcohol use DVT prophylaxis Glomerulonephritis, acute Elevated troponin Abdominal pain Non-ST elevation myocardial infarction (NSTEMI) Anemia Hypokalemia Acute renal failure (Acute) Acute epigastric pain (Acute) Hypertensive emergency (Acute) Medical History ESRD (end stage renal disease) on dialysis Anemia Social History Smoking Status: Former smoker Tobacco Type: Cigarettes packs per day: 1; Smoking End Date: september 2022; Second Hand Exposure: No; Do You Dip or Chew Tobacco: No; Hx Alcohol Use: No Hx Substance Use: No Preferred Language: Congolese Communication Ability: Effective Management Rep Required: No Beliefs That Will Affect Care: None marital status: Current Living Situation: Spouse and Family Feels Safe at Home: Yes Safety Concerns: Feels Safe At This Time Assistive Devices: None Allergies Allergies Allergy/AdvReac Type Severity Reaction Status Date / Time Penicillins Allergy Intermediate HIVES Verified 08/15/24 09:00 Sulfa (Sulfonamide Allergy Intermediate HIVES Verified 08/15/24 09:00 Antibiotics) cat dander Allergy Mild Itching Verified 08/15/24 09:00 house dust Allergy Mild Itching Verified 08/15/24 09:00 Home Meds Home Medications Medication Instructions Recorded Confirmed Lactobacil.acidophilus-Bifido.animalis 1 cap PO QAM 02/27/24 08/15/24 5 billion cell sprinkle capsule (Probiotic) cetirizine 10 mg tablet (Zyrtec) 10 mg PO HS 02/27/24 08/15/24 docusate sodium 100 mg capsule 100 mg PO BID 02/27/24 08/15/24 (Colace) losartan 100 mg tablet 100 mg PO QAM 02/27/24 08/15/24 sevelamer carbonate 800 mg tablet 800 mg PO TIDM 02/27/24 08/15/24 venlafaxine 37.5 mg 37.5 mg PO QAM 02/27/24 08/15/24 capsule,extended release 24 hr calcitriol 0.5 mcg capsule 0.5 mcg PO 3XWK 07/26/24 08/15/24 metoprolol succinate 25 mg 25 mg PO BID 07/26/24 08/15/24 tablet,extended release 24 hr torsemide 100 mg tablet 100 mg PO QAM 07/26/24 08/15/24 vitamin B complex and vitamin C 1 cap PO QAM 07/26/24 08/15/24 no.20-folic acid 1 mg capsule (Renal Caps) semaglutide (weight loss) 1 mg/0.5 1 mg subcut WK 08/15/24 08/15/24 mL subcutaneous pen injector (Ana) Previous Rx's Medication Instructions Recorded pantoprazole 40 mg tablet,delayed 40 mg PO QAM #30 tabs 10/22/22 release Results & Data (ED) Vital Signs Vital Signs - 24 hr 08/15/24 08:04 08/15/24 08:24 08/15/24 08:27 Temperature 36.7 C Temperature Source Oral Pulse Rate 95 H Pulse Rate [Left Finger] 61 56 L Pulse Rhythm [Left Finger] Regular Regular Pulse Strength [Left Finger] Normal Normal Respiratory Rate 20 18 20 Respiratory Effort / Characteristics Non-Labored Spontaneous Non-Labored Spontaneous Non-Labored Spontaneous Respiratory Depth Normal Normal Normal Respiratory Pattern Regular Regular Blood Pressure [Right Arm] 78/46 L 88/57 L Blood Pressure Mean [Right Arm] 56 67 Blood Pressure Position [Right Arm] Sitting Sitting Pulse Oximetry 100 99 99 Oxygen Delivery Method Room Air Room Air Room Air Sepsis Recent Fever Within 48 Hours No Sepsis New/Unexplained Change in Mental Status N/A Sepsis Action Taken by Nursing No Action Required 08/15/24 08:30 08/15/24 08:40 08/15/24 08:45 Temperature Temperature Source Pulse Rate Pulse Rate [Left Finger] 62 60 60 Pulse Rhythm [Left Finger] Regular Regular Regular Pulse Strength [Left Finger] Normal Normal Normal Respiratory Rate 18 20 20 Respiratory Effort / Characteristics Non-Labored Spontaneous Non-Labored Spontaneous Non-Labored Spontaneous Respiratory Depth Normal Normal Normal Respiratory Pattern Regular Regular Regular Blood Pressure [Right Arm] 104/64 93/61 L 121/75 Blood Pressure Mean [Right Arm] 77 71 90 Blood Pressure Position [Right Arm] Sitting Sitting Sitting Pulse Oximetry 99 100 99 Oxygen Delivery Method Room Air Room Air Room Air Sepsis Recent Fever Within 48 Hours Sepsis New/Unexplained Change in Mental Status Sepsis Action Taken by Nursing 08/15/24 08:51 08/15/24 09:41 08/15/24 10:31 Temperature Temperature Source Pulse Rate 73 Pulse Rate [Left Finger] 70 72 Pulse Rhythm [Left Finger] Regular Regular Pulse Strength [Left Finger] Normal Normal Respiratory Rate 20 20 Respiratory Effort / Characteristics Non-Labored Spontaneous Non-Labored Spontaneous Respiratory Depth Normal Normal Respiratory Pattern Regular Regular Blood Pressure [Right Arm] 122/83 104/76 Blood Pressure Mean [Right Arm] 96 85 Blood Pressure Position [Right Arm] Sitting Sitting Pulse Oximetry 97 99 Oxygen Delivery Method Room Air Room Air Sepsis Recent Fever Within 48 Hours Sepsis New/Unexplained Change in Mental Status Sepsis Action Taken by Nursing 08/15/24 12:06 08/15/24 13:01 08/15/24 14:16 Temperature Temperature Source Pulse Rate Pulse Rate [Left Finger] 70 68 65 Pulse Rhythm [Left Finger] Regular Regular Regular Pulse Strength [Left Finger] Normal Normal Normal Respiratory Rate 18 18 Respiratory Effort / Characteristics Non-Labored Spontaneous Non-Labored Spontaneous Respiratory Depth Normal Normal Respiratory Pattern Regular Regular Blood Pressure [Right Arm] 120/78 111/75 117/79 Blood Pressure Mean [Right Arm] 92 87 91 Blood Pressure Position [Right Arm] Lying Lying Sitting Pulse Oximetry 100 96 98 Oxygen Delivery Method Room Air Room Air Room Air Sepsis Recent Fever Within 48 Hours Sepsis New/Unexplained Change in Mental Status Sepsis Action Taken by Nursing 08/15/24 15:08 Temperature Temperature Source Pulse Rate Pulse Rate [Left Finger] 65 Pulse Rhythm [Left Finger] Regular Pulse Strength [Left Finger] Normal Respiratory Rate 12 Respiratory Effort / Characteristics Non-Labored Spontaneous Respiratory Depth Normal Respiratory Pattern Regular Blood Pressure [Right Arm] 133/76 Blood Pressure Mean [Right Arm] 95 Blood Pressure Position [Right Arm] Lying Pulse Oximetry Oxygen Delivery Method Sepsis Recent Fever Within 48 Hours Sepsis New/Unexplained Change in Mental Status Sepsis Action Taken by Nursing Laboratory Data 08/17/24 07:06 08/17/24 07:06 Lab Results 08/15/24 Range/Units 08:15 WBC 5.60 (4.8-10.8) K/ul RBC 3.93 L (4.20-5.40) M/uL Hgb 11.8 L (12.0-16.0) g/dl Hct 35.6 L (37.0-47.0) % MCV 90.6 (80.0-100.0) fL MCH 30.0 (25.0-34.0) pg MCHC 33.1 (32.0-36.0) g/dL RDW Std Deviation 44.2 (36.4-46.3) fL RDW Coeff of Vy 13.2 (11.5-14.5) % Plt Count 279 (130-400) K/uL MPV 11.1 (9.4-12.4) fL Immature Gran % (Auto) 0.2 % Neut % (Auto) 54.8 % Lymph % (Auto) 34.5 % Alpine % (Auto) 7.5 % Eos % (Auto) 2.3 % Baso % (Auto) 0.7 % Neut # (Auto) 3.07 (1.40-6.50) K/uL Lymph # (Auto) 1.93 (1.20-3.40) K/uL Alpine # (Auto) 0.42 (0.11-0.59) K/uL Eos # (Auto) 0.13 (0.00-0.50) K/uL Baso # (Auto) 0.04 (0.00-0.20) K/uL Immature Gran # (Auto) 0.01 (0.01-0.20) K/uL PT 10.8 (9.0-12.0) Seconds INR 1.0 (0.9-1.1) Sodium 139 (136-145) mmol/L Potassium 3.2 L (3.5-5.1) mmol/L Chloride 96 L (98-107) mmol/L Carbon Dioxide 31 (21-32) mmol/L Anion Gap 12 H (3-11) BUN 15 D (6-23) mg/dl Creatinine 1.80 H D (0.6-1.2) mg/dl Est Cr Clr Drug Dosing Not Reportable Est GFR ( Amer) 38.4 ml/min Est GFR (Non-Af Amer) 33.2 ml/min BUN/Creatinine Ratio 8.3 L (10-20) Glucose 112 H (70-99(Fasting)) mg/dl Calcium 9.4 (8.6-10.3) mg/dl Magnesium 1.9 (1.7-2.4) mg/dl Total Bilirubin 3.1 H D (0.2-1.0) mg/dl Direct Bilirubin 1.7 H (0-0.2) mg/dl AST 359 H (13-39) U/L ALT 634 H (7-52) U/L Alkaline Phosphatase 138 H (34-104) U/L Total Protein 7.5 (6.0-8.3) gm/dl Albumin 4.3 (3.4-5.0) gm/dl Globulin 3.2 (2.5-4.0) gm/dl Albumin/Globulin Ratio 1.3 (0.9-2) Lipase 81 (11-82) U/L Administered Medications Acetaminophen (Acetaminophen 325 Mg Tab) 650 mg PO Q4H PRN PRN Reason: Pain or Fever Stop: 09/14/24 17:45 Last Admin: 08/17/24 08:53 Dose: 650 mg Documented By: Admin: 08/16/24 21:06 Dose: 650 mg Documented By: DILLON Calcitriol (Calcitriol 0.25 Mcg Capsule) 0.5 mcg PO [id number] MARITZA Stop: 09/14/24 17:45 Last Admin: 08/15/24 19:20 Dose: 0.5 mcg Documented By: LAUREANOT Cetirizine HCl (Cetirizine Hcl 10 Mg Tablet) 10 mg PO HS MARITZA Stop: 09/14/24 20:59 Last Admin: 08/16/24 21:02 Dose: 10 mg Documented By: Admin: 08/15/24 20:24 Dose: 10 mg Documented By: GENNA Docusate Sodium (Docusate Sodium 100 Mg Cap) 100 mg PO BID MARITZA Stop: 09/14/24 20:59 Last Admin: 08/17/24 08:42 Dose: 100 mg Documented By: Admin: 08/16/24 21:05 Dose: 100 mg Documented By: Admin: 08/16/24 08:07 Dose: 100 mg Documented By: Admin: 08/15/24 20:24 Dose: 100 mg Documented By: LAUREANOT Heparin Sodium (Porcine) (Heparin Sod 5,000 Unit/0.5 Ml Vial) 5,000 units SQ Q8 MARITZA Stop: 09/14/24 21:59 Last Admin: 08/17/24 04:47 Dose: Not Given Documented By: Admin: 08/16/24 21:02 Dose: Not Given Documented By: Admin: 08/16/24 13:25 Dose: Not Given Documented By: Admin: 08/16/24 05:45 Dose: 5,000 units Documented By: Admin: 08/15/24 22:35 Dose: 5,000 units Documented By: GENNA Ciprofloxacin (Cipro / D5w) 400 mg in 200 mls @ 100 mls/hr IV Q24H MARITZA; Protocol Stop: 08/25/24 15:44 Last Infusion: 08/16/24 17:02 Dose: Infused Documented By: Admin: 08/16/24 14:59 Dose: 100 mls/hr Documented By: Infusion: 08/15/24 18:20 Dose: Infused Documented By: MLAlena Admin: 08/15/24 15:59 Dose: 100 mls/hr Documented By: Metronidazole (Flagyl) 500 mg in 100 mls @ 100 mls/hr IV Q8H MARITZA; Protocol Stop: 08/25/24 15:44 Last Infusion: 08/17/24 09:57 Dose: Infused Documented By: Admin: 08/17/24 08:39 Dose: 100 mls/hr Documented By: Infusion: 08/17/24 00:04 Dose: Infused Documented By: Admin: 08/16/24 23:04 Dose: 100 mls/hr Documented By: Infusion: 08/16/24 16:02 Dose: Infused Documented By: Admin: 08/16/24 15:00 Dose: 100 mls/hr Documented By: Infusion: 08/16/24 09:09 Dose: Infused Documented By: Admin: 08/16/24 08:07 Dose: 100 mls/hr Documented By: Infusion: 08/16/24 01:38 Dose: Infused Documented By: Admin: 08/16/24 00:38 Dose: 100 mls/hr Documented By: Infusion: 08/15/24 16:51 Dose: Infused Documented By: Admin: 08/15/24 15:43 Dose: 100 mls/hr Documented By: Lactobacillus Acidophilus (Advanced Probiotic 625 Mg Capsule) 625 mg PO QAM MARITZA Stop: 09/15/24 08:59 Last Admin: 08/17/24 08:38 Dose: 625 mg Documented By: Admin: 08/16/24 08:07 Dose: 625 mg Documented By: JUDITH Metoprolol Succinate (Metoprolol Succ 25mg Ext Rel Tab) 25 mg PO BID MARITZA Stop: 09/14/24 20:59 Last Admin: 08/17/24 08:39 Dose: 25 mg Documented By: Admin: 08/16/24 21:02 Dose: Not Given Documented By: Admin: 08/16/24 08:07 Dose: Not Given Documented By: Admin: 08/15/24 20:24 Dose: 25 mg Documented By: GENNA Ondansetron HCl (Ondansetron Inj 2 Mg/Ml 2 Ml Vial) 4 mg IV Q6H PRN PRN Reason: Nausea Stop: 09/14/24 17:45 Last Admin: 08/17/24 11:08 Dose: 4 mg Documented By: Admin: 08/16/24 12:05 Dose: 4 mg Documented By: JUDITH Pantoprazole Sodium (Pantoprazole 40 Mg Tab) 40 mg PO QAM MARITZA Stop: 09/15/24 08:59 Last Admin: 08/17/24 08:39 Dose: 40 mg Documented By: Admin: 08/16/24 08:08 Dose: 40 mg Documented By: JUDITH Sevelamer Carbonate (Sevelamer Carbonate 800 Mg Tab) 800 mg PO TIDM MARITZA Stop: 09/14/24 17:45 Last Admin: 08/17/24 13:17 Dose: Not Given Documented By: Admin: 08/17/24 08:40 Dose: 800 mg Documented By: Admin: 08/16/24 17:23 Dose: 800 mg Documented By: Admin: 08/16/24 12:01 Dose: Not Given Documented By: Admin: 08/16/24 08:07 Dose: 800 mg Documented By: Admin: 08/15/24 19:20 Dose: 800 mg Documented By: GENNA Torsemide (Torsemide 100 Mg Tab) [address] [facility] Stop: 09/15/24 08:59 Last Admin: 08/17/24 08:40 Dose: 100 mg Documented By: Admin: 08/16/24 08:08 Dose: 100 mg Documented By: JUDITH Venlafaxine HCl (Venlafaxine Hcl Xr 37.5 Mg Capxr) [facility] [place]: 09/15/24 08:59 Last Admin: 08/17/24 08:40 Dose: 37.5 mg Documented By: Admin: 08/16/24 08:08 Dose: 37.5 mg Documented By: JUDITH Vitamin B Complex/Folic Acid (Nephrocaps) [address] [facility] Stop: 09/15/24 08:59 Last Admin: 08/17/24 08:39 Dose: 1 cap Documented By: Admin: 08/16/24 08:08 Dose: 1 cap Documented By: JUDITH Discontinued Medications Sodium Chloride (Nss) 250 mls @ 999 mls/hr IV .Q16M ONE Stop: 08/15/24 08:38 Last Infusion: 08/15/24 08:47 Dose: Infused Documented By: Admin: 08/15/24 08:31 Dose: 999 mls/hr Documented By: CAMPOS Acetaminophen (Ofirmev) 1,000 mg in 100 mls @ 400 mls/hr IV NOW STA Stop: 08/15/24 08:37 Last Infusion: 08/15/24 08:47 Dose: Infused Documented By: Admin: 08/15/24 08:32 Dose: 400 mls/hr Documented By: CAMPOS Famotidine (Pepcid 20mg Iv Push) 20 mg in 5 mls @ 2.5 mls/min IV NOW STA Stop: 08/15/24 08:24 Last Admin: 08/15/24 08:57 Dose: 2.5 mls/min Documented By: CAMPOS Lactated Ringer's (Lr) 1,000 mls @ 80 mls/hr IV .[id number] MARITZA Stop: 08/16/24 20:59 Last Infusion: 08/16/24 13:25 Dose: Infused Documented By: Admin: 08/16/24 08:34 Dose: 80 mls/hr Documented By: JUDITH Morphine Sulfate (Morphine Sulfate 4 Mg/Ml 1 Ml Carp\\Vial) 4 mg IV NOW STA Stop: 08/15/24 08:24 Last Admin: 08/15/24 08:57 Dose: 4 mg Documented By: CAMPOS Ondansetron HCl (Ondansetron Inj 2 Mg/Ml 2 Ml Vial) 4 mg IV NOW STA Stop: 08/15/24 08:24 Last Admin: 08/15/24 08:31 Dose: 4 mg Documented By: CAMPOS Potassium Chloride (Potassium Chloride Crtab 20 Meq Tabcr) 40 meq PO NOW STA Stop: 08/17/24 08:24 Last Admin: 08/17/24 08:38 Dose: 40 meq Documented By: WILFREDO Simethicone (Simethicone 80 Mg Chew) 80 mg PO NOW ONE Stop: 08/16/24 20:59 Last Admin: 08/16/24 21:07 Dose: 80 mg Documented By: DILLON Imaging Data Radiologist's Impression: Chest X-Ray 08/15/24 08:23 XR chest 1V portable HISTORY: n/v COMPARISON: Chest 08/14/2024. FINDINGS: The lungs are clear. Cardiac silhouette is normal in size. No pleural effusions. No pneumothorax. IMPRESSION: No acute process. ACT 112: Negative or not required by law. Electronically signed by: Jericho Rivera M.D. 08/15/2024 9:44 AM Cholangiopancreatography MRI 08/15/24 10:28 MR MRCP HISTORY: 44 years-old Female r/o choledocholithiasis acute abdominal pain with nausea and vomiting COMPARISON: Ultrasound 08/14/2024 TECHNIQUE: MRCP was obtained without IV contrast utilizing institutional protocol FINDINGS: The mid lower chest is unremarkable. Study is motion degraded. The spleen, pancreas, liver and adrenal glands are within normal limits. There is no hydronephrosis. Mild cortical thinning within the kidneys. Aorta and IVC are unremarkable. No lymphadenopathy. No bowel obstruction, bowel wall thickening or ascites. Distended gallbladder with cholelithiasis. No gallbladder wall thickening or pericholecystic fluid identified. Common bile duct measures 6 mm. No biliary strictures or choledocholithiasis. Normal caliber of the pancreatic duct. No evidence of pancreatic divisum. Minimal lumbar levoscoliosis. IMPRESSION: 1. Distended gallbladder with cholelithiasis. No wall thickening or pericholecystic fluid identified to suggest acute cholecystitis. 2. No biliary ductal dilation or choledocholithiasis. ACT 112: Negative or not required by law. The above report was generated using voice recognition software. It may contain grammatical, syntax or spelling errors. Electronically signed by: Thierry Aquino M.D. 08/15/2024 12:43 PM Discharge Plan Visit Data Chief Complaint: Abdominal Pain Stated Complaint: ABD PAIN ED Provider: Divya Gibson Discharge Problem: Abdominal pain, Nausea & vomiting, Elevated LFTs, Cholelithiasis Patient Disposition: Admitted As Inpatient Discharge Instructions Interventions: ED Discharge Assessment Last Done: 08/15/24 17:02
[2024-08-15 08:45] LABS: Basophils # (auto) 0.04 K/uL (0.00-0.20); Basophils % (auto) 0.7 %; Eosinophils # (auto) 0.13 K/uL (0.00-0.50); Eosinophils % (auto) 2.3 %; Hematocrit (blood only) 35.6 % (37.0-47.0); Hemoglobin 11.8 g/dl (12.0-16.0); Immature Granulocytes # (auto) 0.01 K/uL (0.01-0.20); Immature Granulocytes % (auto) 0.2 %; Lymphocytes # (auto) 1.93 K/uL (1.20-3.40); Lymphocytes % (auto) 34.5 %; Mean Corpuscular Hgb Conc 33.1 g/dL (32.0-36.0); Mean Corpuscular Volume 90.6 fL (80.0-100.0); Mean Platelet Volume 11.1 fL (9.4-12.4); Monocytes # (auto) 0.42 K/uL (0.11-0.59); Monocytes % (auto) 7.5 %; Neutrophils # (auto) 3.07 K/uL (1.40-6.50); Neutrophils % (auto) 54.8 %; Platelet Count 279 K/uL (130-400); RDW Coefficient of Variation 13.2 % (11.5-14.5); RDW Standard Deviation 44.2 fL (36.4-46.3); Red Blood Count 3.93 M/uL (4.20-5.40)
[2024-08-15] MEDS: MoRPHine SULFATE 4 MG/ML 1 ML CARP\\VIAL IV STA (08:57)
[2024-08-15] MEDS: FAMOTIDINE 20MG IV PUSH 20 MG/5 ML SYR IV STA (08:57)
[2024-08-15 09:10] LABS: Prothrombin Time 10.8 Seconds (9.0-12.0)
[2024-08-15 09:29] LABS: Albumin Globulin Ratio 1.3 (0.9-2); Albumin Level 4.3 gm/dl (3.4-5.0); Alkaline Phosphatase 138 U/L (34-104); Anion Gap 12 (3-11); Aspartate Aminotransferase 359 U/L (13-39); BUN Creatinine Ratio 8.3 (10-20); Bilirubin,Total 3.1 mg/dl (0.2-1.0); Blood Urea Nitrogen 15 mg/dl (6-23); Calcium 9.4 mg/dl (8.6-10.3); Carbon Dioxide 31 mmol/L (21-32); Chloride 96 mmol/L (98-107); Est GFR (African American) 38.4 ml/min; Est GFR (Non-African American) 33.2 ml/min; Globulin 3.2 gm/dl (2.5-4.0); Glucose 112 mg/dl (70-99(Fasting)); Lipase 81 U/L (11-82); Magnesium 1.9 mg/dl (1.7-2.4); Potassium 3.2 mmol/L (3.5-5.1); Sodium 139 mmol/L (136-145); Total Protein 7.5 gm/dl (6.0-8.3)
[2024-08-15 09:45] LABS: Alanine Aminotransferase 634 U/L (7-52)
--- NOTE | 2024-08-15 09:45 | XRay Report ---
XR chest 1V portable HISTORY: n/v COMPARISON: Chest 08/14/2024. FINDINGS: The lungs are clear. Cardiac silhouette is normal in size. No pleural effusions. No pneumot horax. IMPRESSION: No acute process. ACT 112: Negative or not required by law. Electronically signed by: Jericho Rivera M.D. 08/15/2024 9:44 AM
--- OUTSIDE RECORDS SUMMARY | 2024-08-15 10:11 | External Medical Summary ---
Author Name Unknown Address Unknown Organization : Laboratory Report Ordering Provider Test Date Status BRUNA REICH 08/01/2024 05:15:00 Final Observation Date Value Abnormality Reference (Units ) Status REFERENCE LAB SCANNED REPORT 08/01/2024 05:15:00 See Scanned Report Final [facility] 08/01/2024 05:15:00 Serum not tested, on hold at [facility] Final Performing Location
--- NOTE | 2024-08-15 12:44 | Magnetic Resonance Report ---
MR MRCP HISTORY: 44 years-old Female r/o choledocholithiasis acute abdominal pain with nausea and vomiting COMPARISON: Ultrasound 08/14/2024 TECHNIQUE: MRCP was obtained without IV contrast utilizing institutional protocol FINDINGS: The mid lower chest is unremarkable. Study is motion degraded. The spleen, pancreas, liver and adrenal glands are within normal limits. There is no hydronephrosis. Mild cortical thinning within the kidneys. Aorta and IVC are unremarkable. No lymphadenopathy. No bow el obstruction, bowel wall thickening or ascites. Distended gallbladder with cholelithiasis. No gallb ladder wall thickening or pericholecystic fluid identified. Common bile duct measures 6 mm. No biliar y strictures or choledocholithiasis. Normal caliber of the pancreatic duct. No evidence of pancreatic divisum. Minimal lumbar levoscoliosis. IMPRESSION: 1. Distended gallbladder with cholelithiasis. No wall thickening or pericholecystic fluid identified to suggest acute cholecystitis. 2. No biliary ductal dilation or choledocholithiasis. ACT 112: Negative or not required by law. The above report was generated using voice recognition software. It may contain grammatical, syntax o r spelling errors. Electronically signed by: Thierry Aquino M.D. 08/15/2024 12:43 PM
--- NOTE | 2024-08-15 13:05 | Electrocardiogram Report ---
Test Reason : Blood Pressure : */* mmHG Vent. Rate : 71 BPM Atrial Rate : 71 BPM P-R Int : 164 ms QRS Dur : 86 ms QT Int : 426 ms P-R-T Axes : 56 -15 59 degrees QTcB Int : 462 ms Poor data quality, interpretation may be adversely affected Normal sinus rhythm Normal ECG When compared with ECG of 14-Aug-2024 00:43, No significant change was found Confirmed by Adriano Mortensen ([id number]) on 08/15/2024 1:04:48 PM Referred By: Confirmed By: Adriano Mortensen
--- NOTE | 2024-08-15 14:01 | Surgery Consultation ---
Date of Consultation August 15, 2024 Assessment & Plan (1) Symptomatic cholelithiasis: (2) Elevated bilirubin: (3) Elevated LFTs: Plan 44 year-old female with gallstones and sludge with RUQ /epigastric pain initially two nights ago with mild elevation in LFTS now presents with re currence of abdominal pain after eating with elevated t. bili of 3.1, increased in LFTS from prior and elevated alk phos. No leukocytosis. MRCP negative for choledocholithiasis. Discussed with patient imaging and laboratory findings. Although MRCP negative, I do feel she likely either has biliary obstruction given the abnormal labs and normal labs two days ago vs she passed a stone and labs are transiently elevated. Discussed indication for ERCP given the elevated labs and concern for biliary obstruction prior to cholecystectomy. Discussed with hospitalist team, they are trying to reach out to [facility] for transfer. In interim, recommend IV antibiotics, Clear liquids and NPO after midnight, pain management and antiemetics as needed, and repeat am labs. If labs trending down and normalized prior to ability to transfer (bed availability) may consider lap stiven on Sunday given that she is scheduled for kidney transplant September 17 to give her time to recover from cholecystectomy and prevent future events of biliary obstruction or need for emergent gallbladder intervention. Dr. Yuen has seen and examined patient, see addendum for further recommendations/plan. Supervising Physician Co-Signing Physician Notes I have seen and examined the patient personally and agree with the above asses sment and plan. In brief, she has had 2 days of abdominal pain and a bilirubin of 3.1. MRCP negative. She continues to have abdominal tenderness on exam. Transfer attempted to [facility] for ERCP, however this was delayed due to the bed situation. She will be admitted to the hospital. We will monitor and recheck labs in the morning. History of Present Illness Reason for Consultation: Gallstones, elevated total bilirubin Requesting Physician: MD Paige Attending Physician: MD Paige History of Present Illness Matilda is a pleasant 44 year-old female with history of CKD on dialysis two times a week, cirrhosis of liver, NSTEMI, anemia, recent mycoplasma pneumonia, who was just seen in ED on Sunday evening for abdominal pain and nausea and found to have gallstones and sludge on ultrasound without signs of acute cholecystitis with normal wbc and slight elevation in LFTS but normal t. bili and alk phos. She then went home and slept most of day and then ate dinner and had sudden onset of severe RUQ/epigastric abdominal pain with nausea and vomiting. Pain then improved slightly and then increased again during dialysis. Repeat labs showed no leukocytosis, but t. bili up to 3.1 with elevation in LFTS and elevated alk phos. MRCP negative for choledocholithiasis. She is scheduled for kidney transplant September 17 in [place]. No fevers, chills, changes in bowel habits, blood in stools, acholic stools, difficulty urinating or blood in urine. Allergies Allergy/AdvReac Type Severity Reaction Status Date / Time Penicillins Allergy Intermediate HIVES Verified 08/15/24 09:00 Sulfa (Sulfonamide Allergy Intermediate HIVES Verified 08/15/24 09:00 Antibiotics) cat dander Allergy Mild Itching Verified 08/15/24 09:00 house dust Allergy Mild Itching Verified 08/15/24 09:00 Home Medications Medication Instructions Recorded Confirmed Type pantoprazole 40 mg tablet,delayed 40 mg PO QAM #30 tabs 10/22/22 08/15/24 Rx release Lactobacil.acidophilus-Bifido.animalis 1 cap PO QAM 02/27/24 08/15/24 History 5 billion cell sprinkle capsule (Probiotic) cetirizine 10 mg tablet (Zyrtec) 10 mg PO HS 02/27/24 08/15/24 History docusate sodium 100 mg capsule 100 mg PO BID 02/27/24 08/15/24 History (Colace) losartan 100 mg tablet 100 mg PO QAM 02/27/24 08/15/24 History sevelamer carbonate 800 mg tablet 800 mg PO TIDM 02/27/24 08/15/24 History venlafaxine 37.5 mg 37.5 mg PO QAM 02/27/24 08/15/24 History capsule,extended release 24 hr calcitriol 0.5 mcg capsule 0.5 mcg PO 3XWK 07/26/24 08/15/24 History metoprolol succinate 25 mg 25 mg PO BID 07/26/24 08/15/24 History tablet,extended release 24 hr torsemide 100 mg tablet 100 mg PO QAM 07/26/24 08/15/24 History vitamin B complex and vitamin C 1 cap PO QAM 07/26/24 08/15/24 History no.20-folic acid 1 mg capsule (Renal Caps) semaglutide (weight loss) 1 mg/0.5 1 mg subcut WK 08/15/24 08/15/24 History mL subcutaneous pen injector (Ana) Patient History Medical History (Updated 08/15/24 @ 16:20 by Melissa Parekh PA-C) ESRD (end stage renal disease) on dialysis Anemia Social History Smoking Status: Former smoker Tobacco Type: Cigarettes packs per day: 1; Smoking End Date: september 2022; Second Hand Exposure: No; Do You Dip or Chew Tobacco: No; Hx Alcohol Use: No Hx Substance Use: No Preferred Language: Salvadorean Communication Ability: Effective Safe [employer] V[employer] Service Mechanic Required: No Beliefs That Will Affect Care: None marital status: Current Living Situation: Spouse and Family Feels Safe at Home: Yes Safety Concerns: Feels Safe At This Time Assistive Devices: None Review of Systems Review of Systems: All systems reviewed & are unremarkable except as noted in HPI & below Physical Exam Constitutional: WD/WN, vitals as above cooperative and comfortable; no acute distress and not ill appearing Respiratory: normal respiratory effort, lungs clear to auscultation Cardiovascular: RRR, no murmur, no edema Gastrointestinal (Abdomen): Inspection/Auscultation: abdomen normal to inspection Percussion/Palpation: + abdomen tender (RUQ and epigastrium on deep palpation) and abdomen soft; no guarding, abdomen not rigid and abdomen not firm Skin: no rashes, warm and dry Psychiatric: Orientation: alert and oriented x 3 Results & Data Vital Signs (Past 12 Hours) Vital Signs Temp Pulse Pulse Resp BP Pulse Ox O2 Del Method 08/15/24 13:01 68 111/75 96 Room Air 08/15/24 12:06 70 18 120/78 100 Room Air 08/15/24 10:31 72 20 104/76 99 Room Air 08/15/24 09:41 70 20 122/83 97 Room Air 08/15/24 08:51 73 08/15/24 08:45 60 20 121/75 99 Room Air 08/15/24 08:40 60 20 93/61 L 100 Room Air 08/15/24 08:30 62 18 104/64 99 Room Air 08/15/24 08:27 56 L 20 88/57 L 99 Room Air 08/15/24 08:24 61 18 78/46 L 99 Room Air 08/15/24 08:04 36.7 C 95 H 20 100 Room Air Laboratory Results 08/15/24 Range/Units 08:15 WBC 5.60 (4.8-10.8) K/ul RBC 3.93 L (4.20-5.40) M/uL Hgb 11.8 L (12.0-16.0) g/dl Hct 35.6 L (37.0-47.0) % MCV 90.6 (80.0-100.0) fL MCH 30.0 (25.0-34.0) pg MCHC 33.1 (32.0-36.0) g/dL RDW Std Deviation 44.2 (36.4-46.3) fL RDW Coeff of Vy 13.2 (11.5-14.5) % Plt Count 279 (130-400) K/uL MPV 11.1 (9.4-12.4) fL Immature Gran % (Auto) 0.2 % Neut % (Auto) 54.8 % Lymph % (Auto) 34.5 % [place] % (Auto) 7.5 % Eos % (Auto) 2.3 % Baso % (Auto) 0.7 % Neut # (Auto) 3.07 (1.40-6.50) K/uL Lymph # (Auto) 1.93 (1.20-3.40) K/uL [place] # (Auto) 0.42 (0.11-0.59) K/uL Eos # (Auto) 0.13 (0.00-0.50) K/uL Baso # (Auto) 0.04 (0.00-0.20) K/uL Immature Gran # (Auto) 0.01 (0.01-0.20) K/uL PT 10.8 (9.0-12.0) Seconds INR 1.0 (0.9-1.1) Sodium 139 (136-145) mmol/L Potassium 3.2 L (3.5-5.1) mmol/L Chloride 96 L (98-107) mmol/L Carbon Dioxide 31 (21-32) mmol/L Anion Gap 12 H (3-11) BUN 15 D (6-23) mg/dl Creatinine 1.80 H D (0.6-1.2) mg/dl Est Cr Clr Drug Dosing Not Reportable Est GFR ( Amer) 38.4 ml/min Est GFR (Non-Af Amer) 33.2 ml/min BUN/Creatinine Ratio 8.3 L (10-20) Glucose 112 H (70-99(Fasting)) mg/dl Calcium 9.4 (8.6-10.3) mg/dl Magnesium 1.9 (1.7-2.4) mg/dl Total Bilirubin 3.1 H D (0.2-1.0) mg/dl Direct Bilirubin 1.7 H (0-0.2) mg/dl AST 359 H (13-39) U/L ALT 634 H (7-52) U/L Alkaline Phosphatase 138 H (34-104) U/L Total Protein 7.5 (6.0-8.3) gm/dl Albumin 4.3 (3.4-5.0) gm/dl Globulin 3.2 (2.5-4.0) gm/dl Albumin/Globulin Ratio 1.3 (0.9-2) Lipase 81 (11-82) U/L Diagnostic Findings MR MRCP HISTORY: 44 years-old Female r/o choledocholithiasis acute abdominal pain with nausea and vomiting COMPARISON: Ultrasound 08/14/2024 TECHNIQUE: MRCP was obtained without IV contrast utilizing institutional pro tocol FINDINGS: The mid lower chest is unremarkable. Study is motion degraded. The spleen, pancreas, liver and adrenal glands are within normal limits. There is no hydronephrosis. Mild cortical thinning within the kidneys. Aorta and IVC are unremarkable. No lymphadenopathy. No bowel obstruction, bowel wall thickening or ascites. Distended gallbladder with cholelithiasis. No gallbladder wall thickening or pericholecystic fluid identified. Common bile duct measures 6 mm. No biliary strictures or choledocholithiasis. Normal caliber of the pancreatic duct. No evidence of pancreatic divisum. Minimal lumbar levoscoliosis. IMPRESSION: 1. Distended gallbladder with cholelithiasis. No wall thickening or pericholecystic fluid identified to suggest acute cholecystitis. 2. No biliary ductal dilation or choledocholithiasis. Exam(s): US GALLBLADDER EXAM: US Abdomen Limited, Gallbladder CLINICAL HISTORY: Reason for exam: epigastric pain. TECHNIQUE: Real-time ultrasound of the right upper quadrant with image documentation. COMPARISON: 10/16/22 FINDINGS: Gallbladder: Gallbladder is mildly distended with a dependently layering sludge and small gallstones. Unable to assess for Tabares sign as patient received pain medications. Common bile duct: Common bile duct measures 4.6 mm in width. No stones. No dilation. Pancreas: Unremarkable as visualized. Right kidney: Increased right renal cortical echogenicity characteristic for chronic medical renal disease. No hydronephrosis. IMPRESSION: 1. Gallbladder is mildly distended with a dependently layering sludge and small gallstones. No definite evidence for acute cholecystitis, however, exam limited due to administration of pain medication. 2. Increased right renal cortical echogenicity characteristic for chronic medical renal disease. No hydronephrosis. I personally reviewed gallbladder images above and concur with above findings
[2024-08-15 14:10] LABS: Bilirubin Direct 1.7 mg/dl (0-0.2)
[2024-08-15] MEDS ORDERED: POTASSIUM CHLORIDE / WTR 10 MEQ/100 ML PLCT IV SCH (14:30)
[2024-08-15] MEDS ORDERED: Patient's HEIGHT &/or WEIGHT Needed STA (15:19)
[2024-08-15] MEDS: metroNIDAZOLE 500 MG/100 ML BAG IV SCH (15:43)
[2024-08-15] MEDS: CIPROFLOXACIN / D5W 400 MG/200 ML BAG IV SCH (15:59)
--- NOTE | 2024-08-15 16:24 | History & Physical Report ---
Date of Service August 15, 2024 Assessment & Plan (1) Symptomatic cholelithiasis: (2) Elevated bilirubin: (3) Elevated LFTs: (4) ESRD (end stage renal disease) on dialysis: Plan This is a 44 yr old F who has significant PMH of HTN, mitral valve disorder, ESRD on HD, hx of pre eclampsia, granuloma of liver associated with sarcoidosis, anxiety who presents to ED in setting of abd pain for a few days. Of significance pt was seen in ED on 08/14 and underwent Abd US which read mildly distended gallbladder with layering sludge and small stones. Symptomatic Cholelithiasis Elevated bilirubin and LFTS admit to med tele discussed with [facility] who does not have any interventional physician to perform ERCP - recommend transfer discussed with [facility] surgery who is not comfortable with the MRCP and wishes to pursue tertiary for ERCP/Gen surg services ED provider discussed with [facility] who declined transfer I reached out to [facility] who is unable to do any intervention until Sunday at [place] (pt would prefer [place] anyway) I reached back out to [facility] and spoke to Dr. Pham (triage officer) who is going to talk to GI and feels that they could possible accept and potentially transfer on Sunday if ERCP still indicated, they will reaching back out Re discussed with surgery who states if LFT trends down they could consider and cholecystectomy on Sunday continue to trend LFTS IV Cipro/Flagyl, analgesics Clear liquids for now, will make NPO after midnight per surgery ESRD on HD Mo/Fr: continue meds including torsemide, calcitriol, renal dose me ds, consult nephro, plan for transplant in August Anemia: likely in setting of renal disease, hgb stable at 11.8 HTN: hold losartan for now, bp normal so will hold losartan given concern for cholecystitis Depression: mood stable, continue Effexor DVT ppx: SQ Heparin FULL CODE PCP: Sofia Fenton Dispo: admit to med tele Pt was seen and examined in collaboration with Dr. Roy, please see addendum A total of 76 minutes was spent coordinating, documenting, and providing care for this patient excluding time spent in the performance of separately billed services. This included personally viewing all current laboratories and imaging studies, medication reconciliation, outpatient chart review, and discussion with specialists. History of Present Illness Chief Complaint: Abd Pain x few days. Primary Care Provider: Sofia Fenton MD This is a 44 yr old F who has significant PMH of HTN, mitral valve disorder, ESRD on HD, hx of pre eclampsia, granuloma of liver associated with sarcoidosis, anxiety who presents to ED in setting of abd pain for a few days. Of significance pt was seen in ED on 08/14 and underwent Abd US which read mildly distended gallbladder with layering sludge and small stones. She states she was eating dinner last night, "quinoa," and developed severe RUQ and epigastric pain with associated nausea and vomiting that had her represent to ED. She denies any f/c/s, chest pain, sob, dysuria, increased urg/freq, melena or hematochezia. She presented to HD today where she had 2hrs of tx. She typically has HD on Sunday and Fridays for 3.5hrs. In ED pt was hemodynamically stable. She had a notable bump in her LFTS today with a total bilirubin of 3.1, ast 359 and alt 634. ED provider spoke with [facility] who recommended MRCP and admission to our hospital. MRCP was obtained which didn't show any kaci stone, but did show a CBD of 6mm. Allergies Allergy/AdvReac Type Severity Reaction Status Date / Time Penicillins Allergy Intermediate HIVES Verified 08/15/24 09:00 Sulfa (Sulfonamide Allergy Intermediate HIVES Verified 08/15/24 09:00 Antibiotics) cat dander Allergy Mild Itching Verified 08/15/24 09:00 house dust Allergy Mild Itching Verified 08/15/24 09:00 Home Medications Medication Instructions Recorded Confirmed Type pantoprazole 40 mg tablet,delayed 40 mg PO QAM #30 tabs 10/22/22 08/15/24 Rx release Lactobacil.acidophilus-Bifido.animalis 1 cap PO QAM 02/27/24 08/15/24 History 5 billion cell sprinkle capsule (Probiotic) cetirizine 10 mg tablet (Zyrtec) 10 mg PO HS 02/27/24 08/15/24 History docusate sodium 100 mg capsule 100 mg PO BID 02/27/24 08/15/24 History (Colace) losartan 100 mg tablet 100 mg PO QAM 02/27/24 08/15/24 History sevelamer carbonate 800 mg tablet 800 mg PO TIDM 02/27/24 08/15/24 History venlafaxine 37.5 mg 37.5 mg PO QAM 02/27/24 08/15/24 History capsule,extended release 24 hr calcitriol 0.5 mcg capsule 0.5 mcg PO 3XWK 07/26/24 08/15/24 History metoprolol succinate 25 mg 25 mg PO BID 07/26/24 08/15/24 History tablet,extended release 24 hr torsemide 100 mg tablet 100 mg PO QAM 07/26/24 08/15/24 History vitamin B complex and vitamin C 1 cap PO QAM 07/26/24 08/15/24 History no.20-folic acid 1 mg capsule (Renal Caps) semaglutide (weight loss) 1 mg/0.5 1 mg subcut WK 08/15/24 08/15/24 History mL subcutaneous pen injector (Wegovy) Past Med/Surg History Problem List (Updated 08/15/24 @ 16:20 by Melissa Parekh PA-C) Cholelithiasis (Acute) Elevated LFTs (Acute) Elevated LFTs Elevated bilirubin Nausea & vomiting (Acute) Abdominal pain (Acute) Symptomatic cholelithiasis (Acute) Acute pneumonia (Acute) Mycoplasma pneumonia (Acute) Shortness of breath (Acute) Chronic kidney disease Dialysis patient No significant past surgical history COVID-19 (Acute) Obesity (BMI 30.0-34.9) Nephrotic range proteinuria Demand ischemia Cirrhosis of liver Alcohol use DVT prophylaxis Glomerulonephritis, acute Elevated troponin Abdominal pain Non-ST elevation myocardial infarction (NSTEMI) Anemia Hypokalemia Acute renal failure (Acute) Acute epigastric pain (Acute) Hypertensive emergency (Acute) Medical History (Updated 08/15/24 @ 16:20 by Melissa Parekh PA-C) ESRD (end stage renal disease) on dialysis Anemia Social History Smoking Status: Former smoker Tobacco Type: Cigarettes packs per day: 1; Smoking End Date: september 2022; Second Hand Exposure: No; Do You Dip or Chew Tobacco: No; Hx Alcohol Use: No Hx Substance Use: No Preferred Language: Martiniquais Communication Ability: Effective Cleaning Technician Required: No Beliefs That Will Affect Care: None marital status: Current Living Situation: Spouse and Family Feels Safe at Home: Yes Safety Concerns: Feels Safe At This Time Assistive Devices: None Review of Systems Review of Systems: All systems reviewed & are unremarkable except as noted in HPI & below Physical Exam Physical Exam: Constitutional: WD/WN, vitals as above, NAD, sitting up in bed, pleasant, conversing easily Head: Normocephalic, Atraumatic Eyes: PERRL, conjunctivae normal, anicteric sclerae ENMT: external ear and nose normal, oropharynx normal Neck: trachea midline, no thyromegaly normal visual inspection Respiratory: normal respiratory effort, lungs clear to auscultation, no wheeze, rales, rhonchi. Normal insp/exp effort, no accessory muscle use Cardiovascular: RRR, 2/6 BROOKS RUSB, no edema Vessels: no JVD or carotid bruit Chest: normal inspection of chest Abdomen: normal bowel sounds, soft, TTP Epigastrum/RUQ +rebound, no guarding, no hepatosplenomegaly Musculoskeletal: no cyanosis or clubbing, extremities motor strength 5/5 Skin: no rashes, warm and dry normal turgor Neurologic: PERRL, EOMI, accommodation nl, no face palsy, no dysarthria CN's II-XI intact bilaterally and moves all extremities Psychiatric: A+Ox3, euthymic affect Lymphatic: no cervical or axillary lymphadenopathy : deferred Results & Data Results & Data Vital Signs (Past 12 Hours) Vital Signs Temp Pulse Pulse Resp BP Pulse Ox O2 Del Method 08/15/24 15:08 65 12 133/76 08/15/24 14:16 65 18 117/79 98 Room Air 08/15/24 13:01 68 111/75 96 Room Air 08/15/24 12:06 70 18 120/78 100 Room Air 08/15/24 10:31 72 20 104/76 99 Room Air 08/15/24 09:41 70 20 122/83 97 Room Air 08/15/24 08:51 73 08/15/24 08:45 60 20 121/75 99 Room Air 08/15/24 08:40 60 20 93/61 L 100 Room Air 08/15/24 08:30 62 18 104/64 99 Room Air 08/15/24 08:27 56 L 20 88/57 L 99 Room Air 08/15/24 08:24 61 18 78/46 L 99 Room Air 08/15/24 08:04 36.7 C 95 H 20 100 Room Air Laboratory Results I have independently reviewed and interpreted patient's admitting labs including CBC, CMP, PT/INR, mag and lipase Diagnostic Findings Chest X-Ray 08/15/24 08:23 XR chest 1V portable HISTORY: n/v COMPARISON: Chest 08/14/2024. FINDINGS: The lungs are clear. Cardiac silhouette is normal in size. No pleural effusions. No pneumothorax. IMPRESSION: No acute process. ACT 112: Negative or not required by law. Electronically signed by: Jericho Rivera M.D. 08/15/2024 9:44 AM Cholangiopancreatography MRI 08/15/24 10:28 MR MRCP HISTORY: 44 years-old Female r/o choledocholithiasis acute abdominal pain with nausea and vomiting COMPARISON: Ultrasound 08/14/2024 TECHNIQUE: MRCP was obtained without IV contrast utilizing institutional protocol FINDINGS: The mid lower chest is unremarkable. Study is motion degraded. The spleen, pancreas, liver and adrenal glands are within normal limits. There is no hydronephrosis. Mild cortical thinning within the kidneys. Aorta and IVC are unremarkable. No lymphadenopathy. No bowel obstruction, bowel wall thickening or ascites. Distended gallbladder with cholelithiasis. No gallbladder wall thickening or pericholecystic fluid identified. Common bile duct measures 6 mm. No biliary strictures or choledocholithiasis. Normal caliber of the pancreatic duct. No evidence of pancreatic divisum. Minimal lumbar levoscoliosis. IMPRESSION: 1. Distended gallbladder with cholelithiasis. No wall thickening or pericholecystic fluid identified to suggest acute cholecystitis. 2. No biliary ductal dilation or choledocholithiasis. ACT 112: Negative or not required by law. The above report was generated using voice recognition software. It may contain grammatical, syntax or spelling errors. Electronically signed by: Thierry Aquino M.D. 08/15/2024 12:43 PM Medications Administered Medication List Ciprofloxacin (Cipro / D5w) 400 mg in 200 mls @ 100 mls/hr IV Q24H [facility]; Protocol Stop: 08/25/24 15:44 Last Admin: 08/15/24 15:59 Dose: 100 mls/hr Documented By: Metronidazole (Flagyl) 500 mg in 100 mls @ 100 mls/hr IV Q8H MARITZA; Protocol Stop: 08/25/24 15:44 Last Admin: 08/15/24 15:43 Dose: 100 mls/hr Documented By: Discontinued Medications Sodium Chloride (Nss) 250 mls @ 999 mls/hr IV .Q16M ONE Stop: 08/15/24 08:38 Last Infusion: 08/15/24 08:47 Dose: Infused Documented By: Admin: 08/15/24 08:31 Dose: 999 mls/hr Documented By: CAMPOS Acetaminophen (Ofirmev) 1,000 mg in 100 mls @ 400 mls/hr IV NOW STA Stop: 08/15/24 08:37 Last Infusion: 08/15/24 08:47 Dose: Infused Documented By: Admin: 08/15/24 08:32 Dose: 400 mls/hr Documented By: CAMPOS Famotidine (Pepcid 20mg Iv Push) 20 mg in 5 mls @ 2.5 mls/min IV NOW STA Stop: 08/15/24 08:24 Last Admin: 08/15/24 08:57 Dose: 2.5 mls/min Documented By: CAMPOS Morphine Sulfate (Morphine Sulfate 4 Mg/Ml 1 Ml Carp\\Vial) 4 mg IV NOW STA Stop: 08/15/24 08:24 Last Admin: 08/15/24 08:57 Dose: 4 mg Documented By: CAMPOS Ondansetron HCl (Ondansetron Inj 2 Mg/Ml 2 Ml Vial) 4 mg IV NOW STA Stop: 08/15/24 08:24 Last Admin: 08/15/24 08:31 Dose: 4 mg Documented By: CAMPOS ECG Additional Comments: I have independently reviewed and interpreted patient's admitting EKG which revealed: 71 nsr, qtc 462ms no st t wave change COVID-19 Results Results COVID-19 Adm Lab Results: RBC 3.93 M/uL (4.20-5.40) L 08/15/24 WBC 5.60 K/ul (4.8-10.8) 08/15/24 Hgb 11.8 g/dl (12.0-16.0) L 08/15/24 Hct 35.6 % (37.0-47.0) L 08/15/24 Plt Count 279 K/uL (130-400) 08/15/24 Neutrophils (%) (Auto) 54.8 % 08/15/24 Lymphocytes (%) (Auto) 34.5 % 08/15/24 Monocytes # (Auto) 0.42 K/uL (0.11-0.59) 08/15/24 Eosinophils # (Auto) 0.13 K/uL (0.00-0.50) 08/15/24 Immature Granulocyte % (Auto) 0.2 % 08/15/24 Neutrophils # (Auto) 3.07 K/uL (1.40-6.50) 08/15/24 Lymphocytes # (Auto) 1.93 K/uL (1.20-3.40) 08/15/24 Monocytes # (Auto) 0.42 K/uL (0.11-0.59) 08/15/24 Eosinophils # (Auto) 0.13 K/uL (0.00-0.50) 08/15/24 Basophils # (Auto) 0.04 K/uL (0.00-0.20) 08/15/24 Immature Granulocyte # (Auto) 0.01 K/uL (0.01-0.20) 4 Na 139 mmol/L (136-145) 08/15/24 K 3.2 mmol/L (3.5-5.1) L 08/15/24 Cl 96 mmol/L (98-107) L 08/15/24 CO2 31 mmol/L (21-32) 08/15/24 Anion Gap 12 (3-11) H 08/15/24 BUN 15 mg/dl (6-23) 08/15/24 Creatinine 1.80 mg/dl (0.6-1.2) H 08/15/24 BUN/Creatinine Ratio 8.3 (10-20) L 08/15/24 Glucose Level 112 mg/dl (70-99(Fasting)) H 08/15/24 Ca 9.4 mg/dl (8.6-10.3) 08/15/24 Total Bilirubin 3.1 mg/dl (0.2-1.0) H 08/15/24 Direct Bilirubin 1.7 mg/dl (0-0.2) H 08/15/24 AST/SGOT 359 U/L (13-39) H 08/15/24 ALT/SGPT 634 U/L (7-52) H 08/15/24 Alkaline Phosphatase 138 U/L (34-104) H 08/15/24 Total Protein 7.5 gm/dl (6.0-8.3) 08/15/24 Albumin 4.3 gm/dl (3.4-5.0) 08/15/24 Globulin 3.2 gm/dl (2.5-4.0) 08/15/24 Albumin/Globulin Ratio 1.3 (0.9-2) 08/15/24 INR 1.0 (0.9-1.1) 08/15/24 Chest X-Ray 08/15/24 Code Status & VTE Plan Code Status FULL CODE VTE Prophylaxis Plan VTE Prophylaxis will be ordered: Yes Supervising Physician Co-Signing Physician Notes Pt was seen and examined by myself, Kristy Roy MD on the day of service. Care was coordinated with Melissa Parekh PA-C 44-year-old female admitted with symptomatic cholelithiasis. LFTs significantly elevated. MRCP negative GI and water resource engineering specialist is recommending transfer, however transfer declined by El[facility] with [facility] stating there are no ERCP providers over the weekend. Official response from Elisa Lee still pending after our team reached out once more for possible transfer. Patient states that she would actually consider a transfer to [facility] if needed but would like to talk to her about this first. General surgery stating that they can consider cholecystectomy on Sunday if liver enzymes are downtrending. Continue antibiotics, and continue to trend liver enzymes Otherwise as above. I spent a total [id number] coordinating, documenting, and providing care for this patient excluding time spent in the performance of separately billed services
[2024-08-15] MEDS ORDERED: HYDROmorphone INJ 0.5 MG/0.5 ML SYR IV PRN (17:46)
[2024-08-15] MEDS ORDERED: ACETAMINOPHEN 1,000 MG/100 ML VIAL IV PRN (17:46)
[2024-08-15] MEDS: SEVELAMER CARBONATE 800 MG TAB PO SCH (19:20)
[2024-08-15] MEDS: CALCITRIOL 0.25 MCG CAPSULE PO SCH (19:20)
[2024-08-15] MEDS: METOPROLOL SUCC 25MG EXT REL TAB PO SCH (20:24)
[2024-08-15] MEDS: DOCUSATE SODIUM 100 MG CAP PO SCH (20:24)
[2024-08-15] MEDS: CETIRIZINE HCL 10 MG TABLET PO SCH (20:24)
[2024-08-15] MEDS: HEPARIN SOD 5,000 UNIT/0.5 ML VIAL SQ SCH (22:35)
[2024-08-16 06:47] LABS: Basophils # (auto) 0.02 K/uL (0.00-0.20); Basophils % (auto) 0.5 %; Eosinophils # (auto) 0.22 K/uL (0.00-0.50); Eosinophils % (auto) 5.6 %; Hematocrit (blood only) 31.2 % (37.0-47.0); Hemoglobin 10.2 g/dl (12.0-16.0); Lymphocytes # (auto) 1.21 K/uL (1.20-3.40); Mean Corpuscular Hemoglobin 30.5 pg (25.0-34.0); Mean Corpuscular Hgb Conc 32.7 g/dL (32.0-36.0); Mean Corpuscular Volume 93.4 fL (80.0-100.0); Mean Platelet Volume 10.8 fL (9.4-12.4); Monocytes # (auto) 0.41 K/uL (0.11-0.59); Monocytes % (auto) 10.5 %; Neutrophils # (auto) 2.04 K/uL (1.40-6.50); Neutrophils % (auto) 52.4 %; Platelet Count 207 K/uL (130-400); RDW Coefficient of Variation 13.6 % (11.5-14.5); RDW Standard Deviation 46.5 fL (36.4-46.3); Red Blood Count 3.34 M/uL (4.20-5.40)
[2024-08-16 07:11] LABS: Albumin Globulin Ratio 1.3 (0.9-2); Albumin Level 3.6 gm/dl (3.4-5.0); Bilirubin,Total 1.6 mg/dl (0.2-1.0); Calcium 8.5 mg/dl (8.6-10.3); Creatinine Clr Calc Pharmacy 28.8 ml/min; Est GFR (African American) 22.2 ml/min; Est GFR (Non-African American) 19.1 ml/min; Globulin 2.8 gm/dl (2.5-4.0); Magnesium 1.9 mg/dl (1.7-2.4); Phosphorus 3.3 mg/dl (2.5-4.9); Potassium 3.5 mmol/L (3.5-5.1); Total Protein 6.4 gm/dl (6.0-8.3)
--- NOTE | 2024-08-16 07:35 | Hospitalist Progress Note ---
Date of Service August 16, 2024 Assessment & Plan (1) Symptomatic cholelithiasis: (2) Elevated bilirubin: (3) Elevated LFTs: (4) ESRD (end stage renal disease) on dialysis: Plan Ms. Benitez is a 44 yr old F who has significant PMH of HTN, mitral valve disorder, ESRD on HD, hx of pre eclampsia, granuloma of liver associated with sarcoidosis, anxiety who presents to ED in setting of abd pain for a few days. Of significance pt was seen in ED on 08/14 and admitted for acute cholecystis. #Symptomatic Cholelithiasis #Elevated bilirubin and LFTS admit to [employer] tele discussed with [facility] who does not have any interventional physician to perform ERCP - recommend transfer Transfer postponed; monitored overnight with downtrending labs Re discussed with surgery who states if LFT trends down they could consider and cholecystectomy on Sunday continue to trend LFTS IV Cipro/Flagyl, analgesics Clear liquids for now #Chronic Anemia of Kidney Disease likely in setting of renal disease, hgb stable at 11.8 #ESRD On hemodialysis continue home hd cycle #Hypertension On losartan: hold for now Metoprolol succinate and torsemide #GERD On Protonix #Anxiety On venlafaxine DVT ppx: SQ Heparin FULL CODE PCP: Sofia Fenton Dispo: admit to med tele Admission and Anticipated Discharge Date Admission Date: August 15, 2024 Subjective States she feels much better today with bowel rest; eager to trial a diet Endorses slight pain in RUQ Physical Exam Constitutional: WD/WN, vitals as above Respiratory: normal respiratory effort, lungs clear to auscultation Cardiovascular: RRR, no murmur, no edema Gastrointestinal (Abdomen): tenderness to RUQ Results & Data Results & Data Vital Signs (Past 12 Hours) Vital Signs Temp Pulse Pulse Resp BP Pulse Ox O2 Del Method 08/16/24 03:21 37.0 C 82 20 105/69 92 Room Air 08/16/24 00:20 36.9 C 67 18 93/53 L 97 Room Air 08/15/24 23:00 67 Laboratory Results Short CBC 08/16/24 Range/Units 06:24 WBC 3.90 L (4.8-10.8) K/ul Hgb 10.2 L (12.0-16.0) g/dl Hct 31.2 L (37.0-47.0) % Plt Count 207 (130-400) K/uL BMP 08/16/24 06:24 Sodium 139 Potassium 3.5 Chloride 99 Carbon Dioxide 33 H BUN 17 Creatinine 2.84 H D Glucose 86 Calcium 8.5 L Liver Function 08/15/24 08/16/24 Range/Units 08:15 06:24 Total Bilirubin 1.6 H (0.2-1.0) mg/dl Direct Bilirubin 1.7 H (0-0.2) mg/dl AST 137 H (13-39) U/L ALT 381 H (7-52) U/L Alkaline Phosphatase 112 H (34-104) U/L Albumin 3.6 (3.4-5.0) gm/dl Medications Administered Home Medications Medication Instructions Recorded Confirmed Last Taken pantoprazole 40 mg tablet,delayed 40 mg PO QAM #30 tabs 10/22/22 08/15/24 08/14/24 release Lactobacil.acidophilus-Bifido.animalis 1 cap PO QAM 02/27/24 08/15/24 08/14/24 5 billion cell sprinkle capsule (Probiotic) cetirizine 10 mg tablet (Zyrtec) 10 mg PO HS 02/27/24 08/15/24 08/13/24 docusate sodium 100 mg capsule 100 mg PO BID 02/27/24 08/15/24 08/14/24 (Colace) losartan 100 mg tablet 100 mg PO QAM 02/27/24 08/15/24 08/14/24 sevelamer carbonate 800 mg tablet 800 mg PO TIDM 02/27/24 08/15/24 08/14/24 venlafaxine 37.5 mg 37.5 mg PO QAM 02/27/24 08/15/24 08/14/24 capsule,extended release 24 hr calcitriol 0.5 mcg capsule 0.5 mcg PO 3XWK 07/26/24 08/15/24 08/13/24 metoprolol succinate 25 mg 25 mg PO BID 07/26/24 08/15/24 08/14/24 tablet,extended release 24 hr torsemide 100 mg tablet 100 mg PO QAM 07/26/24 08/15/24 08/14/24 vitamin B complex and vitamin C 1 cap PO QAM 08/31/24 09/20/24 09/19/24 no.20-folic acid 1 mg capsule (Renal Caps) semaglutide (weight loss) 1 mg/0.5 1 mg subcut WK 08/15/24 08/15/24 08/12/24 mL subcutaneous pen injector (Ana) Active Medications Generic Name Dose Route Start Last Admin Trade Name Freq PRN Reason Stop Dose Admin Calcitriol 0.5 mcg 08/15/24 17:46 08/15/24 19:20 Calcitriol 0.25 Mcg Capsule PO 09/14/24 17:45 0.5 mcg [id number] MARITZA Administration Cetirizine HCl 10 mg 08/15/24 21:00 08/15/24 20:24 Cetirizine Hcl 10 Mg Tablet PO 09/14/24 20:59 10 mg HS MARITZA Administration Docusate Sodium 100 mg 08/15/24 21:00 08/16/24 08:07 Docusate Sodium 100 Mg Cap PO 09/14/24 20:59 100 mg BID MARITZA Administration Heparin Sodium (Porcine) 5,000 units 08/15/24 22:00 08/16/24 05:45 Heparin Sod 5,000 Unit/0.5 Ml Vial SQ 09/14/24 21:59 5,000 units Q8 MARITZA Administration Ciprofloxacin 400 mg in 200 mls @ 100 mls/hr 08/15/24 15:45 08/15/24 18:20 Cipro / D5w IV 08/25/24 15:44 Infused Q24H MARITZA Infusion Protocol Metronidazole 500 mg in 100 mls @ 100 mls/hr 08/15/24 15:45 08/16/24 09:09 Flagyl IV 08/25/24 15:44 Infused Q8H MARITZA Infusion Protocol Lactobacillus Acidophilus 625 mg 08/16/24 09:00 08/16/24 08:07 Advanced Probiotic 625 Mg Capsule PO 09/15/24 08:59 625 mg QAM MARITZA Administration Metoprolol Succinate 25 mg 08/15/24 21:00 08/16/24 08:07 Metoprolol Succ 25mg Ext Rel Tab PO 09/14/24 20:59 Not Given BID MARITZA Ondansetron HCl 4 mg 08/15/24 17:46 08/16/24 12:05 Ondansetron Inj 2 Mg/Ml 2 Ml Vial IV 09/14/24 17:45 4 mg Q6H PRN Administration Nausea Pantoprazole Sodium 40 mg 08/16/24 09:00 08/16/24 08:08 Pantoprazole 40 Mg Tab PO 09/15/24 08:59 40 mg QAM MARITZA Administration Sevelamer Carbonate 800 mg 08/15/24 17:46 08/16/24 12:01 Sevelamer Carbonate 800 Mg Tab PO 09/14/24 17:45 Not Given TIDM MARITZA Torsemide 100 mg 08/16/24 09:00 08/16/24 08:08 Torsemide 100 Mg Tab PO 09/15/24 08:59 100 mg QAM MARITZA Administration Venlafaxine HCl 37.5 mg 08/16/24 09:00 08/16/24 08:08 Venlafaxine Hcl Xr 37.5 Mg Capxr PO 09/15/24 08:59 37.5 mg QAM MARITZA Administration Vitamin B Complex/Folic Acid 1 cap 08/16/24 09:00 08/16/24 08:08 Nephrocaps PO 09/15/24 08:59 1 cap QAM MARITZA Administration
--- NOTE | 2024-08-16 07:52 | Nephrology Consultation ---
Date of Consultation August 16, 2024 Assessment & Plan (1) ESRD (end stage renal disease) on dialysis: ESRD on M/F. she missed 1.5 hrs of treatment this week; that said she has been eating poorly and is not overloaded on exam. K 3.5, bicarb 33 > potassium and acid/base status ok. hgb >10, acceptable. CXR which I personally reviewed is clear, w/o overload or acute process. -no further HD needed today -reeval for need daily but plan HD 08/18 timed to accommodate surgery (2) Cholelithiasis: for possible OR on 08/18 bilirubin and transaminases and symptoms improving today History of Present Illness Reason for Consultation: ESRD on HD Requesting Physician: Dr Roy Attending Physician: Loretta Dyer MD History of Present Illness 44 y/o F whom I'm asked to see for ESRD on HD was admitted yesterday afternoon for symptomatic cholelithiasis in the setting of elevated transaminases and bilirubin. Surgery has evaluated the pt; she [place] [facility] [place]. On HD 2 days weekly since 11/2023; had 2h of her customary 3.5 hr tx yesterday. ESRD from HTN. PMH also includes hypertension,mitral valve disorder, granuloma of liver associated with sarcoidosis, anxiety, hypermobility syndrome, reformed tobacco user. Recent obs here earlier this month for Mycoplasma pneumonia. She developed acute RUQ and epigastric pain after supper the day before presentation with intractable n/v. u/s showed a mildly distended gallbladder w/ layering sludge and small stones. MRCP showed no kaci stone but mild CBD distension. After surgery evaluated the patient, [place] [facility] [place] had been under consideration but was ultimately tabled. On evaluation midday today, hunger was her chief concern. she'd had some N controlled w/ medication. her abdominal pain had lessened and been replaced by abdominal bloating and distension. She denied orthopnea, dypsnea, cough, f/c, dysuria, gross hematuria or other new or worrisome voiding sx. No edema, no chest pain or palpitations. Allergies Allergy/AdvReac Type Severity Reaction Status Date / Time Penicillins Allergy Intermediate HIVES Verified 08/15/24 09:00 Sulfa (Sulfonamide Allergy Intermediate HIVES Verified 08/15/24 09:00 Antibiotics) cat dander Allergy Mild Itching Verified 08/15/24 09:00 house dust Allergy Mild Itching Verified 08/15/24 09:00 Home Medications Medication Instructions Recorded Confirmed Type pantoprazole 40 mg tablet,delayed 40 mg PO QAM #30 tabs 10/22/22 08/15/24 Rx release Lactobacil.acidophilus-Bifido.animalis 1 cap PO QAM 02/27/24 08/15/24 History 5 billion cell sprinkle capsule (Probiotic) cetirizine 10 mg tablet (Zyrtec) 10 mg PO HS 02/27/24 08/15/24 History docusate sodium 100 mg capsule 100 mg PO BID 02/27/24 08/15/24 History (Colace) losartan 100 mg tablet 100 mg PO QAM 02/27/24 08/15/24 History sevelamer carbonate 800 mg tablet 800 mg PO TIDM 02/27/24 08/15/24 History venlafaxine 37.5 mg 37.5 mg PO QAM 02/27/24 08/15/24 History capsule,extended release 24 hr calcitriol 0.5 mcg capsule 0.5 mcg PO 3XWK 07/26/24 08/15/24 History metoprolol succinate 25 mg 25 mg PO BID 07/26/24 08/15/24 History tablet,extended release 24 hr torsemide 100 mg tablet 100 mg PO QAM 07/26/24 08/15/24 History vitamin B complex and vitamin C 1 cap PO QAM 07/26/24 08/15/24 History no.20-folic acid 1 mg capsule (Renal Caps) semaglutide (weight loss) 1 mg/0.5 1 mg subcut WK 08/15/24 08/15/24 History mL subcutaneous pen injector (Wegovy) Patient History Medical History ESRD (end stage renal disease) on dialysis Anemia Social History Smoking Status: Former smoker Tobacco Type: Cigarettes packs per day: 1; Smoking End Date: september 2022; Second Hand Exposure: No; Do You Dip or Chew Tobacco: No; Hx Alcohol Use: No Hx Substance Use: No Preferred Language: Haitian Communication Ability: Effective Digital Computer Systems Analyst Required: No Beliefs That Will Affect Care: None marital status: Current Living Situation: Spouse and Family Feels Safe at Home: Yes Safety Concerns: Feels Safe At This Time Assistive Devices: None Review of Systems 2 Review of Systems: All systems reviewed & are unremarkable except as noted in HPI & below Physical Exam 2 Constitutional: well developed (sitting in bed on RA, nontoxic appearing), well nourished and cooperative; no acute distress ENMT: Mouth: + dry oral mucous membranes Respiratory: normal respiratory effort Auscultation: lungs clear to auscultation bilaterally Gastrointestinal (Abdomen): Inspection/Auscultation: normal bowel sounds P ercussion/Palpation: + abdomen tender and abdomen soft Musculoskeletal: Extremities: strength 5/5 throughout Skin: no rashes, warm and dry Neurologic: delgado, fluent speech, no tremor Results & Data Vital Signs (Past 12 Hours) Vital Signs Temp Pulse Pulse Resp BP Pulse Ox O2 Del Method 08/16/24 03:21 37.0 C 82 20 105/69 92 Room Air 08/16/24 00:20 36.9 C 67 18 93/53 L 97 Room Air 08/15/24 23:00 67 Laboratory Results 08/16/24 06:24 08/16/24 06:24
[2024-08-16] MEDS: ADVANCED PROBIOTIC 625 MG CAPSULE PO SCH (08:07)
[2024-08-16] MEDS: VENLAFAXINE HCL XR 37.5 MG CAPXR PO SCH (08:08)
[2024-08-16] MEDS: NEPHROCAPS PO SCH (08:08)
[2024-08-16] MEDS: PANTOprazole 40 MG TAB PO SCH (08:08)
[2024-08-16] MEDS: TORSEMIDE 100 MG TAB PO SCH (08:08)
[2024-08-16] MEDS: LACTATED RINGER'S 1,000 ML IV SCH (08:34)
--- NOTE | 2024-08-16 11:43 | Surgery Progress Note ---
Date of Service August 16, 2024 Assessment & Plan (1) Cholelithiasis: (2) Elevated LFTs: Plan she appears to be improving. Total bilirubin is down to 1.5. Her pain is improved. We will hold off on transfer for now. She may start clear liquids. We will check her labs again tomorrow. If her labs continue to improve, we will plan for laparoscopic cholecystectomy on Sunday. Admission and Anticipated Discharge Date Admission Date: August 15, 2024 Subjective Feeling better this morning. Still has some right upper quadrant pain. She denies nausea or vomiting. She is passing flatus. She is hungry. Physical Exam Physical Exam: NAD, A&O x 3 NCAT AFVSS Abdomen: Soft, mild TTP in RUQ Results & Data Vital Signs (Past 12 Hours) Vital Signs Temp Pulse Pulse Resp BP Pulse Ox O2 Del Method 08/16/24 09:18 72 08/16/24 08:02 37.0 C 74 18 92/56 L 94 Room Air 08/16/24 03:21 37.0 C 82 20 105/69 92 Room Air 08/16/24 00:20 36.9 C 67 18 93/53 L 97 Room Air Laboratory Results 08/16/24 08/15/24 08/15/24 Range/Units 06:24 20:18 08:15 WBC 3.90 L (4.8-10.8) K/ul RBC 3.34 L (4.20-5.40) M/uL Hgb 10.2 L (12.0-16.0) g/dl Hct 31.2 L (37.0-47.0) % MCV 93.4 (80.0-100.0) fL MCH 30.5 (25.0-34.0) pg MCHC 32.7 (32.0-36.0) g/dL RDW Std Deviation 46.5 H (36.4-46.3) fL RDW Coeff of Vy 13.6 (11.5-14.5) % Plt Count 207 (130-400) K/uL MPV 10.8 (9.4-12.4) fL Immature Gran % (Auto) 0.0 % Neut % (Auto) 52.4 % Lymph % (Auto) 31.0 % Hays % (Auto) 10.5 % Eos % (Auto) 5.6 % Baso % (Auto) 0.5 % Neut # (Auto) 2.04 (1.40-6.50) K/uL Lymph # (Auto) 1.21 (1.20-3.40) K/uL Hays # (Auto) 0.41 (0.11-0.59) K/uL Eos # (Auto) 0.22 (0.00-0.50) K/uL Baso # (Auto) 0.02 (0.00-0.20) K/uL Immature Gran # (Auto) 0.00 L (0.01-0.20) K/uL Sodium 139 (136-145) mmol/L Potassium 3.5 (3.5-5.1) mmol/L Chloride 99 (98-107) mmol/L Carbon Dioxide 33 H (21-32) mmol/L Anion Gap 7 (3-11) BUN 17 (6-23) mg/dl Creatinine 2.84 H D (0.6-1.2) mg/dl Est Cr Clr Drug Dosing 28.8 ml/min Est GFR ( Amer) 22.2 ml/min Est GFR (Non-Af Amer) 19.1 ml/min BUN/Creatinine Ratio 6.0 L (10-20) Glucose 86 (70-99(Fasting)) mg/dl Calcium 8.5 L (8.6-10.3) mg/dl Phosphorus 3.3 (2.5-4.9) mg/dl Magnesium 1.9 (1.7-2.4) mg/dl Total Bilirubin 1.6 H (0.2-1.0) mg/dl Direct Bilirubin 1.7 H (0-0.2) mg/dl AST 137 H (13-39) U/L ALT 381 H (7-52) U/L Alkaline Phosphatase 112 H (34-104) U/L Total Protein 6.4 (6.0-8.3) gm/dl Albumin 3.6 (3.4-5.0) gm/dl Globulin 2.8 (2.5-4.0) gm/dl Albumin/Globulin Ratio 1.3 (0.9-2) Lipase 36 (11-82) U/L Nasal Screen MRSA (PCR) Negative (Negative)
[2024-08-16] MEDS: ONDANSETRON INJ 2 MG/ML 2 ML VIAL IV PRN (12:05)
[2024-08-16] MEDS: ACETAMINOPHEN 325 MG TAB PO PRN (21:06)
[2024-08-16] MEDS: SIMETHICONE 80 MG CHEW PO ONE (21:07)
[2024-08-17 07:33] LABS: Hematocrit (blood only) 30.8 % (37.0-47.0); Hemoglobin 10.1 g/dl (12.0-16.0); Mean Corpuscular Hemoglobin 30.7 pg (25.0-34.0); Mean Corpuscular Hgb Conc 32.8 g/dL (32.0-36.0); Mean Corpuscular Volume 93.6 fL (80.0-100.0); Mean Platelet Volume 10.8 fL (9.4-12.4); Platelet Count 199 K/uL (130-400); RDW Coefficient of Variation 13.3 % (11.5-14.5); Red Blood Count 3.29 M/uL (4.20-5.40); White Blood Count 4.01 K/ul (4.8-10.8)
[2024-08-17 07:51] LABS: Albumin Globulin Ratio 1.4 (0.9-2); Albumin Level 3.7 gm/dl (3.4-5.0); Bilirubin,Total 1.1 mg/dl (0.2-1.0); Calcium 8.8 mg/dl (8.6-10.3); Creatinine Clr Calc Pharmacy 25.7 ml/min; Est GFR (African American) 19.3 ml/min; Est GFR (Non-African American) 16.7 ml/min; Globulin 2.7 gm/dl (2.5-4.0); Magnesium 1.7 mg/dl (1.7-2.4); Phosphorus 3.1 mg/dl (2.5-4.9); Potassium 3.2 mmol/L (3.5-5.1); Total Protein 6.4 gm/dl (6.0-8.3)
[2024-08-17] MEDS: POTASSIUM CHLORIDE CRTAB 20 MEQ TABCR PO STA (08:38)
--- NOTE | 2024-08-17 10:46 | Surgery Progress Note ---
Date of Service August 17, 2024 Assessment & Plan (1) Cholelithiasis: (2) Elevated LFTs: Plan she appears to be improving. Total bilirubin is down to 1.1. Her pain is improved. she may have a soft diet. We will plan for cholecystectomy. She is due for dialysis tomorrow. We may plan for cholecystectomy on Sunday. Admission and Anticipated Discharge Date Admission Date: August 15, 2024 Subjective States she feels much better today, some bloating overnight, wants to try food Physical Exam Physical Exam: NAD, A&O x 3 NCAT AFVSS Abdomen: Soft, mild TTP in RUQ Results & Data Vital Signs (Past 12 Hours) Vital Signs Temp Pulse Pulse Resp BP Pulse Ox O2 Del Method 08/17/24 07:22 36.8 C 74 18 104/70 96 Room Air 08/17/24 07:00 69 08/17/24 03:35 37.0 C 77 20 107/71 98 Room Air 08/17/24 00:10 36.6 C 77 18 95/58 L 98 Room Air 08/16/24 22:46 99 H Laboratory Results 08/17/24 Range/Units 07:06 WBC 4.01 L (4.8-10.8) K/ul RBC 3.29 L (4.20-5.40) M/uL Hgb 10.1 L (12.0-16.0) g/dl Hct 30.8 L (37.0-47.0) % MCV 93.6 (80.0-100.0) fL MCH 30.7 (25.0-34.0) pg MCHC 32.8 (32.0-36.0) g/dL RDW Std Deviation 46.0 (36.4-46.3) fL RDW Coeff of Vy 13.3 (11.5-14.5) % Plt Count 199 (130-400) K/uL MPV 10.8 (9.4-12.4) fL Sodium 139 (136-145) mmol/L Potassium 3.2 L (3.5-5.1) mmol/L Chloride 101 (98-107) mmol/L Carbon Dioxide 29 (21-32) mmol/L Anion Gap 9 (3-11) BUN 19 (6-23) mg/dl Creatinine 3.18 H D (0.6-1.2) mg/dl Est Cr Clr Drug Dosing 25.7 ml/min Est GFR ( Amer) 19.3 ml/min Est GFR (Non-Af Amer) 16.7 ml/min BUN/Creatinine Ratio 6.0 L (10-20) Glucose 101 H (70-99(Fasting)) mg/dl Calcium 8.8 (8.6-10.3) mg/dl Phosphorus 3.1 (2.5-4.9) mg/dl Magnesium 1.7 (1.7-2.4) mg/dl Total Bilirubin 1.1 H (0.2-1.0) mg/dl AST 76 H (13-39) U/L ALT 271 H (7-52) U/L Alkaline Phosphatase 107 H (34-104) U/L Total Protein 6.4 (6.0-8.3) gm/dl Albumin 3.7 (3.4-5.0) gm/dl Globulin 2.7 (2.5-4.0) gm/dl Albumin/Globulin Ratio 1.4 (0.9-2)
--- NOTE | 2024-08-17 13:55 | Hospitalist Progress Note ---
Date of Service August 17, 2024 Assessment & Plan (1) Symptomatic cholelithiasis: (2) Elevated bilirubin: (3) Elevated LFTs: (4) ESRD (end stage renal disease) on dialysis: Plan Ms. Benitez is a 44 yr old F who has significant PMH of HTN, mitral valve disorder, ESRD on HD, hx of pre eclampsia, granuloma of liver associated with sarcoidosis, anxiety who presents to ED in setting of abd pain for a few days. Of significance pt was seen in ED on 08/14 and admitted for acute cholecystis. Patient to take cholecystectomy on Sunday. #Symptomatic Cholelithiasis #Elevated bilirubin and LFTS admit to med tele discussed with [facility] who does not have any interventional physician to perform ERCP No further indication for transfer; monitored overnight with downtrending labs Re discussed with surgery who states if LFT trends down they could consider and cholecystectomy on Sunday continue to trend LFTS IV Cipro/Flagyl, analgesics soft diet #Chronic Anemia of Kidney Disease likely in setting of renal disease, hgb stable at 11.8 #ESRD On hemodialysis continue home hd cycle #Hypertension On losartan: hold for now Metoprolol succinate and torsemide #GERD On Protonix #Anxiety On venlafaxine DVT ppx: SQ Heparin FULL CODE PCP: Sofia Fenton Dispo: admit to med tele Admission and Anticipated Discharge Date Admission Date: August 15, 2024 Subjective NAEO Reports bloating and gas Denies nausea and vomiting Still with RUQ TTP Physical Exam Constitutional: WD/WN, vitals as above Respiratory: normal respiratory effort, lungs clear to auscultation Cardiovascular: RRR, no murmur, no edema Gastrointestinal (Abdomen): ANDREA TTP Results & Data Results & Data Vital Signs (Past 12 Hours) Vital Signs Temp Pulse Pulse Resp BP Pulse Ox O2 Del Method 08/17/24 12:12 36.7 C 76 18 126/86 96 Room Air 08/17/24 07:22 36.8 C 74 18 104/70 96 Room Air 08/17/24 07:00 69 08/17/24 03:35 37.0 C 77 20 107/71 98 Room Air Laboratory Results Home Medications Medication Instructions Recorded Confirmed Last Taken pantoprazole 40 mg tablet,delayed 40 mg PO QAM #30 tabs 10/22/22 08/15/24 08/14/24 release Lactobacil.acidophilus-Bifido.animalis 1 cap PO QAM 02/27/24 08/15/24 08/14/24 5 billion cell sprinkle capsule (Probiotic) cetirizine 10 mg tablet (Zyrtec) 10 mg PO HS 02/27/24 08/15/24 08/13/24 docusate sodium 100 mg capsule 100 mg PO BID 02/27/24 08/15/24 08/14/24 (Colace) losartan 100 mg tablet 100 mg PO QAM 02/27/24 08/15/24 08/14/24 sevelamer carbonate 800 mg tablet 800 mg PO TIDM 02/27/24 08/15/24 08/14/24 venlafaxine 37.5 mg 37.5 mg PO QAM 02/27/24 08/15/24 08/14/24 capsule,extended release 24 hr calcitriol 0.5 mcg capsule 0.5 mcg PO 3XWK 07/26/24 08/15/24 08/13/24 metoprolol succinate 25 mg 25 mg PO BID 07/26/24 08/15/24 08/14/24 tablet,extended release 24 hr torsemide 100 mg tablet 100 mg PO QAM 07/26/24 08/15/24 08/14/24 vitamin B complex and vitamin C 1 cap PO QAM 07/26/24 08/15/24 08/14/24 no.20-folic acid 1 mg capsule (Renal Caps) semaglutide (weight loss) 1 mg/0.5 1 mg subcut WK 08/15/24 08/15/24 08/12/24 mL subcutaneous pen injector (Ana) Active Medications Generic Name Dose Route Start Last Admin Trade Name Freq PRN Reason Stop Dose Admin Acetaminophen 650 mg 08/15/24 17:46 08/17/24 08:53 Acetaminophen 325 Mg Tab PO 09/14/24 17:45 650 mg Q4H PRN Administration Pain or Fever Calcitriol 0.5 mcg 08/15/24 17:46 08/15/24 19:20 Calcitriol 0.25 Mcg Capsule PO 09/14/24 17:45 0.5 mcg [id number] MARITZA Administration Cetirizine HCl 10 mg 08/15/24 21:00 08/16/24 21:02 Cetirizine Hcl 10 Mg Tablet PO 09/14/24 20:59 10 mg HS MARITZA Administration Docusate Sodium 100 mg 08/15/24 21:00 08/17/24 08:42 Docusate Sodium 100 Mg Cap PO 09/14/24 20:59 100 mg BID MARITZA Administration Heparin Sodium (Porcine) 5,000 units 08/15/24 22:00 08/17/24 04:47 Heparin Sod 5,000 Unit/0.5 Ml Vial SQ 09/14/24 21:59 Not Given Q8 MARITZA Ciprofloxacin 400 mg in 200 mls @ 100 mls/hr 08/15/24 15:45 08/16/24 17:02 Cipro / D5w IV 08/25/24 15:44 Infused Q24H MARITZA Infusion Protocol Metronidazole 500 mg in 100 mls @ 100 mls/hr 08/15/24 15:45 08/17/24 09:57 Flagyl IV 08/25/24 15:44 Infused Q8H MARITZA Infusion Protocol Lactobacillus Acidophilus 625 mg 08/16/24 09:00 08/17/24 08:38 Advanced Probiotic 625 Mg Capsule PO 09/15/24 08:59 625 mg QAM MARITZA Administration Metoprolol Succinate 25 mg 08/15/24 21:00 08/17/24 08:39 Metoprolol Succ 25mg Ext Rel Tab PO 09/14/24 20:59 25 mg BID MARITZA Administration Ondansetron HCl 4 mg 08/15/24 17:46 08/17/24 11:08 Ondansetron Inj 2 Mg/Ml 2 Ml Vial IV 09/14/24 17:45 4 mg Q6H PRN Administration Nausea Pantoprazole Sodium 40 mg 08/16/24 09:00 08/17/24 08:39 Pantoprazole 40 Mg Tab PO 09/15/24 08:59 40 mg QAM MARITZA Administration Sevelamer Carbonate 800 mg 08/15/24 17:46 08/17/24 13:17 Sevelamer Carbonate 800 Mg Tab PO 09/14/24 17:45 Not Given TIDM MARITZA Torsemide 100 mg 08/16/24 09:00 08/17/24 08:40 Torsemide 100 Mg Tab PO 09/15/24 08:59 100 mg QAM MARITZA Administration Venlafaxine HCl 37.5 mg 08/16/24 09:00 08/17/24 08:40 Venlafaxine Hcl Xr 37.5 Mg Capxr PO 09/15/24 08:59 37.5 mg QAM MARITZA Administration Vitamin B Complex/Folic Acid 1 cap 08/16/24 09:00 08/17/24 08:39 Nephrocaps PO 09/15/24 08:59 1 cap QAM MARITZA Administration Medications Administered Home Medications Medication Instructions Recorded Confirmed Last Taken pantoprazole 40 mg tablet,delayed 40 mg PO QAM #30 tabs 10/22/22 08/15/24 08/14/24 release Lactobacil.acidophilus-Bifido.animalis 1 cap PO QAM 02/27/24 08/15/24 08/14/24 5 billion cell sprinkle capsule (Probiotic) cetirizine 10 mg tablet (Zyrtec) 10 mg PO HS 02/27/24 08/15/24 08/13/24 docusate sodium 100 mg capsule 100 mg PO BID 02/27/24 08/15/24 08/14/24 (Colace) losartan 100 mg tablet 100 mg PO QAM 02/27/24 08/15/24 08/14/24 sevelamer carbonate 800 mg tablet 800 mg PO TIDM 02/27/24 08/15/24 08/14/24 venlafaxine 37.5 mg 37.5 mg PO QAM 02/27/24 08/15/24 08/14/24 capsule,extended release 24 hr calcitriol 0.5 mcg capsule 0.5 mcg PO 3XWK 07/26/24 08/15/24 08/13/24 metoprolol succinate 25 mg 25 mg PO BID 07/26/24 08/15/24 08/14/24 tablet,extended release 24 hr torsemide 100 mg tablet 100 mg PO QAM 07/26/24 08/15/24 08/14/24 vitamin B complex and vitamin C 1 cap PO QAM 07/26/24 08/15/24 08/14/24 no.20-folic acid 1 mg capsule (Renal Caps) semaglutide (weight loss) 1 mg/0.5 1 mg subcut WK 08/15/24 08/15/24 08/12/24 mL subcutaneous pen injector (Ana) Active Medications Generic Name Dose Route Start Last Admin Trade Name Freq PRN Reason Stop Dose Admin Acetaminophen 650 mg 08/15/24 17:46 08/17/24 08:53 Acetaminophen 325 Mg Tab PO 09/14/24 17:45 650 mg Q4H PRN Administration Pain or Fever Calcitriol 0.5 mcg 08/15/24 17:46 08/15/24 19:20 Calcitriol 0.25 Mcg Capsule PO 09/14/24 17:45 0.5 mcg [id number] MARITZA Administration Cetirizine HCl 10 mg 08/15/24 21:00 08/16/24 21:02 Cetirizine Hcl 10 Mg Tablet PO 09/14/24 20:59 10 mg HS MARITZA Administration Docusate Sodium 100 mg 08/15/24 21:00 08/17/24 08:42 Docusate Sodium 100 Mg Cap PO 09/14/24 20:59 100 mg BID MARITZA Administration Heparin Sodium (Porcine) 5,000 units 08/15/24 22:00 08/17/24 04:47 Heparin Sod 5,000 Unit/0.5 Ml Vial SQ 09/14/24 21:59 Not Given Q8 MARITZA Ciprofloxacin 400 mg in 200 mls @ 100 mls/hr 08/15/24 15:45 08/16/24 17:02 Cipro / D5w IV 08/25/24 15:44 Infused Q24H MARITZA Infusion Protocol Metronidazole 500 mg in 100 mls @ 100 mls/hr 08/15/24 15:45 08/17/24 09:57 Flagyl IV 08/25/24 15:44 Infused Q8H MARITZA Infusion Protocol Lactobacillus Acidophilus 625 mg 08/16/24 09:00 08/17/24 08:38 Advanced Probiotic 625 Mg Capsule PO 09/15/24 08:59 625 mg QAM MARITZA Administration Metoprolol Succinate 25 mg 08/15/24 21:00 08/17/24 08:39 Metoprolol Succ 25mg Ext Rel Tab PO 09/14/24 20:59 25 mg BID MARITZA Administration Ondansetron HCl 4 mg 08/15/24 17:46 08/17/24 11:08 Ondansetron Inj 2 Mg/Ml 2 Ml Vial IV 09/14/24 17:45 4 mg Q6H PRN Administration Nausea Pantoprazole Sodium 40 mg 08/16/24 09:00 08/17/24 08:39 Pantoprazole 40 Mg Tab PO 09/15/24 08:59 40 mg QAM MARITZA Administration Sevelamer Carbonate 800 mg 08/15/24 17:46 08/17/24 13:17 Sevelamer Carbonate 800 Mg Tab PO 09/14/24 17:45 Not Given TIDM MARITZA Torsemide 100 mg 08/16/24 09:00 08/17/24 08:40 Torsemide 100 Mg Tab PO 09/15/24 08:59 100 mg QAM MARITZA Administration Venlafaxine HCl 37.5 mg 08/16/24 09:00 08/17/24 08:40 Venlafaxine Hcl Xr 37.5 Mg Capxr PO 09/15/24 08:59 37.5 mg QAM MARITZA Administration Vitamin B Complex/Folic Acid 1 cap 08/16/24 09:00 08/17/24 08:39 Nephrocaps PO 09/15/24 08:59 1 cap QAM MARIZTA Administration
[2024-08-18] MEDS ORDERED: SODIUM CHLORIDE 0.9% 1,000 ML IV PRN (07:44)
[2024-08-18 07:48] LABS: Albumin Globulin Ratio 1.3 (0.9-2); Albumin Level 3.7 gm/dl (3.4-5.0); BUN Creatinine Ratio 6.8 (10-20); Bilirubin,Total 0.7 mg/dl (0.2-1.0); Calcium 8.9 mg/dl (8.6-10.3); Creatinine Clr Calc Pharmacy 27.8 ml/min; Est GFR (African American) 21.4 ml/min; Est GFR (Non-African American) 18.5 ml/min; Globulin 2.8 gm/dl (2.5-4.0); Potassium 3.4 mmol/L (3.5-5.1); Total Protein 6.5 gm/dl (6.0-8.3)
[2024-08-18] MEDS: HEPARIN SOD (PORCINE) 1000 UNIT/ML IV ONE (10:09)
[2024-08-18] MEDS: HEPARIN SOD (PORCINE) 1000 UNIT/ML IV SCH (11:18)
[2024-08-18] MEDS: EPOETIN ALFA 10,000 UNITS/ML VIAL IV ONE (11:38)
--- NOTE | 2024-08-18 13:13 | Hospitalist Progress Note ---
<Statement entered by Brian Gresham, DO - 08/18/24 14:48> I have seen and examined the patient and have discussed the case with the provider above. I have reviewed the advanced practitioner's documentation, and I agree with, and take responsibility for that plan of care. 6 minutes spent on evaluation the patient. Patient feeling improved, continues some right upper quadrant tenderness Right upper quadrant exam, mild tenderness, positive Tabares's, no guarding or rigidity Plan of care as outlined below Date of Service August 18, 2024 Assessment & Plan (1) Symptomatic cholelithiasis: (2) Elevated bilirubin: (3) Elevated LFTs: (4) ESRD (end stage renal disease) on dialysis: Plan Ms. 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 Of significance pt was seen in ED on 08/14 and admitted for acute cholecystis. Patient to take cholecystectomy on Sunday. Symptomatic Cholelithiasis Elevated bilirubin and LFTS admit to med tele discussed with [facility] who does not have any interventional physician to perform ERCP No further indication for transfer; monitored overnight with downtrending labs Surgery planning for laparscopic cholecystectomy on Sunday continue to trend LFTS which are down trending IV Cipro/Flagyl, analgesics soft diet Chronic Anemia of Kidney Disease likely in setting of renal disease, hgb stable at 11.8 ESRD On hemodialysis continue home hd cycle sunday and sunday plan for Kidney transplant 09/17 Hypertension On losartan: hold for now Metoprolol succinate and torsemide GERD On Protonix Anxiety On venlafaxine DVT ppx: SQ Heparin FULL CODE PCP: Sofia Fenton Dispo: med tele due to HD A total of 46 min was spent coordinating, documenting, and providing care for this patient excluding time spent in the performance of separately billed services. This included personally viewing all current laboratories and imaging studies, medication reconciliation, outpatient chart review, and discussion with specialists. Admission and Anticipated Discharge Date Admission Date: August 15, 2024 Subjective NAEO She is requesting liberalization of diet due to the fact that her potassium is low and she always moderates what she consumes. She is also requesting the possibility of a port being placed due to being such a hard stick. Review of Systems Review of Systems: All systems reviewed & are unremarkable except as noted in HPI & below Physical Exam Physical Exam: Gen: WD/WN, NAD, A&O x3 HEENT: Normocephalic, atraumatic, conjunctivae moist, sclerae anicteric, mucous membranes moist. Lung: Clear to Auscultation bilaterally, no wheezes/rales/rhonchi Heart: Regular rate, regular rhythm, no murmurs, rubs, or gallops Abdomen: Soft, minimal TTP, ND +BS x 4 Extremities: No edema Skin: Warm, no rash, negative turgor. Results & Data Results & Data Vital Signs (Past 12 Hours) Vital Signs Temp Pulse Pulse Pulse Resp BP BP 08/18/24 12:30 84 119/83 08/18/24 12:00 65 122/81 08/18/24 11:30 65 110/77 08/18/24 11:00 67 115/81 08/18/24 10:30 68 120/81 08/18/24 10:00 73 125/87 08/18/24 09:52 71 125/88 08/18/24 09:44 36.8 C 80 08/18/24 07:56 70 08/18/24 07:45 36.6 C 60 18 134/86 08/18/24 04:00 36.9 C 81 18 125/85 Pulse Ox O2 Del Method 08/18/24 12:30 08/18/24 12:00 08/18/24 11:30 08/18/24 11:00 08/18/24 10:30 08/18/24 10:00 08/18/24 09:52 08/18/24 09:44 08/18/24 07:56 08/18/24 07:45 97 Room Air 08/18/24 04:00 97 Room Air Laboratory Results [facility] 08/18/24 05:58 Sodium 137 Potassium 3.4 L Chloride 102 Carbon Dioxide 28 BUN 20 Creatinine 2.92 H Glucose 96 Calcium 8.9 Liver Function 08/18/24 Range/Units 05:58 Total Bilirubin 0.7 (0.2-1.0) mg/dl AST 46 H (13-39) U/L ALT 193 H (7-52) U/L Alkaline Phosphatase 95 (34-104) U/L Albumin 3.7 (3.4-5.0) gm/dl Medications Administered Current Inpatient Medications Acetaminophen (Acetaminophen 325 Mg Tab) 650 mg PO Q4H PRN PRN Reason: Pain or Fever Stop: 09/14/24 17:45 Last Admin: 08/17/24 08:53 Dose: 650 mg Calcitriol (Calcitriol 0.25 Mcg Capsule) 0.5 mcg PO [id number] [facility] Stop: 09/14/24 17:45 Last Admin: 08/15/24 19:20 Dose: 0.5 mcg Cetirizine HCl (Cetirizine Hcl 10 Mg Tablet) 10 mg PO HS [facility] Stop: 09/14/24 20:59 Last Admin: 08/17/24 20:18 Dose: 10 mg Diphenhydramine HCl (Diphenhydramine Capsule 25 Mg Cap) 25 mg PO Q6H PRN PRN Reason: Allergic Symptoms Stop: 09/17/24 09:10 Docusate Sodium (Docusate Sodium 100 Mg Cap) 100 mg PO BID [facility] Stop: 09/14/24 20:59 Last Admin: 08/17/24 20:21 Dose: 100 mg Heparin Sodium (Porcine) (Heparin Sod 5,000 Unit/0.5 Ml Vial) 5,000 units SQ Q8 [facility] Stop: 09/14/24 21:59 Last Admin: 08/18/24 05:33 Dose: Not Given Hydromorphone HCl (Hydromorphone Inj 0.5 Mg/0.5 Ml Syr) 0.25 mg IV Q6H PRN PRN Reason: Severe Pain (Scale 7, 8, 9,10) Stop: 08/29/24 17:45 Ciprofloxacin (Cipro / D5w) 400 mg in 200 mls @ 100 mls/hr IV Q24H [facility]; Protocol Stop: 08/25/24 15:44 Last Infusion: 08/17/24 20:22 Dose: Infused Metronidazole (Flagyl) 500 mg in 100 mls @ 100 mls/hr IV Q8H [facility]; Protocol Stop: 08/25/24 15:44 Last Infusion: 08/18/24 07:30 Dose: Infused Acetaminophen (Ofirmev) 1,000 mg in 100 mls @ 400 mls/hr IV Q8H PRN PRN Reason: Mild-Mod Pain (Scale 1-6) Stop: 08/18/24 17:45 Sodium Chloride (Nss) 1,000 mls @ 0 mls/hr IV .Q0M PRN PRN Reason: For Hemodialysis Use ONLY Stop: 08/18/24 13:43 Lactobacillus Acidophilus (Advanced Probiotic 625 Mg Capsule) 625 mg PO QAM [facility] Stop: 09/15/24 08:59 Last Admin: 08/17/24 08:38 Dose: 625 mg Metoprolol Succinate (Metoprolol Succ 25mg Ext Rel Tab) 25 mg PO BID [facility] Stop: 09/14/24 20:59 Last Admin: 08/17/24 20:17 Dose: 25 mg Ondansetron HCl (Ondansetron Inj 2 Mg/Ml 2 Ml Vial) 4 mg IV Q6H PRN PRN Reason: Nausea Stop: 09/14/24 17:45 Last Admin: 08/17/24 11:08 Dose: 4 mg Pantoprazole Sodium (Pantoprazole 40 Mg Tab) 40 mg PO QAM [facility] Stop: 09/15/24 08:59 Last Admin: 08/17/24 08:39 Dose: 40 mg Sevelamer Carbonate (Sevelamer Carbonate 800 Mg Tab) 800 mg PO TIDM [facility] Stop: 09/14/24 17:45 Last Admin: 08/17/24 17:37 Dose: 800 mg Torsemide (Torsemide 100 Mg Tab) 100 mg PO QAM [facility] Stop: 09/15/24 08:59 Last Admin: 08/17/24 08:40 Dose: 100 mg Venlafaxine HCl (Venlafaxine Hcl Xr 37.5 Mg Capxr) [facility] [place] Stop: 09/15/24 08:59 Last Admin: 08/17/24 08:40 Dose: 37.5 mg Vitamin B Complex/Folic Acid (Nephrocaps) 1 cap PO QAM [facility] Stop: 09/15/24 08:59 Last Admin: 08/17/24 08:39 Dose: 1 cap
--- NOTE | 2024-08-18 19:10 | Nephrology Progress Note ---
Date of Service August 18, 2024 Assessment & Plan (1) ESRD (end stage renal disease) on dialysis: Plan: ESRD on /. she missed 1.5 hrs of treatment lastweek; that said she has been eating poorly and is not overloaded on exam today or last week. K 3.8, bicarb 28 > potassium and acid/base status ok. hgb >10.1, acceptable. Tolerated HD today; tenatively for OR tomorrow -next HD for 08/22 or as needs dictate (2) Cholelithiasis: Plan: for possible OR on 08/18 symptoms improving today; no transaminases checked today Admission and Anticipated Discharge Date Admission Date: August 15, 2024 Subjective seen on late afternoon rounds; some ongoing mild RUQ TTP but N resolved adn abd pain else controlled; tolerated HD w/ 2LUF Review of Systems 2 Review of Systems: All systems reviewed & are unremarkable except as noted in Subjective Physical Exam 2 Constitutional: well developed (sitting in bed on RA, nontoxic appearing), well nourished and cooperative; no acute distress ENMT: Mouth: + dry oral mucous membranes Respiratory: normal respiratory effort Auscultation: lungs clear to auscultation bilaterally Cardiovascular: RRR, no murmur, no edema Musculoskeletal: Extremities: strength 5/5 throughout Skin: no rashes, warm and dry Results & Data Vital Signs (Past 12 Hours) Vital Signs Temp Pulse Pulse Pulse Resp BP BP 08/18/24 16:09 36.7 C 92 H 18 124/85 08/18/24 15:00 89 08/18/24 14:15 36.6 C 77 135/78 08/18/24 13:30 89 124/80 08/18/24 13:00 73 126/88 08/18/24 12:30 84 119/83 08/18/24 12:00 65 122/81 08/18/24 11:30 65 110/77 08/18/24 11:00 67 115/81 08/18/24 10:30 68 120/81 08/18/24 10:00 73 125/87 08/18/24 09:52 71 125/88 08/18/24 09:44 36.8 C 80 08/18/24 07:56 70 08/18/24 07:45 36.6 C 60 18 134/86 Pulse Ox O2 Del Method 08/18/24 16:09 98 Room Air 08/18/24 15:00 08/18/24 14:15 08/18/24 13:30 08/18/24 13:00 08/18/24 12:30 08/18/24 12:00 08/18/24 11:30 08/18/24 11:00 08/18/24 10:30 08/18/24 10:00 08/18/24 09:52 08/18/24 09:44 08/18/24 07:56 08/18/24 07:45 97 Room Air Laboratory Results 08/17/24 07:06 08/18/24 05:58
[2024-08-19 06:32] LABS: Basophils # (auto) 0.04 K/uL (0.00-0.20); Basophils % (auto) 0.7 %; Eosinophils # (auto) 0.24 K/uL (0.00-0.50); Eosinophils % (auto) 4.4 %; Hematocrit (blood only) 31.9 % (37.0-47.0); Hemoglobin 10.6 g/dl (12.0-16.0); Immature Granulocytes # (auto) 0.04 K/uL (0.01-0.20); Immature Granulocytes % (auto) 0.7 %; Lymphocytes # (auto) 1.61 K/uL (1.20-3.40); Lymphocytes % (auto) 29.5 %; Mean Corpuscular Hemoglobin 30.5 pg (25.0-34.0); Mean Corpuscular Hgb Conc 33.2 g/dL (32.0-36.0); Mean Corpuscular Volume 91.9 fL (80.0-100.0); Mean Platelet Volume 11.1 fL (9.4-12.4); Monocytes # (auto) 0.65 K/uL (0.11-0.59); Monocytes % (auto) 11.9 %; Neutrophils # (auto) 2.88 K/uL (1.40-6.50); Neutrophils % (auto) 52.8 %; Platelet Count 211 K/uL (130-400); RDW Coefficient of Variation 13.4 % (11.5-14.5); RDW Standard Deviation 45.3 fL (36.4-46.3); Red Blood Count 3.47 M/uL (4.20-5.40); White Blood Count 5.46 K/ul (4.8-10.8)
[2024-08-19 07:01] LABS: BUN Creatinine Ratio 5.4 (10-20); Calcium 9.1 mg/dl (8.6-10.3); Creatinine Clr Calc Pharmacy 33.8 ml/min; Est GFR (African American) 26.9 ml/min; Est GFR (Non-African American) 23.2 ml/min; Potassium 3.2 mmol/L (3.5-5.1)
--- NOTE | 2024-08-19 09:44 | Hospitalist Progress Note ---
<Statement entered by Brian Gresham, DO - 08/19/24 14:54> I have seen and examined the patient and have discussed the case with the provider above. I have reviewed the advanced practitioner's documentation, and I agree with, and take responsibility for that plan of care. 5 minutes in coordinating care. Patient resting comfortably in bed. No abdominal pain. Tolerating her diet. Anticipating cholecystectomy tomorrow. Plan of care as outlined below Date of Service August 19, 2024 Assessment & Plan (1) Symptomatic cholelithiasis: (2) Elevated bilirubin: (3) Elevated LFTs: (4) ESRD (end stage renal disease) on dialysis: Plan Ms. Benitez is a 44 yr old F who has significant PMH of HTN, mitral valve disorder, ESRD on HD, hx of pre eclampsia, granuloma of liver associated with sarcoidosis, anxiety who presents to ED in setting of abd pain for a few days. Of significance pt was seen in ED on 08/14 and admitted for acute cholecystis. Patient to have cholecystectomy on Sunday Symptomatic Cholelithiasis Elevated bilirubin and LFTS admit to med tele discussed with [facility] who does not have any interventional physician to perform ERCP No further indication for transfer; monitored overnight with downtrending labs Surgery planning for laparoscopic cholecystectomy on Sunday continue to trend LFTS which are down trending IV Cipro/Flagyl, analgesics soft diet Chronic Anemia of Kidney Disease likely in setting of renal disease, hgb stable at 10.6, she received epo 08/18 ESRD On hemodialysis continue home hd cycle sunday and sunday plan for Kidney transplant 09/17 Hypertension On losartan: hold for now Metoprolol succinate and torsemide Hypokalemia K 3.2, discussed with tian Miranda to give one time supplementation today GERD On Protonix Anxiety On venlafaxine DVT ppx: SQ Heparin placed on hold for upcoming procedure FULL CODE PCP: Sofia Fenton Dispo: downgrade to med/surg, NPO after midnight for lap stiven tomorrow, likely discharge on 08/21 A total of 44 min was spent coordinating, documenting, and providing care for this patient excluding time spent in the performance of separately billed services. This included personally viewing all current laboratories and imaging studies, medication reconciliation, outpatient chart review, and discussion with specialists. Admission and Anticipated Discharge Date Admission Date: August 15, 2024 Subjective She feels well this morning. She tolerated HD yesterday. She is tolerating her diet. Denies f/c/s, chest pain, sob, n/v/d. She c/o some sinus congestion and dry cough and is requesting to take Benadryl Review of Systems Review of Systems: All systems reviewed & are unremarkable except as noted in HPI & below Physical Exam Physical Exam: Gen: WD/WN, NAD, A&O x3 HEENT: Normocephalic, atraumatic, conjunctivae moist, sclerae anicteric, mucous membranes moist. Lung: Clear to Auscultation bilaterally, no wheezes/rales/rhonchi Heart: Regular rate, regular rhythm, no murmurs, rubs, or gallops Abdomen: Soft, minimal TTP, ND +BS x 4 Extremities: No edema Skin: Warm, no rash, negative turgor. Results & Data Results & Data Vital Signs (Past 12 Hours) Vital Signs Temp Pulse Pulse Pulse Resp BP Pulse Ox 08/19/24 07:25 65 08/19/24 07:16 36.7 C 72 18 117/81 99 08/19/24 02:49 36.8 C 75 16 117/79 97 08/19/24 00:00 82 08/18/24 22:34 75 16 128/83 99 O2 Del Method 08/19/24 07:25 08/19/24 07:16 Room Air 08/19/24 02:49 Room Air 08/19/24 00:00 08/18/24 22:34 Room Air Medications Administered Current Inpatient Medications Acetaminophen (Acetaminophen 325 Mg Tab) 650 mg PO Q4H PRN PRN Reason: Pain or Fever Stop: 09/14/24 17:45 Last Admin: 08/17/24 08:53 Dose: 650 mg Calcitriol (Calcitriol 0.25 Mcg Capsule) 0.5 mcg PO [id number] [facility] Stop: 09/14/24 17:45 Last Admin: 08/18/24 14:30 Dose: 0.5 mcg Cetirizine HCl (Cetirizine Hcl 10 Mg Tablet) 10 mg PO HS [facility] Stop: 09/14/24 20:59 Last Admin: 08/18/24 20:37 Dose: 10 mg Diphenhydramine HCl (Diphenhydramine Capsule 25 Mg Cap) 25 mg PO Q6H PRN PRN Reason: Allergic Symptoms Stop: 09/17/24 09:10 Docusate Sodium (Docusate Sodium 100 Mg Cap) 100 mg PO BID [facility] Stop: 09/14/24 20:59 Last Admin: 08/19/24 08:03 Dose: 100 mg Heparin Sodium (Porcine) (Heparin Sod 5,000 Unit/0.5 Ml Vial) 5,000 units SQ Q8 [facility] Stop: 09/14/24 21:59 Last Admin: 08/19/24 05:31 Dose: Not Given Hydromorphone HCl (Hydromorphone Inj 0.5 Mg/0.5 Ml Syr) 0.25 mg IV Q6H PRN PRN Reason: Severe Pain (Scale 7, 8, 9,10) Stop: 08/29/24 17:45 Ciprofloxacin (Cipro / D5w) 400 mg in 200 mls @ 100 mls/hr IV Q24H [facility]; Protocol Stop: 08/25/24 15:44 Last Infusion: 08/18/24 18:05 Dose: Infused Metronidazole (Flagyl) 500 mg in 100 mls @ 100 mls/hr IV Q8H [facility]; Protocol Stop: 08/25/24 15:44 Last Infusion: 08/19/24 05:31 Dose: Infused Lactobacillus Acidophilus (Advanced Probiotic 625 Mg Capsule) 625 mg PO QAM [facility] Stop: 09/15/24 08:59 Last Admin: 08/19/24 08:01 Dose: 625 mg Metoprolol Succinate (Metoprolol Succ 25mg Ext Rel Tab) 25 mg PO BID [facility] Stop: 09/14/24 20:59 Last Admin: 08/19/24 08:01 Dose: 25 mg Ondansetron HCl (Ondansetron Inj 2 Mg/Ml 2 Ml Vial) 4 mg IV Q6H PRN PRN Reason: Nausea Stop: 09/14/24 17:45 Last Admin: 08/18/24 21:23 Dose: 4 mg Pantoprazole Sodium (Pantoprazole 40 Mg Tab) 40 mg PO QAM [facility] Stop: 09/15/24 08:59 Last Admin: 08/19/24 08:00 Dose: 40 mg Sevelamer Carbonate (Sevelamer Carbonate 800 Mg Tab) 800 mg PO TIDM [facility] Stop: 09/14/24 17:45 Last Admin: 08/19/24 08:01 Dose: 800 mg Torsemide (Torsemide 100 Mg Tab) 100 mg PO QAM [facility] Stop: 09/15/24 08:59 Last Admin: 08/19/24 08:01 Dose: 100 mg Venlafaxine HCl (Venlafaxine Hcl Xr 37.5 Mg Capxr) 37.5 mg PO QAM [facility] Stop: 09/15/24 08:59 Last Admin: 08/19/24 08:00 Dose: 37.5 mg Vitamin B Complex/Folic Acid (Nephrocaps) 1 cap PO QAM [facility] Stop: 09/15/24 08:59 Last Admin: 08/19/24 08:00 Dose: 1 cap
[2024-08-19] MEDS: POTASSIUM CHLORIDE CRTAB 20 MEQ TABCR PO STA (10:00)
--- NOTE | 2024-08-19 10:35 | Surgery Progress Note ---
Date of Service August 19, 2024 Assessment & Plan (1) Cholelithiasis: Plan: lap stiven in AM NPO p MN Admission and Anticipated Discharge Date Admission Date: August 15, 2024 Subjective patient doing well Review of Systems Constitutional: no fever and no chills Respiratory: no cough and no dyspnea Cardiovascular: no chest pain Gastrointestinal: no abdominal pain, no nausea and no vomiting Physical Exam Constitutional: WD/WN, vitals as above Gastrointestinal (Abdomen): Inspection/Auscultation: abdomen normal to inspection and normal bowel sounds; abdomen not distended Percussion/Palpation: abdomen soft; abdomen nontender, no guarding and abdomen not rigid Results & Data Vital Signs (Past 12 Hours) Vital Signs Temp Pulse Pulse Pulse Resp BP Pulse Ox 08/19/24 07:25 65 08/19/24 07:16 36.7 C 72 18 117/81 99 08/19/24 02:49 36.8 C 75 16 117/79 97 08/19/24 00:00 82 O2 Del Method 08/19/24 07:25 08/19/24 07:16 Room Air 08/19/24 02:49 Room Air 08/19/24 00:00
[2024-08-19] MEDS: diphenhydrAMINE Capsule 25 MG CAP PO PRN (13:59)
--- NOTE | 2024-08-20 07:32 | History & Physical Bridge Note ---
Date of Service August 20, 2024 History & Physical Bridge Note I have examined the patient, reviewed the History & Physical and in the interval since the performance of the History & Physical I have noted the following changes of clinical significance: no changes noted
[2024-08-20 08:43] LABS: Basophils # (auto) 0.03 K/uL (0.00-0.20); Basophils % (auto) 0.5 %; Eosinophils # (auto) 0.29 K/uL (0.00-0.50); Eosinophils % (auto) 4.9 %; Hemoglobin 11.1 g/dl (12.0-16.0); Immature Granulocytes # (auto) 0.05 K/uL (0.01-0.20); Immature Granulocytes % (auto) 0.8 %; Lymphocytes # (auto) 1.61 K/uL (1.20-3.40); Lymphocytes % (auto) 27.2 %; Mean Corpuscular Hemoglobin 31.6 pg (25.0-34.0); Mean Corpuscular Hgb Conc 34.7 g/dL (32.0-36.0); Mean Corpuscular Volume 91.2 fL (80.0-100.0); Mean Platelet Volume 11.1 fL (9.4-12.4); Monocytes # (auto) 0.64 K/uL (0.11-0.59); Monocytes % (auto) 10.8 %; Neutrophils # (auto) 3.31 K/uL (1.40-6.50); Neutrophils % (auto) 55.8 %; Platelet Count 204 K/uL (130-400); RDW Coefficient of Variation 13.6 % (11.5-14.5); RDW Standard Deviation 44.9 fL (36.4-46.3); Red Blood Count 3.51 M/uL (4.20-5.40); White Blood Count 5.93 K/ul (4.8-10.8)
[2024-08-20 09:08] LABS: Albumin Globulin Ratio 1.5 (0.9-2); Albumin Level 3.9 gm/dl (3.4-5.0); BUN Creatinine Ratio 7.5 (10-20); Bilirubin,Total 0.5 mg/dl (0.2-1.0); Calcium 9.3 mg/dl (8.6-10.3); Est GFR (African American) 21.4 ml/min; Est GFR (Non-African American) 18.5 ml/min; Globulin 2.6 gm/dl (2.5-4.0); Potassium 3.5 mmol/L (3.5-5.1); Total Protein 6.5 gm/dl (6.0-8.3)
[2024-08-20] MEDS ORDERED: LIDOCAINE 2% 2 ML VIAL/AMP(20MG/ML) INFIL ONE (11:19)
[2024-08-20] MEDS ORDERED: ONDANSETRON INJ 2 MG/ML 2 ML VIAL ONE (11:19)
[2024-08-20] MEDS ORDERED: PROPOFOL IV EMULSION 10 MG/ML 20 ML VIAL IV ONE (11:19)
[2024-08-20] MEDS ORDERED: DEXAMETHASONE SOD INJ 4 MG/ML VIAL ONE (11:19)
[2024-08-20] MEDS ORDERED: CISATRACURIUM BESYLATE IV SOLN 2 MG/ML 10 ML VIAL IV ONE (11:20)
[2024-08-20] MEDS ORDERED: fentaNYL citrate PF 100 MCG/2 ML VIAL ONE ×2 (11:20→12:27)
[2024-08-20] MEDS ORDERED: LARYING-O-JET KIT (LTA) ONE (11:20)
[2024-08-20] MEDS ORDERED: MIDAZOLAM HCL 1 MG/ML 2ML VIAL ONE (11:20)
[2024-08-20] MEDS ORDERED: ATROPINE SULFATE 0.1 MG/ML 10ML SYR IV PRN (11:24)
[2024-08-20] MEDS ORDERED: ePHEDrine sulfate 50 MG/ML AMP IV PRN (11:24)
[2024-08-20] MEDS ORDERED: PROMETHAZINE HCL 6.25 MG in SODIUM CHLORIDE 0.9% 50 ML IV PRN (11:24)
[2024-08-20] MEDS ORDERED: ONDANSETRON INJ 2 MG/ML 2 ML VIAL IV PRN (11:24)
--- NOTE | 2024-08-20 11:28 | Anesthesiology Consultation ---
Date of Service August 20, 2024 Assessment & Plan (1) Encounter for pre-operative examination: Chart Review Chart Review: Acceptable Risk for Surgery and Patient NOT seen in Pre Admission Testing Consults Requested none History Surgery Operation Date: 08/20/24 11:25 Proposed Procedures p Laparoscopic Cholecystectomy with Cholangiogram - Edwin Lauren MD Height/Weight Height: 5 ft 6 in Weight: 95.2 kg Allergies Allergy/AdvReac Type Severity Reaction Status Date / Time Penicillins Allergy Intermediate HIVES Verified 08/15/24 09:00 Sulfa (Sulfonamide Allergy Intermediate HIVES Verified 08/15/24 09:00 Antibiotics) cat dander Allergy Mild Itching Verified 08/15/24 09:00 house dust Allergy Mild Itching Verified 08/15/24 09:00 Medications Home Medications Medication Instructions Recorded Confirmed Last Taken pantoprazole 40 mg tablet,delayed 40 mg PO QAM #30 tabs 10/22/22 08/15/24 08/14/24 release Lactobacil.acidophilus-Bifido.animalis 1 cap PO QAM 02/27/24 08/15/24 08/14/24 5 billion cell sprinkle capsule (Probiotic) cetirizine 10 mg tablet (Zyrtec) 10 mg PO HS 02/27/24 08/15/24 08/13/24 docusate sodium 100 mg capsule 100 mg PO BID 02/27/24 08/15/24 08/14/24 (Colace) losartan 100 mg tablet 100 mg PO QAM 02/27/24 08/15/24 08/14/24 sevelamer carbonate 800 mg tablet 800 mg PO TIDM 02/27/24 08/15/24 08/14/24 venlafaxine 37.5 mg 37.5 mg PO QAM 02/27/24 08/15/24 08/14/24 capsule,extended release 24 hr calcitriol 0.5 mcg capsule 0.5 mcg PO 3XWK 07/26/24 08/15/24 08/13/24 metoprolol succinate 25 mg 25 mg PO BID 07/26/24 08/15/24 08/14/24 tablet,extended release 24 hr torsemide 100 mg tablet 100 mg PO QAM 07/26/24 08/15/24 08/14/24 vitamin B complex and vitamin C 1 cap PO QAM 07/26/24 08/15/24 08/14/24 no.20-folic acid 1 mg capsule (Renal Caps) semaglutide (weight loss) 1 mg/0.5 1 mg subcut WK 08/15/24 08/15/24 08/12/24 mL subcutaneous pen injector (Ana) Active Medications Generic Name Dose Route Start Last Admin Trade Name Freq PRN Reason Stop Dose Admin Acetaminophen 650 mg 08/15/24 17:46 08/17/24 08:53 Acetaminophen 325 Mg Tab PO 09/14/24 17:45 650 mg Q4H PRN Administration Pain or Fever Calcitriol 0.5 mcg 08/15/24 17:46 08/20/24 07:53 Calcitriol 0.25 Mcg Capsule PO 09/14/24 17:45 0.5 mcg [id number]@0900 MARIT[facility] Administration Cetirizine HCl 10 mg 08/15/24 21:00 08/19/24 20:38 Cetirizine Hcl 10 Mg Tablet PO 09/14/24 20:59 10 mg HS [facility] Administration Diphenhydramine HCl 25 mg 08/18/24 09:11 08/19/24 13:59 Diphenhydramine Capsule 25 Mg Cap PO 09/17/24 09:10 25 mg Q6H PRN Administration Allergic Symptoms Docusate Sodium 100 mg 08/15/24 21:00 08/20/24 07:53 Docusate Sodium 100 Mg Cap PO 09/14/24 20:59 100 mg BID [facility] Administration Heparin Sodium (Porcine) 5,000 units 08/15/24 22:00 08/19/24 05:31 Heparin Sod 5,000 Unit/0.5 Ml Vial SQ 09/14/24 21:59 Not Given Q8 [facility] Ciprofloxacin 400 mg in 200 mls @ 100 mls/hr 08/15/24 15:45 08/19/24 18:35 Cipro / D5w IV 08/25/24 15:44 Infused Q24H [facility] Infusion Protocol Metronidazole 500 mg in 100 mls @ 100 mls/hr 08/15/24 15:45 08/20/24 05:10 Flagyl IV 08/25/24 15:44 Infused Q8H [facility] Infusion Protocol Lactobacillus Acidophilus 625 mg 08/16/24 09:00 08/20/24 07:53 Advanced Probiotic 625 Mg Capsule PO 09/15/24 08:59 625 mg QAM [facility] Administration Metoprolol Succinate 25 mg 08/15/24 21:00 08/20/24 07:53 Metoprolol Succ 25mg Ext Rel Tab PO 09/14/24 20:59 25 mg BID [facility] Administration Ondansetron HCl 4 mg 08/15/24 17:46 08/18/24 21:23 Ondansetron Inj 2 Mg/Ml 2 Ml Vial IV 09/14/24 17:45 4 mg Q6H PRN Administration Nausea Pantoprazole Sodium 40 mg 08/16/24 09:00 08/20/24 07:53 Pantoprazole 40 Mg Tab PO 09/15/24 08:59 40 mg QAM [facility] Administration Sevelamer Carbonate 800 mg 08/15/24 17:46 08/20/24 07:46 Sevelamer Carbonate 800 Mg Tab PO 09/14/24 17:45 Not Given TIDM [facility] Torsemide 100 mg 08/16/24 09:00 08/20/24 08:00 Torsemide 100 Mg Tab PO 09/15/24 08:59 Not Given QAM [facility] Venlafaxine HCl 37.5 mg 08/16/24 09:00 08/20/24 07:53 Venlafaxine Hcl Xr 37.5 Mg Capxr PO 09/15/24 08:59 37.5 mg QAM [facility] Administration Vitamin B Complex/Folic Acid 1 cap 08/16/24 09:00 08/20/24 07:53 Nephrocaps PO 09/15/24 08:59 1 cap QAM [facility] Administration NPO Date Last Intake of Fluids: 08/19/24 Time Last Intake of Fluids: 23:00 Last Intake of Fluids Comment: 0700 sip water for meds Date Last Intake of Solids: 08/19/24 Time Last Intake of Solids: 22:00 Past Medical History Medical History Fistula Fistula Fistula Encounter for pre-operative examination Cholelithiasis Elevated LFTs Chronic kidney disease ESRD (end stage renal disease) on dialysis Anemia Exercise / Class Metabolic Activity III < 4 Walking/Shop/Light housework Past Surgical History Surgical History Status post tonsillectomy and adenoidectomy History of tonsillectomy and adenoidectomy [place] teeth removed Hx of tonsillectomy History of tonsillectomy Social History Smoking Status: Former smoker tobacco type: cigarettes Do You Dip or Chew Tobacco: No Smoking End Date: september 2022 Hx Alcohol Use: No Alcohol type: hard liquor alcohol intake frequency: a few times a week Hx Substance Use: No Physical Exam Vital Signs Last Vital Signs Temp 36.9 C 08/20/24 11:10 Pulse 71 08/20/24 11:10 Resp 20 08/20/24 11:10 BP 130/83 08/20/24 11:10 Pulse Ox 97 08/20/24 11:10 O2 Del Method Room Air 08/20/24 11:10 Testing Laboratory Results 08/20/24 07:44 08/20/24 07:44 PT 10.8 Seconds (9.0-12.0) 08/15/24 08:15 INR 1.0 (0.9-1.1) 08/15/24 08:15 08/20/24 11:30 POC Ur Test NEG
--- NOTE | 2024-08-20 11:51 | Hospitalist Progress Note ---
Date of Service August 20, 2024 Assessment & Plan (1) Symptomatic cholelithiasis: (2) ESRD (end stage renal disease) on dialysis: Plan Matilda Benitez is a 44y/o F with PMHx significant for HTN, mitral valve disorder, ESRD on HD, history of preeclampsia, granuloma of liver associated with sarcoidosis, hypermobility syndrome, tobacco use disorder and anxiety who was admitted on 08/15/24 due to symptomatic cholelithiasis. Symptomatic Cholelithiasis: Elevated bilirubin and LFTS on admission. General surgery planning for laparoscopic cholecystectomy today. Will continue to trend LFTS, which are already down-trending. Continue IV Cipro/Flagyl, analgesics. Will resume diet when able. Chronic Anemia: Likely ISO renal disease, Hgb remains stable at 11.1 today. Patient did receive epoetin amrita on 08/18/24. Continue to monitor daily CBC. ESRD on Hemodialysis: Continue home Sunday & Sunday HD cycle. Tolerated HD well on 08/18/24 with 2LUF. Plan for kidney transplant 09/17/24 coordinated by the [facility] in [place]. HTN: Losartan on hold for now. Continue torsemide and metoprolol succinate. Hypokalemia: K+ stable at 3.5 today, will continue to monitor with daily labs. Other Chronic Medical Conditions: GERD, anxiety --> Continue home meds for these specific conditions. DVT Prophylaxis: SQ heparin on hold for now 2/2 laparoscopic cholecystectomy today. Code Status: FULL CODE PCP: Sofia Fenton MD Disposition: Downgraded to Med/Surg - possible discharge tomorrow, likely Sunday at the latest. Patient seen in collaboration with Dr. Dyer. Please see addendum. I spent a total of 40 minutes coordinating, documenting, and providing care for this patient excluding time spent in the performance of separately billed services. This included personally reviewing all current laboratories and imaging studies, medical reconciliation, outpatient chart review and discussion with specialists. This chart was completed in part utilizing Speech Voice Recognition Software. Grammatical errors, random word insertions, pronoun errors, and incomplete sentences are an occasional consequence of this system due to software limitations, ambient noise, and hardware issues. Any formal questions or concerns about the content, text, or information contained within the body of this dictation should be directly addressed to the provider for clarification. Admission and Anticipated Discharge Date Admission Date: August 15, 2024 Supervising Physician Co-Signing Physician Notes I have seen and discussed the case with the collaborating advanced practitioner. I agree with the above H&P. I have reviewed and confirmed the patients medical history, the findings on physical examination, and the patients diagnosis and treatment plan with Rosemarie DUNCAN and agree with the information documented. evaluated prior to lap stiven today Denies fevers chill or other acute concerns Exam with mild RUQ tenderness to palpation #Acute cholecystitis plan for lap stiven today plan for dispo likely in am rest of plan as above I spent a total of 15 minutes coordinating, documenting, and providing care for this patient excluding time spent in the performance of separately billed services. All of the aforementioned completed outside of collaborating with the assigned advanced practitioner for a full treatment plan. I have reviewed the advanced practitioner's documentation, and I agree with, and take responsibility for the plan of care Subjective Patient denies any abdominal pain this morning. She is scheduled to undergo laparoscopic cholecystectomy today. Did mention that she is experiencing some post-nasal drainage this morning. Reports she is allergic to dust. Otherwise has no other concerns or complaints at this time. Review of Systems Review of Systems: At least ten systems reviewed and negative, except as noted in the subjective section. Physical Exam Physical Exam: General: WD/WN, vitals as above, NAD, sitting up in bed, pleasant, conversing. A+Ox3, euthymic affect. HEENT: Normocephalic, atraumatic. PERRL, conjunctivae normal, anicteric sclerae, oropharynx normal. Respiratory: Normal respiratory effort, lungs clear to auscultation, no wheeze. No accessory muscle use. Cardiovascular: Regular rate, rhythm, no murmur, normal peripheral pulses, no BLE edema. Vessels: No JVD. Abdomen/GI: Normal bowel sounds, soft, nontender on palpation of all quadrants, no hepatosplenomegaly. Extremities/Musculoskeletal: No cyanosis or clubbing, extremities motor strength intact, moves all extremities. Neurologic: EOMI, no focal deficits, CN's II-XI not formally tested but appear grossly intact bilaterally. Skin: No rashes, normal color, warm/dry. Constitutional: WD/WN, vitals as above Respiratory: normal respiratory effort, lungs clear to auscultation Cardiovascular: RRR, no murmur, no edema Results & Data Results & Data Vital Signs (Past 12 Hours) Vital Signs Temp Pulse Resp BP BP Pulse Ox O2 Del Method 08/20/24 11:10 36.9 C 71 20 130/83 97 Room Air 08/20/24 07:54 Room Air 08/20/24 07:49 36.8 C 71 16 123/82 98 Room Air Laboratory Results Short CBC 08/20/24 Range/Units 07:44 WBC 5.93 (4.8-10.8) K/ul Hgb 11.1 L (12.0-16.0) g/dl Hct 32.0 L (37.0-47.0) % Plt Count 204 (130-400) K/uL BMP 08/20/24 07:44 Sodium 137 Potassium 3.5 Chloride 102 Carbon Dioxide 27 BUN 22 Creatinine 2.92 H D Glucose 92 Calcium 9.3 Liver Function 08/20/24 Range/Units 07:44 Total Bilirubin 0.5 (0.2-1.0) mg/dl AST 45 H (13-39) U/L ALT 130 H (7-52) U/L Alkaline Phosphatase 78 (34-104) U/L Albumin 3.9 (3.4-5.0) gm/dl
[2024-08-20] MEDS: SODIUM CHLORIDE 0.9% 500 ML IV SCH (11:54)
[2024-08-20] MEDS: cefOXitin 2,000 MG/60 ML BAG IV SCH (12:01)
[2024-08-20] MEDS: BUPIVACAINE/EPINEPHRINE 0.5% MPF 1:200,000 30 ML VIAL ONE (12:42)
--- NOTE | 2024-08-20 12:47 | Operative Report ---
Post Operative Report Pre & Post Diagnosis Operation Date: 08/20/24 11:25 Acute cholecystitis, cholelithiasis I identified the patient and participated in the time-out.: Yes Procedure Operation Date: 08/20/24 11:25 Laparoscopic cholecystectomy Surgeon Edwin Lauren MD Rn Lactation Consultant Dona Byrne PA-C Estimated Blood Loss 5 Findings Consistent with Post-Op Diagnosis Specimens Gallbladder to pathology Drains None Anesthesia Type General Complications none Disposition Accompanied Patient To Recovery: No Indications This is a 44-year-old female who was admitted through the ER with abdominal pain which showed cholelithiasis. She was dialyzed before yesterday. We went over the operation risks in detail. She wished to proceed. Description of Procedure The patient was taken the OR, placed in the supine position and underwent excellent general endotracheal anesthesia. Their abdomen is prepped and draped normal sterile fashion. A transverse supraumbilical incision was made and dissection was taken down to identify the anterior fascia. Two Vicryl' sutures were placed on either side of the midline and his midline was then incised. The peritoneal cavity was entered bluntly with Siri clamp. A 12mm Cabrera trocar was then inserted and secured. Good pneumoperitoneum was achieved to 15 mmHg pressure. The patient was placed in head up and rolled to the left position. A 11mm subxiphoid and two 5mm lateral ports were placed in the normal fashion. The gallbladder was identified and was acutely inflamed. The the fundus of the gallbladder was retracted superiorly and the neck of the gallbladder was grasped and then retracted laterally. This splayed open the Hepatocystic triangle. Attention was then turned to taking down the peritoneal attachments and identify the cystic duct and cystic artery. Once these were skeletonized and a medial and lateral window was created between the gallbladder fossa and the duct, thereby ensuring the critical view. Then three clips were then placed distally on cystic duct one proximally on the cystic duct, it was then transected. Two clips were then placed approximately on the cystic artery one distally, the cystic artery was transected. An electrocautery hook was then used to move the gallbladder off the gallbladder fossa. The gallbladder was then placed into an Endobag and brought out through the supraumbilical incision. The pneumoperitoneum was re-established and abdomen was irrigated out until the suction fluid was clear. There were some areas on the gallbladder fossa which were raw which were cauterized and then a Surgicel was used to cover the gallbladder fossa. The ports were then removed and the abdomen decompressed. The fascia of the supraumbilical incision was closed with Vicryls. 0.5% M arcaine with epinephrine local was to create a local field block. Interrupted Vicryl was used to close the skin. Dermabond was used to reinforce the incisions. Sterile dressings were applied. Patient tolerated the procedure without complication and sent to the postop recovery period of observation. They will then be sent to the floor for the rest of their care. Dona Byrne PA-C was present and participated in the entire procedure. She was integral in skin closure, retraction, and camera manipulation. There was no qualified resident available to assist. I attest to the content of the Intraoperative Record and any orders documented therein. Any exceptions are noted below.
[2024-08-20] MEDS: fentaNYL citrate PF 100 MCG/2 ML VIAL IV PRN (13:13)
[2024-08-20] MEDS ORDERED: MoRPHine SULFATE 2 MG/ML CARP IV PRN (14:14)
[2024-08-20] MEDS: FLUTICASONE PROPIONATE NA SPR 16 GM BTL SCH (14:24)
--- NOTE | 2024-08-20 15:37 | Anesthesiology Progress Note ---
Date of Service August 20, 2024 Anesthesia Post Procedure Vital Signs Vital Signs: Temp Pulse Pulse Resp BP BP Pulse Ox 08/20/24 15:15 36.7 C 66 18 107/74 98 08/20/24 14:49 36.6 C 65 16 112/78 98 08/20/24 14:05 66 12 106/75 97 08/20/24 13:50 70 19 116/77 94 08/20/24 13:35 37.4 C 69 20 110/81 100 08/20/24 13:25 67 18 118/85 100 08/20/24 13:15 68 19 116/86 100 08/20/24 13:06 36.9 C 74 17 127/91 100 08/20/24 11:10 36.9 C 71 20 130/83 97 08/20/24 07:54 08/20/24 07:49 36.8 C 71 16 123/82 98 08/19/24 19:44 36.8 C 72 20 125/82 98 O2 Del Method O2 Flow Rate 08/20/24 15:15 Room Air 08/20/24 14:49 Room Air 08/20/24 14:05 Room Air 08/20/24 13:50 Room Air 08/20/24 13:35 Room Air 08/20/24 13:25 Oxymask 4 08/20/24 13:15 Oxymask 4 08/20/24 13:06 Oxymask 8 08/20/24 11:10 Room Air 08/20/24 07:54 Room Air 08/20/24 07:49 Room Air 08/19/24 19:44 Room Air Pain Intensity Abdomen: Pain Intensity: 3 Transfer of Care Handoff Completed per policy Notes Mental Status: alert / awake / arousable and participated in evaluation Patient Amnestic to Procedure: Yes Nausea / Vomiting: adequately controlled Pain: adequately controlled Airway Patency, RR, SpO2: stable & adequate BP & HR: stable & adequate Hydration State: stable & adequate Anesthetic Complications: no major complications apparent and Pt Satisfied with anesthetic care
[2024-08-20] MEDS: oxyCODONE HCL IR 5 MG TAB (IMMEDIATE RELEASE) PO PRN (15:43)
[2024-08-20] MEDS: MoRPHine SULFATE 4 MG/ML 1 ML CARP\\VIAL IV PRN (16:30)
--- NOTE | 2024-08-20 17:43 | Nephrology Progress Note ---
Date of Service August 20, 2024 Assessment & Plan (1) ESRD (end stage renal disease) on dialysis: Plan: ESRD on M/. still w/ significant residual renal function. Had full HD on M 08/18; evaluated today after OR > no concerns at this time from volume or electrolyte or anemia standpoint that she will need treatment sooner than 08/22 but will reevaluated in AM. K 3.5 today; hgb 11.1. -continue nsaid and unless life/limb saving (for CT) IV contrast avoidance -next HD for 08/22 or as needs dictate -no indication to resume phos binders until taking po and moving bowels reliably (2) Cholelithiasis: Plan: s/p 08/20 cholecystectomy; surgery uneventful Admission and Anticipated Discharge Date Admission Date: August 15, 2024 Subjective s/p cholecystectomy today; no major blood loss or fluid shifts reported by surg/anesthesia teams; on RA currently; not sob; working on pain control; no N or edema Review of Systems 2 Review of Systems: All systems reviewed & are unremarkable except as noted in Subjective Physical Exam 2 Constitutional: well developed (sitting in bed on RA, nontoxic appearing), well nourished and cooperative; no acute distress ENMT: Mouth: + dry oral mucous membranes Respiratory: normal respiratory effort Auscultation: lungs clear to auscultation bilaterally Cardiovascular: RRR, no murmur, no edema Musculoskeletal: Extremities: strength 5/5 throughout Skin: no rashes, warm and dry Results & Data Vital Signs (Past 12 Hours) Vital Signs Temp Pulse Pulse Resp BP BP Pulse Ox 08/20/24 17:17 36.4 C L 76 16 117/81 96 08/20/24 16:17 36.9 C 64 16 115/81 96 08/20/24 15:15 36.7 C 66 18 107/74 98 08/20/24 14:49 36.6 C 65 16 112/78 98 08/20/24 14:05 66 12 106/75 97 08/20/24 13:50 70 19 116/77 94 08/20/24 13:35 37.4 C 69 20 110/81 100 08/20/24 13:25 67 18 118/85 100 08/20/24 13:15 68 19 116/86 100 08/20/24 13:06 36.9 C 74 17 127/91 100 08/20/24 11:10 36.9 C 71 20 130/83 97 08/20/24 07:54 08/20/24 07:49 36.8 C 71 16 123/82 98 O2 Del Method O2 Flow Rate 08/20/24 17:17 Room Air 08/20/24 16:17 Room Air 08/20/24 15:15 Room Air 08/20/24 14:49 Room Air 08/20/24 14:05 Room Air 08/20/24 13:50 Room Air 08/20/24 13:35 Room Air 08/20/24 13:25 Oxymask 4 08/20/24 13:15 Oxymask 4 08/20/24 13:06 Oxymask 8 08/20/24 11:10 Room Air 08/20/24 07:54 Room Air 08/20/24 07:49 Room Air Laboratory Results 08/20/24 07:44 08/20/24 07:44
[2024-08-21 07:07] LABS: Hematocrit (blood only) 31.4 % (37.0-47.0); Hemoglobin 10.5 g/dl (12.0-16.0); Mean Corpuscular Hemoglobin 30.9 pg (25.0-34.0); Mean Corpuscular Hgb Conc 33.4 g/dL (32.0-36.0); Mean Corpuscular Volume 92.4 fL (80.0-100.0); Mean Platelet Volume 11.1 fL (9.4-12.4); Platelet Count 222 K/uL (130-400); RDW Coefficient of Variation 13.7 % (11.5-14.5); RDW Standard Deviation 45.6 fL (36.4-46.3); White Blood Count 7.47 K/ul (4.8-10.8)
[2024-08-21] MEDS: oxyCODONE HCL IR 5 MG TAB (IMMEDIATE RELEASE) PO PRN (08:56)
[2024-08-21 08:58] LABS: Albumin Level 3.7 gm/dl (3.4-5.0); Bilirubin,Total 0.5 mg/dl (0.2-1.0); Calcium 8.9 mg/dl (8.6-10.3); Magnesium 1.8 mg/dl (1.7-2.4); Potassium 3.7 mmol/L (3.5-5.1)
--- NOTE | 2024-08-21 09:03 | Surgery Progress Note ---
Date of Service August 21, 2024 Assessment & Plan (1) Cholelithiasis: (2) Elevated bilirubin: Plan: resolved (3) Elevated LFTs: Plan: improved Plan POD # 1 s/p lap stiven avss postop pain controlled no n,v tolerating diet Plan: Doing well from surgery standpoint for discharge discharge instructions reviewed rx Percocet sent to pharmacy prn severe pain f/u surgery office in [address] Lauren has seen and examined pt, agrees with above Admission and Anticipated Discharge Date Admission Date: August 15, 2024 Subjective feeling good, pain at incisions controlled no n,v, tolerating regular diet no chest pain or sob urinating but seems to be slow no burning Physical Exam Constitutional: WD/WN, vitals as above + obese, cooperative and comfortable; no acute distress and not ill appearing Respiratory: normal respiratory effort; no respiratory distress Gastrointestinal (Abdomen): Inspection/Auscultation: abdomen normal to inspection, + abdominal wall ecchymosis (surrounding lap sites), + abdominal surgical incision (c/d/i with dermabond) and + hypoactive bowel sounds; abdomen not distended and + abnormal bowel sounds Percussion/Palpation: + abdomen tender (at incision sites appropriate postop) and abdomen soft; no guarding, abdomen not rigid and abdomen not firm Skin: no rashes, warm and dry Psychiatric: A+Ox3, euthymic affect Results & Data Vital Signs (Past 12 Hours) Vital Signs Temp Pulse Resp BP Pulse Ox O2 Del Method 08/21/24 08:08 36.8 C 76 18 130/86 95 Room Air 08/21/24 03:35 107/71 08/21/24 03:12 36.7 C 74 88/59 L 95 Room Air 08/20/24 23:08 36.4 C L 70 96/59 L 95 Room Air Laboratory Results 08/21/24 08/20/24 08/20/24 Range/Units 06:00 11:30 07:44 WBC 7.47 (4.8-10.8) K/ul RBC 3.40 L (4.20-5.40) M/uL Hgb 10.5 L (12.0-16.0) g/dl Hct 31.4 L (37.0-47.0) % MCV 92.4 (80.0-100.0) fL MCH 30.9 (25.0-34.0) pg MCHC 33.4 (32.0-36.0) g/dL RDW Std Deviation 45.6 (36.4-46.3) fL RDW Coeff of Vy 13.7 (11.5-14.5) % Plt Count 222 (130-400) K/uL MPV 11.1 (9.4-12.4) fL Sodium 137 137 (136-145) mmol/L Potassium 3.7 3.5 (3.5-5.1) mmol/L Chloride 103 102 (98-107) mmol/L Carbon Dioxide 25 27 (21-32) mmol/L Anion Gap 9 8 (3-11) BUN Pending 22 (6-23) mg/dl Creatinine Pending 2.92 H D (0.6-1.2) mg/dl Est Cr Clr Drug Dosing Pending 28.0 ml/min Est GFR ( Amer) Pending 21.4 ml/min Est GFR (Non-Af Amer) Pending 18.5 ml/min BUN/Creatinine Ratio Pending 7.5 L (10-20) Glucose Pending 92 (70-99(Fasting)) mg/dl Calcium 8.9 9.3 (8.6-10.3) mg/dl Phosphorus Pending Magnesium 1.8 (1.7-2.4) mg/dl Total Bilirubin 0.5 0.5 (0.2-1.0) mg/dl AST Pending 45 H (13-39) U/L ALT Pending 130 H (7-52) U/L Alkaline Phosphatase Pending 78 (34-104) U/L Total Protein Pending 6.5 (6.0-8.3) gm/dl Albumin 3.7 3.9 (3.4-5.0) gm/dl Globulin Pending 2.6 (2.5-4.0) gm/dl Albumin/Globulin Ratio Pending 1.5 (0.9-2) POC Ur Test NEG (NEG)
[2024-08-21 09:04] LABS: Albumin Globulin Ratio 1.4 (0.9-2); BUN Creatinine Ratio 9.7 (10-20); Creatinine Clr Calc Pharmacy 29.3 ml/min; Est GFR (African American) 22.6 ml/min; Est GFR (Non-African American) 19.5 ml/min; Globulin 2.6 gm/dl (2.5-4.0); Phosphorus 3.6 mg/dl (2.5-4.9); Total Protein 6.3 gm/dl (6.0-8.3)
--- NOTE | 2024-08-21 09:52 | Nephrology Progress Note ---
Date of Service August 21, 2024 Assessment & Plan (1) ESRD (end stage renal disease) on dialysis: Plan: ESRD on /. still w/ significant residual renal function. Had full HD on M 08/18; evaluated yesterday after OR and again this am > no concerns at this time from volume or electrolyte or anemia standpoint that she will need treatment sooner than 08/22, her customary OP treatment. K 3.7 today; hgb 10.5, likely dilutional. -continue nsaid and unless life/limb saving (for CT) IV contrast avoidance Will sign off NEPHRO D/C RECS -next HD for 08/22 as outpatient -resume/continue customary OP meds -taking sevelamer w/o issue so far and would continue; if abd pain or delay in resuming bowel function would hold this phosphorus binder medication (2) Cholelithiasis: Plan: s/p 08/20 cholecystectomy; surgery uneventful Admission and Anticipated Discharge Date Admission Date: August 15, 2024 Subjective no acute interval events; noting some bruising surg sites and abd bloating; denies flatus or BM yet. no uncontrolled abd pain or N. ate breakfast w/o issue. no sob, no edema. Review of Systems 2 Review of Systems: All systems reviewed & are unremarkable except as noted in Subjective Physical Exam 2 Constitutional: well developed (sitting in bed on RA, nontoxic appearing), well nourished and cooperative; no acute distress ENMT: Mouth: + dry oral mucous membranes Respiratory: normal respiratory effort Auscultation: lungs clear to auscultation bilaterally Cardiovascular: RRR, no murmur, no edema Gastrointestinal (Abdomen): Inspection/Auscultation: + abdomen distended (slight), normal bowel sounds and + abdominal surgical incision (CDI w/ some bruising mild) Musculoskeletal: Extremities: strength 5/5 throughout Skin: no rashes, warm and dry Results & Data Vital Signs (Past 12 Hours) Vital Signs Temp Pulse Resp BP Pulse Ox O2 Del Method 08/21/24 08:08 36.8 C 76 18 130/86 95 Room Air 08/21/24 03:35 107/71 08/21/24 03:12 36.7 C 74 88/59 L 95 Room Air 08/20/24 23:08 36.4 C L 70 96/59 L 95 Room Air Laboratory Results 08/21/24 06:00 08/21/24 06:00
[2024-08-21 11:13] VITALS: BP 126/80; PULSE 80; RESP 16; TEMP 98.1; O2SAT 98
--- NOTE | 2024-08-21 11:28 | Discharge Summary ---
Date of Service August 21, 2024 Admission HPI Per Admitting Provider This is a 44 yr old F who has significant PMH of HTN, mitral valve disorder, ESRD on HD, hx of pre eclampsia, granuloma of liver associated with sarcoidosis, anxiety who presents to ED in setting of abd pain for a few days. Of significance pt was seen in ED on 08/14 and underwent Abd US which read mildly distended gallbladder with layering sludge and small stones. She states she was eating dinner last night, "quinoa," and developed severe RUQ and epigastric pain with associated nausea and vomiting that had her represent to ED. She denies any f/c/s, chest pain, sob, dysuria, increased urg/freq, melena or hematochezia. She presented to HD today where she had 2hrs of tx. She typically has HD on Sunday and Fridays for 3.5hrs. In ED pt was hemodynamically stable. She had a notable bump in her LFTS today with a total bilirubin of 3.1, ast 359 and alt 634. ED provider spoke with [facility] who recommended MRCP and admission to our hospital. MRCP was obtained which didn't show any kaci stone, but did show a CBD of 6mm. Admission Exam Per Admitting Provider Constitutional: WD/WN, vitals as above, NAD, sitting up in bed, pleasant, conversing easily Head: Normocephalic, Atraumatic Eyes: PERRL, conjunctivae normal, anicteric sclerae ENMT: external ear and nose normal, oropharynx normal Neck: trachea midline, no thyromegaly normal visual inspection Respiratory: normal respiratory effort, lungs clear to auscultation, no wheeze, rales, rhonchi. Normal insp/exp effort, no accessory muscle use Cardiovascular: RRR, 2/6 BROOKS RUSB, no edema Vessels: no JVD or carotid bruit Chest: normal inspection of chest Abdomen: normal bowel sounds, soft, TTP Epigastrum/RUQ +rebound, no guarding, no hepatosplenomegaly Musculoskeletal: no cyanosis or clubbing, extremities motor strength 5/5 Skin: no rashes, warm and dry normal turgor Neurologic: PERRL, EOMI, accommodation nl, no face palsy, no dysarthria CN's II-XI intact bilaterally and moves all extremities Psychiatric: A+Ox3, euthymic affect Lymphatic: no cervical or axillary lymphadenopathy : deferred Principal Diagnosis Symptomatic Cholelithiasis s/p Laparoscopic Cholecystectomy Discharge Exam General: WD/WN, vitals as above, NAD, sitting up in bed, very pleasant, conversing. A+Ox3, euthymic affect. HEENT: Normocephalic, atraumatic. PERRL, conjunctivae normal, anicteric sclerae, oropharynx normal. Respiratory: Normal respiratory effort, lungs clear to auscultation, no wheeze. No accessory muscle use. Cardiovascular: Regular rate, rhythm, no murmur, normal peripheral pulses, no BLE edema. Vessels: No JVD. Abdomen/GI: Normal bowel sounds, soft, tender around surgical sites, no hepatosplenomegaly. Extremities/Musculoskeletal: No cyanosis or clubbing, extremities motor strength intact, moves all extremities. Neurologic: EOMI, no focal deficits, CN's II-XI not formally tested but appear grossly intact bilaterally. Skin: No rashes, normal color, warm/dry. Surgical sites x 4 dry and intact with some surrounding bruising. Discharge Data Allergies Allergy/AdvReac Type Severity Reaction Status Date / Time Penicillins Allergy Intermediate HIVES Verified 08/15/24 09:00 Sulfa (Sulfonamide Allergy Intermediate HIVES Verified 08/15/24 09:00 Antibiotics) cat dander Allergy Mild Itching Verified 08/15/24 09:00 house dust Allergy Mild Itching Verified 08/15/24 09:00 Consultations 08/15/24 13:15 ED Decision to Admit Stat 08/15/24 14:34 Consult General Surgery Routine Consult Nephrology Routine Procedures Performed Operation Date: 08/20/24 11:25 Actual Procedures p Laparoscopic Cholecystectomy(Not Applicable) - Edwin Lauren MD Ordered Studies 08/15/24 10:28 MR MRCP Stat Hospital Course (1) Symptomatic cholelithiasis: (2) ESRD (end stage renal disease) on dialysis: Shari Benitez is a 44y/o F with PMHx significant for HTN, mitral valve disorder, ESRD on HD, history of preeclampsia, granuloma of liver associated with sarcoidosis, hypermobility syndrome, tobacco use disorder and anxiety who w as admitted on 08/15/24 due to symptomatic cholelithiasis. Symptomatic Cholelithiasis s/p Laparoscopic Cholecystectomy: No leukocytosis on admission, however did have an elevated bilirubin and LFTS. General surgery was consulted. MRCP showed a distended gallbladder with cholelithiasis but did not show any wall thickening or pericholecystic fluid to suggest acute cholecystitis. Transfer was attempted to [facility] for ERCP, however this was denied due to the bed situation. Her LFTs and total bilirubin had improved with daily monitoring. She was on IV cipro/Flagyl. She underwent laparoscopic cholecystectomy on 08/20/[address] Lauren. She tolerated the procedure well and is being discharged home today in good condition. A 2- week follow-up appointment is to be scheduled with [facility]. She already is scheduled to see her PCP, Dr. Fenton, for her hospital discharge follow-up appointment on 08/26/24. Chronic Anemia: Patient did receive epoetin marita on 08/18/24. 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 ESRD on Hemodialysis: Continue home Sunday & Sunday HD cycle. Tolerated HD well on 08/18/24 with 2LUF. Plan for kidney transplant 09/17/24 coordinated by the [facility] in [place]. Next HD appointment tomorrow, 08/22/24. HTN: Losartan on hold at time of discharge. Can continue torsemide and metoprolol succinate. Hypokalemia: K+ stable at 3.7 on discharge. Other Chronic Medical Conditions: GERD, anxiety --> Continue home meds for these specific conditions at time of discharge. PCP: Sofia Fenton MD --> Appointment on 08/25/24 @ 2PM as per above. Disposition: Patient is being discharged home today in stable condition. Will see [facility] as an outpatient in ~2 weeks. Patient seen in collaboration with Dr. Dyer. Please see addendum. I spent a total of 55 minutes coordinating, documenting, and providing care for this patient excluding time spent in the performance of separately billed services. This included personally reviewing all current laboratories and imaging studies, medical reconciliation, outpatient chart review and discussion with specialists. This chart was completed in part utilizing Speech Voice Recognition Software. Grammatical errors, random word insertions, pronoun errors, and incomplete sentences are an occasional consequence of this system due to software limitations, ambient noise, and hardware issues. Any formal questions or concerns about the content, text, or information contained within the body of this dictation should be directly addressed to the provider for clarification. Home Health Attestation I certify that this patient is under my care and that I, or a physicians producer assistant working with me, had a face to-face encounter that meets the home health [id number] encounter requirements with this patient. The encounter with the patient was in whole, or in part, for the following medical condition, which is the primary reason for home health care (list medical condition): I certify that, based on my findings, the following services are medically necessary home health services: My clinical findings support the need for the above services because: Further, I certify that my clinical findings support that this patient is homebound (i.e. absences from home require considerable and taxing effort and are for medical reasons or temple services or infrequently or of short duration when for other reasons) because: Certification for Home Health Services: Based on the above findings, I certify that this patient is confined to the home and needs intermittent senior care care, physical therapy and/or speech therapy or continues to need occupational therapy. The patient is under my care, and I have initiated the establishment of the plan of care. This patient will be followed by a physician who will periodically review the plan of care. Total Time Total Time Spent Total Time Spent (In Minutes): 55 Discharge Plan Discharge Items Patient Disposition: Home - Self-Care Reason For Visit: Symptomatic Cholelithasis Discharge Diagnosis: Symptomatic Cholelithiasis s/p Laparoscopic Cholecystectomy Condition on Discharge: Good Activity: Per Instructions section Non-emergency contact: Primary Care Provider Call non-emergency contact if: you have any medication questions, your symptoms worsen, your pain is concerning for you and you have a fever Follow-up/Referrals: Dona Byrne PA-C [Physician Java Web Architect] - Sofia Fenton MD [Primary Care Provider] - () Diet: Dialysis Renal Addtl Attending Provider Instructions: Jeb Grey were admitted to the hospital with symptomatic cholelithiasis and underwent laparoscopic cholecystectomy on 08/20/[address] Lauren. You will be contacted by someone from [facility] to schedule a 2-week follow- up appointment. You are already scheduled to see Dr. Fenton at [facility] in [place] on 10/1/24 @ 1PM. Please attend all of your follow-up appointments as scheduled! You are being discharged home with a prescription for Percocet to take as needed for severe pain. Please take this medication as prescribed! We did STOP your LOSARTAN 100MG DAILY while you were hospitalized. Please do NOT resume taking this medication unless your blood pressure is greater than 140/90 at home, otherwise your PCP will help to manage this medication at your hospital discharge follow-up appointment. You can continue taking all of your other medications as prescribed. MEDICATION CHANGES: * Do NOT take your LOSARTAN 100MG DAILY unless your blood pressure is greater than 140/90 at home, otherwise your PCP will help to manage this medication at your hospital discharge follow-up appointment on 08/25/24. DISCHARGE INSTRUCTIONS FROM NEPHROLOGY: * Next HD for 08/22/24 at [facility] in [place]. * Resume/continue home medications, including sevelamer (phosphorus-binding medication). * If any abdominal pain or delay in resuming normal bowel function would occur, please HOLD on taking the sevelamer as prescribed. SEEK MEDICAL ATTENTION IF YOU HAVE: * Temperature above 101F, * Chest pain or trouble breathing, * Abdominal pain, nausea, vomiting, * Diarrhea, dark stools or bloody stools, * Any unanswered questions or concerns! Call 911 if symptoms are severe. Please take good care of yourself. It has been a pleasure taking care of you. If you have any questions regarding your recent hospitalization please contact [facility] and request Elisa Connerist @ [phone]. Addtl Proofer Apprentice Provider Instructions: Post-Surgical ~Discharge Instructions Activity Recommendations: - lifting limitation: (20 pounds for 2 weeks), - exercise/sex/sports limit: (nonstrenuous for 2 weeks), - driving or machine use limit: (none for 1 week or until pain free and no longer taking narcotic pain medication), - Shower/bathe limit: (may shower, no submerging incisions underwater for 2 weeks) Diet: - Resume previous diet SPECIAL CARE INSTRUCTIONS: - May shower. Let water run over area and pat dry. - Leave surgical glue on incisions, this will fall off on its own. Do not pick at it as this can cause infection - Call the surgeon's office with any questions or concerns - - (ex. temperature higher than 101 degrees F, excessive bleeding or pain). MEDICATIONS: - Resume previous medications unless instructed otherwise by your surgeon. - May take extra strength Tylenol as needed for mild to moderate pain 650 mg Tylenol every 6 hours as needed - Percocet 1 every 6 hours, as needed for moderate to severe pain - Recommend daily stool softener (Colace) while taking narcotic pain medication to prevent constipation or straining. FOLLOW UP VISIT: - If not already scheduled, please call the office to schedule a two week follow-up appointment. Office number Pending Studies at Discharge: Yes (gallbladder pathology, will be reviewed at postop visit) Stand-Alone Forms: My [facility], Smoking Cessation Medications and DC Order Prescriptions: New oxycodone-acetaminophen 5-325 mg tablet 1 tab PO Q6H PRN (Reason: pain) Qty: 5 0RF Continued pantoprazole 40 mg Tablet,Delayed Release (Dr/Ec) 40 mg PO QAM Qty: 30 0RF venlafaxine 37.5 mg capsule,extended release 24hr 37.5 mg PO QAM cetirizine [Zyrtec] 10 mg Tablet 10 mg PO HS docusate sodium [Colace] 100 mg Capsule 100 mg PO BID sevelamer carbonate 800 mg tablet 800 mg PO TIDM Rx Instructions: Take 800mg w/ snack depending on what type of snack it is. Probiotic 5 billion cell Capsule, Sprinkle 1 cap PO QAM torsemide 100 mg tablet 100 mg PO QAM calcitriol 0.5 mcg capsule 0.5 mcg PO 3XWK Rx Instructions: SUN, SUN & SUN metoprolol succinate 25 mg tablet extended release 24 hr 25 mg PO BID Renal Caps 1 mg capsule 1 cap PO QAM Wegovy 1 mg/0.5 mL pen injector 1 mg SUBCUT WK Rx Instructions: Tuesdays Held losartan 100 mg tablet 100 mg PO QAM Hold Instructions: Hold until told resume by PCP; or if BP > 140 Discharge Orders: Discharge Order (Routine); Ordered 08/21/24 Ordered By: Anum Howe/Other Patient Handouts: Cholecystectomy Dc Admission Data Admit Date/Time: 08/15/24 14:33 Attending Provider: Loretta Dyer Admit Provider: Kristy Roy Primary Care Provider: Sofia Fenton Other Providers: Kristy Roy; Monty Yuen; Cesar Salazar Supervising Physician Co-Signing Physician Notes I have seen and discussed the case with the collaborating advanced practitioner. I agree with the above H&P. I have reviewed and confirmed the patients medical history, the findings on physical examination, and the patients diagnosis and treatment plan with Rosemarie DUNCAN and agree with the information documented. pain under control, no acute concerns, eager for dispo Exam clean laproscopic incisions #Acute cholecystitis s/p la stiven 08/20 Discharge home rest of plan as above I spent a total of 15 minutes coordinating, documenting, and providing care for this patient excluding time spent in the performance of separately billed services. All of the aforementioned completed outside of collaborating with the assigned advanced practitioner for a full treatment plan. I have reviewed the advanced practitioner's documentation, and I agree with, and take responsibility for the plan of care
== END 2024-08-21 14:25 | disposition home or self-care (01) | DRG 417 ==
LOC: ED 07:59 → 2N 14:33 → SUATTDRO 14:33 → 2N 17:05 → 2W 08-17 06:09 → 3W 08-19 14:10